=== PATIENT | female | born 1970 | race Caucasian/White ===

== ENCOUNTER → 2019-09-25 15:10 | Outpatient (BNVA) | payer OTHER, SELFPAY | PROVIDERS: Family Provider Family Medicine; PCP Family Medicine; Referring Provider Licensed Practical Nurse; Visit Provider Psychiatry & Neurology Neurology | DX: M51.16 Intervertebral disc disorders with radiculopathy, lumbar region (principal); M79.604 Pain in right leg; M79.605 Pain in left leg | CPT/HCPCS: 95886; 95909 ==

== ENCOUNTER → 2020-01-03 14:34 | Outpatient (BNVA) | payer OTHER, SELFPAY | PROVIDERS: Family Provider Family Medicine; PCP Family Medicine; Visit Provider Obstetrics & Gynecology | DX: Z12.39 Encounter for other screening for malignant neoplasm of breast (principal); Z87.42 Personal history of other diseases of the female genital tract | CPT/HCPCS: 88175 ==

== ENCOUNTER 2020-03-22 10:35 | Outpatient (CLI) | payer OTHER, SELFPAY ==
--- NOTE | 2020-03-22 11:00 | MM_ITS ---
WS: [id number] Bilateral screening digital mammogram, 03/22/2020 Clinical Data: screening mammogram Comparison: 08/06/2017, 08/03/2016, 07/22/2015, 12/13/2009, Findings: The breast parenchymal pattern shows fibroglandular tissue. No spiculated masses or clustered calcifi cations are seen. There are no secondary signs of carcinoma. MM/[place] [id number] Impression: 1. Negative bilateral mammogram unchanged. 2. Recommend annual screening mammograms. BIRADS: 1-Negative FOLLOW UP: 1 Year Follow-up The CAD relay checker was used.
== END 2020-03-22 10:36 | disposition home or self-care (01) ==
LOC: RADSHAW 10:41
PROVIDERS: PCP Family Medicine; Visit Provider Obstetrics & Gynecology
DX: Z12.31 Encounter for screening mammogram for malignant neoplasm of breast (principal)
CPT/HCPCS: 77067

== ENCOUNTER 2020-04-12 07:49 | Outpatient (RCR) | payer OTHER, SELFPAY | END 2020-05-06 23:59 | disposition home or self-care (01) | LOC: SPT 07:49 | PROVIDERS: PCP Family Medicine; Visit Provider Family Medicine | DX: M25.512 Pain in left shoulder (principal); M89.8X1 Other specified disorders of bone, shoulder | CPT/HCPCS: 97110; 97162 ==

== ENCOUNTER 2020-05-06 09:48 | Emergency (ER) | payer OTHER, SELFPAY ==
[2020-05-06 09:50] VITALS: BP 133/82; PULSE 66; RESP 20; TEMP 36.3; O2SAT 96; BMI 38.2
--- NOTE | 2020-05-06 10:01 | XRR_ITS ---
PROCEDURE INFORMATION: Exam: XR Lumbosacral Spine, 2 or 3 Views Exam date and time: 05/06/2020 10:29 AM Age: 49 years old Clinical indication: Injury or trauma; Fall; Initial encounter; Blunt trauma (contusions or hematomas); Injury date: 05/05/20; Prior surgery; Surgery type: Gb, hysto, c section TECHNIQUE: Imaging protocol: XR of the lumbosacral spine, 2 or 3 views. COMPARISON: CR Lumbar Spine 2-3 views* [id number] 07/03/2019 11:49 AM FINDINGS: Vertebrae: No acute bony injury or malalignment. Degenerative change. Soft tissues: Unremarkable as visualized. Intraperitoneal space: Status post cholecystectomy. XR/XR lumbar spine 2-3V* [id number] IMPRESSION: No acute bony injury or malalignment.
--- NOTE | 2020-05-06 10:02 | XRR_ITS ---
PROCEDURE INFORMATION: Exam: XR Thoracic Spine, 3 Views Exam date and time: 05/06/2020 10:29 AM Age: 49 years old Clinical indication: Injury or trauma; Fall; Initial encounter; Blunt trauma (contusions or hematomas); Injury date: 05/05/20; Prior surgery; Surgery type: Gb, hysto, c section TECHNIQUE: Imaging protocol: XR of the thoracic spine, 3 views. COMPARISON: CTA Thoracic Aorta [id number] 11/03/2018 8:22 AM FINDINGS: Vertebrae: No acute bony injury or malalignment in the visualized thoracic spine. Degenerative change. Soft tissues: Unremarkable as visualized. Intraperitoneal space: Status post cholecystectomy. XR/XR thoracic spine 3V* [id number] IMPRESSION: No acute bony injury or malalignment in the visualized thoracic spine.
--- NOTE | 2020-05-06 10:06 | W.ED.BACK ---
HPI - Back Pain/Injury General: Chief Complaint: Back Pain/Injury Stated Complaint: FALL/BACK PAIN Time Seen by Provider: 05/06/20 09:51 History of Present Illness: HPI Narrative: Patient arrives complain intermittent to lower back pain. Had fall yesterday and fall day before the one yesterday is going down steps on her wooden deck and she hit her mid back when she slipped carrying feed buckets. Patient has very forearm and does a lot of work said that she is fell last month 3 times going to physical therapy for her shoulder pain that she has in the left shoulder and for her chronic low back pain MD elicited complaint: fall Pertinent past history: prior back pain and recent trauma Onset (ago): day(s) Timing: constant Severity: moderate Similar Symptoms Previously: Yes Quality: aching Location: lumbar spine and thoracic spine Radiation: none Exacerbating factors: walking Relieving factors: immobilization Context: fall Associated symptoms: Reports other (Complains about left shoulder pain but she is able to use arm without difficulty); Deny abdominal pain, chills, fever(s), nausea or vomiting Work related injury: No Review of Systems Const: Denies: fever(s), chills or body aches Eyes: Denies: change in vision or blurry vision ENMT: Denies: throat pain or nasal congestion Card: Denies: chest pain or dyspnea on exertion Resp: Denies: dyspnea, productive cough or non-productive cough GI: Denies: abdominal pain, nausea or vomiting Musc: Reports: back pain (Yesterday when she landed on someone steps) and joint pain (Left shoulder); Denies: extremity pain Skin/Breast: Denies: rash Neuro: Denies: headache(s) Psych: Denies: anxiety or depression Aydin/Lymph: Denies: easy bruising PFS ED PFSH: Medical History (Updated 04/22/20 @ 17:47 by Alan Parra MD) Asthma Diagnosed in her 40s managed by as needed albuterol. She denies any intubations or hospitalizations Atypical chest pain Benign essential HTN Chronic liver failure History of fatty liver disease with fibrosis-elevated LFTs. She follows up with a manager social responsibility in [place]. Displacement of lumbar disc with radiculopathy History of endometrial cancer -Questionable history-unsure if it is cervical or endometrial cancer, or even if it was just dysplasia. No history of chemotherapy and radiation. She was told that surgery was sufficient. Records have been requested. Migraines Since her early 20s managed on medication. Mixed hyperlipidemia No pertinent past medical history Denies history of thyroid problems, heart disease, kidney disease. PCP: Dr. Jeter Stage 3 hepatic fibrosis Type 2 diabetes mellitus Diagnosed in her 40s and she states that her last hemoglobin A1c is 6.8 being managed by medication and diet. Surgical History History of cholecystectomy laparoscopic procedure done in her 40s S/P section x 2----> 1997 and 2000 S/P total hysterectomy and bilateral salpingo-oophorectomy (~2009) EYAD with BSO for ? Cervical/endometrial dysplasia/cancer; performed in [place] by a Dr. Honeycutt---> records have been requested Status post tubal ligation Tubal ligation performed at time of second in 2000. 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 Physical Exam Const: COMMON NORMALS: no acute distress, average body habitus and patient oriented x3 HENMT: COMMON NORMALS: normocephalic HEAD & SCALP: normal to inspection and normocephalic FACE & SINUS: normal facial exam Eye: COMMON NORMALS: conjunctivae normal GENERAL EYE: appearance normal, both eyes and all related structures CONJUNCTIVA: Yes conjunctivae normal Neck/C-Spine: COMMON NORMALS: no JVD Chest: COMMONS NORMALS: normal inspection of the chest Resp: COMMON NORMALS: normal respiratory effort and clear to auscultation bilaterally AUSCULTATION: clear to auscultation bilaterally Cardio: COMMON NORMALS: no JVD, regular rate and regular rhythm RATE: regular rate RHYTHM: regular rhythm GI: COMMON NORMALS: Normal to inspection, nondistended, normoactive bowel sounds present Back/Pelvis: THORACIC SPINE/UPPER BACK: Yes thoracic spinal tenderness (Abrasion to mid thoracic spine area no swelling no bruising noted) LUMBAR SPINE/LOWER BACK: Yes normal to inspection and Yes lumbar ROM normal Extremity: COMMON NORMALS: normal to inspection and full ROM LEFT UPPER EXTREMITY: Yes shoulder joint (Has full range of motion distal neurovascular is intact) Neuro: COMMON NORMALS: patient oriented x3 Course Vital Signs: Vital signs: Vital Signs Temperature 97.3 F L 05/06/20 09:50 Pulse Rate 66 05/06/20 09:50 Respiratory Rate 20 H 05/06/20 09:50 Blood Pressure 133/82 05/06/20 09:50 Pulse Oximetry 96 05/06/20 09:50 Discharge Plan Discharge Prescriptions: No Action polyethylene glycol 3350 [Miralax] 17 gram powder in packet 17 gm PO DAILY RF: 0 albuterol sulfate 90 mcg/actuation aerosol powdr breath activated 2 inh INHALATION Q6H PRNRF: 0 rosuvastatin 40 mg tablet 40 mg PO DAILY RF: 0 topiramate 25 mg tablet 75 mg PO DAILY RF: 0 omeprazole 40 mg capsule,delayed release(DR/EC) 40 mg PO BID RF: 0 zolmitriptan [Zomig] 5 mg tablet 5 mg PO Q2H PRNRF: 0 Adult Probiotic 3 billion cell capsule 3,000 mmu cells PO DAILY RF: 0 minocycline 100 mg capsule 100 mg PO BID PRNRF: 0 nitroglycerin [Nitrostat] 0.4 mg tablet, sublingual 0.4 mg SUBLINGUAL Q5M PRNRF: 0 cyclobenzaprine 10 mg tablet 10 mg PO TID PRNRF: 0 metformin 500 mg tablet 1,000 mg PO DAILY RF: 0 zonisamide [Zonegran] 100 mg capsule 300 mg PO DAILY RF: 0 cholecalciferol (vitamin D3) 100 mcg (4,000 unit) capsule 100 mcg PO DAILY RF: 0 vitamin E 200 unit capsule 200 unit PO DAILY RF: 0 losartan 25 mg tablet 25 mg PO DAILY RF: 0 Replens Gel VAGINAL PRNRF: 0 ondansetron HCl [Zofran] 4 mg tablet 4 mg PO Q6H PRNRF: 0 promethazine 25 mg tablet 25 mg PO Q6H PRNRF: 0 Zyrtec 10 mg tablet,disintegrating 10 mg PO DAILY RF: 0 valacyclovir [Valtrex] 500 mg tablet 500 mg PO TID PRNRF: 0 metoprolol succinate 25 mg tablet extended release 24 hr 25 mg PO DAILY Qty: 90 RF: 3 ranolazine 500 mg tablet extended release 12 hr 500 mg PO BID Qty: 180 RF: 3 Coding Level of Care Code ED Deputy Sheriff Lieutenant for Catalina Sorto
[2020-05-06] MEDS: ketorolac 60 mg/2 mL INJ IM (10:33)
[2020-05-06 10:40] VITALS: BP 158/91; PULSE 56; RESP 18; O2SAT 96
--- NOTE | 2020-05-06 12:32 | PC.NURSE ---
Read and agree with assessment.
== END 2020-05-06 10:40 | disposition home or self-care (01) ==
PROVIDERS: Emergency Provider Nurse Practitioner Family; PCP Family Medicine
DX: M54.9 Dorsalgia, unspecified (principal); I10 Essential (primary) hypertension; Z85.89 Personal history of malignant neoplasm of other organs and systems; E78.2 Mixed hyperlipidemia; E11.9 Type 2 diabetes mellitus without complications; Z87.891 Personal history of nicotine dependence
CPT/HCPCS: 12345; 72072; 72100; 96372; 99281; 99283; J1885

== ENCOUNTER 2020-05-07 06:00 | Outpatient (RCR) | payer OTHER, SELFPAY | END 2020-06-05 23:59 | disposition home or self-care (01) | LOC: SPT 06:00 | PROVIDERS: PCP Family Medicine; Visit Provider Family Medicine | DX: M25.512 Pain in left shoulder (principal); M89.8X1 Other specified disorders of bone, shoulder | CPT/HCPCS: 97110 ==

== ENCOUNTER 2020-06-06 06:00 | Outpatient (RCR) | payer OTHER, SELFPAY | END 2020-07-06 23:59 | disposition home or self-care (01) | LOC: SPT 06:00 | PROVIDERS: PCP Family Medicine; Visit Provider Family Medicine | DX: M25.512 Pain in left shoulder (principal) | CPT/HCPCS: 97110 ==

== ENCOUNTER → 2020-07-28 12:11 | Outpatient (BNVA) | payer OTHER, SELFPAY | PROVIDERS: PCP Family Medicine; Visit Provider Emergency Medicine | DX: Z20.828 Contact with and (suspected) exposure to other viral communicable diseases (principal) | CPT/HCPCS: 87635 ==

== ENCOUNTER 2020-08-05 10:45 | Emergency (ER) | payer OTHER, SELFPAY ==
[2020-08-05 11:21] VITALS: BP 139/86; PULSE 54; RESP 18; TEMP 36.5; O2SAT 100; BMI 36.4
--- NOTE | 2020-08-05 12:27 | CT_ITS ---
WS: [id number] CTA OF THE CHEST WITH PULMONARY EMBOLISM PROTOCOL TECHNIQUE: High-resolution contrast enhanced CTA of the chest with coronal and sagittal reformatted i mages with pulmonary embolism protocol. MIP images are also reviewed. CLINICAL INFORMATION: SOB COVID + COMPARISON: None. DLP: 553.[address] scans at [facility] use at least one of these dose optimization techniques: automat ed exposure control; mA and/or kV adjustment per patient size (includes targeted exams where dose is matched to clinical indication); or iterative reconstruction. FINDINGS: Proximal main pulmonary arteries are patent. Normal segmental and subsegmental pulmonary arteries. No evidence of pulmonary embolus. Normal caliber thoracic aorta. Slight atelectasis/groundglass infiltr ates in the lung bases. No mediastinal or hilar lymphadenopathy. No axillary lymphadenopathy. Cholecystotomy clips. CT/CT angio chest PE protcl [id number] IMPRESSION: 1. No evidence for pulmonary embolus. 2. Slight hazy atelectasis/groundglass infiltrates in the lung bases. 3. No focal pneumonia.
[2020-08-05] MEDS: iohexol 350 mg/mL 100 mL Btl IV (12:55)
[2020-08-05 12:58] LABS: Basophils % 0.4 %; Eosinophils # 0.2 10^3/uL (0.0-0.8); Hematocrit 43.5 % (37.0-47.0); Hemoglobin 13.9 g/dL (11.5-15.3); Lymphocytes # 2.1 10^3/uL (0.8-4.8); Lymphocytes % 30.3 %; Mean Corpuscular Hemoglobin 29.1 pg (28.0-34.0); Mean Corpuscular Volume 91.2 fL (81-99); Mean Platelet Volume 10.4 fL (7.4-10.4); Monocytes # 0.5 10^3/uL (0.2-0.9); Monocytes % 7.3 %; Neutrophils # 4.11 10^3/uL (1.8-7.7); Neutrophils % 58.4 %; Nucleated Red Blood Cells % 0 %; Platelet Count 203 10^3/cmm (130-400); Red Blood Count 4.77 10^6/uL (4.1-5.3); Red Cell Distribution Width 13.1 % (12.1-15.1)
--- NOTE | 2020-08-05 13:13 | ECG_ITS ---
[facility] Test Date: 2020-08-05 Pat Name: Jaiden Vu Department: Room: Gender: Female [employer]: : 1970 Requested By: Malena Youssef Order Number: [id number] Reading MD: KATIA LEE Measurements Intervals [place] Rate: 46 P: 33 DE: 179 QRS: 16 QRSD: 107 T: 23 QT: 464 QTc: 406 Interpretive Statements SINUS BRADYCARDIA Compared to ECG 11/03/2018 07:26:02 Sinus rhythm no longer present Incomplete right bundle-branch block no longer present Myocardial infarct finding no longer present Electronically Signed On 08-05-2020 17:24:04 [employer] DEVELOPER by KATIA LEE [id number]
--- NOTE | 2020-08-05 13:15 | W.ED.COVID ---
Documented by User: Malena Rolandjulieta 08/05/20 16:43 HPI - COVID General: Chief Complaint: COVID symptoms Stated Complaint: Sent from /pulmonary embolism/Sob/COVID + Time Seen by Provider: 08/05/20 11:24 Source: patient Mode of arrival: ambulatory Limitations: no limitations Triage information: Has fever, cough or shortness of breath. Exposure to COVID + person last 14 days History of Present Illness: HPI Narrative: 49-year-old female patient presents to the emergency department stating she is positive for Covid. Patient states she has been symptomatic for about a week and a half. Patient states she has shortness of breath that has worsened over the last 3 to 4 days. Patient states she has had chest pain that is also worsened over the last 3 to 4 days. Patient states she had angioplasty years ago and is on blood thinners because of this. Patient denies any fever. Patient denies any nausea vomiting diarrhea. Patient denies any abdominal pain or urinary symptoms. Patient states her shortness of breath is worse with exertion. MD complaint: known COVID positive Prior covid testing: yes, results known COVID 19 common symptoms: positive cough, non-productive cough, dyspnea and body aches; negative fever(s), chills, productive cough, headache(s), throat pain, nausea, vomiting or diarrhea COVID 19 other sytmptoms: positive chest pressure, chest pain and pleuritic pain; negative respiratory distress Onset (ago): day(s) (4) Severity: mild Pertinent comorbid conditions: diabetes, hypertension, heart disease and COPD/respiratory disease Treatment prior to arrival: none COVID Results: SARS-CoV-2 RNA (RT-PCR) Detected (NOT DETECTED) A 07/28/20 12:11 07/28/20 Review of Systems Const: Reports: body aches; Denies: fever(s) or chills Eyes: Denies: change in vision ENMT: Denies: throat pain, uvular edema, enlarged tonsils or odynophagia Card: Reports: chest pain Resp: Reports: dyspnea, non-productive cough, pain on inspiration and chest congestion; Denies: productive cough, wheezing or stridor GI: Denies: abdominal pain, nausea, vomiting, diarrhea or constipation : Denies: flank pain or difficulty voiding Musc: Denies: neck pain, back pain, extremity pain or extremity swelling Skin/Breast: Denies: rash, pruritus or erythema Neuro: Denies: headache(s), numbness in extremities, weakness in extremities, dizziness or vertigo Psych: Denies: suicidal ideation or homicidal ideation PFS ED PFSH: Medical History Asthma Diagnosed in her 40s managed by as needed albuterol. She denies any intubations or hospitalizations Atypical chest pain Benign essential HTN Chronic liver failure History of fatty liver disease with fibrosis-elevated LFTs. She follows up with a fire protection equipment technician in [place]. Displacement of lumbar disc with radiculopathy History of endometrial cancer -Questionable history-unsure if it is cervical or endometrial cancer, or even if it was just dysplasia. No history of chemotherapy and radiation. She was told that surgery was sufficient. Records have been requested. Migraines Since her early 20s managed on medication. Mixed hyperlipidemia No pertinent past medical history Denies history of thyroid problems, heart disease, kidney disease. PCP: Dr. Jeter Stage 3 hepatic fibrosis Type 2 diabetes mellitus Diagnosed in her 40s and she states that her last hemoglobin A1c is 6.8 being managed by medication and diet. Surgical History History of cholecystectomy laparoscopic procedure done in her 40s S/P section x 2----> 1997 and 2000 S/P total hysterectomy and bilateral salpingo-oophorectomy (~2009) EYAD with BSO for ? Cervical/endometrial dysplasia/cancer; performed in [place] by a Dr. Honeycutt---> records have been requested Status post tubal ligation Tubal ligation performed at time of second in 2000. 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-[employer] Physical Exam Const: COMMON NORMALS: no acute distress, average body habitus, patient oriented x3, no limitations, healthy appearing, alert and well nourished GENERAL APPEARANCE: cooperative, comfortable, well kempt and well developed; not ill appearing ORIENTATION/CONSCIOUSNESS: Yes awake, Yes oriented to person, Yes oriented to place and Yes oriented to time HENMT: COMMON NORMALS: normocephalic, atraumatic, external ears normal, EAC's normal, TM's normal bilaterally, Normal external nose present and Normal nasal mucous membranes and turbinates present HEAD & SCALP: normocephalic and atraumatic FACE & SINUS: normal facial exam, sinuses nontender and face symmetric NOSE: Normal external nose present, Normal nares present, Normal nasal mucous membranes and turbinates present, No nasal discharge present and Abnormal external nose present EXTERNAL EAR: Yes external ears normal and Yes mastoids normal EXTERNAL AUDITORY CANAL: EAC's normal TYMPANIC MEMBRANE: TM's normal bilaterally MOUTH: Normal oral and palatal mucosa present, lip normal, tongue normal and Normal salivary glands and ducts present THROAT: no uvular edema Eye: COMMON NORMALS: Equal, round and reactive pupils present, EOMs intact bilaterally, conjunctivae normal, no scleral icterus and no papilledema GENERAL EYE: appearance normal, both eyes and all related structures EYELID: eyelids normal CONJUNCTIVA: Yes conjunctivae normal SCLERA: sclerae normal CORNEA: Yes corneas normal PUPIL: Yes Equal, round and reactive pupils present DIRECT OPHTHALMOSCOPY: Yes no papilledema Neck/C-Spine: COMMON NORMALS: full ROM, no lymphadenopathy, supple, no meningeal signs, no JVD and Thyroid normal GENERAL: Yes normal visual inspection and Yes trachea midline THYROID: Thyroid normal CERVICAL SPINE: Yes cervical ROM normal Lymph: LYMPHATIC: no lymphadenopathy noted and no lymphedema noted Chest: COMMONS NORMALS: normal inspection of the chest and normal palpation of entire chest wall Resp: COMMON NORMALS: normal respiratory effort, No retractions, No use of accessory muscles and clear to auscultation bilaterally EFFORT & INSPECTION: Yes able to speak in complete sentences, Yes symmetric chest movement and No tachypneic AUSCULTATION: clear to auscultation bilaterally Cardio: COMMON NORMALS: no JVD, regular rate (lauren normal for patient) and regular rhythm RHYTHM: regular rhythm GI: COMMON NORMALS: Normal to inspection, nondistended, normoactive bowel sounds present, Soft to palpation, non-tender, No hepatosplenomegaly present, no masses and no bruits INSPECTION: Yes normal to inspection AUSCULTATION: Yes normoactive bowel sounds PALPATION: Yes Soft to palpation and Yes No hepatosplenomegaly present PERCUSSION: normal to percussion RECTAL EXAM: deferred : COMMON NORMALS: Yes no CVA tenderness, Yes normal external appearance, Yes normal appearance of the vagina, Yes normal appearance of the cervix, Yes normal bimanual exam, Yes No adnexal tenderness and Yes no masses BLADDER/KIDNEY EXAM: Yes no CVA tenderness BIMANUAL EXAM - VAGINA & UTERUS: Yes normal bimanual exam Back/Pelvis: COMMON NORMALS: no CVA tenderness, thoracic and lumbar spine normal to inspection, no thoracic nor lumbar tenderness and thoraco-lumbar ROM normal THORACIC SPINE/UPPER BACK: Yes normal to inspection LUMBAR SPINE/LOWER BACK: Yes normal to inspection Extremity: COMMON NORMALS: normal to inspection, full ROM and capillary refill normal GENERAL: Yes normal exam except as noted Neuro: COMMON NORMALS: patient oriented x3 SENSORIUM/ORIENTATION: Yes alert, Yes oriented to person, Yes oriented to place and Yes oriented to time MENINGEAL SIGNS: Yes no meningeal signs CRANIAL NERVES: Yes CN normal except as noted SPEECH: speech normal GAIT: Yes Normal gait present SENSORY EXAM: Yes extremities MOTOR EXAM: 5/5 motor strength present throughout Psych: COMMON NORMALS: mental status grossly normal, Normal thought process present, cooperative, normal affect, speech normal, activity/motor behavior normal, denies hallucinations, denies homicidal ideation and denies suicidal ideation APPEARANCE: Yes grossly normal and Yes well kempt ATTITUDE: Yes calm ACTIVITY/MOTOR BEHAVIOR: Yes appropriate eye contact SPEECH: Yes normal speech THOUGHT PROCESS: Normal thought process present THOUGHT CONTENT: Yes Normal thought content present ATTENTION/CONCENTRATION: Yes attention grossly intact MEMORY/COGNITION: Yes memory grossly intact INSIGHT: Good insight present (Psych) JUDGEMENT: Good judgement present (Psych) Skin: COMMON NORMALS: no rashes or lesions noted, no wounds, turgor normal, no jaundice, no petechiae and no mottling GENERAL SKIN EXAM: no rashes or lesions noted and turgor normal Course Vital Signs: Vital signs: Vital Signs Temperature 97.7 F 08/05/20 11:21 Pulse Rate 82 08/05/20 17:02 Respiratory Rate 20 H 08/05/20 17:02 Blood Pressure 141/92 08/05/20 14:07 Pulse Oximetry 99 08/05/20 17:02 MDM - COVID MDM Narrative: Medical decision making narrative: Patient is well-appearing nontoxic and in no acute distress. Patient presents with increased shortness of breath and was sent here from her primary care physician's office for evaluation of possible PE. Patient does have known Covid. Patient presents without any evidence of respiratory distress. Patient is not tachypneic patient's pulse ox is 98 to 100% on room air. I did go ahead and obtain a CT for PE protocol results are as follows Patient: Jaiden Vu #: [id number] : 1970Acct#:[id number] Age/Sex: 49 / FADM Date: 08/05/20 [facility] Attending Dr: Ordering Provider/Ordering MD: Malena Youssef NP Date of Service: 08/05/20 Procedure(s): CT angio chest PE protcl [id number] Accession Number(s): [id number] Report Number: [id number] WS: [id number] CTA OF THE CHEST WITH PULMONARY EMBOLISM PROTOCOL TECHNIQUE: High-resolution contrast enhanced CTA of the chest with coronal and sagittal reformatted images with pulmonary embolism protocol. MIP images are also reviewed. CLINICAL INFORMATION: SOB COVID + COMPARISON: None. DLP: 553.[address] scans at [facility] use at least one of these dose optimization techniques: automated exposure control; mA and/or kV adjustment per patient size (includes targeted exams where dose is matched to clinical indication); or iterative reconstruction. FINDINGS: Proximal main pulmonary arteries are patent. Normal segmental and subsegmental pulmonary arteries. No evidence of pulmonary embolus. Normal caliber thoracic aorta. Slight atelectasis/groundglass infiltrates in the lung bases. No mediastinal or hilar lymphadenopathy. No axillary lymphadenopathy. Cholecystotomy clips. CT/CT angio chest PE protcl [id number] IMPRESSION: 1. No evidence for pulmonary embolus. 2. Slight hazy atelectasis/groundglass infiltrates in the lung bases. 3. No focal pneumonia. Patient was given Decadron IV while here in the emergency department. Patient's labs do not reveal any concerning findings patient's ferritin level was a little elevated but I would suspect this with Covid. Given patient's physical exam findings patient is not hypoxic patient is not in any respiratory distress. Patient is maintained at 99 to 100% on room air. Patient was noted to be slightly bradycardia while resting in bed patient states this is normal for her. I did get a EKG which did not reveal any ST elevation or depression there was no concerning findings. Patient's troponin was negative this making cardiac ischemia unlikely I did only obtain 1 troponin as patient has had this pain for 4 days. I will plan on sending patient home with continuous pillowcase cutter follow-up as well as albuterol inhaler and Decadron for 7 days. I did discuss with patient to check her pulse ox at home I did send her home with a home pulse ox monitor discussed with patient return precautions as well as home care patient is medically cleared and appropriate for discharge Differential Diagnosis: Differential diagnosis: Likely COVID 19, influenza, other viral infection, bacterial infection, pneumonia, copd exacerbation and pulmonary embolism Lab Data: Labs: Lab Results 08/05/20 08/05/20 08/05/20 Range/Units 12:44 12:44 12:44 WBC 7.0 (4.0-10.0) 10^3/ uL RBC 4.77 (4.1-5.3) 10^6/u L Hgb 13.9 (11.5-15.3) g/dL Hct 43.5 (37.0-47.0) % MCV 91.2 (81-99) fL MCH 29.1 (28.0-34.0) pg MCHC 32.0 (30.0-36.0) g/dL RDW 13.1 (12.1-15.1) % Plt Count 203 (130-400) 10^3/c mm MPV 10.4 (7.4-10.4) fL Neut % (Auto) 58.4 % Lymph % (Auto) 30.3 % [place] % (Auto) 7.3 % Eos % (Auto) 3.0 % Baso % (Auto) 0.4 % Neut # (Auto) 4.11 (1.8-7.7) 10^3/u L Lymph # (Auto) 2.1 (0.8-4.8) 10^3/u L [place] # (Auto) 0.5 (0.2-0.9) 10^3/u L Eos # (Auto) 0.2 (0.0-0.8) 10^3/u L Baso # (Auto) 0.0 (0.0-0.1) 10^3/u L Nucleated RBC % (a uto) 0 % Nucleated RBCs # 0.0 /100WBC PT 13.40 (12.1-14.9) SECO NDS INR 0.99 (0.8-1.2) APTT 30.1 (23.9-36.7) SECO NDS Sodium 144 (136-145) mmol/L Potassium 3.6 (3.5-5.1) mmol/L Chloride 107 (98-107) mmol/L Carbon Dioxide 24 (22-29) mmol/L Anion Gap 16.6 (5-19) BUN 9 (6-20) mg/dL Creatinine 0.6 (0.5-0.9) mg/dL GFR Calculation 105.4 (90-130) mL/min Glucose 139 H (65-115) mg/dL Calculated Osmolal ity 299 H (285-295) mOsm/k g Calcium 9.3 (8.5-10.5) mg/dL Ferritin 237 H (15-150) ng/mL Total Bilirubin 0.4 (0.15-1.2) mg/dL AST 36 H (0-32) U/L ALT 55 H (0-33) U/L Alkaline Phosphata se 77 (35-105) IU/L Lactate Dehydrogen ase 205 (135-214) U/L Troponin T Gen 5 n g/L (0-10) ng/L Total Protein 6.9 (6.6-8.7) g/dL Albumin 4.2 (3.5-5.2) g/dL Globulin 2.7 (1.3-4.6) g/dL Urine Color (Yellow) Urine Appearance (CLEAR) Urine pH (5-7) Ur Specific Gravit y (1.005-1.030) Urine Protein (Negative) Urine Glucose (UA) (Normal) Urine Ketones (Negative) Urine Blood (Negative) Urine Nitrate (Negative) Urine Bilirubin (Negative) Urine Urobilinogen (Negative) mg/dL Ur Leukocyte ase (Negative) 08/05/20 08/05/20 Range/Units 12:44 15:20 WBC (4.0-10.0) 10^3/ uL RBC (4.1-5.3) 10^6/u L Hgb (11.5-15.3) g/dL Hct (37.0-47.0) % MCV (81-99) fL MCH (28.0-34.0) pg MCHC (30.0-36.0) g/dL RDW (12.1-15.1) % Plt Count (130-400) 10^3/c mm MPV (7.4-10.4) fL Neut % (Auto) % Lymph % (Auto) % [place] % (Auto) % Eos % (Auto) % Baso % (Auto) % Neut # (Auto) (1.8-7.7) 10^3/u L Lymph # (Auto) (0.8-4.8) 10^3/u L [place] # (Auto) (0.2-0.9) 10^3/u L Eos # (Auto) (0.0-0.8) 10^3/u L Baso # (Auto) (0.0-0.1) 10^3/u L Nucleated RBC % (a uto) % Nucleated RBCs # /100WBC PT (12.1-14.9) SECO NDS INR (0.8-1.2) APTT (23.9-36.7) SECO NDS Sodium (136-145) mmol/L Potassium (3.5-5.1) mmol/L Chloride (98-107) mmol/L Carbon Dioxide (22-29) mmol/L Anion Gap (5-19) BUN (6-20) mg/dL Creatinine (0.5-0.9) mg/dL GFR Calculation (90-130) mL/min Glucose (65-115) mg/dL Calculated Osmolal ity (285-295) mOsm/k g Calcium (8.5-10.5) mg/dL Ferritin (15-150) ng/mL Total Bilirubin (0.15-1.2) mg/dL AST (0-32) U/L ALT (0-33) U/L Alkaline Phosphata se (35-105) IU/L Lactate Dehydrogen ase (135-214) U/L Troponin T Gen 5 n g/L 6 (0-10) ng/L Total Protein (6.6-8.7) g/dL Albumin (3.5-5.2) g/dL Globulin (1.3-4.6) g/dL Urine Color Yellow (Yellow) Urine Appearance Clear (CLEAR) Urine pH 7 (5-7) Ur Specific Gravit y 1.005 (1.005-1.030) Urine Protein Neg (Negative) Urine Glucose (UA) Norm (Normal) Urine Ketones Negative (Negative) Urine Blood Neg (Negative) Urine Nitrate Negative (Negative) Urine Bilirubin Neg (Negative) Urine Urobilinogen Norm (Negative) mg/dL Ur Leukocyte ase Negative (Negative) COVID Results: SARS-CoV-2 RNA (RT-PCR) Detected (NOT DETECTED) A 07/28/20 12:11 07/28/20 Discharge Plan Discharge Patient Disposition: Home Clinical Impression: Pneumonia due to COVID-19 virus Prescriptions: New Decadron 6 mg tablet 6 mg PO DAILY 7 Days RF: 0 No Action polyethylene glycol 3350 [Miralax] 17 gram powder in packet 17 gm PO DAILY RF: 0 albuterol sulfate 90 mcg/actuation aerosol powdr breath activated 2 inh INHALATION Q6H PRN (Reason: Shortness Of Breath) RF: 0 topiramate 25 mg tablet 75 mg PO DAILY RF: 0 omeprazole 40 mg capsule,delayed release(DR/EC) 40 mg PO BID RF: 0 zolmitriptan [Zomig] 5 mg tablet 5 mg PO Q2H PRN (Reason: unknown) RF: 0 Adult Probiotic 3 billion cell capsule 3,000 mmu cells PO DAILY RF: 0 nitroglycerin [Nitrostat] 0.4 mg tablet, sublingual 0.4 mg SUBLINGUAL Q5M PRN (Reason: chest pains) RF: 0 metformin 500 mg tablet 1,000 mg PO DAILY RF: 0 cholecalciferol (vitamin D3) 100 mcg (4,000 unit) capsule 100 mcg PO DAILY RF: 0 vitamin E 200 unit capsule 200 unit PO DAILY RF: 0 losartan 25 mg tablet 25 mg PO DAILY RF: 0 Replens Gel See Rx Instructions .ROUTE .COMPLEX RF: 0 ondansetron HCl [Zofran] 4 mg tablet 4 mg PO Q6H PRN (Reason: n/v) RF: 0 promethazine 25 mg tablet 25 mg PO Q6H PRN (Reason: n/v) RF: 0 Zyrtec 10 mg tablet,disintegrating 10 mg PO DAILY RF: 0 valacyclovir [Valtrex] 500 mg tablet 500 mg PO TID PRN (Reason: unknown) RF: 0 metoprolol succinate 25 mg tablet extended release 24 hr 25 mg PO DAILY Qty: 90 RF: 3 ranolazine 500 mg tablet extended release 12 hr 500 mg PO BID Qty: 180 RF: 3 Discharge Orders: Discharge Order (Routine); Ordered 08/05/20 Ordered By: Malena Youssef Referrals: Angelito eJter MD [Primary Care Provider] - Discharge Diet: Advance as tolerated Discharge Activity: Increase activity as tolerated Activity Restrictions/Additional Instructions: Please take meds as prescribed Please check pulse ox if feeling short of breath Please return to ER if below 90% Someone will call you tomorrow to check up on you Return to ER with any worsening of symptoms You may not return to work until 08/09/2020 Stand Alone Forms: Work/School Release Coding Level of Care Code ED 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 She denies any intubations or hospitalizations Atypical chest pain Benign essential HTN Chronic liver failure History of fatty liver disease with fibrosis-elevated LFTs. She follows up with a fire protection equipment technician in [place]. Displacement of lumbar disc with radiculopathy History of endometrial cancer -Questionable history-unsure if it is cervical or endometrial cancer, or even if it was just dysplasia. No history of chemotherapy and radiation. She was told that surgery was sufficient. Records have been requested. Migraines Since her early 20s managed on medication. Mixed hyperlipidemia No pertinent past medical history Denies history of thyroid problems, heart disease, kidney disease. PCP: Dr. Jeter Stage 3 hepatic fibrosis Type 2 diabetes mellitus Diagnosed in her 40s and she states that her last hemoglobin A1c is 6.8 being managed by medication and diet. Surgical History History of cholecystectomy laparoscopic procedure done in her 40s S/P section x 2----> 1997 and 2000 S/P total hysterectomy and bilateral salpingo-oophorectomy (~2009) EYAD with BSO for ? Cervical/endometrial dysplasia/cancer; performed in [place] by a Dr. Honeycutt---> records have been requested Status post tubal ligation Tubal ligation performed at time of second in 2000. 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 Agree with assessment and plan. Lab Data: Labs: Lab Results 08/05/20 08/05/20 08/05/20 Range/Units 12:44 12:44 12:44 WBC 7.0 (4.0-10.0) 10^3/ uL RBC 4.77 (4.1-5.3) 10^6/u L Hgb 13.9 (11.5-15.3) g/dL Hct 43.5 (37.0-47.0) % MCV 91.2 (81-99) fL MCH 29.1 (28.0-34.0) pg MCHC 32.0 (30.0-36.0) g/dL RDW 13.1 (12.1-15.1) % Plt Count 203 (130-400) 10^3/c mm MPV 10.4 (7.4-10.4) fL Neut % (Auto) 58.4 % Lymph % (Auto) 30.3 % [place] % (Auto) 7.3 % Eos % (Auto) 3.0 % Baso % (Auto) 0.4 % Neut # (Auto) 4.11 (1.8-7.7) 10^3/u L Lymph # (Auto) 2.1 (0.8-4.8) 10^3/u L [place] # (Auto) 0.5 (0.2-0.9) 10^3/u L Eos # (Auto) 0.2 (0.0-0.8) 10^3/u L Baso # (Auto) 0.0 (0.0-0.1) 10^3/u L Nucleated RBC % (a uto) 0 % Nucleated RBCs # 0.0 /100WBC PT 13.40 (12.1-14.9) SECO NDS INR 0.99 (0.8-1.2) APTT 30.1 (23.9-36.7) SECO NDS Sodium 144 (136-145) mmol/L Potassium 3.6 (3.5-5.1) mmol/L Chloride 107 (98-107) mmol/L Carbon Dioxide 24 (22-29) mmol/L Anion Gap 16.6 (5-19) BUN 9 (6-20) mg/dL Creatinine 0.6 (0.5-0.9) mg/dL GFR Calculation 105.4 (90-130) mL/min Glucose 139 H (65-115) mg/dL Calculated Osmolal ity 299 H (285-295) mOsm/k g Calcium 9.3 (8.5-10.5) mg/dL Ferritin 237 H (15-150) ng/mL Total Bilirubin 0.4 (0.15-1.2) mg/dL AST 36 H (0-32) U/L ALT 55 H (0-33) U/L Alkaline Phosphata se 77 (35-105) IU/L Lactate Dehydrogen ase 205 (135-214) U/L Troponin T Gen 5 n g/L (0-10) ng/L Total Protein 6.9 (6.6-8.7) g/dL Albumin 4.2 (3.5-5.2) g/dL Globulin 2.7 (1.3-4.6) g/dL Urine Color (Yellow) Urine Appearance (CLEAR) Urine pH (5-7) Ur Specific Gravit y (1.005-1.030) Urine Protein (Negative) Urine Glucose (UA) (Normal) Urine Ketones (Negative) Urine Blood (Negative) Urine Nitrate (Negative) Urine Bilirubin (Negative) Urine Urobilinogen (Negative) mg/dL Ur Leukocyte ase (Negative) 08/05/20 08/05/20 Range/Units 12:44 15:20 WBC (4.0-10.0) 10^3/ uL RBC (4.1-5.3) 10^6/u L Hgb (11.5-15.3) g/dL Hct (37.0-47.0) % MCV (81-99) fL MCH (28.0-34.0) pg MCHC (30.0-36.0) g/dL RDW (12.1-15.1) % Plt Count (130-400) 10^3/c mm MPV (7.4-10.4) fL Neut % (Auto) % Lymph % (Auto) % [place] % (Auto) % Eos % (Auto) % Baso % (Auto) % Neut # (Auto) (1.8-7.7) 10^3/u L Lymph # (Auto) (0.8-4.8) 10^3/u L [place] # (Auto) (0.2-0.9) 10^3/u L Eos # (Auto) (0.0-0.8) 10^3/u L Baso # (Auto) (0.0-0.1) 10^3/u L Nucleated RBC % (a uto) % Nucleated RBCs # /100WBC PT (12.1-14.9) SECO NDS INR (0.8-1.2) APTT (23.9-36.7) SECO NDS Sodium (136-145) mmol/L Potassium (3.5-5.1) mmol/L Chloride (98-107) mmol/L Carbon Dioxide (22-29) mmol/L Anion Gap (5-19) BUN (6-20) mg/dL Creatinine (0.5-0.9) mg/dL GFR Calculation (90-130) mL/min Glucose (65-115) mg/dL Calculated Osmolal ity (285-295) mOsm/k g Calcium (8.5-10.5) mg/dL Ferritin (15-150) ng/mL Total Bilirubin (0.15-1.2) mg/dL AST (0-32) U/L ALT (0-33) U/L Alkaline Phosphata se (35-105) IU/L Lactate Dehydrogen ase (135-214) U/L Troponin T Gen 5 n g/L 6 (0-10) ng/L Total Protein (6.6-8.7) g/dL Albumin (3.5-5.2) g/dL Globulin (1.3-4.6) g/dL Urine Color Yellow (Yellow) Urine Appearance Clear (CLEAR) Urine pH 7 (5-7) Ur Specific Gravit y 1.005 (1.005-1.030) Urine Protein Neg (Negative) Urine Glucose (UA) Norm (Normal) Urine Ketones Negative (Negative) Urine Blood Neg (Negative) Urine Nitrate Negative (Negative) Urine Bilirubin Neg (Negative) Urine Urobilinogen Norm (Negative) mg/dL Ur Leukocyte ase Negative (Negative) COVID Results: SARS-CoV-2 RNA (RT-PCR) Detected (NOT DETECTED) A 07/28/20 12:11 07/28/20 Discharge Plan Discharge Patient Disposition: Home Clinical Impression: Pneumonia due to COVID-19 virus Prescriptions: New Decadron 6 mg tablet 6 mg PO DAILY 7 Days RF: 0 No Action polyethylene glycol 3350 [Miralax] 17 gram powder in packet 17 gm PO DAILY RF: 0 albuterol sulfate 90 mcg/actuation aerosol powdr breath activated 2 inh INHALATION Q6H PRN (Reason: Shortness Of Breath) RF: 0 topiramate 25 mg tablet 75 mg PO DAILY RF: 0 omeprazole 40 mg capsule,delayed release(DR/EC) 40 mg PO BID RF: 0 zolmitriptan [Zomig] 5 mg tablet 5 mg PO Q2H PRN (Reason: unknown) RF: 0 Adult Probiotic 3 billion cell capsule 3,000 mmu cells PO DAILY RF: 0 nitroglycerin [Nitrostat] 0.4 mg tablet, sublingual 0.4 mg SUBLINGUAL Q5M PRN (Reason: chest pains) RF: 0 metformin 500 mg tablet 1,000 mg PO DAILY RF: 0 cholecalciferol (vitamin D3) 100 mcg (4,000 unit) capsule 100 mcg PO DAILY RF: 0 vitamin E 200 unit capsule 200 unit PO DAILY RF: 0 losartan 25 mg tablet 25 mg PO DAILY RF: 0 Replens Gel See Rx Instructions .ROUTE .COMPLEX RF: 0 ondansetron HCl [Zofran] 4 mg tablet 4 mg PO Q6H PRN (Reason: n/v) RF: 0 promethazine 25 mg tablet 25 mg PO Q6H PRN (Reason: n/v) RF: 0 Zyrtec 10 mg tablet,disintegrating 10 mg PO DAILY RF: 0 valacyclovir [Valtrex] 500 mg tablet 500 mg PO TID PRN (Reason: unknown) RF: 0 metoprolol succinate 25 mg tablet extended release 24 hr 25 mg PO DAILY Qty: 90 RF: 3 ranolazine 500 mg tablet extended release 12 hr 500 mg PO BID Qty: 180 RF: 3 Discharge Orders: Discharge Order (Routine); Ordered 08/05/20 Ordered By: Malena Youssef Referrals: Angelito Jeter MD [Primary Care Provider] - Discharge Diet: Advance as tolerated Discharge Activity: Increase activity as tolerated Activity Restrictions/Additional Instructions: Please take meds as prescribed Please check pulse ox if feeling short of breath Please return to ER if below 90% Someone will call you tomorrow to check up on you Return to ER with any worsening of symptoms You may not return to work until 08/09/2020 Stand Alone Forms: Work/School Release Coding Level of Care Code 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
[2020-08-05 13:18] LABS: INR 0.99 (0.8-1.2)
[2020-08-05 13:21] LABS: Alanine Aminotransferase 55 U/L (0-33); Albumin Level 4.2 g/dL (3.5-5.2); Alkaline Phosphatase 77 IU/L (35-105); Anion Gap 16.6 (5-19); Aspartate Amino Transferase 36 U/L (0-32); Blood Urea Nitrogen 9 mg/dL (6-20); Calcium 9.3 mg/dL (8.5-10.5); Carbon Dioxide 24 mmol/L (22-29); Chloride 107 mmol/L (98-107); Ferritin 237 ng/mL (15-150); Globulin 2.7 g/dL (1.3-4.6); Glomerular Filtration Rate 105.4 mL/min (90-130); Glucose 139 mg/dL (65-115); Lactate Dehydrogenase 205 U/L (135-214); Osmolality Calculated 299 mOsm/kg (285-295); Potassium 3.6 mmol/L (3.5-5.1); Sodium 144 mmol/L (136-145); Total Bilirubin 0.4 mg/dL (0.15-1.2); Total Protein 6.9 g/dL (6.6-8.7)
[2020-08-05 13:27] LABS: Partial Thromboplastin Time 30.1 SECONDS (23.9-36.7)
[2020-08-05 14:05] VITALS: O2SAT 97
[2020-08-05 14:07] VITALS: BP 141/92; PULSE 53; RESP 20; O2SAT 100
[2020-08-05] MEDS: dexamethasone 4 mg/mL INJ 10 MG IVP (14:58)
[2020-08-05 15:29] LABS: Add Urine Microscopic? NO
[2020-08-05 15:31] LABS: Troponin T (5th) Once 6 ng/L (0-10)
[2020-08-05 15:45] LABS: Bilirubin Urine Neg (Negative); Blood Urine Neg (Negative); Glucose Urine UA Norm (Normal); Ketones Urine Negative (Negative); Leukocyte Esterase Urine Negative (Negative); Nitrate Urine Negative (Negative); Protein Urine Neg (Negative); Specific Gravity, Urine 1.005 (1.005-1.030); Urine Appearance Clear (CLEAR); Urine Color Yellow (Yellow); Urobilinogen Urine Norm (Negative); pH Urine 7 (5-7)
[2020-08-05] MEDS: albuterol 8 gm MDI 2 PUFF INHALATION (16:45)
[2020-08-05 17:02] VITALS: PULSE 82; RESP 20; O2SAT 99
--- NOTE | 2020-08-06 11:12 | DCPLANNER ---
natural resources manager was asked to do a follow up phone call with patient. natural resources manager spoke with patient, she stated that she did start her medication that was prescribed to her last night. Stated that her chest pain was a little less, still had some trouble breathing with exertion and that she has some coughing spells. natural resources manager offered to make a follow up appointment for patient for patient with her primary care physician, patient stated not at this time. Patient stated that if she needed a follow up with primary care, that she would make it. Patient did ask lead case manager if lead case manager could call [facility] and let Dr. Parra know that patient was seen in the ED. natural resources manager offered to make a follow up appointment with [facility], patient stated she did not want an appointment scheduled, but if lead case manager could call the clinic and let Dr. Parra know that she was seen in the ER and after looking at her records from the ER, if he thought that she needed to be seen that the clinic could call her and schedule a follow up. natural resources manager called [facility], spoke with Karen, and let her know that patient was seen in the ER and she would like Dr. Parra to be aware that she was seen in the ER and if patient needs to be seen then clinic could call patient.
== END 2020-08-05 17:03 | disposition home or self-care (01) ==
PROVIDERS: Emergency Provider Registered Nurse; PCP Family Medicine
DX: U07.1 COVID-19 (principal); J12.89 Other viral pneumonia; I10 Essential (primary) hypertension; Z85.42 Personal history of malignant neoplasm of other parts of uterus; E78.2 Mixed hyperlipidemia; E11.9 Type 2 diabetes mellitus without complications; Z87.891 Personal history of nicotine dependence
CPT/HCPCS: 12345; 71275; 80053; 81003; 82728; 83615; 84484; 85025; 85610; 85730; 93005; 94640; 96374; 96375; 99283; 99284; J1100; J3535; Q9967

== ENCOUNTER → 2020-09-13 10:04 | Outpatient (BNVA) | payer SELFPAY | PROVIDERS: PCP Family Medicine; Visit Provider Orthopaedic Surgery | DX: M48.062 Spinal stenosis, lumbar region with neurogenic claudication (principal); M47.896 Other spondylosis, lumbar region; M47.897 Other spondylosis, lumbosacral region | CPT/HCPCS: 72120 ==

== ENCOUNTER → 2020-10-25 09:36 | Outpatient (BNVA) | payer OTHER, SELFPAY | PROVIDERS: PCP Family Medicine; Visit Provider Anesthesiology Pain Medicine | DX: M79.18 Myalgia, other site (principal); M48.02 Spinal stenosis, cervical region; M50.20 Other cervical disc displacement, unspecified cervical region; M48.062 Spinal stenosis, lumbar region with neurogenic claudication; M51.16 Intervertebral disc disorders with radiculopathy, lumbar region; M43.16 Spondylolisthesis, lumbar region; M47.27 Other spondylosis with radiculopathy, lumbosacral region | CPT/HCPCS: 20553; 99205; J1030; J3490 ==

== ENCOUNTER → 2020-11-08 12:57 | Outpatient (BNVA) | payer OTHER, SELFPAY | PROVIDERS: PCP Family Medicine; Visit Provider Orthopaedic Surgery | DX: Z20.822 Contact with and (suspected) exposure to COVID-19 (principal) | CPT/HCPCS: 87635 ==

== ENCOUNTER 2020-11-13 09:56 | Inpatient (IN) | payer OTHER, SELFPAY ==
[2020-10-04 09:24] VITALS: BMI 36.2
--- NOTE | 2020-10-04 13:15 | P.ANESASSM_ITS ---
Pre-Anesthetic Assessment Pre-Anesthetic Assessment: Height/Weight: Height 1.65 m Weight 98.883 kg Preop Diagnosis: Spondylolisthesis L$/5 Proposed Procedure: Operation Date: 10/09/20 11:10 Proposed Procedures p Lumbar Fusion L4/5(Not Applicable) - Jorge Reed, DO Was Beta Trent taken within 24 hours: Yes Social: Social History: No alcohol and No tobacco Exam: Pre-Anes Outpt Exam: alert, oriented x 3, clear to auscultation bilaterally and regular rate & rhythm Airway: Submandibular: WNL Cervical ROM: WNL MP: 2 Dentition: Full Pulmonary: Pulmonary: Asthma CV/HEM: CV/HEM: HTN Hepatic: Comments: Liver fibrosis? GI: GI: GERD Metabolic: Metabolic: DM Musc/skel: Musc/skel: Lower Back Pain Neuropsych: Neuropsych: VERGARA Anesthetic Plan: ASA status: 3 Anesthesia: General Risk of > 500 ml blood loss (7ml/kg in children): No PFSH Anesthesia PFSH: Medical History Asthma Diagnosed in her 40s managed by as needed albuterol. She denies any intubations or hospitalizations Atypical chest pain Benign essential HTN Chronic liver failure History of fatty liver disease with fibrosis-elevated LFTs. She follows up with a financial compliance examiner in [place]. Displacement of lumbar disc with radiculopathy History of endometrial cancer -Questionable history-unsure if it is cervical or endometrial cancer, or even if it was just dysplasia. No history of chemotherapy and radiation. She was told that surgery was sufficient. Records have been requested. Migraines Since her early 20s managed on medication. Mixed hyperlipidemia No pertinent past medical history Denies history of thyroid problems, heart disease, kidney disease. PCP: Dr. Jeter Stage 3 hepatic fibrosis Type 2 diabetes mellitus Diagnosed in her 40s and she states that her last hemoglobin A1c is 6.8 being managed by medication and diet. Surgical History History of cholecystectomy laparoscopic procedure done in her 40s S/P section x 2----> 1997 and 2000 S/P total hysterectomy and bilateral salpingo-oophorectomy (~2009) EYAD with BSO for ? Cervical/endometrial dysplasia/cancer; performed in [place] by jay Honeycutt---> records have been requested Status post tubal ligation Tubal ligation performed at time of second in 2000. 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
[2020-11-13] VITALS (24 sets, daily range): BP systolic 90–139; BP diastolic 51–79; PULSE 58–72; RESP 12–22; TEMP 36.3–37.1; O2SAT 95–100
--- NOTE | 2020-11-13 | XR_ITS ---
WS: [id number] Lumbar spine, AP and lateral C-arm fluoroscopy, 11/13/2020 Clinical Data: lumbar fusion Comparison: Lumbar spine, 09/13/2020 Findings: The patient has had a posterior lumbar fusion with bilateral pedicle screws at L4-L5. There is a disc spacer at L4-L5. XR/XR lumbar spine 2-3V* [id number] Impression: Posterior lumbar fusion at L4-L5.
--- NOTE | 2020-11-13 | SCC_ITS ---
Procedure Done: 1. L4/5 Interbody fusion with posterolateral fusion 2. Instrumentation L4/5 3. Cage at L4/5 4. Laminectomy L4 5. use of autograft from same incision 6. allograft 7. Bone marrow aspirate from separate incision in fascia on right iliac wing 4 seconds of fluoroscopic guidance, for a cumulative dose of 79.3 mGy, was provided to Dr. Reed by the radiology department. C-arm images of the lumbar spine were saved for the patient's permanent record. TRAY
[2020-11-13 06:31] LABS: Glucose Point of Care 142 mg/dL (70-110)
[2020-11-13] MEDS: gabapentin 300 mg Capsule PO (06:36)
--- NOTE | 2020-11-13 06:51 | W.PM.OPSUD ---
Surgery/Procedure H&P Update DATE OF PROCEDURE: November 13, 2020 DATE H&P PERFORMED: 11/13/20 H&P UPDATE INFORMATION: I have reviewed H&P completed within last 30 days PREOP DIAGNOSIS: Spondylolisthesis L$/5 PLANNED PROCEDURE: Operation Date: 11/13/20 07:00 Proposed Procedures p Lumbar Fusion L4/5 [id number](Not Applicable) - Jorge Reed DO
--- NOTE | 2020-11-13 06:52 | P.HP_ITS ---
Providers/Chief Complaint Primary Care Provider: Angelito Jeter MD Chief Complaint: spinal stenosis with neurogenic claudication History of Present Illness Details: Established 50 year old female here for follow up after MRI lumbar and cervical spine. Complains of neck and back pain. She states her pain keeps her from sleeping and limits her range of motion. Onset: 4 years Duration: years Characteristics: Severity: 9 - neck 8 low back Location: low back and neck Radiating symptoms: numbness to front and side of thigh, frequent cramping sensation to calves. Left perez-which she states started in late August. Shoulder pain, headaches, weakness to bilateral upper extremities. Aggravating factors: lifting anything , sitting for long periods, standing Alleviating factors: none Neuro deficits: denies tingling, incontinence of bowel/bladder, saddle anesthesia. Prior tx: injections to lumbar with no relief, Physical therapy for back. currently in physical therapy for neck/shoulder pain. External stimulator with no relief. Chiropractor, acupuncture Review of Systems Eyes: Denies: photophobia ENMT: Denies: enlarged tonsils All/Imm: Denies: acute wheezing Medications/Allergies Home Medications Medication Instructions Recorded Confirmed Last Taken Type albuterol sulfate 90 mcg/actuation 2 inh INHALATION Q6H PRN 10/23/19 11/12/20 08/03/20 History breath activated powder inhaler lactobacillus combination no.8 3 3,000 mmu cells PO DAILY 10/23/19 11/12/20 08/04/20 History billion cell capsule omeprazole 40 mg capsule,delayed 40 mg PO BID 10/23/19 11/13/20 11/12/20 History release topiramate 25 mg tablet 75 mg PO DAILY tab 10/23/19 11/13/20 11/12/20 History metoprolol succinate 25 mg 25 mg PO DAILY #90 tab 12/06/19 11/13/20 11/12/20 22:00 Rx tablet,extended release 24 hr cholecalciferol (vitamin D3) 100 100 mcg PO DAILY 01/03/20 11/13/20 11/12/20 History mcg (4,000 unit) capsule glycerin-mineral oil-polycarbophil See Rx Instructions .ROUTE .COMPLEX 01/03/20 11/12/20 Unknown History vaginal gel losartan 25 mg tablet 25 mg PO DAILY 01/03/20 11/13/20 11/12/20 History nitroglycerin 0.4 mg sublingual 0.4 mg SUBLINGUAL Q5M PRN 01/03/20 11/12/20 Unknown History tablet vitamin E 200 unit capsule 200 unit PO DAILY 01/03/20 11/13/20 11/11/20 History ranolazine 500 mg tablet,extended 500 mg PO BID #180 tab 01/16/20 11/13/20 11/12/20 Rx release,12 hr metformin 500 mg tablet 1,000 mg PO DAILY tab 03/06/20 11/13/20 11/12/20 History ondansetron HCl 4 mg tablet 4 mg PO Q6H PRN 03/06/20 11/12/20 Unknown History promethazine 25 mg tablet 25 mg PO Q6H PRN 03/06/20 11/12/20 Unknown History valacyclovir 500 mg tablet 500 mg PO TID PRN tab 03/06/20 11/12/20 Unknown History rosuvastatin 20 mg tablet 20 mg PO DAILY 10/25/20 11/13/20 11/12/20 History Allergies Allergy/AdvReac Type Severity Reaction Status Date / Time morphine Allergy Intermediate Rash, hives Verified 10/29/20 08:32 hydrocodone Allergy ADR-Vomitin Verified 10/29/20 08:32 g oxycodone AdvReac Vomiting, Verified 10/29/20 08:32 diarrhea, anxiety, itching PFSH Acute PFSH: Medical History (Updated 11/13/20 @ 06:55 by Jorge Reed DO) Asthma Diagnosed in her 40s managed by as needed albuterol. She denies any intubations or hospitalizations Atypical chest pain The EKG done today, 10/29/2020 revealed sinus bradycardia with a sinus arrhythmia. No significant ST-T changes. Poor R wave progression. Benign essential HTN Chronic liver failure History of fatty liver disease with fibrosis-elevated LFTs. She follows up with a pals specialist in [place]. Displacement of lumbar disc with radiculopathy History of endometrial cancer -Questionable history-unsure if it is cervical or endometrial cancer, or even if it was just dysplasia. No history of chemotherapy and radiation. She was told that surgery was sufficient. Records have been requested. Migraines Since her early 20s managed on medication. Mixed hyperlipidemia No pertinent past medical history Denies history of thyroid problems, heart disease, kidney disease. PCP: Dr. Jeter Stage 3 hepatic fibrosis Type 2 diabetes mellitus Diagnosed in her 40s and she states that her last hemoglobin A1c is 6.8 being managed by medication and diet. Surgical History History of cholecystectomy laparoscopic procedure done in her 40s S/P section x 2----> 1997 and 2000 S/P total hysterectomy and bilateral salpingo-oophorectomy (~2009) EYAD with BSO for ? Cervical/endometrial dysplasia/cancer; performed in [place] by a Dr. Honeycutt---> records have been requested Status post tubal ligation Tubal ligation performed at time of second in 2000. 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 GENERAL: Patient in no acute distress. CARDIAC: Regular rate and rhythm. CHEST: Normal inspiratory effort, normal respiratory rate. ABDOMEN: Soft and nontender. SKIN: Clear, warm and intact. NEURO?PSYCH: The patient is alert and oriented to person, place and time. Sensorv /SILT Motor StrengthShoulder abduction C5 5/5Wrist extension C6 5/5Elbow extension C7 5/5Hand Food Service Worker C8 5/5Finger abduction T15/5 Radial/ Ulnar/ Median n intact LowerSensory (SILT)Motor StrengthHin flexion L2/3Ant/inner thigh 5/5Hip add uction L2/3 5/5Knee extension L4 Lat thigh, 5/5Toe dorsiflexion L5 5/5Ankle dorsiflexion L5/ [id number] flexion S1 5/5 DTRBleeps 2+Triceps 2+Brachioradialis 2+Patellar 2+Achilles 2+ MUSCULOSKELETAL: [] UPPEREXTREMITIES: The patient had full active ROM in fingers, wrist, elbow, and shoulder. The patient demonstrated ability to fully flex/extend/abduct/adduct fingers, make ok sign, cross 2nd/3rd digits, extend 1st digit fully.. Radial pulse 2+, CR<2 seconds. LOWER EXTREMITIES: Pt has full, active ROM of toes, ankle, knee, and hip. Dorsalis pedis/posterior tibialis pulses 2+, CR<2 seconds. SPINE: Skin warm, dry, intact. A&P Assessment and plan (1) Spondylolisthesis at L4-L5 level: L4/5 PLIF today failed conservative tx Status: Acute Attestations Medical Necessity Statement*: failed conservative tx Coding Level of Care Code Acute Lodging Facilities Attendant for [facility] Diagnoses Spondylolisthesis at L4-L5 level M43.16
--- NOTE | 2020-11-13 06:56 | P.ANESASSM_ITS ---
Pre-Anesthetic Assessment Pre-Anesthetic Assessment: Height/Weight: Height 1.65 m Weight 98.883 kg Temp Pulse Resp BP Pulse Ox 98 F 61 18 139/77 98 11/13/20 06:26 11/13/20 06:26 11/13/20 06:26 11/13/20 06:26 11/13/20 06:26 Preop Diagnosis: Spondylolisthesis L$/5 Proposed Procedure: Operation Date: 11/13/20 07:00 Proposed Procedures p Lumbar Fusion L4/5 48504 [id number](Not Applicable) - Jorge Reed DO Was Beta Trent taken within 24 hours: Yes Last intake: Intake Last Liquid Date 11/13/20 Last Liquid Time 22:00 Last Solid Date 11/12/20 Last Solid Time 19:30 Social: Social History: No alcohol and No tobacco Exam: Pre-Anes Outpt Exam: alert, oriented x 3, clear to auscultation bilaterally and regular rate & rhythm Airway: Submandibular: WNL Cervical ROM: WNL MP: 2 Dentition: Full Pulmonary: Pulmonary: Asthma Hepatic: Comments: Liver fibrosis? GI: GI: GERD Metabolic: Metabolic: DM and Morbid obesity Musc/skel: Musc/skel: Lower Back Pain Anesthetic Plan: ASA status: 3 Anesthesia: General Risk of > 500 ml blood loss (7ml/kg in children): No PFSH Anesthesia PFSH: Medical History (Updated 11/13/20 @ 06:55 by Jorge Reed DO) Asthma Diagnosed in her 40s managed by as needed albuterol. She denies any intubations or hospitalizations Atypical chest pain The EKG done today, 10/29/2020 revealed sinus bradycardia with a sinus arrhythmia. No significant ST-T changes. Poor R wave progression. Benign essential HTN Chronic liver failure History of fatty liver disease with fibrosis-elevated LFTs. She follows up with a inspector repairer [facility]stone in [place]. Displacement of lumbar disc with radiculopathy History of endometrial cancer -Questionable history-unsure if it is cervical or endometrial cancer, or even if it was just dysplasia. No history of chemotherapy and radiation. She was told that surgery was sufficient. Records have been requested. Migraines Since her early 20s managed on medication. Mixed hyperlipidemia No pertinent past medical history Denies history of thyroid problems, heart disease, kidney disease. PCP: Dr. Jeter Stage 3 hepatic fibrosis Type 2 diabetes mellitus Diagnosed in her 40s and she states that her last hemoglobin A1c is 6.8 being managed by medication and diet. Surgical History History of cholecystectomy laparoscopic procedure done in her 40s S/P section x 2----> 1997 and 2000 S/P total hysterectomy and bilateral salpingo-oophorectomy (~2009) EYAD with BSO for ? Cervical/endometrial dysplasia/cancer; performed in [place] by a Dr. Honeycutt---> records have been requested Status post tubal ligation Tubal ligation performed at time of second in 2000. 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
[2020-11-13] MEDS: sodium chloride 0.9% 1,000 ML 30 ML IV (07:00)
--- NOTE | 2020-11-13 08:34 | SUR.OPER ---
family updated of surgical status
[2020-11-13] MEDS: heparin, porcine 1,000 unit/mL INJ 10 mL 10000 UNIT XX (08:36)
--- NOTE | 2020-11-13 10:24 | P.OP_ITS ---
Operative Report Date of procedure: November 13, 2020 Pre-op Diagnosis: Spondylolisthesis L4/5 Post-op diagnosis: same Procedure Done: 1. L4/5 Interbody fusion with posterolateral fusion 2. Instrumentation L4/5 3. Cage at L4/5 4. Laminectomy L4 5. use of autograft from same incision 6. allograft 7. Bone marrow aspirate from separate incision in fascia on right iliac wing Surgeon: Jorge Reed Anesthesia: General Estimated blood loss (mL): 150 Condition: stable Disposition: PACU Procedure: Patient is brought to the operative suite. After undergoing anesthesia, the patient had neuro monitoring attached. Patient was then placed in the prone position on the Benjamin table. All areas of impingement were well- padded. Patient was then prepped and draped in the normal sterile fashion. Skin incision was then made over the L4/5 space. Subperiosteal dissection was m marlo out to the transverse processes of L4 and L5. Once the exposure was complete attention was then brought to placing the pedicle screws. Prior to placing the pedicle screws the [employer] bone marrow aspirate kit was used to aspirate bone marrow aspirate. This was done by using the sharp probe to open up the bone. Aspiration was performed and then the blunt probe was then used to dissect down to through the bone tunnel. An aspirating well drawn back a millimeter approximately 20 cc of bone marrow aspirate was used. Admixed with the allograft and autograft bone that will be used. The technique for placing the pedicle screws was to use a drill followed by the gearshift probe. Followed by the ball probe to feel the superior inferior medial lateral herr of the pedicles. Then placement of the screws. Was done at each pedicle. Screws were placed at L4 bilaterally and L5. Next attention was brought to performing the laminectomy ofL4. This was done using the high-speed bur Kerrisons and curettes. Once the lamina was removed and then attention was brought to performing a partial facetectomy on the contralateral side. This was done again using the high-speed bur curettes and Kerrisons. The ligamentum flavum was taken down bilaterally from L4 to L5. Attention was then brought to the facet on the ipsilateral side. The facet was taken down. The L5 nerve was decompressed as it passed around the L5 pedicle. The laminectomy was done for purposes of decompressing the nerve as well as placement of the cage. The L4 nerve was identified as it traversed through the L4/5 foramen. The thecal sac was identified and retracted. The L4/5 disc base was identified. Using a knife the disc base was opened. And then sequential eve were placed. The first shaver was a 6 and the last shaver was a 11. Using a pituitary and down going curette the endplates were scraped and disc material was removed from the space. Once adequate decompression of the disc base was felt to be had. Osteoamp sponge was packed into the anterior aspect of the disc base. Then a size 11 cage from [employer] was placed after packing osteoamp into the cage. While placing the cage the thecal sac and L5 nerve was protected. C arm was used to ensure that the cages placed in the appropriate position. Attention was then brought to attaching the rods to the screws placed in the L4- 5 bilaterally. Caps were torqued into position. Locking the construct in place. Wound was copiously irrigated and then attention was brought to decorticating the facets and transverse processes laterally. Bone that was taken down from the lamina was used along with osteoamp fibers and sponges were packed into the lateral gutters along the facet joints. This was done bilaterally. Wound was then closed in a layered fashion starting with the thoracolumbar fascia. 0-stratafix was used the sub cutaneous tissue was closed with 2-0 vicryl and skin with 30 nylonl. Glue was then used to seal the skin and a pily ril dressing was applied. Patient was then placed in the supine position. The endotracheal tube was removed and patient was transferred to the PACU in stable condition.
[2020-11-13] MEDS: fentaNYL 50 mcg/mL INJ 2mL IVP ×2 (10:32→10:37)
[2020-11-13] MEDS: ondansetron 2 mg/ML SDV 2 mL 4 MG IVP (10:49)
--- NOTE | 2020-11-13 11:23 | P.CONIM_ITS ---
Providers/Reason For Consult Consulting Physican/Specialty*: Tomasz Hendrickson MD, hospitalist Reason for Consult*: Medical management Attending Physician: Jorge Reed DO Primary Care Provider: Angelito Jeter MD History of Present Illness History of Present Illness Jaiden Vu is a 50 year old female that presented as an elective surgery for back pain and disc disorder. She underwent L4-5 fusion with instrumentation and laminectomy today by Dr. Reed. No complications were noted with surgery. I have been asked to see her in consultation for medical management. Patient is somewhat sleepy on my arrival. She is still recovering from anesthesia. She denies any specific complaints other than some nausea currently. Her pain is currently under control. No recent exposure to Covid. No vaccine for Covid. Did personally have Covid around July. Review of Systems General: Reports: 10 or more systems reviewed and unremarkable except in HPI and below Const: Denies: fever(s) or chills Eyes: Denies: change in vision ENMT: Denies: throat pain Card: Denies: chest pain Resp: Denies: dyspnea GI: Denies: abdominal pain : Denies: flank pain Musc: Reports: back pain; Denies: neck pain Skin/Breast: Denies: rash Neuro: Denies: headache(s) Psych: Denies: anxiety Endo: Denies: polyuria [place]/Lymph: Denies: easy bruising All/Imm: Denies: urticaria Meds/Allergies Home Medications and Allergies Home Medications Medication Instructions Recorded Confirmed Last Taken Type albuterol sulfate 90 mcg/actuation 2 inh INHALATION Q6H PRN 10/23/19 11/12/20 08/03/20 History breath activated powder inhaler lactobacillus combination no.8 3 3,000 mmu cells PO DAILY 10/23/19 11/12/20 08/04/20 History billion cell capsule omeprazole 40 mg capsule,delayed 40 mg PO BID 10/23/19 11/13/20 11/12/20 History release topiramate 25 mg tablet 75 mg PO DAILY tab 10/23/19 11/13/20 11/12/20 History metoprolol succinate 25 mg 25 mg PO DAILY #90 tab 12/06/19 11/13/20 11/12/20 22:00 Rx tablet,extended release 24 hr cholecalciferol (vitamin D3) 100 100 mcg PO DAILY 01/03/20 11/13/20 11/12/20 History mcg (4,000 unit) capsule glycerin-mineral oil-polycarbophil See Rx Instructions .ROUTE .COMPLEX 01/03/20 11/12/20 Unknown History vaginal gel losartan 25 mg tablet 25 mg PO DAILY 01/03/20 11/13/20 11/12/20 History nitroglycerin 0.4 mg sublingual 0.4 mg SUBLINGUAL Q5M PRN 01/03/20 11/12/20 Unknown History tablet vitamin E 200 unit capsule 200 unit PO DAILY 01/03/20 11/13/20 11/11/20 History ranolazine 500 mg tablet,extended 500 mg PO BID #180 tab 01/16/20 11/13/20 11/12/20 Rx release,12 hr metformin 500 mg tablet 1,000 mg PO DAILY tab 03/06/20 11/13/20 11/12/20 History ondansetron HCl 4 mg tablet 4 mg PO Q6H PRN 03/06/20 11/12/20 Unknown History promethazine 25 mg tablet 25 mg PO Q6H PRN 03/06/20 11/12/20 Unknown History valacyclovir 500 mg tablet 500 mg PO TID PRN tab 03/06/20 11/12/20 Unknown History rosuvastatin 20 mg tablet 20 mg PO DAILY 10/25/20 11/13/20 11/12/20 History Allergies Allergy/AdvReac Type Severity Reaction Status Date / Time morphine Allergy Intermediate Rash, hives Verified 10/29/20 08:32 hydrocodone Allergy ADR-Vomitin Verified 10/29/20 08:32 g oxycodone AdvReac Vomiting, Verified 10/29/20 08:32 diarrhea, anxiety, itching PFSH Acute PFSH: Medical History Asthma Diagnosed in her 40s managed by as needed albuterol. She denies any intubations or hospitalizations Atypical chest pain The EKG done today, 10/29/2020 revealed sinus bradycardia with a sinus arrhythmia. No significant ST-T changes. Poor R wave progression. Benign essential HTN Chronic liver failure History of fatty liver disease with fibrosis-elevated LFTs. She follows up with a manager security in [place]. Displacement of lumbar disc with radiculopathy History of endometrial cancer -Questionable history-unsure if it is cervical or endometrial cancer, or even if it was just dysplasia. No history of chemotherapy and radiation. She was told that surgery was sufficient. Records have been requested. Migraines Since her early 20s managed on medication. Mixed hyperlipidemia No pertinent past medical history Denies history of thyroid problems, heart disease, kidney disease. PCP: Dr. Jeter Stage 3 hepatic fibrosis Type 2 diabetes mellitus Diagnosed in her 40s and she states that her last hemoglobin A1c is 6.8 being managed by medication and diet. Surgical History History of cholecystectomy laparoscopic procedure done in her 40s S/P section x 2----> 1997 and 2000 S/P total hysterectomy and bilateral salpingo-oophorectomy (~2009) EYAD with BSO for ? Cervical/endometrial dysplasia/cancer; performed in [place] by a Dr. Honeycutt---> records have been requested Status post tubal ligation Tubal ligation performed at time of second in 2000. 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 Oropharynx clear. Neck is supple no lymphadenopathy or thyromegaly Cardiovascular regular rate and rhythm without murmur, no S3 or S4 Lungs clear no wheezing or crackles Abdomen is soft with positive bowel sounds. No obvious organomegaly. Binder in place. was deferred Extremities no cyanosis clubbing or edema, cap refill brisk Skin no rash Neuro no focal deficits. A&P Assessment and plan (1) Spondylolisthesis at L4-L5 level: Status post fusion and laminectomy with instrumentation today. Doing well. Status: Acute (2) Type 2 diabetes mellitus: Change to consistent carb diet Add mild sliding scale insulin Can continue Glucophage currently Status: Acute Qualifiers: Diabetes mellitus custodial insulin use: without custodial use Diabetes mellitus complication status: with hyperglycemia Qualified Code(s): E11.65 - Type 2 diabetes mellitus with hyperglycemia (3) Asthma: Albuterol as needed Status: Acute (4) Benign essential HTN: Continue home medicines. Continue to monitor Status: Acute (5) Mixed hyperlipidemia: Continue statin Status: Acute (6) Migraines: Continue Topamax Status: Acute (7) Stage 3 hepatic fibrosis: Status: Acute (8) Atypical chest pain: Continue ranolazine. Note that she had a negative angiogram 2018 Status: Acute Additional A&P Information Full code Lovenox will suffice for DVT prophylaxis Thank you for this consultation. Consult Attestations Medical Necessity Statement: As per primary Time Spent in Patient Care: Greater than 35 minutes Coding Level of Care Code Acute Publishing Systems Analyst for [facility] Diagnoses Spondylolisthesis at L4-L5 level M43.16 Type 2 diabetes mellitus E11.65 Diabetes mellitus terminal operator insulin use: without custodial use Diabetes mellitus complication status: with hyperglycemia Asthma J45.909 Benign essential HTN I10 Mixed hyperlipidemia E78.2 Migraines G43.909 Stage 3 hepatic fibrosis K74.0 Atypical chest pain R07.89
[2020-11-13] MEDS: lactated ringers 1,000 ML 90 ML IV ×2 (11:51→22:57)
[2020-11-13] MEDS: acetaminophen 325 mg Tablet 650 MG PO (12:29)
[2020-11-13] MEDS: ketorolac 30 mg/mL INJ IVP (12:30)
[2020-11-13] MEDS: ondansetron 4 MG Tablet PO ×2 (12:30→19:37)
--- NOTE | 2020-11-13 14:53 | ANE.PACU2 ---
Inpatient post-anesthesia follow up: Airway intact: Yes Vital signs: Temperature 97.5 F Pulse Rate 62 Respiratory Rate 17 Blood Pressure 100/65 Pulse Oximetry 97 Oxygen Delivery Me thod Room Air Oxygen Flow Rate 8 Fraction of Inspir ed Oxygen Hydration adequate: Yes Nausea and vomiting: No Pain level: 3 Mental status: Baseline
[2020-11-13] MEDS: HYDROmorphone 1 mg/mL INJ 1 mL IVP ×2 (15:08→19:37)
[2020-11-13] MEDS: docusate sodium 100 mg Capsule PO (17:46)
[2020-11-13] MEDS: pantoprazole DR 40 mg Tablet PO (17:47)
[2020-11-13] MEDS: ranolazine (12HR) 500 mg Tablet PO (17:47)
[2020-11-13 20:54] LABS: Glucose Point of Care 194 mg/dL (70-110)
[2020-11-13] MEDS: topiramate 25 mg Tablet 75 MG PO (21:34)
[2020-11-14] VITALS (7 sets, daily range): BP systolic 99–118; BP diastolic 64–73; PULSE 79–82; RESP 17–18; TEMP 36.8–37.5; O2SAT 91–100
[2020-11-14 02:39] LABS: Basophils % 0.2 %; Hematocrit 39.4 % (37.0-47.0); Hemoglobin 12.3 g/dL (11.5-15.3); Lymphocytes # 1.4 10^3/uL (0.8-4.8); Lymphocytes % 7.9 %; Mean Corpuscular HGB Conc 31.2 g/dL (30.0-36.0); Mean Corpuscular Hemoglobin 29.6 pg (28.0-34.0); Mean Corpuscular Volume 94.9 fL (81-99); Monocytes # 1.6 10^3/uL (0.2-0.9); Monocytes % 9.1 %; Neutrophils # 14.35 10^3/uL (1.8-7.7); Neutrophils % 82.4 %; Nucleated Red Blood Cells % 0 %; Platelet Count 197 10^3/cmm (130-400); Red Blood Count 4.15 10^6/uL (4.1-5.3); Red Cell Distribution Width 12.8 % (12.1-15.1); White Blood Count 17.4 10^3/uL (4.0-10.0)
[2020-11-14 03:06] LABS: Anion Gap 14.6 (5-19); Blood Urea Nitrogen 11 mg/dL (6-20); Calcium 8.1 mg/dL (8.5-10.5); Carbon Dioxide 22 mmol/L (22-29); Chloride 105 mmol/L (98-107); Glomerular Filtration Rate 87.9 mL/min (90-130); Glucose 163 mg/dL (65-115); Osmolality Calculated 289 mOsm/kg (285-295); Potassium 3.6 mmol/L (3.5-5.1); Sodium 138 mmol/L (136-145)
[2020-11-14] MEDS: enoxaparin 40 mg/0.4 mL Syringe SUBCUT (06:02)
[2020-11-14] MEDS: HYDROmorphone 1 mg/mL INJ 1 mL IVP (06:09)
[2020-11-14 06:40] LABS: Glucose Point of Care 188 mg/dL (70-110)
--- NOTE | 2020-11-14 07:39 | P.PN_ITS ---
Subjective Subjective: Interval history: Jaiden reports she is doing okay. She has had some mild nausea. She believes that is due to her sugar being a little high. She reports some discomfort that is helped by IV pain medicine but she would really like to try p.o. Denies any dysuria Medications: Reviewed: Yes Vitals/I&O/Wt Last Vital Signs Temp 98.6 F 11/14/20 07:17 Pulse 80 11/14/20 07:17 Resp 18 11/14/20 07:17 BP 100/64 11/14/20 07:17 Pulse Ox 91 11/14/20 07:17 11/13/20 11/14/20 11/14/20 22:59 06:59 14:59 Intake Total 1289 / 2579 50 / 2629 Output Total 1050 / 1200 650 / 1850 Balance 239 / 1379 -600 / 779 Physical Exam Narrative: EXAM NARRATIVE: General exam is no apparent distress Neck is supple no lymphadenopathy or thyromegaly Cardiovascular regular rate and rhythm without murmur, no S3 or S4 Lungs clear no wheezing or crackles Abdomen is soft with positive bowel sounds. No obvious organomegaly. Binder in place. Extremities no cyanosis clubbing or edema, cap refill brisk. Neurologic: No foot drop Data : 11/14/20 02:26 11/14/20 02:26 A&P Assessment and plan (1) Spondylolisthesis at L4-L5 level: Postoperative day #1 status post fusion and laminectomy with instrumentation. Doing well add Dilaudid p.o. secondary to allergies. Try to use less IV. Add Ultram as needed. Discussed risk of allergy with both medications as she is allergic to morphine hydrocodone and oxycodone. Reduce fluids Status: Acute (2) Type 2 diabetes mellitus: Consistent carb diet continue sliding scale insulin continue Glucophage Status: Acute Qualifiers: Diabetes mellitus technician terminal and repeater insulin use: without alf use Diabetes mellitus complication status: with hyperglycemia Qualified Code(s): E11.65 - Type 2 diabetes mellitus with hyperglycemia (3) Asthma: Albuterol as needed Status: Acute (4) Benign essential HTN: Continue home medicines. Continue to monitor Status: Acute (5) Mixed hyperlipidemia: Continue statin Status: Acute (6) Migraines: Continue Topamax Status: Acute (7) Stage 3 hepatic fibrosis: Status: Acute (8) Atypical chest pain: Continue ranolazine. Note that she had a negative angiogram 2018 Status: Acute Additional A&P Information Elevated white blood cell count. Likely secondary to stress of surgery. No symptoms to suggest infection. Full code Lovenox will suffice for DVT prophylaxis Thank you for this consultation. Attestations Medical Necessity Statement*: As per primary Coding Level of Care Code Acute Shactor for [facility] Fwd Diagnoses Spondylolisthesis at L4-L5 level M43.16 Type 2 diabetes mellitus E11.65 Diabetes mellitus technician terminal and repeater insulin use: without technician terminal and repeater use Diabetes mellitus complication status: with hyperglycemia Asthma J45.909 Benign essential HTN I10 Mixed hyperlipidemia E78.2 Migraines G43.909 Stage 3 hepatic fibrosis K74.0 Atypical chest pain R07.89
--- NOTE | 2020-11-14 08:07 | P.DS_ITS ---
Discharge Providers Date of Admission: 11/13/20 09:56 Date of Discharge: November 14, 2020 Attending Provider at Admission: Jorge Reed DO Attending Provider at Discharge: Jorge Reed DO Primary Care Provider: Angelito Jeter MD Diagnoses at Discharge Discharge Diagnosis (1) Spondylolisthesis at L4-L5 level: Status: Acute (2) Type 2 diabetes mellitus: Status: Acute Permanent problem details: Diagnosed in her 40s and she states that her last hemoglobin A1c is 6.8 being managed by medication and diet. 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 She denies any intubations or hospitalizations (4) Benign essential HTN: Status: Acute (5) Mixed hyperlipidemia: Status: Acute (6) Migraines: Status: Acute Permanent problem details: Since her early 20s managed on medication. (7) Stage 3 hepatic fibrosis: Status: Acute (8) Atypical chest pain: Status: Acute Permanent problem details: The EKG done today, 10/29/2020 revealed sinus bradycardia with a sinus arrhythmia. No significant ST-T changes. Poor R wave progression. Reason for Visit Reason for Visit: spinal stenosis with neurogenic claudication Physical Exam Narrative: EXAM NARRATIVE: dressing dry moving toes sensation intact pain controlled Discharge Data Data Completed and Pending: Completed Studies During Hospitalization Category Date Time Status XR lumbar spine 2 -3V* [id number] Routine Exams 11/13/20 Completed Pending at discharge Category Date Time Status C-arm Fluoroscopy [id number] Routine Exams 11/13/20 05:56 Taken Labs from last 24 hours 11/14/20 11/14/20 11/14/20 06:16 02:26 02:26 WBC 17.4 H RBC 4.15 Hgb 12.3 Hct 39.4 MCV 94.9 MCH 29.6 MCHC 31.2 RDW 12.8 Plt Count 197 MPV 10.0 Neut % (Auto) 82.4 Lymph % (Auto) 7.9 [place] % (Auto) 9.1 Eos % (Auto) 0.0 Baso % (Auto) 0.2 Neut # (Auto) 14.35 H Lymph # (Auto) 1.4 [place] # (Auto) 1.6 H Eos # (Auto) 0.0 Baso # (Auto) 0.0 Nucleated RBC % (a uto) 0 Nucleated RBCs # 0.0 Sodium 138 Potassium 3.6 Chloride 105 Carbon Dioxide 22 Anion Gap 14.6 BUN 11 Creatinine 0.7 GFR Calculation 87.9 L Glucose 163 H POC Glucose 188 H Calculated Osmolal ity 289 Calcium 8.1 L 11/13/20 20:49 WBC RBC Hgb Hct MCV MCH MCHC RDW Plt Count MPV Neut % (Auto) Lymph % (Auto) [place] % (Auto) Eos % (Auto) Baso % (Auto) Neut # (Auto) Lymph # (Auto) [place] # (Auto) Eos # (Auto) Baso # (Auto) Nucleated RBC % (a uto) Nucleated RBCs # Sodium Potassium Chloride Carbon Dioxide Anion Gap BUN Creatinine GFR Calculation Glucose POC Glucose 194 H Calculated Osmolal ity Calcium Vitals: Last Vital Signs Temp 98.6 F 11/14/20 07:17 Pulse 80 11/14/20 07:17 Resp 18 11/14/20 07:17 BP 100/64 11/14/20 07:17 Pulse Ox 91 11/14/20 07:17 Discharge Plan Discharge Patient Disposition: Home Condition: Stable Prescriptions: New Ultram 50 mg tablet 50 mg PO Q6H PRN (Reason: pain) 7 Days Qty: 28 RF: 0 Continued albuterol sulfate 90 mcg/actuation aerosol powdr breath activated 2 inh INHALATION Q6H PRN (Reason: Shortness Of Breath) RF: 0 topiramate 25 mg tablet 75 mg PO DAILY RF: 0 omeprazole 40 mg capsule,delayed release(DR/EC) 40 mg PO BID RF: 0 Adult Probiotic 3 billion cell capsule 3,000 mmu cells PO DAILY RF: 0 nitroglycerin [Nitrostat] 0.4 mg tablet, sublingual 0.4 mg SUBLINGUAL Q5M PRN (Reason: chest pains) RF: 0 metformin 500 mg tablet 1,000 mg PO DAILY RF: 0 cholecalciferol (vitamin D3) 100 mcg (4,000 unit) capsule 100 mcg PO DAILY RF: 0 vitamin E 200 unit capsule 200 unit PO DAILY RF: 0 losartan 25 mg tablet 25 mg PO DAILY RF: 0 Replens Gel See Rx Instructions .ROUTE .COMPLEX RF: 0 ondansetron HCl [Zofran] 4 mg tablet 4 mg PO Q6H PRN (Reason: n/v) RF: 0 promethazine 25 mg tablet 25 mg PO Q6H PRN (Reason: n/v) RF: 0 valacyclovir [Valtrex] 500 mg tablet 500 mg PO TID PRN (Reason: unknown) RF: 0 rosuvastatin 20 mg tablet 20 mg PO DAILY RF: 0 metoprolol succinate 25 mg tablet extended release 24 hr 25 mg PO DAILY Qty: 90 RF: 3 ranolazine 500 mg tablet extended release 12 hr 500 mg PO BID Qty: 180 RF: 3 Discharge Orders: Discharge Order (Routine); Ordered 11/14/20 Ordered By: Jorge Reed Other Ambulatory Orders: DME: Walker (Order) Location: None Selected Ordered By: Jorge Reed DME: Walker (Order) Location: None Selected Ordered By: Jorge Reed Discharge Diet: Advance as tolerated Discharge Activity: Limit activity as instructed Activity Restrictions/Additional Instructions: Thank you for [facility] for your care! The following is a list of instructions, from your provider, to follow upon your discharge to ensure you have the optimal recovery from your recent injury orsurgery. Follow-up care is a ruiz part of your treatment and safety. Be sure to make and go to all appointments, and call your doctor if you are having problems. If you do not already have a follow-up appointment made, call Dr. Reed office in the next 1-3 days to make follow up appointment for 2 weeks at [phone]. It is also a good idea to know your test results and keep a list of the medicines you take. Medications will be prescribed for you at your provider's discretion. These medications are to be used as instructed; if they are taken more often that prescribed they will not be refilled early and in most cases will not be refilled at all. > When a refill is needed,you should contact inocencio santoyo 2-3 business days before your prescription runs out. Medications will NOT be refilled by oncology physician providers after hours! > Many pain medications contain Tylenol (Acetaminophen). Do not consume more than 4,000 mg of Tylenol per day in total with any combination ofmedications. > Pain medications can cause constipation. Please use an over the counter stool softener as directed, while taking pain medications. Consulty our local pharmacist with questions or recommendations on stool softeners. If constipation persists, contact our office or your primary care provider. > While under our care,you are not to receive pain medications or other controlled substances from any other provider unless our office is notified and approves. Any attempts to do so will result in refusal to prescribe any further pain medications and possible dismissal from our practice. ? Your wound and/or dressing should remain clean and dry for 2 days after surgery. On postoperative day 2 (48 hours after your surgery) the dressing (if present) should be removed and it is okay to shower and get the incision wet. Pad dry afterwards. No further dressing should be required from that point on. Do not put any creams or ointments on theincision > It is normal for there to be a small amount of discharge (bloody or blood tinged) present from a surgical wound for the first 1-3days. > The wound should be examined twice a day for signs of infection. Mild redness or bruising is to be expected but indications that an infection maybe starting would include; An increase in redness, swelling, or discharge, a foul odor present around the incision, and/or a fever greater than 101 ?F ? Showering is permitted, however we ask that you do not take a bath, sit in a whirlpool / Jacuzzi, or go swimming for 1 month. For only the first 2 days after surgery, lt wilt be necessary for you to cover your wound/dressing with plastic and tape to keep it dry. ? Walking is essential for the healing process after surgery. We would like you to slowly advance your walking. This should be done on relatively flat clear ground (inside or out) or can be done on a treadmill. Yajaira mber this goal does not have to happen all at once, slowly increase your distance and duration. This can be broken into more more than one walk per day as tolerated. Patients who walk as directed after surgery rarely require Physical Therapy. In the unlikely event this issue arises your provider will direct hospital staff to make the appropriate arrangements. ? No lifting over 5 pounds {a gallon of milk) or bending/twisting until further notice. Each of these activities places an unnecessary amount of stress onto the body and can impede the delicate healing process. > Instead of bending at the waist, keep your back straight and bend at the knees. > Instead of twisting your torso, keep your back straight and turn your entire body with your feet. ? You may sleep in any position which makes you comfortable. Many patients find comfort sleeping in a reclining chair. It is not abnormal to have difficulty sleeping for the first several weeks following your surgery. We recommend trying Benadry! or Tylenol PM as directed to help with your sleeping difficulties. Both medications are over the counter and available withoutprescription. ? NO SMOKING!!! Smoking dramatically increases the probability of developing postoperative wound infections. ? Common complaints after lumbar and/or thoracic spine surgery include, but are not limited to: numbness and/or tingling in the legs, pain around the incision and surrounding tissues, muscle spasms, or stiffness of the middle to low back. Contact our office if these symptoms persist or if an acute change occurs. ? No driving for the first 3-5days, and not while taking narcotics until seen at your follow-up appointment and cleared. There are no restrictions for riding on short trips, however if you take a longer trip, arrangements should be made to make regular stops to get out of the vehicle and stretch . ? Swelling is an unfortunate event that will take place with any surgery and is the primary source of your postoperative discomfort. While walking and regular approved activities helps control inflammation, there are additional steps you can take to minimizeswelling. > Place ice over the surgical site and surrounding tissue for twenty minutes, followed by applying a low/medium heat (heating pad) for an additional twenty minutes every 1-2 hours as needed for painrelief. > You may use of over the counter anti-inflammatory medications (Ibuprofen, Motrin, Aleve, Advil, etc) as directed on the package label. These types of medicines wm significantly reduce the amount of discomfort you experience after surgery from swelling. It should be noted that if you have and allergy to any of these medications, or a history of ulcers or kidney disease you should consult you primary care provider prior to starting these medications. Discharge Attestations Time Spent in Discharge Care*: less than 30 min Quality Metrics Clinical Quality Measures During this hospital stay, did patient experience: None Coding Level of Care Code Acute Pharmacy Service Associate for [facility] Fwd Diagnoses Spondylolisthesis at L4-L5 level M43.16 Type 2 diabetes mellitus E11.65 Diabetes mellitus care home insulin use: without intermodal owner operator truck driver use Diabetes mellitus complication status: with hyperglycemia Asthma J45.909 Benign essential HTN I10 Mixed hyperlipidemia E78.2 Migraines G43.909 Stage 3 hepatic fibrosis K74.0 Atypical chest pain R07.89
[2020-11-14] MEDS: pantoprazole DR 40 mg Tablet PO (08:27)
[2020-11-14] MEDS: atorvastatin 40 mg Tablet 80 MG PO (08:27)
[2020-11-14] MEDS: metformin 500 mg Tablet 1000 MG PO (08:27)
[2020-11-14] MEDS: ranolazine (12HR) 500 mg Tablet PO (08:27)
[2020-11-14] MEDS: docusate sodium 100 mg Capsule PO (08:28)
[2020-11-14] MEDS: losartan 50 mg Tablet 25 MG PO (08:28)
[2020-11-14 10:45] LABS: Glucose Point of Care 144 mg/dL (70-110)
--- NOTE | 2020-11-14 10:58 | PC.CHAP ---
Pastoral Care Encounter/Spiritual Assessment Type of Contact [] Declined car record clerk visit [] Patient/Family/Request visit [] Outpatient visit [] Follow-up visit [] Physician referral [] Code/Alert [x] Routine visit [] Staff referral [] Actively dying [] Patient sleeping [] Family support [] [] Out of room [] Palliative care [] [x] Receiving care in room [] Pre-surgical visit [] Trauma [] Long length of stay [] ICU visit [] Other: Relational/Emotional Strength [x] Patient feels connected with others/family/visitors/staff [] Distress [] Loneliness/isolation [] Abandonment Spirituality of Patient [] Person of Ly [] Attends Mu-Ism of their Ly [] Believes in Prayer [] Reads Bible or Yazidi materials [] There are Spiritual issues to be addressed Learning Support Resource Room Teacher Interventions [] Prayer [] Active listening [] Non-anxious presence [] Spiritual/emotional support [] Crisis/trauma care [] Spiritual counseling [] Bereavement support [] Provided bereavement packet [] Provided Bible/devotional materials [] Provided toy/stuffed animal, coloring book to patient or family member [] Provided Communion [] Anointing/[place] [] Salvation [] Completed spiritual assessment [] Other: Impact on Illness or Injury [] Angry [x] Fearful [] Anxious [] Often cries [] Exhaustion [] Unable to work [] Unable to attend rastafarian [] Unable to walk/stand [] Unable to read [] Unable to drive [] Unable to eat/drink [] Unable to sleep [] Unable to be with family [] Patient intubated [] Other: Summary in a great deal of pain, has had surgery will need some rehab time has a good attitude Time spent with patient 10 mins
[2020-11-14] MEDS: TRAMadol 50 mg Tablet PO (11:17)
--- NOTE | 2020-11-14 13:32 | PC.NURSE ---
Educated patient on discharge medications and restrictions. Patient and family member verbalized understanding. IV discontinued from right wrist. Tip of catheter intact. Patient to supervisor opening and picking discharge medications from [facility]. Discharged via wheelchair with belongings and walker to private vehicle
== END 2020-11-14 11:45 | disposition home or self-care (01) | DRG 455 ==
LOC: MEDSURG 11-14 07:32
PROVIDERS: Internal Medicine; Admitting Provider Orthopaedic Surgery; PCP Family Medicine; Visit Provider Orthopaedic Surgery
PROC: 0SG00AJ Fusion of Lumbar Vertebral Joint with Interbody Fusion Device, Posterior Approach, Anterior Column, Open Approach (ICD-10-PCS; principal; 2020-11-13 07:00)
DX: M43.16 Spondylolisthesis, lumbar region (principal); J45.909 Unspecified asthma, uncomplicated; I10 Essential (primary) hypertension; K72.90 Hepatic failure, unspecified without coma; E78.2 Mixed hyperlipidemia; E11.65 Type 2 diabetes mellitus with hyperglycemia; Z85.42 Personal history of malignant neoplasm of other parts of uterus; Z87.891 Personal history of nicotine dependence; Z86.16 Personal history of COVID-19; G43.709 Chronic migraine without aura, not intractable, without status migrainosus; K74.00 Hepatic fibrosis, unspecified; R07.89 Other chest pain
CPT/HCPCS: 36415; 36416; 72100; 76000; 80048; 82962; 85025; 96372; 97161; 97530; C1713; G0378; J0690; J1100; J1170; J1644; J1650; J1815; J1885; J2370; J2405; J2704; J3010; J3490; J7030; Q0162

== ENCOUNTER → 2020-12-26 09:38 | Outpatient (BNVA) | payer OTHER, SELFPAY | PROVIDERS: PCP Family Medicine; Visit Provider Orthopaedic Surgery | DX: Z48.89 Encounter for other specified surgical aftercare (principal); M48.062 Spinal stenosis, lumbar region with neurogenic claudication | CPT/HCPCS: 72100 ==

== ENCOUNTER → 2021-01-16 11:24 | Outpatient (BNVA) | payer OTHER, SELFPAY | PROVIDERS: PCP Family Medicine; Visit Provider Orthopaedic Surgery | DX: Z48.89 Encounter for other specified surgical aftercare (principal); Z98.1 Arthrodesis status | CPT/HCPCS: 72100 ==

== ENCOUNTER → 2021-03-18 12:58 | Outpatient (BNVA) | payer OTHER, SELFPAY | PROVIDERS: PCP Family Medicine; Visit Provider Orthopaedic Surgery | DX: Z48.89 Encounter for other specified surgical aftercare (principal); M48.062 Spinal stenosis, lumbar region with neurogenic claudication; Z98.1 Arthrodesis status | CPT/HCPCS: 72100 ==

== ENCOUNTER → 2021-03-21 08:53 | Outpatient (BNVA) | payer OTHER, SELFPAY | PROVIDERS: PCP Family Medicine; Visit Provider Anesthesiology Pain Medicine | DX: G89.29 Other chronic pain (principal); M79.18 Myalgia, other site; M48.02 Spinal stenosis, cervical region; M50.20 Other cervical disc displacement, unspecified cervical region; M48.062 Spinal stenosis, lumbar region with neurogenic claudication; M51.16 Intervertebral disc disorders with radiculopathy, lumbar region; M43.16 Spondylolisthesis, lumbar region; M47.27 Other spondylosis with radiculopathy, lumbosacral region; Z79.891 Long term (current) use of opiate analgesic; Z87.891 Personal history of nicotine dependence | CPT/HCPCS: 20553; 99214; J1030; J3490 ==

== ENCOUNTER 2021-03-28 08:33 | Outpatient (CLI) | payer OTHER, SELFPAY ==
--- NOTE | 2021-03-28 09:00 | MM_ITS ---
WS: [id number] Bilateral screening digital mammogram, 03/28/2021 Clinical Data: Z12.39 - Encounter for other screening for malignant neop... Comparison: 03/22/2020, 08/06/2017, 08/03/2016, 07/22/2015, 12/13/2009. Findings: The breast parenchymal pattern shows fibroglandular tissue No spiculated masses or clustered calcific ations are seen. There are no secondary signs of carcinoma. MM/[place] [id number] Impression: 1. Negative bilateral mammogram unchanged. 2. Recommend annual screening mammograms. BIRADS: 1-Negative FOLLOW UP: 1 Year Follow-up The CAD billet checker was used.
== END 2021-03-28 08:34 | disposition home or self-care (01) ==
LOC: RADSHAW 08:36
PROVIDERS: PCP Family Medicine; Visit Provider Obstetrics & Gynecology
DX: Z12.31 Encounter for screening mammogram for malignant neoplasm of breast (principal)
CPT/HCPCS: 77067

== ENCOUNTER → 2021-04-18 08:52 | Outpatient (BNVA) | payer OTHER, SELFPAY | PROVIDERS: PCP Family Medicine; Visit Provider Internal Medicine | DX: G89.29 Other chronic pain (principal); M48.02 Spinal stenosis, cervical region; M50.20 Other cervical disc displacement, unspecified cervical region; M48.062 Spinal stenosis, lumbar region with neurogenic claudication; M51.16 Intervertebral disc disorders with radiculopathy, lumbar region; M43.16 Spondylolisthesis, lumbar region; M47.27 Other spondylosis with radiculopathy, lumbosacral region | CPT/HCPCS: 99204; 99213 ==

== ENCOUNTER 2021-04-24 12:13 | Outpatient (CLI) | payer OTHER, SELFPAY ==
[2021-04-24 12:20] VITALS: BP 151/80; PULSE 60; RESP 16; TEMP 36.7; O2SAT 97; BMI 35.7
[2021-04-24 13:33] VITALS: BP 170/81; PULSE 57; RESP 18; O2SAT 97
[2021-04-24 14:32] VITALS: BP 167/81; PULSE 71; RESP 16; TEMP 36.8
== END 2021-04-24 14:43 | disposition home or self-care (01) ==
PROVIDERS: PCP Family Medicine; Visit Provider Family Medicine
DX: U07.1 COVID-19 (principal)
CPT/HCPCS: 96365

== ENCOUNTER 2021-05-08 09:30 | Outpatient (CLI) | payer OTHER, SELFPAY ==
[2021-05-08 10:30] LABS: Alanine Aminotransferase 46 U/L (0-33); Alkaline Phosphatase 95 IU/L (35-105); Aspartate Amino Transferase 36 U/L (0-32); Blood Urea Nitrogen 11 mg/dL (6-20); Calcium 8.7 mg/dL (8.5-10.5); Carbon Dioxide 25 mmol/L (22-29); Chloride 105 mmol/L (98-107); Globulin 2.7 g/dL (1.3-4.6); Glomerular Filtration Rate 129.6 mL/min (90-130); Glucose 141 mg/dL (65-115); Osmolality Calculated 290 mOsm/kg (285-295); Sodium 139 mmol/L (136-145); Total Bilirubin 0.5 mg/dL (0.15-1.2); Total Protein 6.7 g/dL (6.6-8.7)
[2021-05-08 10:39] LABS: Estmated Average Glucose 131; Hemoglobin A1C 6.2 % (4.0-6.0)
[2021-05-08 10:47] LABS: Vitamin B12 279 pg/mL (232-1245)
== END 2021-05-08 09:31 | disposition home or self-care (01) ==
LOC: LAB 09:37
PROVIDERS: PCP Family Medicine; Visit Provider Internal Medicine
DX: E11.40 Type 2 diabetes mellitus with diabetic neuropathy, unspecified (principal)
CPT/HCPCS: 36415; 80053; 82607; 83036

== ENCOUNTER 2021-05-09 07:30 | Outpatient (CLI) | payer OTHER, SELFPAY ==
[2021-05-09 10:14] LABS: Microalbumin 24 Hour Result < 8 mg/24HR (0-30); Microalbumin Result < 1.2 mg/dL; Microalbumin Total Volume 700 mL
== END 2021-05-09 07:31 | disposition home or self-care (01) ==
PROVIDERS: PCP Family Medicine; Visit Provider Internal Medicine
DX: E11.40 Type 2 diabetes mellitus with diabetic neuropathy, unspecified (principal)
CPT/HCPCS: 82043

== ENCOUNTER 2021-05-13 09:05 | Outpatient (CLI) | payer OTHER, SELFPAY ==
--- NOTE | 2021-05-13 | XR_ITS ---
WS: [id number] CHEST 2 VIEWS HISTORY: COVID 19 COMPARISON: 11/03/2018 Lungs: Clear with no abnormality. No pleural effusion or pneumothorax. Cardiac size: Normal. Mediastinum/Aorta: Normal mediastinum. Bones: Normal. XR/XR chest 2V* [id number] IMPRESSION: Normal chest.
== END 2021-05-13 09:06 | disposition home or self-care (01) ==
LOC: RADOUTREAD 05-14 09:18
PROVIDERS: PCP Family Medicine; Visit Provider Family Medicine
DX: U07.1 COVID-19 (principal)

== ENCOUNTER 2021-05-15 08:05 | Outpatient (CLI) | payer OTHER, SELFPAY ==
--- NOTE | 2021-05-15 08:30 | CT_ITS ---
WS: [id number] CT CHEST ANGIOGRAPHY WITH REFORMATS HISTORY: ELEVATED D-DIMER, COVID19, DYSPNEA TECHNIQUE: Contiguous axial images are obtained through the chest during arterial injection of intrav enous contrast. Images are reconstructed to evaluate the pulmonary arteries. MIP imaging also reviewe d. All CT scans at [facility] use at least one of these dose optimization techniques: automat ed exposure control; mA and/or kV adjustment per patient size (includes targeted exams where dose is matched to clinical indication); or iterative reconstruction. CONTRAST: Omnipaque 350; 95 mL IV. DLP: 723.49 mGycm COMPARISON: 08/05/2020 Good opacification of the pulmonary artery. No filling defects or pulmonary embolism. Normal size pul monary artery and normal thoracic aorta. Cardiac chambers are very slightly enlarged. No pericardial or pleural effusions. Lungs are clear. No pneumonia or pneumonitis. No mediastinal or hilar adenopath y. Small hiatal hernia. Mild diffuse hepatic steatosis. No adrenal mass. Prior cholecystectomy. No osteoblastic or osteolytic bone disease. CT/CT angio chest PE protcl [id number] IMPRESSION: 1. No pulmonary embolism. 2. No pneumonia or pneumonitis. 3. No adenopathy. 4. Prior cholecystectomy.
[2021-05-15] MEDS: iohexol 350 mg/mL 100 mL Btl IV (08:46)
[2021-05-15 10:32] LABS: Homocysteine 7.89
[2021-05-19 01:58] LABS: Methylmalonic Acid 121 nmol/L (87-318)
== END 2021-05-15 08:06 | disposition home or self-care (01) ==
PROVIDERS: PCP Family Medicine; Referring Provider Internal Medicine; Visit Provider Family Medicine
DX: U07.1 COVID-19 (principal); R06.00 Dyspnea, unspecified; R79.89 Other specified abnormal findings of blood chemistry; Z90.49 Acquired absence of other specified parts of digestive tract
CPT/HCPCS: 36415; 71275; 83090; 83921; Q9967

== ENCOUNTER → 2021-05-27 16:57 | Outpatient (BNVA) | payer OTHER, SELFPAY | PROVIDERS: PCP Family Medicine; Visit Provider Orthopaedic Surgery | DX: Z47.89 Encounter for other orthopedic aftercare (principal); Z98.1 Arthrodesis status | CPT/HCPCS: 72100 ==

== ENCOUNTER → 2021-06-02 16:34 | Outpatient (BNVA) | payer OTHER, SELFPAY | PROVIDERS: PCP Family Medicine; Visit Provider Internal Medicine Cardiovascular Disease | DX: R07.89 Other chest pain (principal); I50.33 Acute on chronic diastolic (congestive) heart failure; R06.02 Shortness of breath | CPT/HCPCS: 80048; 83880 ==

== ENCOUNTER 2021-06-27 10:28 | Outpatient (CLI) | payer OTHER, SELFPAY ==
[2021-06-27 11:16] LABS: Basophils # 0.1 10^3/uL (0.0-0.1); Eosinophils # 0.2 10^3/uL (0.0-0.8); Eosinophils % 3.1 %; Hemoglobin 14.1 g/dL (11.5-15.3); Lymphocytes # 1.8 10^3/uL (0.8-4.8); Lymphocytes % 24.7 %; Mean Corpuscular HGB Conc 32.8 g/dL (30.0-36.0); Mean Corpuscular Hemoglobin 29.3 pg (28.0-34.0); Mean Corpuscular Volume 89.2 fl (81-99); Mean Platelet Volume 9.5 fL (7.4-10.4); Monocytes # 0.5 10^3/uL (0.2-0.9); Neutrophils # 4.56 10^3/uL (1.8-7.7); Neutrophils % 63.6 %; Nucleated Red Blood Cells % 0 %; Platelet Count 187 10^3/cmm (130-400); Red Blood Count 4.82 10^6/uL (4.1-5.3); Red Cell Distribution Width 12.8 % (12.1-15.1); White Blood Count 7.2 10^3/uL (4.0-10.0)
[2021-06-27 11:33] LABS: D Dimer 0.48 ug/mIFEU (0-0.59)
[2021-06-27 11:52] LABS: Alanine Aminotransferase 56 U/L (0-33); Albumin Level 4.2 g/dL (3.5-5.2); Alkaline Phosphatase 93 IU/L (35-105); Anion Gap 13.5 (5-19); Aspartate Amino Transferase 48 U/L (0-32); Blood Urea Nitrogen 7 mg/dL (6-20); C Reactive Protein 2.2 mg/L (0.0-4.9); Calcium 9.1 mg/dL (8.5-10.5); Carbon Dioxide 25 mmol/L (22-29); Chloride 104 mmol/L (98-107); Glucose 129 mg/dL (65-115); NT Pro B Type Natriuretic Pept 200 pg/mL (0-125); Osmolality Calculated 288 mOsm/kg (285-295); Potassium 3.5 mmol/L (3.5-5.1); Sodium 139 mmol/L (136-145); Total Bilirubin 0.8 mg/dL (0.15-1.2); Total Protein 7.2 g/dL (6.6-8.7)
[2021-06-30 10:22] LABS: Erythrocyte Sedimentation Rate 6 mm/hr (0-15)
[2021-06-30 16:18] LABS: Anti-Nuclear Antibody Screen NEGATIVE (NEGATIVE)
[2021-06-30 18:03] LABS: Cyclic Citrullinated Peptide <16 UNITS
[2021-06-30 18:06] LABS: Alternaria Alternata (M6) Ige <0.10 kU/L; Alternaria Class 0; Bermuda Class 0; Bermuda Grass (G2) Ige <0.10 kU/L; Cat Dander (E1) Ige <0.10 kU/L; Cat Dander Class 0; Common Ragweed (Short) (W1) Ig <0.10 kU/L; D. Farinae Class 0; Dermatophagoides Class 0; Dermatophagoides Farinae (D2) <0.10 kU/L; Dermatophagoides Pteronyssinus <0.10 kU/L; Dog Dander (E5) Ige <0.10 kU/L; Dog Dander Class 0; Elm (T8) Ige <0.10 kU/L; Elm Class 0; English Plantain (W9) Ige <0.10 kU/L; English Plantain Class 0; House Dust (Greer) (H1) Ige <0.10 kU/L; House Dust (Hollister- Stier) <0.10 kU/L; House Dust Class 0; Johnson Grass (G10) Ige <0.10 kU/L; Johnson Grass Cl 0; June Grass Class 0; June Grass(Kentucky Blue) (G8) <0.10 kU/L; Lamb'S Quarters (Goose Foot) <0.10 kU/L; Lamb'S Quarters Class 0; Maple (Box Elder) (T1) Ige <0.10 kU/L; Maple Class 0; Meadow Fescue (G4) Ige <0.10 kU/L; Meadow Fescue Class 0; Mucor Racemosus Class 0; Oak (T7) Ige <0.10 kU/L; Oak Class 0; Orchard Grass (Cocksfoot) (G3) <0.10 kU/L; Penicillium Class 0; Penicillium Notatum (M1) Ige <0.10 kU/L; Perennial Rye Grass (G5) Ige <0.10 kU/L; Perennial Rye Grass Class 0; Ragweeed Class 0; Rough Marsh Elder (W16) Ige <0.10 kU/L; Rough Marsh Elder Class 0; Sweet Vernal Class 0; Sweet Vernal Grass (G1) Ige <0.10 kU/L; Timothy Grass (G6) Ige <0.10 kU/L; Timothy Grass Class 0
[2021-06-30 18:21] LABS: Immunoglobulin E 29 kU/L (<OR=114); Immunoglobulin E 31 kU/L (<OR=114)
[2021-07-02 21:23] LABS: SCL 70 <1.0 NEG AI (<1.0 NEG)
[2021-07-02 23:28] LABS: Anti-Double Strand DNA AB 1 IU/mL; Centromere B Antibody <1.0 NEG AI (<1.0 NEG); SS A Ro Sjogrens Antibody <1.0 NEG AI (<1.0 NEG); SS-B/LA IGG <1.0 NEG AI (<1.0 NEG)
== END 2021-06-27 10:29 | disposition home or self-care (01) ==
LOC: LAB 10:52
PROVIDERS: PCP Family Medicine; Visit Provider Internal Medicine Pulmonary Disease
DX: J45.909 Unspecified asthma, uncomplicated (principal); M25.641 Stiffness of right hand, not elsewhere classified; M25.642 Stiffness of left hand, not elsewhere classified; R21 Rash and other nonspecific skin eruption; R06.02 Shortness of breath
CPT/HCPCS: 36415; 80053; 82103; 82785; 83880; 85025; 85378; 85651; 86003; 86038; 86140; 86200; 86225; 86235; 86431

== ENCOUNTER 2021-07-11 07:01 | Outpatient (CLI) | payer OTHER, SELFPAY ==
--- NOTE | 2021-07-11 | USCV_ITS ---
Jaiden Vu Age: 50 Gender: F : 1970 Exam Date: 07/11/2021 07:30 Ordering Phys: Alan Parra MD ([email or web address]) Technologist: Jacky Jeffrey [place] [facility] [place]: BP: 120 / 70 HR: 60 Rhythm: Sinus Technical Quality: Adequate MEASUREMENTS (Male / Female) Normal Values 2D ECHO LV Diastolic Diameter PLAX 4.6 cm 4.2 - 5.9 / 3.9 - 5.3 cm LV Systolic Diameter PLAX 2.7 cm IVS Diastolic Thickness 1.1 cm 0.6 - 1.0 / 0.6 - 0.9 cm IVS Systolic Thickness 1.3 cm LVPW Diastolic Thickness 0.9 cm 0.6 - 1.0 / 0.6 - 0.9 cm LVPW Systolic Thickness 1.3 cm LVOT Diameter 2.0 cm LV Ejection Fraction 2D Teich 72.4 % LV Ejection Fraction MOD 2C 47.9 % LV Ejection Fraction 2C AL 46.2 % LA Diameter 3.6 cm LA Width 3.9 cm LA Height 5.0 cm RA Width 4.2 cm RA Height 4.8 cm M-MODE MV E Point Septal Separation 0.9 cm DOPPLER AV Peak Velocity 137.0 cm/s LVOT Peak Velocity 98.0 cm/s AV Area Cont Eq vti 2.0 cm squared AV Area Cont Eq pk 2.4 cm squared MV Area PHT 5.0 cm squared Mitral E to A Ratio 1.7 MV E' Velocity 50.0 cm/s Mitral E to MV E' Ratio 8.4 Mitral E to LV E' Lateral Ratio 7.4 Mitral E to LV E' Septal Ratio 9.7 TR Peak Velocity 166.0 cm/s TR Peak Gradient 11.0 mmHg TV Peak E Velocity 78.0 cm/s Right Atrial Pressure 3.0 mmHg Pulmonary Artery Systolic Pressu 14.0 mmHg FINDINGS Left Ventricle Normal left ventricular size, systolic function and wall thickness, with no regional wall motion abnormalities. Normal left ventricular wall thickness. Normal diastolic filling pattern. Right Ventricle The right ventricle is normal in size and function. Right Atrium The right atrium is normal in size. Left Atrium The left atrium is normal in size. Mitral Valve No gross abnormalities noted Aortic Valve Thickened aortic valve. Tricuspid Valve No gross abnormalities noted.trace of tricuspid valve regurgitation. Estimated PA pressure 40 mmHg Pulmonic Valve No gross abnormalities noted. Pericardium Normal pericardium without effusion. Aorta Normal ascending aorta dimension. CONCLUSIONS Normal left ventricular size, systolic function and wall thickness, with no regional wall motion abnormalities. LV ejection fraction was estimated to be around 60%(visual). Normal left ventricular wall thickness. Normal diastolic filling pattern. Minimally thickened aortic valve No significant valvular abnormalities. Normal cardiac chamber sizes. Estimated pulmonary artery peak systolic pressure of 14 mmHg There is no pericardial effusion. There are no intracardiac masses. Compared to the study from 12/28/2017, there may not be a significant change. Dr Alan Parra MD [facility] (Electronically Signed) Final Date: 14 July 2021 08:50 S
[2021-07-11 07:05] VITALS: BMI 36.4
--- NOTE | 2021-07-11 07:20 | ECG_ITS ---
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 Interpretive Statements NAME OF STUDY: EXERCISE SESTAMIBI STRESS TEST INDICATION: Chest Pain sob, PROCEDURE: The baseline electrocardiogram showed normal sinus rhythm with normal ST-Ts poor R wave progression. At the baseline, the patient's blood pressure was 145/90 mm Hg with a heart rate of 61. The patient exercised for 7 minutes and 12 seconds on a Sourav protocol. Patient attained a maximum heart rate of 151 beats per minute(89% of the maximum predicted heart rate) with a blood pressure at the peak exercise of 198/63mm Hg. The EKG at the peak exercise revealed no significant changes. Patient was complaining of chest pain with exercise. Sestamibi was injected 1 minute prior to the peak exercise During the recovery phase, there were no new changes. Blood pressure at the end of the recovery phase was 156/76 mm Hg with a heart rate of 78 per minute. CONCLUSION: 1. No significant EKG changes with the [treadmill exercise 2. Exercise-induced chest pain 3. Fair exercise tolerance, attained a maximum of 10 point METs 4. Sestamibi/Sestamibi perfusion results pending; see separate report. Electronically Signed On 07-17-2021 23:23:05 LABOR DELIVERY SPECIALIST by Alan Parra M.D. [id number]
--- NOTE | 2021-07-11 07:21 | NMCV_ITS ---
NM booker perf SPECT r/s* [id number] Jaiden Vu Age: 50 Gender: F : 1970 Exam Date: 07/11/2021 08:07 Ordering Phys: Alan Parra MD ([email or web address]) Technologist: FRANCES Mallory Exam Location: [facility] Indications: SHORTNESS OF BREATH STRESS TEST Please see separate stress test report in [facility] for full findings IMAGE PROTOCOL Rest/Stress 1 Exercise Day Radiopharmaceutical Dose (mCi) Administration Site Administered by Rest: Tc-99m 10.7 IV FRANCES Nguyen Sestamibi Stress:Tc-99m 32.8 IV FRANCES Mallory Sestamichiquita Rest: 11-Jul-2021 60 Discovery 630 Stress: 11-Jul-2021 15 Discovery 630 Radiopharmaceutical was injected at 85 % maximum heart rate. Images obtained in supine and prone position. SPECT RESULTS Technical Quality: Good Raw Data Analysis: Breast attenuation Image Corrections: No attenuation or motion correction applied Summed Stress Score: 2 Summed Rest Score: 4 Summed Difference Score: 0 PERFUSION FINDINGS A small area of decreased tracer uptake was noted in the mid inferolateral and apical region. No significant reversibility was noted in this area. FUNCTIONAL RESULTS (calculated via Gated SPECT) Stress Image LV EF (%): 76 Stress EDV (mL):82 TID: 0.8 Stress ESV (mL):20 FUNCTIONAL FINDINGS: Segmental wall motion analysis revealing no gross wall motion abnormalities IMPRESSIONS 1. Myocardial perfusion imaging revealing a small area of persistent decreased tracer uptake in the inferolateral and apical regions, suggestive of myocardial scarring versus attenuation artifact. 2. Normal LV ejection fraction of 76%. 3. LV wall motion analysis revealing no gross wall motion normalities. 4. Normal LV volume. No significant coronary ischemia, based on the above findings. Compared to the study from 12/15/2017, no ischemia was noted with the current study. Dr Alan Parra MD [facility] (Electronically Signed) Final Date: 14 July 2021 08:11 S
[2021-07-11 09:23] VITALS: BP 156/76; PULSE 79
== END 2021-07-11 07:02 | disposition home or self-care (01) ==
LOC: CDL 07:02
PROVIDERS: PCP Family Medicine; Visit Provider Internal Medicine Cardiovascular Disease
DX: I50.9 Heart failure, unspecified (principal); R06.02 Shortness of breath; I35.8 Other nonrheumatic aortic valve disorders
CPT/HCPCS: 78452; 93017; 93306; A9500

== ENCOUNTER → 2021-07-21 08:26 | Outpatient (BNVA) | payer OTHER, SELFPAY | PROVIDERS: PCP Family Medicine; Visit Provider Internal Medicine | DX: E11.65 Type 2 diabetes mellitus with hyperglycemia (principal); E11.40 Type 2 diabetes mellitus with diabetic neuropathy, unspecified; E78.2 Mixed hyperlipidemia; K76.0 Fatty (change of) liver, not elsewhere classified; Z79.84 Long term (current) use of oral hypoglycemic drugs | CPT/HCPCS: 99214 ==

== ENCOUNTER → 2021-07-24 10:25 | Outpatient (BNVA) | payer OTHER, SELFPAY | PROVIDERS: PCP Family Medicine; Visit Provider Anesthesiology Pain Medicine | DX: M79.18 Myalgia, other site (principal); M48.02 Spinal stenosis, cervical region; M50.20 Other cervical disc displacement, unspecified cervical region; M48.062 Spinal stenosis, lumbar region with neurogenic claudication; M51.16 Intervertebral disc disorders with radiculopathy, lumbar region; M43.16 Spondylolisthesis, lumbar region; M47.27 Other spondylosis with radiculopathy, lumbosacral region; M25.512 Pain in left shoulder; M25.511 Pain in right shoulder; Z87.891 Personal history of nicotine dependence | CPT/HCPCS: 20553; 99214; J1030; J3490 ==

== ENCOUNTER → 2021-08-15 14:01 | Outpatient (BNVA) | payer OTHER, SELFPAY | PROVIDERS: PCP Family Medicine; Visit Provider Internal Medicine Pulmonary Disease | DX: Z20.822 Contact with and (suspected) exposure to COVID-19 (principal); Z01.812 Encounter for preprocedural laboratory examination | CPT/HCPCS: 87635 ==

== ENCOUNTER 2021-08-21 07:37 | Outpatient (CLI) | payer OTHER, SELFPAY ==
--- NOTE | 2021-08-21 13:02 | PFTS_ITS ---
Date of Study:08/21/21 Date of Dictation: 08/22/21 MECHANICS: Pre-bronchodilator forced vital capacity (FVC) is normal. Pre-bronchodilator forced expiratory volume in one second (FEV1) is normal. FEV1/FVC is normal. There is no postbronchodilator study. FLOW VOLUME LOOP: Normal LUNG VOLUMES: Not measured DIFFUSING CAPACITY FOR CARBON MONOXIDE: Normal . INTERPRETATION: The prebronchodilator spirometry is normal. Gas transfer is normal. Lung volumes not measured. Correlate clinically. MTDD
== END 2021-08-21 07:38 | disposition home or self-care (01) ==
LOC: RT 07:38
PROVIDERS: PCP Family Medicine; Visit Provider Internal Medicine Pulmonary Disease
DX: R06.02 Shortness of breath (principal)
CPT/HCPCS: 94010; 94618; 94726; 94729

== ENCOUNTER → 2021-08-26 08:45 | Outpatient (BNVA) | payer OTHER, SELFPAY | PROVIDERS: PCP Family Medicine; Visit Provider Orthopaedic Surgery | DX: Z47.89 Encounter for other orthopedic aftercare (principal); Z98.890 Other specified postprocedural states | CPT/HCPCS: 72100 ==

== ENCOUNTER 2021-09-18 09:34 | Outpatient (RCR) | payer OTHER, SELFPAY | END 2021-10-06 23:59 | disposition home or self-care (01) | LOC: SPT 09:34 | PROVIDERS: PCP Family Medicine; Referring Provider Orthopaedic Surgery; Visit Provider Orthopaedic Surgery | DX: M54.50 Low back pain, unspecified (principal); M54.2 Cervicalgia | CPT/HCPCS: 97110; 97162 ==

== ENCOUNTER 2021-10-07 06:00 | Outpatient (RCR) | payer OTHER, SELFPAY | END 2021-11-03 23:59 | disposition home or self-care (01) | LOC: SPT 06:00 | PROVIDERS: PCP Family Medicine; Referring Provider Orthopaedic Surgery; Visit Provider Orthopaedic Surgery | DX: M54.50 Low back pain, unspecified (principal); M54.2 Cervicalgia | CPT/HCPCS: 97110 ==

== ENCOUNTER → 2021-10-28 09:25 | Outpatient (BNVA) | payer OTHER, SELFPAY | PROVIDERS: PCP Family Medicine; Visit Provider Orthopaedic Surgery | DX: M48.02 Spinal stenosis, cervical region (principal) | CPT/HCPCS: 72050 ==

== ENCOUNTER → 2021-10-29 08:48 | Outpatient (BNVA) | payer OTHER, SELFPAY | PROVIDERS: PCP Family Medicine; Referring Provider Orthopaedic Surgery; Visit Provider Orthopaedic Surgery | DX: M25.561 Pain in right knee (principal); M25.562 Pain in left knee | CPT/HCPCS: 73560; 73565 ==

== ENCOUNTER 2021-11-04 06:00 | Outpatient (RCR) | payer OTHER, SELFPAY | END 2021-12-04 23:59 | disposition home or self-care (01) | LOC: SPT 06:00 | PROVIDERS: PCP Family Medicine; Referring Provider Orthopaedic Surgery; Visit Provider Orthopaedic Surgery | DX: M54.50 Low back pain, unspecified (principal); M54.2 Cervicalgia | CPT/HCPCS: 97110 ==

== ENCOUNTER 2021-11-27 06:00 | Outpatient (RCR) | payer OTHER, SELFPAY | END 2021-12-04 23:59 | disposition home or self-care (01) | LOC: SPT 06:00 | PROVIDERS: PCP Family Medicine; Referring Provider Nurse Practitioner Family; Visit Provider Nurse Practitioner Family | DX: M25.511 Pain in right shoulder (principal) | CPT/HCPCS: 97110; 97162 ==

== ENCOUNTER 2021-12-05 06:00 | Outpatient (RCR) | payer OTHER, SELFPAY | END 2021-12-11 23:59 | disposition home or self-care (01) | LOC: SPT 06:00 | PROVIDERS: PCP Family Medicine; Referring Provider Nurse Practitioner Family; Visit Provider Nurse Practitioner Family | DX: M25.511 Pain in right shoulder (principal) | CPT/HCPCS: 97110 ==

== ENCOUNTER 2022-03-30 08:52 | Outpatient (CLI) | payer OTHER, SELFPAY ==
[2022-03-30 09:51] LABS: Chol HDL Ratio 3.06 mg/dL (0.0-4.40); Cholesterol 147 mg/dL (0-200); HDL Cholesterol 48 mg/dL (60-100); LDL Cholesterol Calculated 81 mg/dL (50-129); LDL HDL Ratio 1.69 RATIO (0.00-3.22); Triglycerides 89 mg/dL (0-150)
[2022-03-30 15:23] LABS: Estmated Average Glucose 114; Hemoglobin A1C 5.6 % (4.0-6.0)
== END 2022-03-30 08:53 | disposition home or self-care (01) ==
LOC: LAB 08:55
PROVIDERS: PCP Family Medicine; Visit Provider Internal Medicine
DX: E11.40 Type 2 diabetes mellitus with diabetic neuropathy, unspecified (principal); E78.2 Mixed hyperlipidemia
CPT/HCPCS: 36415; 80061; 83036

== ENCOUNTER 2022-04-08 10:00 | Outpatient (CLI) | payer OTHER, SELFPAY ==
--- NOTE | 2022-04-08 10:12 | MM_ITS ---
WS: [id number] Bilateral screening 3D tomosynthesis digital mammogram, 04/08/2022 Clinical Data: SCREENING Comparison: 03/28/2021, 03/22/2020, 08/06/2017, 08/03/2016, 07/22/2015, 12/13/2009. Findings: The breast parenchymal pattern shows fibroglandular tissue. No spiculated masses or clustered calcifi cations are seen. There are no secondary signs of carcinoma. There are benign calcifications in both breasts. MM/[place] [id number] Impression: 1. Negative bilateral mammogram unchanged. 2. Recommend annual screening mammograms. BIRADS: 1-Negative FOLLOW UP: 1 Year Follow-up The CAD security checker was used.
== END 2022-04-08 10:01 | disposition home or self-care (01) ==
LOC: RAD 10:01
PROVIDERS: PCP Family Medicine; Visit Provider Obstetrics & Gynecology
DX: Z12.31 Encounter for screening mammogram for malignant neoplasm of breast (principal)
CPT/HCPCS: 77063; 77067

== ENCOUNTER → 2022-05-12 14:51 | Outpatient (BNVA) | payer OTHER, SELFPAY | PROVIDERS: PCP Family Medicine; Visit Provider Orthopaedic Surgery | DX: M48.062 Spinal stenosis, lumbar region with neurogenic claudication (principal); Z98.1 Arthrodesis status | CPT/HCPCS: 72100 ==

== ENCOUNTER → 2022-05-18 09:54 | Outpatient (BNVA) | payer OTHER, SELFPAY | PROVIDERS: PCP Family Medicine; Referring Provider Family Medicine; Visit Provider Podiatrist Foot & Ankle Surgery | DX: M72.2 Plantar fascial fibromatosis (principal); M24.572 Contracture, left ankle; M24.571 Contracture, right ankle; M76.62 Achilles tendinitis, left leg; E11.40 Type 2 diabetes mellitus with diabetic neuropathy, unspecified; G62.9 Polyneuropathy, unspecified | CPT/HCPCS: 73630 ==

== ENCOUNTER 2022-07-09 10:43 | Outpatient (CLI) | payer OTHER, SELFPAY ==
--- NOTE | 2022-07-09 10:30 | IR_ITS ---
WS: [id number] LUMBAR MYELOGRAM HISTORY: Chronic low back pain. COMPARISON: No similar studies. FLUOROSCOPY TIME: 1min 11.527234icm # of spot films: 5 Procedure, risks and complications were explained to the patient. Risks including bleeding, infection , headaches, allergic reaction and seizures. Consent has been obtained. With the patient in prone position the skin over the lumbar region is cleansed with ChloraPrep and an esthetized with lidocaine. 22-gauge spinal needle is inserted into the thecal sac at the appropriate level determined by fluoroscopy. Omnipaque 240; 12 ml is injected slowly under fluoroscopy with no co mplications. Needle bevel is perpendicular to the longitudinal fibers of the dura. Stylet is reinsert ed prior to removal of the needle. Patient tolerated the procedure well. Patient will proceed to CT f or further evaluation. Prior L4-5 posterior lumbar fusion with interbody spacer. Bone graft fusion is also noted at L4-5. No high-grade central stenosis. Mild anterior wedging and concavity superior endplate of T12 and L2. IR/IR myelogram sp lumbar [id number] IMPRESSION: 1. Uncomplicated lumbar myelogram. 2. Prior posterior lumbar fusion with interbody spacer at L4-5.
[2022-07-09] MEDS: iohexol 240 mg/mL 50 mL Btl INTRATHECA (11:51)
== END 2022-07-09 10:44 | disposition home or self-care (01) ==
PROVIDERS: PCP Family Medicine; Visit Provider Orthopaedic Surgery
DX: M48.062 Spinal stenosis, lumbar region with neurogenic claudication (principal); G89.29 Other chronic pain; Z98.1 Arthrodesis status
CPT/HCPCS: 62304; 72120; Q9966

== ENCOUNTER 2022-07-09 10:44 | Outpatient (CLI) | payer OTHER, SELFPAY ==
--- NOTE | 2022-07-09 10:30 | CT_ITS ---
WS: [id number] CT MYELOGRAM LUMBAR SPINE HISTORY: pain TECHNIQUE: Contiguous 2.5 mm axial imaging performed from T12 through the mid sacral level. Bone and soft tissue windows reviewed. Sagittal and coronal reformats are submitted and reviewed. DLP: 1484.[address] scans at [facility] use at least one of these dose optimization techniques: automated e xposure control; mA and/or kV adjustment per patient size (includes targeted exams where dose is matc hed to clinical indication); or iterative reconstruction. COMPARISON: Prior CT 08/09/2017 Adequate injection into the thecal sac. L4 anterolisthesis by 4 mm. Posterior lumbar fusion at L4-5 w ith fusion screws and interbody spacer is stable. No lucency surrounding the screws. Small concave de fect. Schmorl's nodes along the superior endplates of T12 and L3. No retropulsion. L1-L2: Normal. L2-L3: Very minimal disc bulging. No stenosis. L3-L4: Mild osteophytic ridging and annular disc bulging with mild ligamentum flavum hypertrophy. No stenosis. L4-L5: Mild disc bulging. No central canal stenosis. Patulous thecal sac due to a large LEFT hemilami nectomy defect. Facet joint arthritis. L5-S1: Mild disc bulging. Mild facet arthritis. There is very mild bilateral foraminal stenosis. No f ocal disc protrusions. CT/CT lumbar spine w con [id number] IMPRESSION: 1. No high-grade central or foraminal stenosis. 2. Posterior lumbar fusion with interbody spacer at L4-5 is intact. There is a large LEFT hemilaminectomy defect. No stenosis. 3. Mild bilateral foraminal stenosis at L5-S1.
== END 2022-07-09 10:45 | disposition home or self-care (01) ==
PROVIDERS: PCP Family Medicine; Visit Provider Orthopaedic Surgery
DX: M48.062 Spinal stenosis, lumbar region with neurogenic claudication (principal); M48.07 Spinal stenosis, lumbosacral region; Z98.1 Arthrodesis status
CPT/HCPCS: 72132

== ENCOUNTER → 2022-09-10 10:36 | Outpatient (BNVA) | payer OTHER, SELFPAY | PROVIDERS: PCP Family Medicine; Visit Provider Internal Medicine | DX: M25.50 Pain in unspecified joint (principal); M45.0 Ankylosing spondylitis of multiple sites in spine; K72.10 Chronic hepatic failure without coma | CPT/HCPCS: 36415; 72202; 73120; 80053; 82550; 82607; 82784; 83516; 85025; 85651; 86140; 86160; 86162; 86235; 86255; 86376; 86704; 86803; 86812; 87340 ==

== ENCOUNTER 2022-10-12 09:30 | Outpatient (CLI) | payer OTHER, SELFPAY ==
--- NOTE | 2022-10-12 | XR_ITS ---
WS: [id number] XR chest 2V* [id number] REASON FOR EXAM: PRE SURGERY FINDINGS: Chest is unchanged compared to 05/13/2021. The heart and mediastinum are within normal limits. Calcified granulomatous disease in both hemithoraces. No acute/subacute pulmonary parenchymal or pleural abnormality. Minimal change of degenerative spondylosis in the mid and lower thoracic spine. XR/XR chest 2V* [id number] IMPRESSION: No significant cardiopulmonary abnormality.
[2022-10-12 10:57] LABS: Erythrocyte Sedimentation Rate 6 mm/hr (0-15)
== END 2022-10-12 09:31 | disposition home or self-care (01) ==
LOC: LAB 09:36
PROVIDERS: Internal Medicine; PCP Family Medicine; Visit Provider Orthopaedic Surgery
DX: M25.50 Pain in unspecified joint (principal)
CPT/HCPCS: 85651

== ENCOUNTER → 2022-10-26 16:26 | Outpatient (BNVA) | payer OTHER, SELFPAY | PROVIDERS: PCP Family Medicine; Visit Provider Internal Medicine | DX: E11.40 Type 2 diabetes mellitus with diabetic neuropathy, unspecified (principal); E78.2 Mixed hyperlipidemia | CPT/HCPCS: 36415; 80076; 82105; 82652; 83036 ==

== ENCOUNTER → 2022-12-09 08:22 | Outpatient (BNVA) | payer OTHER, SELFPAY | PROVIDERS: PCP Family Medicine; Visit Provider Internal Medicine | DX: M25.50 Pain in unspecified joint (principal) | CPT/HCPCS: 80053; 84443; 85025; 85651; 86140; 86812 ==

== ENCOUNTER → 2022-12-09 08:25 | Outpatient (BNVA) | payer OTHER, SELFPAY | PROVIDERS: PCP Family Medicine; Visit Provider Podiatrist Foot & Ankle Surgery | DX: M25.571 Pain in right ankle and joints of right foot (principal); M25.371 Other instability, right ankle | CPT/HCPCS: 73610 ==

== ENCOUNTER 2023-01-08 07:45 | Outpatient (CLI) | payer OTHER, SELFPAY ==
--- NOTE | 2023-01-08 08:45 | MR_ITS ---
WS: [id number] MRI RIGHT ankle without CONTRAST. COMPARISON: Radiograph 12/09/2022 Multiplanar, multisequence imaging is performed without contrast. Marker is placed over the lateral aspect of the foot at the level of the anterior calcaneus. There is very mild thinning and adjacent increased T2 signal surrounding the peroneus brevis tendon a t the level of the anterior calcaneal process extending towards the fifth metatarsal head. The tendon is thin but remains predominantly intact. The peroneus longus tendon is normal. Suspect partial and probable chronic tear as there is not a lot of increased fluid or edema within the tendon sheath. There is also very small osteochondral defect involving the anterior most lateral calcaneal process. This is also at the site of the marker indicating pain. No fractures or marrow edema. No osteochondral lesions along the talar dome. Tibiotalar joint space i s normal. The remaining ligaments and tendons around the ankle appear appropriate. Anterior talofibul ar ligament is normal. The Achilles tendon is normal. No significant joint effusion. MR/MR ankle RT wo con* [id number] IMPRESSION: 1. Mild thinning of the distal peroneus brevis tendon but no full-thickness te ar. There is only a small amount of increased fluid in the adjacent tendon schmitz th. Consider chronic partial tear. The peroneus longus tendon appears normal. 2. Very tiny osteochondral lesion involving the anterior calcaneal process. Th is is adjacent to the marker placed in the area of pain and also the peroneal b aye thinning.
== END 2023-01-08 07:46 | disposition home or self-care (01) ==
LOC: RAD 07:47
PROVIDERS: PCP Family Medicine; Visit Provider Podiatrist Foot & Ankle Surgery
DX: M25.371 Other instability, right ankle (principal); M25.571 Pain in right ankle and joints of right foot
CPT/HCPCS: 73721; 80053; 84443; 85025; 85651; 86140; 86812

== ENCOUNTER → 2023-01-14 16:10 | Outpatient (BNVA) | payer OTHER, SELFPAY | PROVIDERS: PCP Family Medicine; Visit Provider Nurse Practitioner Family | DX: R07.9 Chest pain, unspecified (principal); R06.02 Shortness of breath; R07.89 Other chest pain; M25.371 Other instability, right ankle; K72.10 Chronic hepatic failure without coma; I10 Essential (primary) hypertension | CPT/HCPCS: 80048; 83880 ==

== ENCOUNTER 2023-01-25 16:18 | Outpatient (CLI) | payer OTHER, SELFPAY ==
--- NOTE | 2023-01-25 16:31 | CT_ITS ---
WS: [id number] CT NECK TECHNIQUE: Contrast-enhanced CT of the neck with coronal and sagittal reformatted images. CLINICAL INFORMATION: OTALGIA,LEFT EAR, PAIN IN THROAT, DYSPHAGIA, OROPHARYNGEAL P COMPARISON: None. DLP: 334.[address] scans at [facility] use at least one of these dose optimization techniques: automated e xposure control; mA and/or kV adjustment per patient size (includes targeted exams where dose is matc hed to clinical indication); or iterative reconstruction. FINDINGS: Paranasal sinuses and mastoid air cells well aerated. Normal posterior nasopharynx. Parotid glands ar e normal. Normal submandibular glands. Normal palatine seen tonsils. No evidence of supraglottic or g lottic mass. Normal posterior nasopharynx. Tongue base appears normal. Normal thyroid gland. Lung apices are well aerated. No cervical lymphadenopathy. Mild LEFT carotid bulb calcification. Mild spondylitic changes cervical spine.Incidental venous angioma partially visualized in the cerebellum CT/CT neck w con* [id number] IMPRESSION: 1. No acute neck findings 2. No cervical lymphadenopathy. 3. Normal salivary glands. 4. No evidence of supraglottic or glottic mass
[2023-01-25] MEDS: iohexol 350 mg/mL 500 mL Btl (per mL) IV (16:49)
== END 2023-01-25 16:19 | disposition home or self-care (01) ==
PROVIDERS: PCP Family Medicine; Visit Provider Otolaryngology
DX: H92.02 Otalgia, left ear (principal); R07.0 Pain in throat; R13.12 Dysphagia, oropharyngeal phase
CPT/HCPCS: 70491; Q9967

== ENCOUNTER 2023-01-28 12:48 | Outpatient (CLI) | payer OTHER, SELFPAY ==
--- NOTE | 2023-01-28 13:45 | USCV_ITS ---
Jaiden Vu Age: 52 Gender: F : 1970 Exam Date: 01/28/2023 13:41 Ordering Phys: Sonya Conde Technologist: Edson Gottlieb Exam Location[place] [facility] [place] Indication: sob BP: 146 / 92 HR: 62 Rhythm: Sinus Technical Quality: Adequate MEASUREMENTS (Male / Female) Normal Values 2D ECHO LVOT Diameter 2.0 cm LV Ejection Fraction MOD 2C 60.2 % LV Ejection Fraction 2C AL 58.8 % LA Diameter 3.1 cm LA Width 3.0 cm LA Height 4.8 cm RA Width 3.8 cm RA Height 4.5 cm Aorta at Sinotubular Diameter 2.9 cm IVC Diameter 1.7 cm M-MODE Aortic Annulus Diameter 2.6 cm LA Ao Ratio MM 1.2 MV E Point Septal Separation 0.8 cm DOPPLER AV Peak Velocity 112.7 cm/s LVOT Peak Velocity 76.0 cm/s AV Area Cont Eq vti 2.1 cm squared AV Area Cont Eq pk 2.2 cm squared MV Peak Velocity 91.0 cm/s MV Area PHT 5.6 cm squared Mitral E to A Ratio 0.8 MV E' Velocity 33.0 cm/s Mitral E to MV E' Ratio 6.2 Mitral E to LV E' Lateral Ratio 6.9 Mitral E to LV E' Septal Ratio 5.7 TR Peak Velocity 111.4 cm/s TR Peak Gradient 5.0 mmHg TR Mean Velocity 89.0 cm/s TR Mean Gradient 3.2 mmHg TR Velocity Time Integral 25.2 cm Right Atrial Pressure 3.0 mmHg Pulmonary Artery Systolic Pressu 8.0 mmHg PV Peak Velocity 68.0 cm/s RV Acceleration Time 0.1 s RV Ejection Time 0.4 s RV AcT/ET 0.4 FINDINGS Left Ventricle Normal left ventricular size, systolic function and wall thickness, with no regional wall motion abnormalities. Left ventricular ejection fraction is estimated at 70 %. Normal diastolic function. Right Ventricle Normal right ventricular size and systolic function. RVSP could not be calculated due to incomplete tricuspid regurgitation velocity profile. Right Atrium Normal right atrial size. Left Atrium Normal left atrial size. Mitral Valve Structurally normal mitral valve. No mitral valve stenosis. Trace mitral valve regurgitation. Aortic Valve Structurally normal trileaflet aortic valve. No aortic valve stenosis. No aortic valve regurgitation. Tricuspid Valve Structurally normal tricuspid valve. No tricuspid valve stenosis. Trace tricuspid valve regurgitation. Pulmonic Valve Pulmonic valve not well visualized. No pulmonary valve stenosis. Pericardium No pericardial effusion. Aorta Normal size aortic root and proximal ascending aorta. IVC Normal IVC dimension with >50% respiratory change of the inferior vena cava. CONCLUSIONS 1. Normal left ventricular size, systolic function and wall thickness, with no regional wall motion abnormalities. Left ventricular ejection fraction is estimated at 70 %. Normal diastolic function. 2. No significant change when compared to study dated 07/11/2021. Jaimee Lu MD (Electronically Signed) Final Date: 02 Feb 2023 21:30 S
== END 2023-01-28 12:49 | disposition home or self-care (01) ==
LOC: RAD 12:51
PROVIDERS: PCP Family Medicine; Referring Provider Internal Medicine Cardiovascular Disease; Visit Provider Nurse Practitioner Family
DX: R06.02 Shortness of breath (principal); R07.89 Other chest pain; K72.10 Chronic hepatic failure without coma
CPT/HCPCS: 93306

== ENCOUNTER 2023-02-02 08:02 | Outpatient (CLI) | payer OTHER, SELFPAY ==
--- NOTE | 2023-02-02 08:23 | FL_ITS ---
WS: [id number] Comparison 11/10/2018. . Exam: FL barium swallow [id number] Date/Time of Exam: 02/02/2023 8:29 AM Reason For Exam: OTALGIA,LEFT EAR/PAIN IN THROAT/DYSPHAGIA,OROPHARYNGEAL PHAS Fluoroscopy time: 1min 43.701172tjf minutes # of spot films: Swallowing function at the level of oropharynx was normal. No sign of aspiration. No sign of esophage al stricture or mass. Esophageal motility appears normal. No hiatal hernia or gastroesophageal reflux noted. FL/FL barium swallow [id number] IMPRESSION: 1. Unremarkable esophagram.
== END 2023-02-02 08:03 | disposition home or self-care (01) ==
PROVIDERS: PCP Family Medicine; Visit Provider Otolaryngology
DX: H92.02 Otalgia, left ear (principal); R13.12 Dysphagia, oropharyngeal phase; R07.0 Pain in throat
CPT/HCPCS: 74220

== ENCOUNTER 2023-02-19 06:36 | Outpatient (CLI) | payer OTHER, SELFPAY ==
--- NOTE | 2023-02-19 | ECG_ITS ---
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 Interpretive Statements NAME OF STUDY: LEXISCAN SESTAMIBI STRESS TEST INDICATION: [Angina, ; worsening Shortness of Breath, ] Procedure: At the baseline, the blood pressure was 149/88 mmHg with a heart rate of 59 bpm. The electrocardiogram showed sinus bradycardia with no significant ST-T wave changes. The Lexiscan was infused over a period of 20 seconds. A total of 0.4 mg of Lexiscan was infused. The stress phase was continued for a total of 5 minutes. Heart rate was at the end of stress phase was 80 bpm and a blood pressure of 146/81 mmHg. The EKG at the peak infusion revealed normal sinus rhythm with no significant ST-T wave changes. Sestamibi was injected 20 seconds after the Lexiscan infusion. Blood pressure at the end of recovery phase was 133/79 mmHg with a heart rate of 70 bpm. Conclusion: 1. Normal EKG response to Lexiscan infusion 2. No Lexiscan induced chest pain or cardiac arrhythmia. 3. Normal blood pressure and heart rate response. 4. Sestamibi/sestamibi perfusion scan pending; see separate report. Electronically Signed On 02-26-2023 14:33:39 CDT by Alonso Saldivar M.D. [id number]
[2023-02-19 07:05] VITALS: BMI 35.6
--- NOTE | 2023-02-19 07:09 | NMCV_ITS ---
NM booker perf SPECT r/s* [id number] Jaiden Vu Age: 52 Gender: F : 1970 Exam Date: 02/19/2023 07:09 Ordering Phys: Sonya Conde Technologist: FRANCES Mallory Exam Location: [facility] Indications: SHORTNESS OF BREATH, CHEST PAIN STRESS TEST Please [facility] for [facility] IMAGE PROTOCOL Rest/Stress 1 Lexiscan Day Radiopharmaceutical Dose (mCi) Administration Site Administered by Rest: Tc-99m 11.0 IV David Hamlin, INSULATION PROFESSIONAL Sestamibi Stress:Tc-99m 33.0 IV David Hamlin, INSULATION PROFESSIONAL Sestamibi Rest: 19-Feb-2023 60 Discovery 630 Stress: 19-Feb-2023 30 Discovery 630 0.4mg Lexiscan. Images obtained in supine and prone position. SPECT RESULTS Technical Quality: Excellent Raw Data Analysis: Normal Image Corrections: No attenuation or motion correction applied Summed Stress Score: 1 Summed Rest Score: 3 Summed Difference Score: 1 PERFUSION FINDINGS There is a very small in size, partially reversible perfusion defect noted in inferior wall. This is consistent with small sized area of prior infarct with minimal yaritza-infarct ischemia in RCA territory. FUNCTIONAL RESULTS (calculated via Gated SPECT) Stress Image LV EF (%): 76 Stress EDV (mL):100 TID: 1.08 Stress ESV (mL):24 FUNCTIONAL FINDINGS: There is normal left ventricular systolic function. IMPRESSIONS 1. Small sized area of prior infarct with minimal yaritza-infarct ischemia in RCA territory. 2. LV systolic function is normal. Alonso Saldivar MD (Electronically Signed) Final Date: 19 February 2023 13:30 S
[2023-02-19] MEDS: regadenoson 0.4 Mg/5 ml Syringe IVP (09:12)
[2023-02-19 09:39] VITALS: BP 133/79; PULSE 69
== END 2023-02-19 06:37 | disposition home or self-care (01) ==
LOC: CDL 06:37
PROVIDERS: PCP Family Medicine; Visit Provider Nurse Practitioner Family
DX: I20.9 Angina pectoris, unspecified (principal); R06.09 Other forms of dyspnea; I25.2 Old myocardial infarction
CPT/HCPCS: 36415; 78452; 93017; 96374; A9500; J2785

== ENCOUNTER → 2023-03-02 09:45 | Outpatient (BNVA) | payer OTHER, SELFPAY | PROVIDERS: PCP Family Medicine; Visit Provider Obstetrics & Gynecology | DX: Z01.419 Encounter for gynecological examination (general) (routine) without abnormal findings (principal); Z78.0 Asymptomatic menopausal state | CPT/HCPCS: 87624 ==

== ENCOUNTER 2023-03-20 22:29 | Observation (INO) | payer OTHER, SELFPAY ==
--- NOTE | 2023-03-20 22:40 | XRR_ITS ---
PROCEDURE INFORMATION: Exam: XR Chest Exam date and time: 03/20/2023 11:12 PM Age: 52 years old Clinical indication: Pain; Chest pressure; Additional info: Chest pain TECHNIQUE: Imaging protocol: Radiologic exam of the chest. Views: 1 view. COMPARISON: CR XR chest 2V* [id number] 10/12/2022 11:31 AM FINDINGS: Lungs: Lungs are clear bilaterally. Pleural spaces: No pleural effusion. No pneumothorax. Heart/Mediastinum: Stable mild enlargement of the cardiac silhouette. Mediastinal contours are unremarkable. Bones/joints: Unremarkable for age. XR/XR chest 1V portable [id number] IMPRESSION: 1. No acute cardiopulmonary process. 2. Incidental/nonacute findings are listed in the report.
--- NOTE | 2023-03-20 22:44 | ECG_ITS ---
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 Measurements Intervals [place] Rate: 61 P: 32 [place]: 177 QRS: 2 QRSD: 94 T: 17 QT: 428 QTc: 434 Interpretive Statements SINUS RHYTHM LOW QRS VOLTAGE IN PRECORDIAL LEADS [QRS DEFLECTION < 1.0 mV IN CHEST LEADS] POSSIBLE ANTERIOR MYOCARDIAL INFARCTION , PROBABLY OLD [30 ms Q WAVE IN V3/V4, OR R < 0.2 mV IN V4] Compared to ECG 01/14/2023 14:56:05 Myocardial infarct finding now present Electronically Signed On 03-21-2023 21:00:30 CDT by Alan Parra M.D. [id number]
[2023-03-20 22:46] VITALS: BP 145/82; PULSE 63; RESP 22; TEMP 36.5; O2SAT 97; BMI 35.7
[2023-03-20 23:23] LABS: Basophils # 0.1 10^3/uL (0.0-0.1); Basophils % 0.6 %; Eosinophils # 0.3 10^3/uL (0.0-0.8); Eosinophils % 4.1 %; Hematocrit 41.4 % (37.0-47.0); Hemoglobin 13.5 g/dL (11.5-15.3); Lymphocytes # 2.6 10^3/uL (0.8-4.8); Lymphocytes % 32.7 %; Mean Corpuscular HGB Conc 32.6 g/dL (30.0-36.0); Mean Corpuscular Hemoglobin 29.2 pg (28.0-34.0); Mean Corpuscular Volume 89.4 fl (81-99); Monocytes # 0.6 10^3/uL (0.2-0.9); Monocytes % 7.2 %; Neutrophils # 4.42 10^3/uL (1.8-7.7); Neutrophils % 55.2 %; Nucleated Red Blood Cells % 0 %; Platelet Count 203 10^3/cmm (130-400); Red Blood Count 4.63 10^6/uL (4.1-5.3); Red Cell Distribution Width 13.1 % (12.1-15.1)
[2023-03-20 23:43] LABS: Troponin(5th) Baseline 6 ng/L (0-10)
[2023-03-20 23:50] LABS: Alanine Aminotransferase 21 U/L (0-33); Albumin Level 3.9 g/dL (3.5-5.2); Alkaline Phosphatase 84 U/L (35-105); Anion Gap 14.1 (5-19); Aspartate Amino Transferase 18 U/L (0-32); Blood Urea Nitrogen 10 mg/dL (6-20); Calcium 8.7 mg/dL (8.5-10.5); Carbon Dioxide 23 mmol/L (22-29); Chloride 108 mmol/L (98-107); Globulin 2.5 g/dL (1.3-4.6); Glomerular Filtration Rate 74.7 mL/min (90-130); Glucose 101 mg/dL (65-115); NT Pro B Type Natriuretic Pept 36 pg/mL (0-125); Osmolality Calculated 291 mOsm/kg (285-295); Potassium 4.1 mmol/L (3.5-5.1); Sodium 141 mmol/L (136-145); Total Bilirubin 0.4 mg/dL (0.15-1.2); Total Protein 6.4 g/dL (6.6-8.7)
[2023-03-21] VITALS (12 sets, daily range): BP systolic 113–162; BP diastolic 71–96; PULSE 59–67; RESP 12–28; TEMP 36.6–36.8; O2SAT 93–97
--- NOTE | 2023-03-21 00:14 | ECG_ITS ---
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 Measurements Intervals [place] Rate: 65 P: 8 [place]: 176 QRS: 4 QRSD: 100 T: 20 QT: 416 QTc: 435 Interpretive Statements SINUS RHYTHM LOW QRS VOLTAGE IN PRECORDIAL LEADS [QRS DEFLECTION < 1.0 mV IN CHEST LEADS] POSSIBLE ANTERIOR MYOCARDIAL INFARCTION , OF INDETERMINATE AGE [30 ms Q WAVE IN V3/V4, OR R < 0.2 mV IN V4] Compared to ECG 03/20/2023 22:44:11 No significant changes Electronically Signed On 03-21-2023 21:11:26 CDT by Alan Parra M.D. [id number]
--- NOTE | 2023-03-21 00:33 | W.ED.CHESTPA ---
HPI - Chest Pain General: Chief Complaint: Chest Pain Stated Complaint: Chest Pains Time Seen by Provider: 03/20/23 23:36 Source: patient and family History of Present Illness: 52-year-old female with no definite prior history of coronary disease, although she had a recent stress test. She presents with chest pain starting around 9 PM this evening with radiation into her left arm. She was sitting when it happened. It seems to get worse with exertion. She did not take nitroglycerin at home, she has side effects from sublingual nitroglycerin. She did take her nightly isosorbide without any improvement. She seemed to be nauseated, and be short of breath with this pain. MD complaint: chest pain Pertinent past history: other Onset (ago): hour(s) Timing of current episode: constant Prior episodes: Yes Onset: during rest Pain location: substernal Pain radiation: left arm Severity: moderate Quality: tightness and aching Relieving factors: nothing Exacerbating factors: inspiration Associated symptoms: Reports dyspnea and nausea; Deny abdominal pain, diaphoresis, fever(s), leg edema, palpitations or vomiting Treatment prior to arrival: none Review of Systems Const: Denies: fever(s) or diaphoresis ENMT: Denies: throat pain Card: Reports: chest pain; Denies: palpitations Resp: Reports: dyspnea and non-productive cough; Denies: productive cough GI: Reports: nausea; Denies: abdominal pain or vomiting Musc: Denies: back pain Skin/Breast: Denies: rash Neuro: Reports: headache(s) [facility] ED PFSH: Medical History Asthma /COPD---> asthma was diagnosed in her 40s managed by as needed albuterol. She denies any intubations or hospitalizations ----> states she was diagnosed with possible COPD in 2020 and is currently on Advair managed by pulmonology-Dr. Haddad Benign essential HTN Diagnosed in 2019 and was taking medication. After her back surgery in November 2020 she has been taken off medication. Cervical stenosis of spinal canal Chronic back pain and is with the pain management clinic-Dr. Tran/[facility] where she had steroid injections in her back Chronic liver failure History of fatty liver disease with fibrosis-elevated LFTs. She follows up with a student services dean in [place] Dr. Rodney Tong from [facility]. Displacement of lumbar disc with radiculopathy History of endometrial cancer Endometrial cancer noted at time of biopsy and patient underwent surgery in 2005 with EYAD, BSO, omentectomy and staging laparotomy and per discharge summary no residual cancer noted. She never needed chemotherapy or radiation. Migraines Since her early 20s managed on medication by her PMD-does not have a neurologist Mixed hyperlipidemia Diagnosed in the and is on medication managed by PMD. No pertinent past medical history Denies history of thyroid problems, heart disease, kidney disease. PCP: Dr. Jeter SS-B antibody positive Type 2 diabetes mellitus Diagnosed in her 40s and is on medication managed by her PMD. Does not have an product safety consultant. Surgical History H/O foot surgery Reports having foot surgery at the age of 8 for removal of embedded plantar warts. History of back surgery November 13, 2020--had back surgery for stenosis and chronic back pain History of cholecystectomy laparoscopic procedure done in her 40s S/P section x 2----> 1997 and 2000 S/P total hysterectomy and bilateral salpingo-oophorectomy 08/23/2006---total abdominal hysterectomy with bilateral salpingo-oophorectomy, omentectomy, staging laparotomy and cosmetic panniculectomy done by Dr. Gonzalez in [place] for well-differentiated endometrial adenocarcinoma. -----> operative reports obtained reviewed and scanned into chart Status post tubal ligation Tubal ligation performed at time of second in 2000. Family History Mother Diabetes CAD (coronary artery disease) Hyperlipidemia Hypertension Grandmother Diabetes maternal Family/Other Breast cancer Maternal aunt; diagnosed at age 64 History of kidney cancer maternal aunt Denies family history of Colon cancer Ovarian cancer Uterine cancer Thyroid condition Stroke Social History Smoking and tobacco status: never smoked Substance/Drug Use: unknown Physical Exam Const: COMMON NORMALS: no acute distress GENERAL APPEARANCE: cooperative; not ill appearing and not frail appearing HENMT: COMMON NORMALS: normocephalic, atraumatic and Normal external nose present HEAD & SCALP: normocephalic and atraumatic FACE & SINUS: normal facial exam and face symmetric NOSE: Normal external nose present Eye: COMMON NORMALS: Equal, round and reactive pupils present and EOMs intact bilaterally PUPIL: Yes Equal, round and reactive pupils present Neck/C-Spine: GENERAL: Yes trachea midline Chest: CHEST: Yes Symmetrical chest wall rise Resp: COMMON NORMALS: normal respiratory effort, No retractions, No use of accessory muscles and clear to auscultation bilaterally AUSCULTATION: clear to auscultation bilaterally Cardio: COMMON NORMALS: regular rate and regular rhythm RATE: regular rate RHYTHM: regular rhythm GI: COMMON NORMALS: Normal to inspection, nondistended, normoactive bowel sounds present Extremity: COMMON NORMALS: no pedal edema Neuro: AIDAN COMA SCALE: document GCS findings Aidan coma scale eye opening: Spontaneous [place] coma scale verbal response: Orientated [place] coma scale motor response: Obey commands Aidan coma scale total score: 15 SENSORY EXAM: Yes extremities (intact) Psych: COMMON NORMALS: speech normal SPEECH: Yes normal speech Skin: COMMON NORMALS: no rashes or lesions noted GENERAL SKIN EXAM: no rashes or lesions noted Course Vital Signs: Vital signs: Vital Signs Temperature 97.7 F 03/20/23 22:46 Pulse Rate 67 03/21/23 00:29 Respiratory Rate 20 H 03/21/23 00:29 Blood Pressure 143/77 03/21/23 00:34 Pulse Oximetry 96 03/21/23 00:29 Oxygen Delivery Me thod Room Air 03/21/23 00:29 MDM - Chest Pain Medical Decision Making Mildly hypertensive. Current blood pressure 154/88. Heart rate is 70. Saturations 95% on room air. She is afebrile. Chest x-ray is nonacute. EKG shows sinus rhythm with normal axis, normal intervals, rate of [address] wave changes. First troponin is 6. Other laboratory negative. Patient with a history of abnormal stress test with ongoing chest discomfort despite treatment in the ER. She will be observed for cardiology consultation. Lab Data 03/20/23 23:19 03/20/23 23:19 Radiology Impressions Chest X-Ray 03/20/23 22:40 IMPRESSION: 1. No acute cardiopulmonary process. 2. Incidental/nonacute findings are listed in the report. Laboratory Results WBC 8.0 10^3/uL (4.0-10.0) 03/20/23 23:19 RBC 4.63 10^6/uL (4.1-5.3) 03/20/23 23:19 Hgb 13.5 g/dL (11.5-15.3) 03/20/23 23:19 Hct 41.4 % (37.0-47.0) 03/20/23 23:19 MCV 89.4 fl (81-99) 03/20/23 23: MCH 29.2 pg (28.0-34.0) 03/20/23 23: MCHC 32.6 g/dL (30.0-36.0) 03/20/23 23: RDW 13.1 % (12.1-15.1) 03/20/23 23: Plt Count 203 10^3/cmm (130-400) 03/20/23 23:19 MPV 9.0 fL (7.4-10.4) 03/20/23 23:19 Neut % (Auto) 55.2 % 03/20/23 23:19 Lymph % (Auto) 32.7 % 03/20/23 23:19 Jenkins % (Auto) 7.2 % 03/20/23 23:19 Eos % (Auto) 4.1 % 03/20/23 23:19 Baso % (Auto) 0.6 % 03/20/23 23:19 Neut # (Auto) 4.42 10^3/uL (1.8-7.7) 03/20/23 23:19 Lymph # (Auto) 2.6 10^3/uL (0.8-4.8) 03/20/23 23:19 Jenkins # (Auto) 0.6 10^3/uL (0.2-0.9) 03/20/23 23:19 Eos # (Auto) 0.3 10^3/uL (0.0-0.8) 03/20/23 23:19 Baso # (Auto) 0.1 10^3/uL (0.0-0.1) 03/20/23 23:19 Nucleated RBC % (auto) 0 % 03/20/23 23:19 Nucleated RBCs # 0.0 /100WBC 03/20/23 23: Sodium 141 mmol/L (136-145) 03/20/23 23:19 Potassium 4.1 mmol/L (3.5-5.1) 03/20/23 23:19 Chloride 108 mmol/L (98-107) H 03/20/23 23:19 Carbon Dioxide 23 mmol/L (22-29) 03/20/23 23:19 Anion Gap 14.1 (5-19) 03/20/23 23:19 BUN 10 mg/dL (6-20) 03/20/23 23:19 Creatinine 0.8 mg/dL (0.5-0.9) 03/20/23 23:19 GFR Calculation 74.7 mL/min (90-130) L 03/20/23 23:19 Glucose 101 mg/dL (65-115) 03/20/23 23:19 Calculated Osmolality 291 mOsm/kg (285-295) 03/20/23 23:19 Calcium 8.7 mg/dL (8.5-10.5) 03/20/23 23:19 Total Bilirubin 0.4 mg/dL (0.15-1.2) 03/20/23 23:19 AST 18 U/L (0-32) 03/20/23 23:19 ALT 21 U/L (0-33) 03/20/23 23:19 Alkaline Phosphatase 84 U/L (35-105) 03/20/23 23:19 Troponin T Baseline 6 ng/L (0-10) 03/20/23 23:19 Troponin T 120 Minute Cancelled 03/21/23 01:43 Delta Troponin T Cancelled 03/21/23 01:43 NT-Pro-B Natriuret Pep 36 pg/mL (0-125) 03/20/23 23:19 Total Protein 6.4 g/dL (6.6-8.7) L 03/20/23 23:19 Albumin 3.9 g/dL (3.5-5.2) 03/20/23 23:19 Globulin 2.5 g/dL (1.3-4.6) 03/20/23 23:19 Discharge Plan Discharge Patient Disposition: Placed in Observation Clinical Impression: Chest pain Condition: Stable Prescriptions: No Action methylprednisolone acetate [Depo-Medrol] 80 mg/mL suspension 80 mg intra-articular ONCE Qty: 1 0RF methylprednisolone acetate [Depo-Medrol] 40 mg/mL suspension 40 mg intra-articular ONCE Qty: 1 0RF bupivacaine (PF) 0.25 % (2.5 mg/mL) solution 1 ml intra-articular ONCE Qty: 1 0RF methylprednisolone acetate [Depo-Medrol] 40 mg/mL suspension 40 mg Infiltration ONCE Qty: 1 0RF bupivacaine (PF) 0.25 % (2.5 mg/mL) solution 10 ml Infiltration ONCE Qty: 1 0RF albuterol sulfate 90 mcg/actuation aerosol powdr breath activated 2 inh INHALATION Q6H PRN (Reason: Shortness Of Breath) Rx Instructions: pt used it on the , but she is out now. topiramate 25 mg tablet 75 mg PO DAILY omeprazole 40 mg capsule,delayed release(DR/EC) 80 mg PO .qhs cholecalciferol (vitamin D3) 100 mcg (4,000 unit) capsule 100 mcg PO DAILY rosuvastatin 20 mg tablet 40 mg PO DAILY promethazine 25 mg tablet 25 mg PO Q6H PRN zolmitriptan 5 mg tablet 10 mg PO .prn fluticasone propionate [Flonase Allergy Relief] 50 mcg/actuation spray,suspension 1 spray intranasal BID Qty: 50 3RF Rx Instructions: administer into each nostril (DME) blood-glucose meter Misc See Rx Instructions .Route Qty: 1 0RF Rx Instructions: Check BS 4 times a day. artificial tears(hypromellose) 0.5 % drops 1 drp ophthalmic (eye) BID PRN (Reason: dry eyes) Qty: 15 3RF isosorbide mononitrate 30 mg tablet extended release 24 hr 30 mg PO DAILY Qty: 90 3RF ivermectin [Soolantra] 1 % cream 1 applic topical DAILY Qty: 45 3RF Rx Instructions: Soolantra Apply to face daily. methylprednisolone acetate [Depo-Medrol] 40 mg/mL suspension 40 mg Infiltration ONCE Qty: 1 0RF valacyclovir 500 mg tablet 500 mg PO BID PRN (Reason: breakout) (DME) Diabetic Shoes See Rx Instructions .Route .MEDSUPPLY Qty: 1 0RF Rx Instructions: As directed Adult 50 Plus Probiotic 4 billion cell capsule 4,000 mmu cells PO DAILY Rx Instructions: administer with a meal bupivacaine (PF) 0.25 % (2.5 mg/mL) solution 2 ml Infiltration ONCE Qty: 1 0RF celecoxib [Celebrex] 100 mg capsule 100 mg PO .daily prn Qty: 30 2RF multivitamin Tablet 1 tab PO DAILY diclofenac sodium [Voltaren Arthritis Pain] 1 % gel 2 g topical QID Rx Instructions: apply to single elbow, wrist or hand; for hand includes palm/fingers/back of hand Systane Balance 0.6 % drops 1 drp ophthalmic (eye) DAILY PRN nitroglycerin [Nitrostat] 0.4 mg tablet, sublingual 0.4 mg SUBLINGUAL Q5M PRN (Reason: chest pains) Qty: 30 5RF ranolazine 500 mg tablet extended release 12 hr 500 mg PO BID Qty: 180 3RF fluoxetine [Prozac] 20 mg capsule 20 mg PO DAILY Qty: 90 3RF potassium chloride 8 mEq tablet extended release 8 meq PO DAILY Qty: 90 2RF montelukast [Singulair] 10 mg tablet 10 mg PO DAILY Qty: 30 3RF Ozempic 0.25 mg or 0.5 mg (2 mg/3 mL) pen injector 0.5 mg SUBCUT Q7D 60 Days Qty: 7.2 0RF (DME) OneTouch Ultra Test Strip See Rx Instructions .ROUTE .COMPLEX Qty: 400 0RF Dose Instruction: USE ONE STRIP TO TEST FOUR TIMES DAILY Rx Instructions: USE ONE STRIP TO TEST FOUR TIMES DAILY isosorbide mononitrate 30 mg tablet extended release 24 hr 30 mg PO DAILY Qty: 30 3RF fluticasone propion-salmeterol [Advair Diskus] 500-50 mcg/dose blister with device 1 inh inhalation BID Qty: 60 4RF hydroxychloroquine 200 mg tablet 200 mg PO BID Qty: 60 3RF Referrals: Angelito Jeter MD [Primary Care Provider] - Coding Level of Care Code ED Windows Architect for Catalina Sorto
[2023-03-21] MEDS: ondansetron 2 mg/ML SDV 2 mL 4 MG IVP (00:45)
[2023-03-21] MEDS: fentaNYL 50 mcg/mL INJ 2mL IVP (00:45)
[2023-03-21] MEDS: aluminum-mag hydrox-simethicon 30 ML, sucralfate oral liq 1 GM PO (00:45)
[2023-03-21] MEDS: fentaNYL 50 mcg/mL INJ 2mL 75 MCG IVP (04:24)
[2023-03-21] MEDS: nitroglycerin 1 gm/inch oint Pkt 0.5 INCH TOPICAL (04:27)
[2023-03-21] MEDS: aspirin 325 mg Tablet PO ×2 (04:29→21:12)
--- NOTE | 2023-03-21 04:40 | ECG_ITS ---
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 Measurements Intervals [place] Rate: 63 P: -6 [place]: 187 QRS: -21 QRSD: 106 T: -6 QT: 429 QTc: 440 Interpretive Statements SINUS RHYTHM LOW QRS VOLTAGE IN PRECORDIAL LEADS [QRS DEFLECTION < 1.0 mV IN CHEST LEADS] INCOMPLETE RIGHT BUNDLE BRANCH BLOCK [90+ ms QRS DURATION, TERMINAL R IN V1/V2, 40+ ms S IN I/aVL/V4/V5/V6] POSSIBLE ANTERIOR MYOCARDIAL INFARCTION , OF INDETERMINATE AGE [30 ms Q WAVE IN V3/V4, OR R < 0.2 mV IN V4] Compared to ECG 03/21/2023 00:14:48 Incomplete right bundle-branch block now present Myocardial infarct finding still present Electronically Signed On 03-21-2023 21:12:13 CDT by Alan Parra M.D. [id number]
[2023-03-21 05:07] LABS: Troponin 5 2HR Delta 0 ABS# (0-10)
--- NOTE | 2023-03-21 06:54 | P.HP_ITS ---
Providers/Chief Complaint Admitting Physician: Odalys Tucker MD Primary Care Provider: Angelito Jeter MD Chief Complaint: Chest Pains History of Present Illness Jaiden Vu is a 52 year old female who is currently followed outpatient by cardiology for atypical chest pain. She has history of hypertension, DM, family history of premature coronary artery disease, possible Sjogren's syndrome who presents to the emergency room with chief complaints of chest pain. Current episode started at around 9 PM this evening at rest, radiating into her left arm. She feels that this is getting worse with exertion. Also reported associated symptoms of nausea and dyspnea. Objectively she is saturating 96% on room air. Patient was recently evaluated by cardiology as an outpatient, had a stress test in February 2023 which had shown a small sized area of prior infarct with minimal yaritza-infarct ischemia in the RCA territory. Echocardiogram from January 2023 had shown normal left ventricular size systolic function with an EF of 70%. On her follow-up with cardiology [facility] on February 22, 2023, she was being assessed for an angiogram. EKG today shows sinus rhythm without any acute ST-T wave changes. Baseline troponin is at 6, 2-hour troponin also at 6 without any significant delta. Review of Systems General: Reports: 10 or more systems reviewed and unremarkable except in HPI and below Const: Denies: fever(s), chills or body aches Eyes: Denies: change in vision, blurry vision or photophobia ENMT: Reports: hoarseness; Denies: throat pain, enlarged tonsils, odynophagia or nasal congestion Card: Denies: chest pain, palpitations, irregular heart rhythm, edema, swelling of feet/ankles, lightheadedness, pre-syncope, dyspnea on exertion or orthopnea Resp: Denies: dyspnea, productive cough, non-productive cough, wheezing, stridor, pain on inspiration, change in phlegm color, hemoptysis or chest congestion GI: Denies: abdominal pain, nausea, vomiting, hematemesis, coffee ground emesis, dysphagia, heartburn, diarrhea, constipation, GI cramping, change in stool character, hematochezia or melena : Denies: flank pain, difficulty voiding, dysuria, urinary frequency, urinary urgency, urinary hesitancy or hematuria Musc: Denies: neck pain, back pain, extremity pain, joint swelling, joint warmth or deformity Neuro: Denies: headache(s), numbness in extremities, weakness in extremities, sensory changes, difficulty walking, frequent falls, dizziness, vertigo, behavioral changes, Slurred speech present or seizure-like activity Psych: Denies: anxiety, depression, suicidal ideation or homicidal ideation Endo: Denies: polyuria, polydipsia, tired all the time, cold intolerance or hot flashes Aydin/Lymph: Denies: easy bruising or easy bleeding Medications/Allergies Home Medications Medication Instructions Recorded Confirmed Last Taken Type albuterol sulfate 90 mcg/actuation 2 inh inhalation Q6H PRN Shortness 10/23/19 03/21/23 08/03/20 History breath activated powder inhaler Of Breath topiramate 25 mg tablet 75 mg PO BEDTIME 10/23/19 03/21/23 11/12/20 History rosuvastatin 20 mg tablet 40 mg PO BEDTIME 06/02/21 03/21/23 Unknown History fluticasone propionate 50 1 spray intranasal BID #50 mL 06/27/21 03/21/23 Unknown Rx mcg/actuation nasal spray,suspension (Flonase Allergy Relief) promethazine 25 mg tablet 25 mg PO Q6H PRN migraine 09/29/21 03/21/23 Unknown History blood-glucose meter #1 ea 12/24/21 03/21/23 Unknown Rx ranolazine 500 mg tablet,extended 500 mg PO BID #180 tabs 01/26/22 03/21/23 Unknown Rx release,12 hr fluoxetine 20 mg capsule (Prozac) 20 mg PO DAILY #90 caps 01/27/22 03/21/23 Unknown Rx potassium chloride 8 mEq 8 meq PO DAILY #90 tabs 02/26/22 03/21/23 Unknown Rx tablet,extended release ivermectin 1 % topical cream 1 applic topical DAILY #45 grams 04/09/22 03/21/23 Unknown Rx (Soolantra) omeprazole 40 mg capsule,delayed 40 mg PO BID 06/12/22 03/21/23 Unknown History release valacyclovir 500 mg tablet 500 mg PO BID PRN breakout 06/12/22 03/21/23 Unknown History Diabetic Shoes #1 ea 06/29/22 03/21/23 Unknown Rx montelukast 10 mg tablet 10 mg PO DAILY #30 tabs 08/21/22 03/21/23 Unknown Rx (Singulair) zolmitriptan 5 mg tablet 10 mg PO .prn 10/08/22 03/21/23 Unknown History diclofenac sodium 1 % topical gel 1 ea topical DAILY 01/14/23 03/21/23 Unknown History (Voltaren Arthritis Pain) multivitamin 1 tab PO DAILY 01/14/23 03/21/23 Unknown History nitroglycerin 0.4 mg sublingual 0.4 mg sublingual Q5M PRN chest 01/14/23 03/21/23 Unknown Rx tablet (Nitrostat) pains #30 tabs semaglutide 0.25 mg or 0.5 mg (2 0.5 mg (0.8 mL) SUBCUT Q7D 60 days 01/15/23 03/21/23 Unknown Rx mg/3 mL) subcutaneous pen injector #7.2 mL (Ozempic) blood sugar diagnostic (OneTouch #400 strips 02/22/23 03/21/23 Unknown Rx Ultra Test strips) fluticasone 500 mcg-salmeterol 50 1 inh inhalation BID #60 ea 02/24/23 03/21/23 Unknown Rx mcg/dose blistr powdr for inhalation (Advair Diskus) hydroxychloroquine 200 mg tablet 200 mg PO BID #60 tabs 03/03/23 03/21/23 Unknown Rx antiseptic solution 1 pad topical BEDTIME 03/21/23 03/21/23 Unknown History azelastine 137 mcg (0.1 %) nasal 2 spray intranasal BID 03/21/23 03/21/23 Unknown History spray aerosol celecoxib 100 mg capsule (Celebrex) 100 mg PO DAILY 03/21/23 03/21/23 Unknown History cetirizine 10 mg tablet 10 mg PO BEDTIME 03/21/23 03/21/23 Unknown History isosorbide mononitrate 30 mg 15 mg PO BEDTIME 03/21/23 03/21/23 Unknown History tablet,extended release 24 hr peg 400-propylene glycol (PF) 0.4 1 drp ophthalmic (eye) Q4H 03/21/23 03/21/23 Unknown History %-0.3 % eye drops in a dropperette (Systane (PF)) sucralfate 100 mg/mL oral 100 mg PO Q6H PRN Heartburn 03/21/23 03/21/23 Unknown History suspension urea 40 % lotion 1 applic topical DAILY 03/21/23 03/21/23 Unknown History Allergies Allergy/AdvReac Type Severity Reaction Status Date / Time morphine Allergy Intermediate Rash, hives Verified 03/20/23 22:50 Penicillins Allergy Intermediate ALGY-Rash Verified 03/20/23 22:50 hydrocodone Allergy ADR-Vomitin Verified 03/20/23 22:50 g oxycodone AdvReac Vomiting, Verified 03/20/23 22:50 diarrhea, anxiety, itching cladospori Allergy Intermediate ALGY-Rash Uncoded 03/20/23 22:50 oxycodone Allergy Intermediate ALGY-Rash Uncoded 03/20/23 22:50 tusarium Allergy Intermediate ALGY-Rash Uncoded 03/20/23 22:50 PFSH Acute PFSH: Medical History Asthma /COPD---> asthma was diagnosed in her 40s managed by as needed albuterol. She denies any intubations or hospitalizations ----> states she was diagnosed with possible COPD in 2020 and is currently on Advair managed by pulmonology-Dr. Haddad Benign essential HTN Diagnosed in 2018 and was taking medication. After her back surgery in November 2020 she has been taken off medication. Cervical stenosis of spinal canal Chronic back pain and is with the pain management clinic-Dr. Tran/[facility] where she had steroid injections in her back Chronic liver failure History of fatty liver disease with fibrosis-elevated LFTs. She follows up w ith a wind tunnel engineer in [place] Dr. Rodney Tong from [facility]. Displacement of lumbar disc with radiculopathy History of endometrial cancer Endometrial cancer noted at time of biopsy and patient underwent surgery in 2005 with EYAD, BSO, omentectomy and staging laparotomy and per discharge [facility] no residual cancer noted. She never needed chemotherapy or radiation. Migraines Since her early 20s managed on medication by her PMD-does not have a neurologist Mixed hyperlipidemia Diagnosed in the and is on medication managed by PMD. No pertinent past medical history Denies history of thyroid problems, heart disease, kidney disease. PCP: Dr. Jeter SS-B antibody positive Type 2 diabetes mellitus Diagnosed in her 40s and is on medication managed by her PMD. Does not have an assessor. Surgical History H/O foot surgery Reports having foot surgery at the age of 8 for removal of embedded plantar warts. History of back surgery November 13, 2020--had back surgery for stenosis and chronic back pain History of cholecystectomy laparoscopic procedure done in her 40s S/P section x 2----> 1997 and 2000 S/P total hysterectomy and bilateral salpingo-oophorectomy 08/23/2006---total abdominal hysterectomy with bilateral salpingo- oophorectomy, omentectomy, staging laparotomy and cosmetic panniculectomy done by Dr. Gonzalez in [place] for well-differentiated endometrial adenoc arcinoma. -----> operative reports obtained reviewed and scanned into chart Status post tubal ligation Tubal ligation performed at time of second in 2000. Family History Mother Diabetes CAD (coronary artery disease) Hyperlipidemia Hypertension Grandmother Diabetes maternal Family/Other Breast cancer Maternal aunt; diagnosed at age 64 History of kidney cancer maternal aunt Denies family history of Colon cancer Ovarian cancer Uterine cancer Thyroid condition Stroke Social History Smoking and tobacco status: never smoked Substance/Drug Use: unknown Vitals/I&O/Wt Last Vital Signs Temp 97.9 F 03/21/23 04:16 Pulse 60 03/21/23 06:00 Resp 18 03/21/23 04:24 BP 136/75 03/21/23 04:27 Pulse Ox 96 03/21/23 04:16 O2 Del Method Room Air 03/21/23 04:16 03/20/23 03/20/23 03/21/23 14:59 22:59 06:59 Intake Total 480 / 480 Balance 480 / 480 Weight last 48 hrs Weight 97.522 kg Physical Exam Narrative: General: No acute distress, AO x3 HEENT: PERRLA, pupils bilaterally equal and reactive, pallors not present Chest: Normal vesicular breath sounds, no added sounds, equal good air entry bilaterally CVS: S1-S2 regular, no murmurs, no tachycardia, no gallops, no rubs Abdomen: Soft, nontender, no organomegaly, bowel sounds present Neuro: No focal deficits, no facial deformity, AO x3, power 5/5 in all limbs Data 03/20/23 23:19 03/20/23 23:19 Other data: 01/28/23 Procedure(s): CV. echo complete* [id number] ?CONCLUSIONS ?1. Normal left ventricular size, systolic function and wall ?thickness, with no regional wall motion abnormalities. Left ?ventricular ejection fraction is estimated at 70 %. Normal ?diastolic function. ?2. No significant change when compared to study dated ?07/11/20[place] [address] Nuclear Medicine Report Signed Patient: Jaiden Vu Unit #: [id number] : 1970 Age/Sex: 52 / F ADM Date: 02/19/23 Loc: [facility] Room/Bed: Attending Dr: Sonya VASQUEZ Ordering Provider/Ordering MD: Sonya Conde Date of Service: 02/19/23 Procedure(s): NM booker perf SPECT r/s* 95992 Accession Number(s): [id number] Report Number: [id number] ?NM booker perf SPECT r/s* [id number] ?Jaiden Vu ?Age:? ? 52 ? ? Gender: ? ? F ?:? ? 1970 ?Exam Date: ? ? 02/19/2023 07:09 ?Ordering Phys: ? ? Sonya Conde? CHRISTINA ?Technologist:? ? ? Filomena Nguyễn, ? TRACER LATHE SET UP OPERATOR ?Exam Location:? ? ? [facility] ?MRN:? ? [id number] ?Account Number: ? ? ? [id number] ?Indications:? ? ? SHORTNESS OF BREATH, CHEST PAIN ?STRESS TEST ?Please see separate stress test report in [facility] for full findings ?IMAGE PROTOCOL? ? ? Rest/Stress 1? Lexiscan ? Day ? Radiopharmaceutical ? Dose (mCi) ? Administration Site ? ? ? Administered by ?Rest:? Tc-99m? 11.0 ? IV? David Hamlin, TRACER LATHE SET UP OPERATOR ? Sestamibi ?Stress:Tc-99m? 33.0 ? IV? Davidazalea Hamlin, TRACER LATHE SET UP OPERATOR ? Sestamibi ?Rest:? ? 19-Feb-2023 ? 60 ? Discovery 630 ?Stress: ? ? 19-Feb-2023? 30 ? Discovery 630 ?0.4mg Lexiscan. Images obtained in supine and prone position. ?SPECT RESULTS ?Technical Quality: ? ? ? Excellent ?Raw Data Analysis:? ? ? Normal ?Image Corrections:? ? ? No attenuation or motion correction applied ?Summed Stress Score:? 1 ?Summed Rest Score: ? ? ? 3 ?Summed Difference Score: ? 1 ?PERFUSION FINDINGS ?There is a very small in size, partially reversible perfusion defect noted in ?inferior wall.? This is consistent with small sized area of prior infarct with ?minimal yaritza-infarct ischemia in RCA territory. ?FUNCTIONAL RESULTS ? ? (calculated via Gated SPECT) ? Stress Image LV EF (%):? ? 76 ? Stress EDV (mL):100? TID:? 1.08 ? Stress ESV (mL):24 ?FUNCTIONAL FINDINGS: ?There is normal left ventricular systolic function. ?IMPRESSIONS ?1.? Small sized area of prior infarct with minimal yaritza-infarct ischemia in RCA ?territory. ?2.? LV systolic function is normal. A&P Assessment and plan (1) Chest pain: Patient with multiple risk factors for coronary artery disease including hypertension, diabetes mellitus, history of premature coronary artery disease and family, ongoing chest pain with recently abnormal stress test as outlined above. Presenting today with chest pain radiating into her left arm. EKG without any acute ST-T wave changes Baseline troponin at 6, at 2 hours also with 6 without significant delta. It appears she was being planned for an outpatient angiogram. Given that patient has multiple underlying cardiac risk factors with persistent chest pain in the setting of an abnormal recent stress test, consult cardiology to assess for angiogram. Attestations Medical Necessity Statement*: Anticipate less than 2 midnight stay for evaluation of chest pain and cardiology assessment. Coding Level of Care Code Acute Code for [facility] Diagnoses Chest pain R07.9
[2023-03-21 08:21] LABS: Chol HDL Ratio 3.12 mg/dL (0.0-4.40); Cholesterol 181 mg/dL (0-200); HDL Cholesterol 58 mg/dL (60-100); LDL Cholesterol Calculated 111 mg/dL (50-129); LDL HDL Ratio 1.91 RATIO (0.00-3.22); Triglycerides 61 mg/dL (0-150)
[2023-03-21 09:01] LABS: D Dimer 0.36 ug/mIFEU (0-0.59)
[2023-03-21] MEDS: fluoxetine 20 mg Capsule PO (09:02)
[2023-03-21] MEDS: ranolazine (12HR) 500 mg Tablet PO ×2 (09:02→18:34)
[2023-03-21] MEDS: hydroxychloroquine 200 mg Tablet PO ×2 (09:02→18:34)
[2023-03-21] MEDS: pantoprazole DR 40 mg Tablet PO (09:03)
[2023-03-21] MEDS: diclofenac 1% Topical Gel 100 gm 1 APPLIC TOPICAL (09:03)
--- NOTE | 2023-03-21 09:10 | PM.CONSULT ---
Providers/Reason For Consult Consulting Physician/Specialty*: DEANN Parra MD/cardiology Reason for Consult*: Patient with chest pain and abnormal Myocardial perfusion imaging Requesting Physician: Dr. Fairbanks/Dr. Chaves Attending Physician: Wayne Chaves MD Primary Care Provider: Angelito Jeter MD History of Present Illness History of Present Illness Jaiden Vu is a 52 year old female with a history of hypertension, type 2 diabetes, dyslipidemia, has been having chest pain intermittently for the last many years. For the last a few months, she been having more or less constant pain with intermittent waxing and waning. Since yesterday evening, the pain got more severe. On a scale of 1-10, the intensity of the pain was 7-8/10. The pain also was radiated to the left in the inner aspect. She has no associated shortness of breath and palpitation. No nausea, vomiting, sweating, dizziness or syncopal episodes. No other associated symptoms or radiation of pain. According the patient, even though she had chest pains in the past, she never had pain rating to the left. In view of the worsening symptoms and also radiation of pain to the left arm, she was brought to the emergency room. She had a Myocardial perfusion imaging in February of this year and was found to have an area of fixed defect with a very small area of reversible defect, suggesting myocardial scarring with possible small area yaritza-infarction ischemia in the distribution of the right coronary artery. She had echocardiogram in January of this year which revealed normal LV size and ejection fraction with no significant wall motion abnormalities. She is diagnosed with the Sjogren's syndrome and is being followed up with the rheumatology clinic. She had a cardiac catheterization in 2018 was found to have no significant obstructive coronary artery disease. She had an elevated LVEDP of 24 mmHg. Considering the possibility of small vessel disease, she was placed on Ranexa. She felt better for a while. Recently she was placed on isosorbide mononitrate. She has been taking isosorbide mononitrate 30 mg half tablet p.o. daily. Because of her severe headache, the dose had to be cut back. Denies any fever or chills. No cough. No headache or blurring of vision. No jaw pain or dysuria. No other specific complaints. Review of Systems Narrative: CONSTITUTIONAL: No fever or chills. EYES: No blurring of vision or other visual disturbances lately. ENT: No hoarseness of voice, auditory disturbances or sore throat. CARDIOVASCULAR: As mentioned above. RESPIRATORY: Has some shortness of breath with activities GASTROINTESTINAL: No hematemesis or melena. GENITOURINARY: No dysuria or hematuria. INTEGUMENTARY: No skin rashes or history of skin cancer. NEURO: No transient ischemic attacks or amaurosis. PSYCHIATRIC: No history of psychosis or major depression. HEMATOLOGIC: No bleeding disorders or significant anemia. ENDOCRINE: Type 2 diabetes MUSCULOSKELETAL: Inflammatory arthritis ALLERGY/IMMUNOLOGY: As mentioned above. Medications/Allergies Home Medications Medication Instructions Recorded Confirmed Last Taken Type albuterol sulfate 90 mcg/actuation 2 inh inhalation Q6H PRN Shortness 10/23/19 03/21/23 08/03/20 History breath activated powder inhaler Of Breath topiramate 25 mg tablet 75 mg PO BEDTIME 10/23/19 03/21/23 11/12/20 History rosuvastatin 20 mg tablet 40 mg PO BEDTIME 06/02/21 03/21/23 Unknown History fluticasone propionate 50 1 spray intranasal BID #50 mL 06/27/21 03/21/23 Unknown Rx mcg/actuation nasal spray,suspension (Flonase Allergy Relief) promethazine 25 mg tablet 25 mg PO Q6H PRN migraine 09/29/21 03/21/23 Unknown History blood-glucose meter #1 ea 12/24/21 03/21/23 Unknown Rx ranolazine 500 mg tablet,extended 500 mg PO BID #180 tabs 01/26/22 03/21/23 Unknown Rx release,12 hr fluoxetine 20 mg capsule (Prozac) 20 mg PO DAILY #90 caps 01/27/22 03/21/23 Unknown Rx potassium chloride 8 mEq 8 meq PO DAILY #90 tabs 02/26/22 03/21/23 Unknown Rx tablet,extended release ivermectin 1 % topical cream 1 applic topical DAILY #45 grams 04/09/22 03/21/23 Unknown Rx (Soolantra) omeprazole 40 mg capsule,delayed 40 mg PO BID 06/12/22 03/21/23 Unknown History release valacyclovir 500 mg tablet 500 mg PO BID PRN breakout 06/12/22 03/21/23 Unknown History Diabetic Shoes #1 ea 06/29/22 03/21/23 Unknown Rx montelukast 10 mg tablet 10 mg PO DAILY #30 tabs 08/21/22 03/21/23 Unknown Rx (Singulair) zolmitriptan 5 mg tablet 10 mg PO .prn 10/08/22 03/21/23 Unknown History diclofenac sodium 1 % topical gel 1 ea topical DAILY 01/14/23 03/21/23 Unknown History (Voltaren Arthritis Pain) multivitamin 1 tab PO DAILY 01/14/23 03/21/23 Unknown History nitroglycerin 0.4 mg sublingual 0.4 mg sublingual Q5M PRN chest 01/14/23 03/21/23 Unknown Rx tablet (Nitrostat) pains #30 tabs semaglutide 0.25 mg or 0.5 mg (2 0.5 mg (0.8 mL) SUBCUT Q7D 60 days 01/15/23 03/21/23 Unknown Rx mg/3 mL) subcutaneous pen injector #7.2 mL (Ozempic) blood sugar diagnostic (OneTouch #400 strips 02/22/23 03/21/23 Unknown Rx Ultra Test strips) fluticasone 500 mcg-salmeterol 50 1 inh inhalation BID #60 ea 02/24/23 03/21/23 Unknown Rx mcg/dose blistr powdr for inhalation (Advair Diskus) hydroxychloroquine 200 mg tablet 200 mg PO BID #60 tabs 03/03/23 03/21/23 Unknown Rx antiseptic solution 1 pad topical BEDTIME 03/21/23 03/21/23 Unknown History azelastine 137 mcg (0.1 %) nasal 2 spray intranasal BID 03/21/23 03/21/23 Unknown History spray aerosol celecoxib 100 mg capsule (Celebrex) 100 mg PO DAILY 03/21/23 03/21/23 Unknown History cetirizine 10 mg tablet 10 mg PO BEDTIME 03/21/23 03/21/23 Unknown History isosorbide mononitrate 30 mg 15 mg PO BEDTIME 03/21/23 03/21/23 Unknown History tablet,extended release 24 hr peg 400-propylene glycol (PF) 0.4 1 drp ophthalmic (eye) Q4H 03/21/23 03/21/23 Unknown History %-0.3 % eye drops in a dropperette (Systane (PF)) sucralfate 100 mg/mL oral 100 mg PO Q6H PRN Heartburn 03/21/23 03/21/23 Unknown History suspension urea 40 % lotion 1 applic topical DAILY 03/21/23 03/21/23 Unknown History Allergies Allergy/AdvReac Type Severity Reaction Status Date / Time morphine Allergy Intermediate Rash, hives Verified 03/20/23 22:50 Penicillins Allergy Intermediate ALGY-Rash Verified 03/20/23 22:50 hydrocodone Allergy ADR-Vomitin Verified 03/20/23 22:50 g oxycodone AdvReac Vomiting, Verified 03/20/23 22:50 diarrhea, anxiety, itching cladospori Allergy Intermediate ALGY-Rash Uncoded 03/20/23 22:50 oxycodone Allergy Intermediate ALGY-Rash Uncoded 03/20/23 22:50 tusarium Allergy Intermediate ALGY-Rash Uncoded 03/20/23 22:50 Current Medications Generic Name Dose Route Start Last Admin Trade Name Abisaiq PRN Reason Stop Dose Admin Diclofenac Sodium 1 applic 03/21/23 09:00 03/21/23 09:03 Diclofenac 1% Topical Gel 100 Gm TOPICAL 1 applic DAILY SAYRA Administration Fluoxetine HCl 20 mg 03/21/23 09:00 03/21/23 09:02 Fluoxetine 20 Mg Capsule PO 20 mg DAILY SAYRA Administration Hydroxychloroquine Sulfate 200 mg 03/21/23 09:00 03/21/23 09:02 Hydroxychloroquine 200 Mg Tablet PO 200 mg BID SAYRA Administration Insulin Human Lispro 0 unit 03/21/23 08:00 03/21/23 08:52 Insulin Lispro 100 Unit/1 Ml SUBCUT Not Given WM&BEDTIME SAYRA Protocol Pantoprazole Sodium 40 mg 03/21/23 09:00 03/21/23 09:[address] 40 Mg Tablet PO 40 mg DAILY SAYRA Administration Ranolazine 500 mg 03/21/23 09:00 03/21/23 09:02 Ranolazine (12hr) 500 Mg Tablet PO 500 mg BID SAYRA Administration PFSH Acute PFSH: Medical History Asthma /COPD---> asthma was diagnosed in her 40s managed by as needed albuterol. She denies any intubations or hospitalizations ----> states she was diagnosed with possible COPD in 2020 and is currently on Advair managed by pulmonology-Dr. Haddad Benign essential HTN Diagnosed in 2019 and was taking medication. After her back surgery in November 2020 she has been taken off medication. Cervical stenosis of spinal canal Chronic back pain and is with the pain management clinic-Dr. Tran[place] [place] where she had steroid injections in her back Chronic liver failure History of fatty liver disease with fibrosis-elevated LFTs. 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 Rodney Tong from [facility]. Displacement of lumbar disc with radiculopathy History of endometrial cancer Endometrial cancer noted at time of biopsy and patient underwent surgery in 2005 with EYAD, BSO, omentectomy and staging laparotomy and per discharge summary no residual cancer noted. She never needed chemotherapy or radiation. Migraines Since her early 20s managed on medication by her PMD-does not have a neurologist Mixed hyperlipidemia Diagnosed in the and is on medication managed by PMD. No pertinent past medical history Denies history of thyroid problems, heart disease, kidney disease. PCP: Dr. Jeter SS-B antibody positive Type 2 diabetes mellitus Diagnosed in her 40s and is on medication managed by her PMD. 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 Surgical History H/O foot surgery Reports having foot surgery at the age of 8 for removal of embedded plantar warts. History of back surgery November 13, 2020--had back surgery for stenosis and chronic back pain History of cholecystectomy laparoscopic procedure done in her 40s S/P section x 2----> 1997 and 2000 S/P total hysterectomy and bilateral salpingo-oophorectomy 08/23/2006---total abdominal hysterectomy with bilateral salpingo-oophorectomy, omentectomy, staging laparotomy and cosmetic panniculectomy done by Dr. Gonzalez in [place] for well-differentiated endometrial adenocarcinoma. -----> operative reports obtained reviewed and scanned into chart Status post tubal ligation Tubal ligation performed at time of second in 2000. Family History Mother Diabetes CAD (coronary artery disease) Hyperlipidemia Hypertension Grandmother Diabetes maternal Family/Other Breast cancer Maternal aunt; diagnosed at age 64 History of kidney cancer maternal aunt Denies family history of Colon cancer Ovarian cancer Uterine cancer Thyroid condition Stroke Social History Smoking and tobacco status: never smoked Substance/Drug Use: unknown Vitals/I&O/Wt Last Vital Signs Temp 97.8 F 03/21/23 07:26 Pulse 61 03/21/23 07:26 Resp 16 03/21/23 07:26 BP 113/72 03/21/23 07:26 Pulse Ox 95 03/21/23 07:26 O2 Del Method Room Air 03/21/23 04:16 03/20/23 03/21/23 03/21/23 22:59 06:59 14:59 Intake Total 480 / 480 Balance 480 / 480 Weight last 48 hrs Weight 215 lb Physical Exam Narrative: GENERAL: The patient is alert and oriented times three. Not in any acute distress. HEENT: No significant pallor, icterus or lymphadenopathy.Oral cavity: There are no mucous membrane lesions. NECK: Trachea appears to be central. No masses noted. No JVD or thyromegaly appreciated. RESPIRATORY: Chest is symmetrical. No intercostals muscle retraction or any accessory muscle activation. There is no chest wall tenderness. Breath sounds are heard bilaterally. No rales or rhonchi heard. No evidence of any consolidation. BREASTS: Deferred. HEART: The heart sounds are normal. No S3 or S4. No significant murmurs. No pericardial rub ABDOMEN: No vessel pulsations or distention. No tenderness. No organomegaly appreciated. Bowel sounds are normally heard. : Deferred. RECTAL: Deferred. LYMPHATIC: No lymphadenopathy noted in the neck. EXTREMITIES: No edema or cyanosis. No clubbing. MUSCULOSKELETAL: No acute joint deformities or swelling SKIN: There are no significant rashes or ecchymosis NEUROPSYCHIATRIC: The patient is alert and oriented x3. Appears to be in a good mood. No tremors or rigidity noted. Data 03/20/23 23:19 03/20/23 23:19 Other Labs: Laboratory Last Values WBC 8.0 10^3/uL (4.0-10.0) 03/20/23 23:19 RBC 4.63 10^6/uL (4.1-5.3) 03/20/23 23:19 Hgb 13.5 g/dL (11.5-15.3) 03/20/23 23: Hct 41.4 % (37.0-47.0) 03/20/23 23: MCV 89.4 fl (81-99) 03/20/23 23: MCH 29.2 pg (28.0-34.0) 03/20/23 23: MCHC 32.6 g/dL (30.0-36.0) 03/20/23: RDW 13.1 % (12.1-15.1) 03/20/23 23: Plt Count 203 10^3/cmm (130-400) 03/20/23 23: MPV 9.0 fL (7.4-10.4) 03/20/23 23: Neut % (Auto) 55.2 % 03/20/23 23: Lymph % (Auto) 32.7 % 03/20/23 23: [place] % (Auto) 7.2 % 03/20/23 23: Eos % (Auto) 4.1 % 03/20/23 23: Baso % (Auto) 0.6 % 03/20/23 23: Neut # (Auto) 4.42 10^3/uL (1.8-7.7) 03/20/23 23: Lymph # (Auto) 2.6 10^3/uL (0.8-4.8) 03/20/23 23: [place] # (Auto) 0.6 10^3/uL (0.2-0.9) 03/20/23: Eos # (Auto) 0.3 10^3/uL (0.0-0.8) 03/20/23 23: Baso # (Auto) 0.1 10^3/uL (0.0-0.1) 03/20/23: Nucleated RBC % (auto) 0 % 03/20/23: Nucleated RBCs # 0.0 /100WBC 03/20/23 23: D-Dimer 0.36 ug/mIFEU (0-0.59) 03/21/23 07:49 Sodium 141 mmol/L (136-145) 03/20/23 23: Potassium 4.1 mmol/L (3.5-5.1) 03/20/23 23:19 Chloride 108 mmol/L (98-107) H 03/20/23 23:19 Carbon Dioxide 23 mmol/L (22-29) 03/20/23 23:19 Anion Gap 14.1 (5-19) 03/20/23 23:19 BUN 10 mg/dL (6-20) 03/20/23 23:19 Creatinine 0.8 mg/dL (0.5-0.9) 03/20/23 23:19 GFR Calculation 74.7 mL/min (90-130) L 03/20/23 23:19 Glucose 101 mg/dL (65-115) 03/20/23 23:19 POC Glucose 151 mg/dL (70-110) H 03/21/23 11:04 Calculated Osmolality 291 mOsm/kg (285-295) 03/20/23 23:19 Calcium 8.7 mg/dL (8.5-10.5) 03/20/23 23:19 Total Bilirubin 0.4 mg/dL (0.15-1.2) 03/20/23 23:19 AST 18 U/L (0-32) 03/20/23 23:19 ALT 21 U/L (0-33) 03/20/23 23:19 Alkaline Phosphatase 84 U/L (35-105) 03/20/23 23:19 Troponin T Baseline 6 ng/L (0-10) 03/20/23 23:19 Troponin T 120 Minute 6.00 ng/L (0-10) 03/21/23 01:43 Troponin T 120 Minute Cancelled 03/21/23 01:43 Delta Troponin T 0 ABS# (0-10) 03/21/23 01:43 Delta Troponin T Cancelled 03/21/23 01:43 NT-Pro-B Natriuret Pep 36 pg/mL (0-125) 03/20/23 23:19 Total Protein 6.4 g/dL (6.6-8.7) L 03/20/23 23:19 Albumin 3.9 g/dL (3.5-5.2) 03/20/23 23:19 Globulin 2.5 g/dL (1.3-4.6) 03/20/23 23:19 Triglycerides 61 mg/dL (0-150) 03/21/23 07:49 Cholesterol 181 mg/dL (0-200) 03/21/23 07:49 LDL Cholesterol, Calc 111 mg/dL (50-129) 03/21/23 07:49 HDL Cholesterol 58 mg/dL (60-100) L 03/21/23 07:49 LDL/HDL Ratio 1.91 RATIO (0.00-3.22) 03/21/23 07:49 Cholesterol/HDL Ratio 3.12 mg/dL (0.0-4.40) 03/21/23 07:49 EKG 1: My Interpretation: Sinus rhythm with a heart rate of 63 bpm. Poor R wave progression. Diffuse nonspecific T wave changes in the precordial leads. Low voltage precordial complexes. Minimal left axis deviation. Incomplete right bundle branch block. Other data: Echocardiogram from 01/28/2023 1. Normal left ventricular size, systolic function and wall ?thickness, with no regional wall motion abnormalities. Left ?ventricular ejection fraction is estimated at 70 %. Normal ?diastolic function. ?2. No significant change when compared to study dated ?07/11/2021. Myocardial perfusion imaging on a 02/19/2023 There is a very small in size, partially reversible perfusion defect noted in ?inferior wall.? This is consistent with small sized area of prior infarct with ?minimal yaritza-infarct ischemia in RCA territory. Cardiac catheterization in 2018 #1. No significant obstructive epicardial coronary artery disease. ?#2. Left dominant coronary circulation. ?#3. Elevated LVEDP of 24 mmHg. ?#4. Normal LV ejection fraction of 65%. ? A&P Assessment and plan (1) Chest pain: In view of the patient's worsening chest pain, multiple risk factors for coronary artery disease and slightly abnormal stress test, in order to further evaluate the coronary status, a cardiac catheterization would be appropriate. The risk and benefits of the procedure were discussed with the patient. The risk of bleeding, hematoma, vascular injury, myocardial infarction, myocardial perforation, malignant cardiac arrhythmias ,CVA, renal failure and other concomitant complications were explained in detail. Patient understood this well and consented to proceed. We will go ahead and made arrangements to have it done as severely as possible. Based on the results, further recommendations will be made. (2) Hyperlipemia, mixed: May continue the current medications. (3) SOB (shortness of breath): This could be multifactorial. Reactive airway disease could be a major contributing factor. LV dysfunction, congestive heart failure, etc. also are considerations. Since her BNP is within normal limit, chances of having congestive heart failure causing the heart failure is very low. (4) Benign essential HTN: May continue on the current medications. I may start the patient on a small dose of beta-mari namely Lopressor 12.5 mg p.o. twice daily. Her vital signs will be closely monitored. (5) Type 2 diabetes mellitus: Importance of appropriate blood sugar control, cardiovascular complications of uncontrolled diabetes and the need for dietary compliance were discussed. Patient seems to understand these well. Advised to have close follow-up with the primary care provider Qualifiers: Diabetes mellitus complication status: with hyperglycemia Diabetes mellitus group home insulin use: without group home use Qualified Code(s): E11.65 - Type 2 diabetes mellitus with hyperglycemia (6) Reactive airway disease: Management as mentioned above Plan Based on the results of the above tests and the patient's clinical progress, further recommendations will be made. Thank you for the opportunity to evaluate this patient and make these recommendations Consult Attestations Medical Necessity Statement: Thank you for the opportunity to evaluate this patient and make these recommendations Coding Level of Care Code 88092 Diagnoses Chest pain R07.9 Hyperlipemia, mixed E78.2 SOB (shortness of breath) R06.02 Benign essential HTN I10 Type 2 diabetes mellitus E11.65 Diabetes mellitus complication status: with hyperglycemia Diabetes mellitus director long term care insulin use: without director long term care use Reactive airway disease J45.909
[2023-03-21 11:10] LABS: Glucose Point of Care 151 mg/dL (70-110)
[2023-03-21] MEDS: insulin lispro 100 unit/1 mL SUBCUT (12:42)
[2023-03-21] MEDS: acetaminophen 325 mg Tablet 650 MG PO (15:47)
--- NOTE | 2023-03-21 16:34 | PC.NURSE ---
Patient has two orders for Protonix 40mg. One is for once a day and the other is for twice a day. Dr. Chaves has okayed the once daily order. Protonix 40mg BID is stopped.
[2023-03-21 17:06] LABS: Glucose Point of Care 80 mg/dL (70-110)
--- NOTE | 2023-03-21 18:09 | PM.PN ---
Subjective Subjective: - Patient was seen this morning -Does report a dull ache, -Reports a family history of premature CAD -Spoke to cardiology, plan on cardiac angiogram tomorrow Vitals/I&O/Wt Last Vital Signs Temp 97.8 F 03/21/23 15:37 Pulse 67 03/21/23 15:37 Resp 18 03/21/23 15:37 BP 119/71 03/21/23 15:37 Pulse Ox 96 03/21/23 15:37 O2 Del Method Room Air 03/21/23 15:37 03/21/23 03/21/23 03/21/23 06:59 14:59 22:59 Intake Total 480 / 480 240 / 240 Balance 480 / 480 240 / 240 Weight last 48 hrs Weight 97.522 kg Physical Exam Const: COMMON NORMALS: no acute distress and patient oriented x3 Resp: COMMON NORMALS: normal respiratory effort, No retractions, No use of accessory muscles and clear to auscultation bilaterally AUSCULTATION: clear to auscultation bilaterally Cardio: COMMON NORMALS: regular rate, regular rhythm, S1 normal heart sound present and S2 normal heart sound present RATE: regular rate RHYTHM: regular rhythm HEART SOUNDS: S1 normal heart sound present and S2 normal heart sound present GI: COMMON NORMALS: Normal to inspection, nondistended, normoactive bowel sounds present and non-tender Extremity: COMMON NORMALS: no pedal edema Neuro: COMMON NORMALS: patient oriented x3 Psych: COMMON NORMALS: mental status grossly normal Data 03/20/23 23:19 03/20/23 23:19 A&P Assessment and plan (1) Chest pain: - Monitor for chest pain -Continue telemetry monitoring -N.p.o. midnight for coronary angiogram tomorrow morning -Aspirin, statin, Imdur -On Imdur, Ranexa (2) Hyperlipemia, mixed: - Continue statin (3) SOB (shortness of breath): (4) Benign essential HTN: (5) Type 2 diabetes mellitus: - Qualifiers: Diabetes mellitus intermediate insulin use: without intermediate use Diabetes mellitus complication status: with hyperglycemia Qualified Code(s): E11.65 - Type 2 diabetes mellitus with hyperglycemia (6) Reactive airway disease: Management as mentioned above Plan N.p.o. midnight, for coronary angiography tomorrow morning, spoke to cardiology, spoke to patient, monitor for chest pain Attestations Medical Necessity Statement*: Patient requires hospitalization for chest pain undergoing coronary angiography Diagnoses Chest pain R07.9 Hyperlipemia, mixed E78.2 SOB (shortness of breath) R06.02 Benign essential HTN I10 Type 2 diabetes mellitus E11.65 Diabetes mellitus intermediate insulin use: without intermediate use Diabetes mellitus complication status: with hyperglycemia Reactive airway disease J45.909
[2023-03-21 20:37] LABS: Glucose Point of Care 109 mg/dL (70-110)
[2023-03-21] MEDS: isosorbide mononitrate ER 30 mg Tablet 15 MG PO (21:12)
[2023-03-21] MEDS: atorvastatin 40 mg Tablet 80 MG PO (21:13)
[2023-03-21] MEDS: topiramate 25 mg Tablet 75 MG PO (21:13)
--- NOTE | 2023-03-21 21:14 | USCV_ITS ---
Jaiden Vu Age: 52 Gender: F : 1970 Exam Date: 03/21/2023 22:04 Ordering Phys: Alna Parra MD ([email or web address]) Technologist: ERIC Exam Location: [facility] Indication: tampanod BP: / HR: Rhythm: Sinus Technical Quality: Adequate MEASUREMENTS (Male / Female) Normal Values FINDINGS Left Ventricle Normal left ventricular size and systolic function, EF 55% Right Ventricle Normal right ventricular size and systolic function. Right Atrium The right atrium is normal in size. Left Atrium The left atrium is normal in size. Mitral Valve Structurally normal mitral valve without significant stenosis or prolapse. Aortic Valve Structurally normal aortic valve without significant sclerosis or stenosis. Tricuspid Valve Structurally normal tricuspid valve . Pulmonic Valve Structurally normal pulmonic valve . Pericardium Normal pericardium without effusion. Aorta Normal ascending aorta dimension. IVC Inferior vena cava not visualized. CONCLUSIONS Normal left ventricular size and systolic function, EF 55%. No gross wall motion normalities. No significant morphology abnormalities in the valves. No intracardiac masses. No pericardial effusion. Dr Alan Parra MD FACC (Electronically Signed) Final Date: 22 March 2023 00:15 S
[2023-03-22] VITALS (17 sets, daily range): BP systolic 109–151; BP diastolic 59–84; PULSE 58–73; RESP 12–19; TEMP 36.4–36.9; O2SAT 94–98
[2023-03-22] MEDS: ondansetron 2 mg/ML SDV 2 mL 4 MG IVP ×2 (02:57→10:09)
[2023-03-22] MEDS: diphenhydrAMINE 50 mg Capsule PO (05:47)
[2023-03-22] MEDS: sodium chloride 0.9% 1,000 ML 50 ML IV (05:48)
--- NOTE | 2023-03-22 06:21 | XACV_ITS ---
Exam Room: [facility] Ht: 165 cm Wt: 98 kg BSA: 2.16 m2 Gender: Female : 1970 Any Known Allergies: Other Exam Priority: Routine Procedure(s): Procedure Description: Diagnostic procedure Procedure Description: Left Heart Catheterization Procedure Description: Left ventriculography Procedure Description: Coronary Angiography Fidel NEGRETE; Diagnostic Cath Status: Urgent Diagnostic Findings * Left main is a medium caliber vessel with no significant stenotic lesion. * The left hand descending artery is a medium caliber vessel which appears to wrap around the LV apex. The artery was found to be tortuous in its mid segment. No significant stenotic lesions were noted.. * The left circumflex artery is a large-caliber dominant vessel with no significant stenotic lesions. * Intermedius artery appears to be high diagonal branch which bifurcates proximally. No significant stenotic lesions were noted. * The right coronary artery is a small caliber nondominant vessel which has a high and posterior takeoff. No significant stenotic lesions were noted. Conclusions 1. 52-year-old white female with multiple medical problems and multiple risk factors for coronary artery disease, presenting with increasing episodes of chest pain. She had a Myocardial perfusion imaging, which revealed small area of decreased tracer uptake in the inferior wall with a very small area of reversible defect suggesting myocardial scarring with possible yaritza-infarction ischemia. In view of the patient's ongoing and worsening symptoms, in order to further evaluate her coronary status, a cardiac catheterization was recommended. 2. Patient underwent left heart catheterization with a left and right coronary angiogram and LV angiogram today. The findings are as follows. 3. Normal left main, left anterior descending artery, intermedius artery, left circumflex and right coronary artery. Left circumflex artery was found to be dominant with a small nondominant right coronary artery which has a high and posterior takeoff. Normal LV ejection fraction with an LVEDP of 24 mmHg, went up to 30 mmHg after the LV angiogram. The LV ejection fraction estimated to be 70%. LV EDP: 24 mmHg Ventriculography Ejection Fraction: 70.0 % Left Ventriculography Findings: * The LV gram was performed in the LING projection. The LV cavity was found to be of normal size. The LV ejection fraction was around 70%. No significant wall motion normalities were noted. No filling defects are noted. No severe mitral valve prolapse or mitral regurgitation. The LVEDP was 24 mmHg prior to the angiogram which went up to 30 following the LV angiogram.. Pressures Phase:Rest AO : 115 / 74 ( 92 ) @ 8:19:00 AM 122 / 70 ( 89 ) @ 8:34:00 AM 124 / 74 ( 98 ) @ 8:37:00 AM 125 / 71 ( 93 ) @ 8:37:00 AM LV : 131 / 1 / 24 @ 8:36:00 AM 143 / 4 / 31 @ 8:36:00 AM 141 / 4 / 30 @ 8:37:00 AM Valves Phase:DefaultPhase AV : 18.0 @ 7:43:14 AM 18.0 @ 7:43:14 AM AV Mean Gradient: 15.0 @ 7:43:14 AM 15.0 @ 7:43:14 AM Clinical Evaluation Specimen Collected: Yes EBL: 5mL-10mL Procedural Details Procedure Consent Obtained. Admit Source: In Patient. Pre-Procedure Time Out. Identified patient by full name and date of as verbalized by the patient/guarantor. Does the consent match the physician's order: Yes. Accurate & Complete Informed Consent: Yes. Inpatient/Outpatient History & Physical on Chart: Yes. If H&P is completed, is and addenduem needed: No; If yes, is the addendum complete: N/A. Visualize and Verify Site with Patient/Guarantor: N/A. Relevant Radiology Images available: Yes. The risks, benefits, and alternatives of sedation and/or procedure were discussed by physician. The patient agrees to continue. Procedure started. [facility] Clinical Fraility Score: 3: Managing Well. Nurses Assistant Indications: Worsening Angina. Chest Pain Symptom Assessment: Atypical Angina Symptoms. Correct patient, site and procedure confirmed by cath team. Current diagnosis: Chest Pain, Abnormal stress test. PERRLA. Strong, equal hand marketing rep bilaterally. Lungs clear x 5 lobes. IV Site on Arrival: 20 gauge in the left wrist. IV Fluids: 0.9% NaCl at 75ml/hr. 100 mL infused prior to collaborative physician. Oxygen started at 2liters/min via nasal canula. right groin was prepped with chloroprep then draped in the usual sterile fashion. right radial was prepped with chloroprep then draped in the usual sterile fashion. Baseline sample Acquired. HR: 64 BPM. Physician notified. Pre Procedural Pulses: bilateral dorsalis pedis was 3+. Pre Procedural Pulses: bilateral posterior tibial was Doppled. Pre Procedural Pulses: bilateral radial was 3+. Physician arrived. Physician scrubbed in. Immediate Pre-Procedure Time Out. Correct Patient: Yes; Correct Procedure: Yes; Correct Site: Yes; Correct Patient Position: Yes; Correct Supplies: Yes; Dried Flammable Prep: Yes; Blood Products Available: No;. Lidocaine 1% infiltrated to the right radial. Arterial access obtained. A 5 romanian Dioni catheter in over wire. Multiple views taken of left coronary artery. Catheter redirected to the RCA. Catheter removed over the exchange wire. A 5 romanian JR4 catheter in over wire. Multiple views taken of right coronary artery. Catheter removed over the exchange wire. A 5 romanian Angled Pig catheter in over wire. EDP Sample taken: LV 131/1,24; HR: 76 BPM; SpO2: 97%. LV gram performed in MAORI @ 10 mL/second for a total of 30 mL. EDP Sample taken: LV 143/4,31; HR: 80 BPM; SpO2: 97%. Pullback taken: LV 141/4,30; AO 124/74(98); Mean: 15mmHg, Peak to Peak: 18mmHg, SEP: 26sec/min; HR: 91 BPM; SpO2: 96%. Catheter removed over the exchange wire. Physician scrubbed out. Physician review of cine films. A TR Band was successful obtaining hemostatsis at the Right Radial artery insertion site. Post Procedure: Pulses reassessed and unchanged. PERRLA. Strong, equal hand marketing rep bilaterally. No VTE prophylaxis required. Medication's Wasted: Lidocaine 1% = 2 mL. Medication's Wasted: Nitro = 49.8 mg. Medication's Wasted: Heparin = 1000 units. Medication's Wasted: Other = Fentanyl 25 mcg. Total IV fluids: 280 mL. Post-op diagnosis: Non-obstructive CAD. Complications: None. Estimated blood loss: 5mL-10mL. Responsiveness - Normal response to verbal stimuli; alert and oriented, PERRLA. Airway - Unaffected, no intervention required; spontaneous ventilation. Circulation: W/N/L, pulses unchanged. Nausea/Vomiting: N/A. Procedure completed. Patient transferred by wheelchair to CPRU. Vital chart was stopped. Access Site Site: Right Radial artery Sheath Size: 6 Fr Hemostasis Method: TR Band Hemostasis Success: Successful Procedure Medications Start: 7:07 AM Stop: 7:07 AM Medication: Versed Amount: 1 mg Route: I.V. Start: 7:07 AM Stop: 7:07 AM Medication: Fentanyl Amount: 50 mcg Route: I.V. Start: 7:15 AM Stop: 7:15 AM Medication: 0.9% Saline Amount: 250 ml Route: I.V. bolus Start: 7:16 AM Stop: 7:16 AM Medication: Verapamil Amount: 5 mg Route: I.A. Start: 7:17 AM Stop: 7:17 AM Medication: Nitrogylcerin Amount: 200 mcg Route: I.A. Start: 7:19 AM Stop: 7:19 AM Medication: Heparin Amount: 5000 units Route: I.V. Start: 7:21 AM Stop: 7:21 AM Medication: Versed Amount: 1 mg Route: I.V. Start: 7:21 AM Stop: 7: AM Medication: Fentanyl Amount: 25 mcg Route: I.V. I, the attending physician, have reviewed and verified all procedure medications. Yes, all medications given per verbal order History/Risk Factors Hypertension: Yes Dyslipidemia: Yes Peripheral Arterial Disease (PAD): No Myocardial Infarction ([place]): No Obesity: No Renal Disease: No Tobacco Use: Never Prior Interventions PCI: No CABG: No Valve Surgery: No Report Signatures Finalized by Dr Alan Parra MD [facility] on 03/22/2023 09:28 AM
--- NOTE | 2023-03-22 07:06 | W.PM.OPSUD ---
Surgery/Procedure H&P Update DATE OF PROCEDURE: March 22, 2023 DATE H&P PERFORMED: 03/21/22 H&P UPDATE INFORMATION: I have reviewed H&P completed within last 30 days, I have examined patient prior to procedure and No changes to prior documentation PREOP DIAGNOSIS: possible ASHD PRIMARY INDICATION FOR PROCEDURE: chest pain, abnormal stress test/ multiple risk factors for CAD PLANNED PROCEDURE: Operation Date: 03/22/23 07:00 Proposed Procedures p [facility] with coronary angiogram and poss PCI(Not Applicable) - Alan Parra MD PATIENT REASSESSED PRIOR TO SEDATION, WITH NO CHANGE NOTED: Yes PHYSICAL EXAM: alert, oriented x 3, clear to auscultation bilaterally and regular rate & rhythm AIRWAY EVAL/ANESTHESIA PLAN: normal airway, see other exam findings, ASA III, Monitored Anesthesia, Local Anesthesia, Risks, benefits & alternatives of sedation and/or procedure discussed and Patient agrees to continue as planned
--- NOTE | 2023-03-22 07:25 | PC.NURSE ---
Nurses from civil laboratory technician came to get her at 0700 for procedure.
--- NOTE | 2023-03-22 07:45 | SUR.EXTENDED ---
Received the patient back from the bed laborer s/p diagnostic [facility] via wheelchair. Patient ambulated to the bed without difficultly. A & O x 3. TR band intact to the right radial. Palpable radial pulse. No bleeding or hematoma noted. monitoring tech placed and vital signs obtained. Post radial activity instructions given to the patient with her verbalization voiced. Family at bedside. Will transfer to [facility] after recovery period.
[2023-03-22 09:45] LABS: Troponin 5 6HR Delta 0 ng/L (0-12)
[2023-03-22] MEDS: pantoprazole DR 40 mg Tablet PO (10:41)
[2023-03-22] MEDS: hydroxychloroquine 200 mg Tablet PO (10:41)
[2023-03-22] MEDS: ranolazine (12HR) 500 mg Tablet PO (10:41)
[2023-03-22] MEDS: fluoxetine 20 mg Capsule PO (10:41)
[2023-03-22] MEDS: aspirin 81 mg EC Tablet PO (10:42)
[2023-03-22 11:15] LABS: Glucose Point of Care 103 mg/dL (70-110)
--- NOTE | 2023-03-22 13:55 | P.DS_ITS ---
Discharge Providers Date of Admission: 03/21/23 03:52 Date of Discharge: March 22, 2023 Attending Provider at Admission: Odalys Tucker MD Attending Provider at Discharge: Wayne Chaves MD Primary Care Provider: Angelito Jeter MD Diagnoses at Discharge Discharge Diagnosis (1) Chest pain: Status: Acute (2) Hyperlipemia, mixed: Status: Acute (3) SOB (shortness of breath): Status: Acute (4) Benign essential HTN: Status: Acute Permanent problem details: Diagnosed in 2018 and was taking medication. After her back surgery in November 2020 she has been taken off medication. (5) Type 2 diabetes mellitus: Status: Acute Qualifiers: Diabetes mellitus senior living insulin use: without rodent exterminator use Diabetes mellitus complication status: with hyperglycemia Qualified Code(s): E11.65 - Type 2 diabetes mellitus with hyperglycemia Permanent problem details: Diagnosed in her 40s and is on medication managed by her PMD. Does not have an embedded nurse. (6) Reactive airway disease: Status: Acute Reason for Visit Reason for Visit: Chest Pains Hospital Course Hospital Course Jaiden Vu is a 52 year old female who is currently followed outpatient by cardiology for atypical chest pain.? She has history of hypertension, DM, family history of premature coronary artery disease, possible Sjogren's syndrome who presents to the emergency room with chief complaints of chest pain.? Current episode started at around 9 PM this evening at rest, radiating into her left arm.? She feels that this is getting worse with exertion.? Also reported associated symptoms of nausea and dyspnea.? Objectively she is saturating 96% on room air. Patient was recently evaluated by cardiology as an outpatient, had a stress test in February 2023 which had shown a small sized area of prior infarct with minimal yaritza-infarct ischemia in the RCA territory.? Echocardiogram from January 2023 had shown normal left ventricular size systolic function with an EF of 70%.? On her follow-up with cardiology ASSISTANT COUNSEL on February 22, 2023, she was being assessed for an angiogram. EKG today shows sinus rhythm without any acute ST-T wave changes.? Baseline troponin is at 6, 2-hour troponin also at 6 without any significant delta. Patient was admitted to [facility] for chest pain, underwent coronary angiography, no significant obstructive CAD, medically managed, discharged home with prednisone 40 mg for the next 5 days for possible musculoskeletal cause of her chest discomfort and chest wall pain. If she were to have any recurrent chest pain to go to emergency room, follow-up with cardiology, follow-up with rheumatology Physical Exam Const: COMMON NORMALS: no acute distress and patient oriented x3 Resp: COMMON NORMALS: normal respiratory effort, No retractions, No use of accessory muscles and clear to auscultation bilaterally AUSCULTATION: clear to auscultation bilaterally Cardio: COMMON NORMALS: regular rate, regular rhythm, S1 normal heart sound present and S2 normal heart sound present RATE: regular rate RHYTHM: regular rhythm HEART SOUNDS: S1 normal heart sound present and S2 normal heart sound present GI: COMMON NORMALS: Normal to inspection, nondistended, normoactive bowel sounds present and non-tender Extremity: COMMON NORMALS: no pedal edema Neuro: COMMON NORMALS: patient oriented x3 Psych: COMMON NORMALS: mental status grossly normal Discharge Data Studies Completed and Pending Completed Studies During Hospitalization Category Date Time Status RETAIL ROUTE SUPERVISOR request for service Routine Exams 03/22/23 06:21 Completed XR chest 1V portable [id number] Stat Exams 03/20/23 22:40 Completed CV. echo limited [id number] Routine Ultrasound 03/21/23 21:14 Completed Radiology Impressions Chest X-Ray 03/20/23 22:40 IMPRESSION: 1. No acute cardiopulmonary process. 2. Incidental/nonacute findings are listed in the report. Laboratory Results WBC 8.0 10^3/uL (4.0-10.0) 03/20/23 23:19 RBC 4.63 10^6/uL (4.1-5.3) 03/20/23 23:19 Hgb 13.5 g/dL (11.5-15.3) 03/20/23 23:19 Hct 41.4 % (37.0-47.0) 03/20/23 23:19 MCV 89.4 fl (81-99) 03/20/23 23:19 MCH 29.2 pg (28.0-34.0) 03/20/23 23:19 MCHC 32.6 g/dL (30.0-36.0) 03/20/23 23:19 RDW 13.1 % (12.1-15.1) 03/20/23 23:19 Plt Count 203 10^3/cmm (130-400) 03/20/23 23:19 MPV 9.0 fL (7.4-10.4) 03/20/23 23:19 Neut % (Auto) 55.2 % 03/20/23 23:19 Lymph % (Auto) 32.7 % 03/20/23 23:19 Hidalgo % (Auto) 7.2 % 03/20/23 23:19 Eos % (Auto) 4.1 % 03/20/23 23:19 Baso % (Auto) 0.6 % 03/20/23 23:19 Neut # (Auto) 4.42 10^3/uL (1.8-7.7) 03/20/23 23:19 Lymph # (Auto) 2.6 10^3/uL (0.8-4.8) 03/20/23 23:19 Hidalgo # (Auto) 0.6 10^3/uL (0.2-0.9) 03/20/23 23:19 Eos # (Auto) 0.3 10^3/uL (0.0-0.8) 03/20/23 23:19 Baso # (Auto) 0.1 10^3/uL (0.0-0.1) 03/20/23 23:19 Nucleated RBC % (auto) 0 % 03/20/23 23:19 Nucleated RBCs # 0.0 /100WBC 03/20/23 23:19 D-Dimer 0.36 ug/mIFEU (0-0.59) 03/21/23 07:49 Sodium 141 mmol/L (136-145) 03/20/23 23:19 Potassium 4.1 mmol/L (3.5-5.1) 03/20/23 23:19 Chloride 108 mmol/L (98-107) H 03/20/23 23:19 Carbon Dioxide 23 mmol/L (22-29) 03/20/23 23:19 Anion Gap 14.1 (5-19) 03/20/23 23:19 BUN 10 mg/dL (6-20) 03/20/23 23:19 Creatinine 0.8 mg/dL (0.5-0.9) 03/20/23 23:19 GFR Calculation 74.7 mL/min (90-130) L 03/20/23 23:19 Glucose 101 mg/dL (65-115) 03/20/23 23:19 POC Glucose 103 mg/dL (70-110) 03/22/23 11:04 Calculated Osmolality 291 mOsm/kg (285-295) 03/20/23 23:19 Calcium 8.7 mg/dL (8.5-10.5) 03/20/23 23:19 Total Bilirubin 0.4 mg/dL (0.15-1.2) 03/20/23 23:19 AST 18 U/L (0-32) 03/20/23 23:19 ALT 21 U/L (0-33) 03/20/23 23:19 Alkaline Phosphatase 84 U/L (35-105) 03/20/23 23:19 Troponin T Baseline 6 ng/L (0-10) 03/20/23 23:19 Troponin T 120 Minute 6.00 ng/L (0-10) 03/21/23 01:43 Troponin T 120 Minute Cancelled 03/21/23 01:43 Delta Troponin T 0 ABS# (0-10) 03/21/23 01:43 Delta Troponin T Cancelled 03/21/23 01:43 Troponin T Hi Sens 6Hr 6.00 ng/L (0-10) 03/21/23 07:49 Troponin T Hi Sens 6Hr Delta 0 ng/L (0-12) 03/21/23 07:49 NT-Pro-B Natriuret Pep 36 pg/mL (0-125) 03/20/23 23:19 Total Protein 6.4 g/dL (6.6-8.7) L 03/20/23 23:19 Albumin 3.9 g/dL (3.5-5.2) 03/20/23 23:19 Globulin 2.5 g/dL (1.3-4.6) 03/20/23 23:19 Triglycerides 61 mg/dL (0-150) 03/21/23 07:49 Cholesterol 181 mg/dL (0-200) 03/21/23 07:49 LDL Cholesterol, Calc 111 mg/dL (50-129) 03/21/23 07:49 HDL Cholesterol 58 mg/dL (60-100) L 03/21/23 07:49 LDL/HDL Ratio 1.91 RATIO (0.00-3.22) 03/21/23 07:49 Cholesterol/HDL Ratio 3.12 mg/dL (0.0-4.40) 03/21/23 07:49 Vitals Last Vital Signs Temp 98.0 F 03/22/23 09:27 Pulse 66 03/22/23 11:49 Resp 16 03/22/23 11:49 BP 111/70 03/22/23 11:49 Pulse Ox 95 03/22/23 11:49 O2 Del Method Room Air 03/22/23 11:49 Discharge Plan Discharge Patient Disposition: Home Condition: Stable Prescriptions: Continued albuterol sulfate 90 mcg/actuation aerosol powdr breath activated 2 inh INHALATION Q6H PRN (Reason: Shortness Of Breath) Rx Instructions: pt used it on the , but she is out now. topiramate 25 mg tablet 75 mg PO BEDTIME omeprazole 40 mg capsule,delayed release(DR/EC) 40 mg PO BID rosuvastatin 20 mg tablet 40 mg PO BEDTIME promethazine 25 mg tablet 25 mg PO Q6H PRN (Reason: migraine) zolmitriptan 5 mg tablet 10 mg PO .prn fluticasone propionate [Flonase Allergy Relief] 50 mcg/actuation spray,suspension 1 spray intranasal BID Qty: 50 3RF Rx Instructions: administer into each nostril (DME) blood-glucose meter Misc See Rx Instructions .Route Qty: 1 0RF Rx Instructions: Check BS 4 times a day. ivermectin [Soolantra] 1 % cream 1 applic topical DAILY Qty: 45 3RF Rx Instructions: Soolantra Apply to face daily. valacyclovir 500 mg tablet 500 mg PO BID PRN (Reason: breakout) (DME) Diabetic Shoes See Rx Instructions .Route .MEDSUPPLY Qty: 1 0RF Rx Instructions: As directed multivitamin Tablet 1 tab PO DAILY diclofenac sodium [Voltaren Arthritis Pain] 1 % gel 1 ea topical DAILY Rx Instructions: apply to single elbow, wrist or hand; for hand includes palm/fingers/back of hand nitroglycerin [Nitrostat] 0.4 mg tablet, sublingual 0.4 mg SUBLINGUAL Q5M PRN (Reason: chest pains) Qty: 30 5RF ranolazine 500 mg tablet extended release 12 hr 500 mg PO BID Qty: 180 3RF fluoxetine [Prozac] 20 mg capsule 20 mg PO DAILY Qty: 90 3RF potassium chloride 8 mEq tablet extended release 8 meq PO DAILY Qty: 90 2RF montelukast [Singulair] 10 mg tablet 10 mg PO DAILY Qty: 30 3RF Ozempic 0.25 mg or 0.5 mg (2 mg/3 mL) pen injector 0.5 mg SUBCUT Q7D 60 Days Qty: 7.2 0RF (DME) OneTouch Ultra Test Strip See Rx Instructions .ROUTE .COMPLEX Qty: 400 0RF Dose Instruction: USE ONE STRIP TO TEST FOUR TIMES DAILY Rx Instructions: USE ONE STRIP TO TEST FOUR TIMES DAILY fluticasone propion-salmeterol [Advair Diskus] 500-50 mcg/dose blister with device 1 inh inhalation BID Qty: 60 4RF hydroxychloroquine 200 mg tablet 200 mg PO BID Qty: 60 3RF cetirizine 10 mg Tablet 10 mg PO BEDTIME sucralfate 100 mg/mL suspension 100 mg PO Q6H PRN (Reason: Heartburn) azelastine 137 mcg (0.1 %) aerosol,spray 2 spray INTRANASAL BID Urea 40 40 % Lotion 1 applic TOPICAL DAILY Ocusoft Pads, Medicated 1 pad TOPICAL BEDTIME Systane (PF) 0.4-0.3 % Dropperette 1 drp OPHTHALMIC (EYE) Q4H isosorbide mononitrate 30 mg tablet extended release 24 hr 15 mg PO BEDTIME Celebrex 100 mg capsule 100 mg PO DAILY Discharge Orders: Discharge Order (Routine); Ordered 03/22/23 Ordered By: Wayne Chaves Referrals: Sonya Conde FNP [Nurse Practitioner] - 03/31/23 1:45 pm () Angelito Jeter MD [Primary Care Provider] - 03/26/23 8:40 am Discharge Diet: Cardiac Discharge Activity: Resume usual activity Patient Instructions: Dyspnea (DC), Hypertension (DC), Type 2 Diabetes M anagement for Adults (DC), Left Heart Catheterization (DC), Chest Pain Stoplight, Opioid Safety, Post Angiogram Home Care Instructions Discharge Attestations Time Spent in Discharge Care*: greater than 30 min Quality Metrics Clinical Quality Measures [ No reported AMI, CVA or VTE this stay] Coding Level of Care Code 57410 Total time (in minutes) for Discharge: 45 Diagnoses Chest pain R07.9 Hyperlipemia, mixed E78.2 SOB (shortness of breath) R06.02 Benign essential HTN I10 Type 2 diabetes mellitus E11.65 Diabetes mellitus senior living insulin use: without rodent exterminator use Diabetes mellitus complication status: with hyperglycemia Reactive airway disease J45.908
--- NOTE | 2023-03-22 15:52 | PC.NURSE ---
Patient returned from open hearth furnace laborer with a right TR-Band. 2ml's of air is removed at 1015. 2ml's of air is removed at 1145. 2mls of air is removed at 1220. 2mls of air is removed at 1230. 2ml's of air is removed at 1258. 2ml's of air is removed at 1330. 2ml's of air is removed at 1355. TR-band is removed at 1415 and 2x2 and tegaderm is applied. Vitals were stable. No hematoma noted.
== END 2023-03-22 15:51 | disposition home or self-care (01) ==
LOC: ER 03-21 03:57 → CSU 03-21 04:00
PROVIDERS: Internal Medicine Cardiovascular Disease; Admitting Provider Student in an Organized Health Care Education/Training Program; Emergency Provider Emergency Medicine; PCP Family Medicine; Visit Provider Family Medicine
DX: R07.89 Other chest pain (principal); I10 Essential (primary) hypertension; E11.9 Type 2 diabetes mellitus without complications; Z79.85 Long-term (current) use of injectable non-insulin antidiabetic drugs; E78.2 Mixed hyperlipidemia; J45.909 Unspecified asthma, uncomplicated; I45.10 Unspecified right bundle-branch block; R06.02 Shortness of breath
CPT/HCPCS: 36415; 36416; 71045; 80053; 80061; 82962; 83880; 84484; 85025; 85378; 93005; 93308; 93458; 96361; 96367; 96372; 96374; 96375; 96376; 99152; 99153; 99285; C1769; C1887; C1894; G0378; J1644; J1815; J2250; J2405; J3010; J3490; J7030; Q0163; Q9967

== ENCOUNTER → 2023-03-31 14:39 | Outpatient (BNVA) | payer OTHER, SELFPAY | PROVIDERS: PCP Family Medicine; Visit Provider Nurse Practitioner Family | DX: I10 Essential (primary) hypertension (principal); R07.89 Other chest pain; Z09 Encounter for follow-up examination after completed treatment for conditions other than malignant neoplasm | CPT/HCPCS: 36415; 80048 ==

== ENCOUNTER 2023-04-12 12:54 | Outpatient (CLI) | payer OTHER, SELFPAY ==
[2023-04-12 13:50] LABS: Estmated Average Glucose 105; Hemoglobin A1C 5.3 % (4.0-6.0)
== END 2023-04-12 12:55 | disposition home or self-care (01) ==
PROVIDERS: PCP Family Medicine; Visit Provider Internal Medicine
DX: E11.40 Type 2 diabetes mellitus with diabetic neuropathy, unspecified (principal)
CPT/HCPCS: 83036

== ENCOUNTER → 2023-04-19 11:30 | Outpatient (BNVA) | payer OTHER, SELFPAY | PROVIDERS: PCP Family Medicine; Visit Provider Obstetrics & Gynecology | DX: Z12.4 Encounter for screening for malignant neoplasm of cervix (principal) | CPT/HCPCS: 87624 ==

== ENCOUNTER 2023-04-28 08:46 | Outpatient (CLI) | payer OTHER, SELFPAY | END 2023-04-28 08:47 | disposition home or self-care (01) | PROVIDERS: PCP Family Medicine; Visit Provider Internal Medicine Pulmonary Disease | DX: R06.02 Shortness of breath (principal) | CPT/HCPCS: 94010; 94729 ==

== ENCOUNTER 2023-05-03 08:57 | Outpatient (CLI) | payer OTHER, SELFPAY ==
--- NOTE | 2023-05-03 09:03 | MM_ITS ---
WS: [id number] BILATERAL SCREENING DIGITAL TOMOSYNTHESIS MAMMOGRAM WITH CAD HISTORY: SCREENING COMPARISON: 04/08/2022, 03/28/2021 and 03/22/2020 Bilateral CC and MLO views with tomosynthesis and synthetic mammography submitted. Computer aided det ection analyzed. Breast composition: There are scattered areas of fibroglandular density. No suspicious masses, microc alcifications or architectural distortion. Benign stable masses in the upper outer quadrant of the RI GHT breast. One of the masses is partially calcified. Long-term stability dating back to 08/03/2016. IMPRESSION: MM/[place] [id number] BI-RADS: 2-Benign FOLLOW UP: 1 Year Follow-up
== END 2023-05-03 08:58 | disposition home or self-care (01) ==
LOC: RAD 09:01 → MOBLMAM 09:02
PROVIDERS: PCP Family Medicine; Visit Provider Family Medicine
DX: Z12.31 Encounter for screening mammogram for malignant neoplasm of breast (principal)
CPT/HCPCS: 77063; 77067

== ENCOUNTER → 2023-05-11 09:53 | Outpatient (BNVA) | payer OTHER, SELFPAY | PROVIDERS: PCP Family Medicine; Visit Provider Orthopaedic Surgery | DX: M47.22 Other spondylosis with radiculopathy, cervical region; M48.062 Spinal stenosis, lumbar region with neurogenic claudication | CPT/HCPCS: 36415; 72040; 82607 ==

== ENCOUNTER 2023-05-19 11:00 | Outpatient (CLI) | payer OTHER, SELFPAY | END 2023-05-19 11:01 | disposition home or self-care (01) | LOC: SLEEP 05-20 12:08 | PROVIDERS: PCP Family Medicine; Visit Provider Internal Medicine Pulmonary Disease | DX: G47.33 Obstructive sleep apnea (adult) (pediatric) (principal) | CPT/HCPCS: G0399 ==

== ENCOUNTER 2023-08-16 08:19 | Outpatient (CLI) | payer OTHER, SELFPAY ==
--- NOTE | 2023-08-16 08:25 | XR_ITS ---
WS: [id number] Exam: XR cervical spine 3V* [id number] Date/Time of Exam: 08/16/2023 8:27 AM Reason For Exam: M54.2 - Cervicalgia No acute fracture or dislocation. Anterior bridging osteophytes at C4-5. Facet DJD at all levels. Nor mal paraspinal soft tissue structures. The odontoid is intact. IMPRESSION: 1. Degenerative changes. No fracture or malalignment.
== END 2023-08-16 08:20 | disposition home or self-care (01) ==
LOC: RAD 08:20
PROVIDERS: PCP Family Medicine; Visit Provider Anesthesiology Pain Medicine
DX: M47.892 Other spondylosis, cervical region (principal); M54.2 Cervicalgia; G89.29 Other chronic pain
CPT/HCPCS: 72040

== ENCOUNTER 2023-08-24 11:18 | Outpatient (CLI) | payer OTHER, SELFPAY ==
[2023-08-24 12:11] LABS: Basophils # 0.1 10^3/uL (0.0-0.1); Basophils % 0.4 %; Eosinophils # 0.1 10^3/uL (0.0-0.8); Eosinophils % 0.6 %; Hematocrit 43.5 % (36-47); Lymphocytes # 1.8 10^3/uL (0.8-4.8); Mean Corpuscular HGB Conc 33.3 g/dL (30-55); Mean Corpuscular Hemoglobin 29.5 pg (27-33); Mean Corpuscular Volume 88.4 fl (85-98); Mean Platelet Volume 9.4 fL (7.4-10.4); Monocytes # 0.9 10^3/uL (0.2-0.9); Monocytes % 7.2 %; Neutrophils # 10.07 10^3/uL (1.8-7.7); Neutrophils % 77.2 %; Nucleated Red Blood Cells % 0 %; Platelet Count 220 10^3/cmm (157-399); Red Blood Count 4.92 10^6/uL (3.85-5.65); Red Cell Distribution Width 12.4 % (12.1-15.1); White Blood Count 13.05 10^3/uL (3.29-11.43)
[2023-08-24 12:35] LABS: Alanine Aminotransferase 24 U/L (0-33); Albumin Level 4.2 g/dL (3.5-5.2); Alkaline Phosphatase 103 U/L (35-105); Anion Gap 15.8 (5-19); Aspartate Amino Transferase 20 U/L (0-32); Blood Urea Nitrogen 7 mg/dL (6-20); Calcium 9.3 mg/dL (8.5-10.5); Carbon Dioxide 25 mmol/L (22-29); Chloride 103 mmol/L (98-107); Globulin 2.6 g/dL (1.3-4.6); Glomerular Filtration Rate 128.6 mL/min (90-130); Glucose 158 mg/dL (65-115); Osmolality Calculated 291 mOsm/kg (285-295); Potassium 3.8 mmol/L (3.5-5.1); Sodium 140 mmol/L (136-145); Total Bilirubin 0.5 mg/dL (0.15-1.2); Total Protein 6.8 g/dL (6.6-8.7)
[2023-08-24 12:45] LABS: Erythrocyte Sedimentation Rate 12 mm/hr (0-15)
== END 2023-08-24 11:19 | disposition home or self-care (01) ==
LOC: LAB 11:20
PROVIDERS: PCP Family Medicine; Visit Provider Internal Medicine
DX: M35.00 Sjogren syndrome, unspecified (principal); Z79.899 Other long term (current) drug therapy
CPT/HCPCS: 36415; 80053; 85025; 85651; 86140

== ENCOUNTER 2023-10-22 10:52 | Outpatient (CLI) | payer OTHER, SELFPAY ==
[2023-10-22 11:50] LABS: Alanine Aminotransferase 28 U/L (0-33); Albumin Level 3.7 g/dL (3.5-5.2); Alkaline Phosphatase 107 U/L (35-105); Anion Gap 12.7 (5-19); Aspartate Amino Transferase 29 U/L (0-32); Blood Urea Nitrogen 7 mg/dL (6-20); Calcium 8.3 mg/dL (8.5-10.5); Carbon Dioxide 25 mmol/L (22-29); Chloride 103 mmol/L (98-107); Chol HDL Ratio 2.56 mg/dL (0.0-4.40); Cholesterol 128 mg/dL (0-200); Estmated Average Glucose 114; Globulin 2.6 g/dL (1.3-4.6); Glomerular Filtration Rate 128.1 mL/min (90-130); Glucose 148 mg/dL (65-115); HDL Cholesterol 50 mg/dL (60-100); Hemoglobin A1C 5.6 % (4.0-6.0); LDL Cholesterol Calculated 62 mg/dL (50-129); LDL HDL Ratio 1.24 RATIO (0.00-3.22); Osmolality Calculated 285 mOsm/kg (285-295); Potassium 3.7 mmol/L (3.5-5.1); Sodium 137 mmol/L (136-145); Total Bilirubin 0.6 mg/dL (0.15-1.2); Total Protein 6.3 g/dL (6.6-8.7); Triglycerides 80 mg/dL (0-150)
[2023-10-22 11:55] LABS: Creatinine Urine, Random 191 mg/dL (28-217); Microalbum Creatinine Ratio Ur 5 mg/dL (0-20); Microalbumin Random Urine 1 ug/dL (0-20)
== END 2023-10-22 10:53 | disposition home or self-care (01) ==
LOC: LAB 10:56
PROVIDERS: PCP Family Medicine; Visit Provider Internal Medicine
DX: E78.2 Mixed hyperlipidemia (principal); E11.40 Type 2 diabetes mellitus with diabetic neuropathy, unspecified
CPT/HCPCS: 36415; 80053; 80061; 82044; 83036

== ENCOUNTER 2023-12-09 08:12 | Day surgery (SDC) | payer OTHER, SELFPAY ==
[2023-12-09] VITALS (7 sets, daily range): BP systolic 117–157; BP diastolic 69–90; PULSE 72–83; RESP 16–18; TEMP 36.1–36.4; O2SAT 97–100
[2023-12-09] MEDS: acetaminophen 1,000 MG/100 ML PIGGYBACK 400 MG IV (08:32)
[2023-12-09] MEDS: scopolamine 1.5 Patch 1 PATCH TRANSDERMA (08:33)
[2023-12-09] MEDS: ketorolac 30 mg/mL INJ IVP (08:33)
[2023-12-09 09:03] LABS: Glucose Point of Care 130 mg/dL (70-110)
--- NOTE | 2023-12-09 09:51 | ANES.PREANE2 ---
Pre-Anesthetic Assessment Height/Weight: Height 1.63 m Operation Date: 12/09/23 10:05 Proposed Procedures p Cubital Tunnel Release/ with possible ulnar nerve transposition(Left) - Daron Euceda DO Familial anesthetic complications: None Was Beta Trent taken within 24 hours: N/A Was Clonidine taken within 24 hours: N/A Social No alcohol and No tobacco Exam alert, oriented x 3, clear to auscultation bilaterally and regular rate & rhythm Airway Mallampati: Class III Dentition: chipped Pulmonary Asthma and Sleep Apnea CV/HEM Stable Angina (atypical - clear cardiac cath) and Hypertension Hepatic fatty liver w/ chronic liver failure GI Gastroesophageal Reflux Disease and Hiatal Hernia Metabolic Diabetes Mellitus, Hyperlipidemia and Morbid Obesity Anesthetic Plan ASA status: 4 Anesthesia: General Risk of > 500 ml blood loss (7ml/kg in children): No Medications/Allergies Home Medications Medication Instructions Recorded Confirmed Last Taken Type rosuvastatin 20 mg tablet 40 mg PO BEDTIME 06/02/21 12/08/23 12/08/23 History fluticasone propionate 50 1 spray intranasal BID #50 mL 06/27/21 12/09/23 12/08/23 Rx mcg/actuation nasal spray,suspension (Flonase Allergy Relief) promethazine 25 mg tablet 25 mg PO Q6H PRN migraine 09/29/21 12/09/23 12/08/23 History blood-glucose meter #1 ea 12/24/21 12/06/23 Unknown Rx ranolazine 500 mg tablet,extended 500 mg PO BID #180 tabs 01/26/22 12/08/23 12/08/23 Rx release,12 hr fluoxetine 20 mg capsule (Prozac) 20 mg PO DAILY #90 caps 01/27/22 12/08/23 12/08/23 Rx potassium chloride 8 mEq 8 meq PO DAILY #90 tabs 02/26/22 12/08/23 12/08/23 Rx tablet,extended release ivermectin 1 % topical cream 1 applic topical DAILY #45 grams 04/09/22 12/08/23 12/08/23 Rx (Soolantra) omeprazole 40 mg capsule,delayed 40 mg PO BID 06/12/22 12/08/23 12/08/23 History release valacyclovir 500 mg tablet 500 mg PO BID PRN breakout 06/12/22 12/09/23 12/08/23 History Diabetic Shoes #1 ea 06/29/22 12/06/23 Unknown Rx zolmitriptan 5 mg tablet 10 mg PO .prn 10/08/22 12/09/23 12/08/23 History diclofenac sodium 1 % topical gel 1 ea topical DAILY 01/14/23 12/08/23 12/08/23 History (Voltaren Arthritis Pain) nitroglycerin 0.4 mg sublingual 0.4 mg sublingual Q5M PRN chest 01/14/23 12/09/23 Unknown Rx tablet (Nitrostat) pains #30 tabs blood sugar diagnostic (OneTouch #400 strips 02/22/23 12/06/23 Unknown Rx Ultra Test strips) fluticasone 500 mcg-salmeterol 50 1 inh inhalation BID #60 ea 02/24/23 12/09/23 12/08/23 Rx mcg/dose blistr powdr for inhalation (Advair Diskus) azelastine 137 mcg (0.1 %) nasal 2 spray intranasal BID 03/21/23 12/09/23 12/08/23 History spray aerosol peg 400-propylene glycol (PF) 0.4 1 drp ophthalmic (eye) Q4H 03/21/23 12/09/23 12/08/23 History %-0.3 % eye drops in a dropperette (Systane (PF)) sucralfate 100 mg/mL oral 100 mg PO Q6H PRN Heartburn 03/21/23 12/09/23 Unknown History suspension urea 40 % lotion 1 applic topical DAILY 03/21/23 12/09/23 12/08/23 History cetirizine 10 mg tablet 10 mg PO BID 04/08/23 12/08/23 12/08/23 History cyanocobalamin (vitamin B-12) 1,000 mcg IM Q30D 6 months #6 mL 05/13/23 12/09/23 Unknown Rx 1,000 mcg/mL injection solution montelukast 10 mg tablet 10 mg PO DAILY #30 tabs 07/16/23 12/08/23 12/08/23 Rx (Singulair) celecoxib 100 mg capsule (Celebrex) 100 mg PO DAILY #30 caps 07/23/23 12/08/23 12/04/23 Rx hydroxychloroquine 200 mg tablet 200 mg PO BID #180 tabs 09/14/23 12/08/23 12/08/23 Rx tiotropium bromide 1.25 2 puff inhalation DAILY #4 grams 09/30/23 12/09/23 12/08/23 Rx mcg/actuation mist for inhalation (Spiriva Respimat) albuterol sulfate 90 mcg/actuation 2 puff inhalation Q6H PRN 10/11/23 12/09/23 12/08/23 History aerosol inhaler Shortness Of Breath baclofen 10 mg tablet 10 mg PO BID PRN spasm #60 tabs 11/02/23 12/09/23 12/08/23 Rx semaglutide 0.25 mg or 0.5 mg (2 0.5 mg (0.736 mL) SUBCUT Q7D 1 11/02/23 12/08/23 11/26/23 Rx mg/3 mL) subcutaneous pen injector month #3 mL (Ozempic) semaglutide 1 mg/dose (4 mg/3 mL) 1 mg (0.75 mL) SUBCUT Q7D 1 month 11/02/23 12/08/23 11/26/23 Rx subcutaneous pen injector (Ozempic) #3.75 mL semaglutide 2 mg/dose (8 mg/3 mL) 2 mg (0.75 mL) SUBCUT Q7D #3 mL 11/02/23 12/08/23 11/26/23 Rx subcutaneous pen injector (Ozempic) galcanezumab-gnlm 120 mg/mL 120 mg SUBCUT ONCE #1 mL 11/12/23 12/09/23 12/08/23 Rx subcutaneous syringe (Emgality) galcanezumab-gnlm 120 mg/mL 240 mg (2 mL) SUBCUT ONCE #2 mL 11/12/23 12/09/23 12/08/23 Rx subcutaneous syringe (Emgality) Allergies Allergy/AdvReac Type Severity Reaction Status Date / Time morphine Allergy Intermediate Rash, hives Verified 12/08/23 11:51 Penicillins Allergy Intermediate ALGY-Rash Verified 12/08/23 11:51 hydrocodone Allergy ADR-Vomitin Verified 12/08/23 11:51 g milk Allergy Unknown Verified 12/08/23 12:06 oxycodone AdvReac Vomiting, Verified 12/08/23 11:51 diarrhea, anxiety, itching cladospori Allergy Intermediate ALGY-Rash Uncoded 12/08/23 11:51 oxycodone Allergy Intermediate ALGY-Rash Uncoded 12/08/23 11:51 tusarium Allergy Intermediate ALGY-Rash Uncoded 12/08/23 11:51 egg whites Allergy unknown Uncoded 12/08/23 11:51 [facility] Anesthesia Medical History SS-B antibody positive Cervical stenosis of spinal canal Chronic back pain and is with the pain management clinic-Dr. Tran/[facility] [place] where she had steroid injections in her back Displacement of lumbar disc with radiculopathy History of endometrial cancer Endometrial cancer noted at time of biopsy and patient underwent surgery in 2005 with EYAD, BSO, omentectomy and staging laparotomy and per discharge summary no residual cancer noted. She never needed chemotherapy or radiation. Migraines Since her early 20s managed on medication by her PMD-does not have a neurologist Chronic liver failure History of fatty liver disease with fibrosis-elevated LFTs. 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 Rodney Tong from [facility]. Asthma /COPD---> asthma was diagnosed in her 40s managed by as needed albuterol. She denies any intubations or hospitalizations ----> states she was diagnosed with possible COPD in 2020 and is currently on Advair managed by pulmonology-Dr. Haddad No pertinent past medical history Denies history of thyroid problems, heart disease, kidney disease. PCP: Dr. Jeter Type 2 diabetes mellitus Diagnosed in her 40s and is on medication managed by her PMD. Does not have an day care supervisor. Mixed hyperlipidemia Diagnosed in the and is on medication managed by PMD. Benign essential HTN Diagnosed in 2018 and was taking medication. After her back surgery in November 2020 she has been taken off medication. Surgical History H/O foot surgery Reports having foot surgery at the age of 8 for removal of embedded plantar warts. History of back surgery November 13, 2020--had back surgery for stenosis and chronic back pain Status post tubal ligation Tubal ligation performed at time of second in 2000. S/P section x 2----> 1997 and 2000 S/P total hysterectomy and bilateral salpingo-oophorectomy 08/23/2006---total abdominal hysterectomy with bilateral salpingo-oophorectomy, omentectomy, staging laparotomy and cosmetic panniculectomy done by Dr. Gonzalez in [place] for well-differentiated endometrial adenocarcinoma. -----> operative reports obtained reviewed and scanned into chart History of cholecystectomy laparoscopic procedure done in her 40s Family History Mother Diabetes CAD (coronary artery disease) Hyperlipidemia Hypertension Grandmother Diabetes maternal Family/Other Breast cancer Maternal aunt; diagnosed at age 64 History of kidney cancer maternal aunt Denies family history of Colon cancer Ovarian cancer Uterine cancer Thyroid disease Stroke Social History Smoking and tobacco/nicotine status: never used tobacco/nicotine Substance/Drug Use: unknown Data Anesthesia Cardiac Studies: Echocardiogram 01/28/23 Echocardiogram Limited Views 03/21/23 Sestamibi Stress Test (Cardiology) 02/19/23
--- NOTE | 2023-12-09 10:31 | W.PM.OPSFHP ---
Same Day Surgery H&P Indication for Procedure/HPI DATE OF PROCEDURE: December 09, 2023 CHIEF COMPLAINT/INDICATIONFOR SURGICAL PROCEDURE: Left cubital tunnel syndrome PREOP DIAGNOSIS: Left cubital tunnel syndrome PLANNED PROCEDURE: Operation Date: 12/09/23 10:05 Proposed Procedures p Cubital Tunnel Release/ with possible ulnar nerve transposition(Left) - Daron Euceda DO Medications/Allergies* Home Medications Medication Instructions Recorded Confirmed Type rosuvastatin 20 mg tablet 40 mg PO BEDTIME 06/02/21 12/08/23 History promethazine 25 mg tablet 25 mg PO Q6H PRN migraine 09/29/21 12/09/23 History omeprazole 40 mg capsule,delayed 40 mg PO BID 06/12/22 12/08/23 History release valacyclovir 500 mg tablet 500 mg PO BID PRN breakout 06/12/22 12/09/23 History zolmitriptan 5 mg tablet 10 mg PO .prn 10/08/22 12/09/23 History diclofenac sodium 1 % topical gel 1 ea topical DAILY 01/14/23 12/08/23 History (Voltaren Arthritis Pain) azelastine 137 mcg (0.1 %) nasal 2 spray intranasal BID 03/21/23 12/09/23 History spray aerosol peg 400-propylene glycol (PF) 0.4 1 drp ophthalmic (eye) Q4H 03/21/23 12/09/23 History %-0.3 % eye drops in a dropperette (Systane (PF)) sucralfate 100 mg/mL oral 100 mg PO Q6H PRN Heartburn 03/21/23 12/09/23 History suspension urea 40 % lotion 1 applic topical DAILY 03/21/23 12/09/23 History cetirizine 10 mg tablet 10 mg PO BID 04/08/23 12/08/23 History albuterol sulfate 90 mcg/actuation 2 puff inhalation Q6H PRN 10/11/23 12/09/23 History aerosol inhaler Shortness Of Breath Allergies/Adverse Reactions Allergy/AdvReac Type Severity Reaction Status Date / Time morphine Allergy Intermediate Rash, hives Verified 12/08/23 11:51 Penicillins Allergy Intermediate ALGY-Rash Verified 12/08/23 11:51 hydrocodone Allergy ADR-Vomitin Verified 12/08/23 11:51 g milk Allergy Unknown Verified 12/08/23 12:06 oxycodone AdvReac Vomiting, Verified 12/08/23 11:51 diarrhea, anxiety, itching cladospori Allergy Intermediate ALGY-Rash Uncoded 12/08/23 11:51 oxycodone Allergy Intermediate ALGY-Rash Uncoded 12/08/23 11:51 tusarium Allergy Intermediate ALGY-Rash Uncoded 12/08/23 11:51 egg whites Allergy unknown Uncoded 12/08/23 11:51 Pertinent History/Comorbid Conditions* Medical History (Updated 11/01/23 @ 22:05 by Daron Euceda DO) SS-B antibody positive Cervical stenosis of spinal canal Chronic back pain and is with the pain management clinic-Dr. Tran/[facility] where she had steroid injections in her back Displacement of lumbar disc with radiculopathy History of endometrial cancer Endometrial cancer noted at time of biopsy and patient underwent surgery in 2005 with EYAD, BSO, omentectomy and staging laparotomy and per discharge summary no residual cancer noted. She never needed chemotherapy or radiation. Migraines Since her early 20s managed on medication by her PMD-does not have a neurologist Chronic liver failure History of fatty liver disease with fibrosis-elevated LFTs. 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 Rodney Tong from [facility]. Asthma /COPD---> asthma was diagnosed in her 40s managed by as needed albuterol. She denies any intubations or hospitalizations ----> states she was diagnosed with possible COPD in 2020 and is currently on Advair managed by pulmonology-Dr. Haddad No pertinent past medical history Denies history of thyroid problems, heart disease, kidney disease. PCP: Dr. Jeter Type 2 diabetes mellitus Diagnosed in her 40s and is on medication managed by her PMD. 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 Mixed hyperlipidemia Diagnosed in the 1990s and is on medication managed by PMD. Benign essential HTN Diagnosed in 2018 and was taking medication. After her back surgery in November 2020 she has been taken off medication. Surgical History (Updated 01/14/22 @ 05:55 by Kinjal Hummel MD) H/O foot surgery Reports having foot surgery at the age of 8 for removal of embedded plantar warts. History of back surgery November 13, 2020--had back surgery for stenosis and chronic back pain Status post tubal ligation Tubal ligation performed at time of second in 2000. S/P section x 2----> 1997 and 2000 S/P total hysterectomy and bilateral salpingo-oophorectomy 08/23/2006---total abdominal hysterectomy with bilateral salpingo-oophorectomy, omentectomy, staging laparotomy and cosmetic panniculectomy done by Dr. Gonzalez in [place] for well-differentiated endometrial adenocarcinoma. -----> operative reports obtained reviewed and scanned into chart History of cholecystectomy laparoscopic procedure done in her 40s Family History (Updated 01/12/22 @ 14:17 by Angélica Damico, ADEEL) Diabetes Mother Grandmother maternal CAD (coronary artery disease) Mother Hyperlipidemia Mother History of kidney cancer Family/Other maternal aunt Breast cancer Family/Other Maternal aunt; diagnosed at age 64 Hypertension Mother Denies family history of Colon cancer Ovarian cancer Uterine cancer Thyroid disease Stroke Social History Smoking and tobacco/nicotine status: never used tobacco/nicotine Substance/Drug Use: unknown Pertinent Exam Findings alert, oriented x 3, operative site marked and procedure specific exam findings Please refer to office note on 10/28/2023 for full orthopedic examination. She does have positive Tinel's over the left cubital tunnel. Examination from office visit listed below: Examination: Examination left upper extremity: Negative Spurling's C-spine range of motion with no pain or radiculopathy symptoms Patient has negative Tinel's at the left shoulder, positive Tinel's at the left elbow with positive elbow flexion test consistent with cubital tunnel syndrome, negative median nerve compression test negative Tinel's negative Phalen's at the left wrist. Patient does have intrinsic weakness appreciated. No significant intrinsic atrophy appreciated no thenar weakness noted. Recommendations Surgery/Procedure today Other Plans: Plan to proceed to the OR today for left cubital tunnel release with possible ulnar nerve transposition. Patient understands the ins and outs of the procedure the risk benefits complications alternatives of surgery and through shared decision make elects proceed with surgical intervention. All questions answered at this time. Coding Level of Care Code Acute Code for Catalina Fwchuck
[2023-12-09] MEDS: ceFAZolin 2,000 MG in sodium chloride 0.9% (plus) 50 ML 100 MG IV (10:56)
[2023-12-09] MEDS: ROPivacaine 0.5% SDV 30 mL 150 MG INJECTION (11:35)
[2023-12-09] MEDS: lidocaine-epi 1% 20 mL INJ INJECTION (11:35)
--- NOTE | 2023-12-09 11:46 | P.BOP_ITS ---
Date of Procedure:12/09/2023 Surgeon: Daron Euceda DO Data Analytics Specialist(s): FERNANDO Chung Procedure(s) performed: Left cubital tunnel release (ulnar nerve decompression at the elbow) Findings of the procedure(s): Patient found to have left cubital tunnel syndrome underwent left cubital tunnel release without issues or complications there is no subluxating ulnar nerve and the nerve was released in situ with no transposition. Taken to PACU stable condition Estimated blood loss: 5 mL Specimen(s) removed: None Post-operative diagnosis: Left cubital tunnel syndrome
--- NOTE | 2023-12-09 11:47 | P.OP_ITS ---
Operative Report Date of procedure: December 09, 2023 Surgeon: Daron Euceda DO Procedure: Preoperative diagnosis: Left cubital tunnel syndrome post-op diagnosis:? Left?cubital?tunnel syndrome Post-op findings: See operative note Procedure done: Left?cubital?tunnel release(ulnar nerve decompression) Surgeon: Daron Euceda DO Estimated blood loss: 5 cc Tourniquet Time: 10 minutes IV fluids: See anesthesia record Complications: None Findings: See operative report narrative Condition: stable Disposition: same day Brief History: Patient is a pleasant 53-year-old female was seen evaluated in the outpatient setting for Left ulnar nerve neuropathy at the elbow.? Patient had EMG findings consistent with this.? ?On my examination in the office patient findings are consistent with this preoperative diagnosis. We had detailed discussion in office about continued nonoperative intervention versus operative intervention.? Patient understands the risk benefits complications alternatives to surgical and nonsurgical treatment options.? Patient understands the risks include but not limited to make it better, make it worse, infection, permanent injury to nerve, decreased function and sensation to the hand with persistent weakness.? Given these risks patient understands and agrees to proceed with current plan.? Patient elects to proceed with a Left?cubital?tunnel release and possible ulnar nerve transposition. all questions answered. Procedure: Patient was seen and evaluated in the preoperative holding area.? The consent that was filled out in office was reviewed with patient and confirmed to be appropriate for Left ulnar nerve?cubital?tunnel release and possible ulnar nerve transposition.? Correct extremity was then marked.? Patient was seen evaluated by the preoperative team as well as anesthesia department.? Once cleared for surgery patient was then taken to the operative suite and transported onto the operative table all bony prominences were well-padded and patient was secured to the table.? Left upper extremity was placed on an armboard.? Patient then underwent anesthesia per the anesthesia department. The Left upper extremity tourniquet was applied. Patient's Left upper extremity was then prepped and draped in standard orthopedic fashion.? This point a final timeout was performed. Patient received appropriate preop antibiotics. Esmarch tourniquet was used to exsanguinate the operative extremity and was insufflated to 250 mmHg.? Standard curvilinear incision was made centering over the ulnar nerve between the medial epicondyle and olecranon process.? Sharp sca lpel excision through skin and subcutaneous tissue was performed.? Once I encountered subcutaneous tissue I then utilized dissection scissors to spread in the path of the [facility] and care was made to protect any nerve branches throughout this case.? I then utilized a scalpel to complete my dissection directly on over to the flexor pronator mass and elevated this fat tissue directly off of the fascia.? I started my dissection of the ulnar nerve the nerve proximally.? Once identified I then utilized Littler dissection scissors and decompress the nerve completely and proximally and utilized blunt dissection to make sure there was no entrapment proximally..? Once decompressed proximally I then traced the nerve distal through Miller's ligament and as it entered the FCU fascia aponeurosis and completed by decompression and ulnar nerve neurolysis distally.? The nerve was completely released in situ no areas of entrapment I was able to place my finger distally and proximally with no areas entrapment along the nerve.? At this point in time by in situ release was completed I then subsequently took the elbow through range of motion and no subluxation of the ulnar nerve was noted. Tourniquet was subsequently deflated hemostasis satisfactory bipolar electrocautery. Thoroughly irrigated the wound bed. The skin was reapproximated with interrupted Vicryl subcutaneous suture 3-0.? I next utilized a running horizontal mattress stitch with 3-0 nylon.? Extremity was then cleaned and the incision was then covered with Xeroform 4 x 4's ABD Curlex and soft roll and a bulky soft dressing with Nima wrap applied. patient was then awakened from anesthesia and taken to PACU in stable condition. Disposition: Patient taken to PACU in stable condition.? Patient given appropriate discharge instructions as well as pain medication.? Patient will see me in office in 2 weeks.? pt understands? if they has any questions they can contact the office.
[2023-12-09] MEDS: ondansetron 2 mg/ML SDV 2 mL 4 MG IVP ×4 (12:05→13:20)
--- NOTE | 2023-12-09 13:55 | ANE.PACU2 ---
Inpatient post-anesthesia follow up: Airway intact: Yes Vital signs: Temperature 97.5 F Pulse Rate 74 Respiratory Rate 18 Blood Pressure 157/90 Pulse Oximetry 100 Oxygen Delivery Me thod Room Air Oxygen Flow Rate 6 Fraction of Inspir ed Oxygen Hydration adequate: Yes Nausea and vomiting: No Pain level: 1 Mental status: Baseline
== END 2023-12-09 13:55 | disposition home or self-care (01) ==
PROVIDERS: PCP Family Medicine; Visit Provider Student in an Organized Health Care Education/Training Program
PROC: (CPT 64718; principal; 2023-12-09 09:55)
DX: G56.22 Lesion of ulnar nerve, left upper limb (principal); J45.909 Unspecified asthma, uncomplicated; G47.30 Sleep apnea, unspecified; I10 Essential (primary) hypertension; K21.9 Gastro-esophageal reflux disease without esophagitis; E11.9 Type 2 diabetes mellitus without complications; E78.5 Hyperlipidemia, unspecified; E66.01 Morbid (severe) obesity due to excess calories; Z85.89 Personal history of malignant neoplasm of other organs and systems; E78.2 Mixed hyperlipidemia
CPT/HCPCS: 64718; 36416; 82962; J0131; J0690; J1100; J1885; J2405; J2704; J2795; J3010

== ENCOUNTER 2024-01-03 20:00 | Outpatient (CLI) | payer OTHER, SELFPAY | END 2024-01-03 20:01 | disposition home or self-care (01) | LOC: SLEEP 01-04 05:43 | PROVIDERS: PCP Family Medicine; Visit Provider Internal Medicine Pulmonary Disease | DX: G47.33 Obstructive sleep apnea (adult) (pediatric) (principal) | CPT/HCPCS: 95810 ==

== ENCOUNTER 2024-01-13 05:41 | Day surgery (SDC) | payer OTHER, SELFPAY ==
[2024-01-13] VITALS (10 sets, daily range): BP systolic 135–168; BP diastolic 73–95; PULSE 67–84; RESP 10–24; TEMP 36.1–36.8; O2SAT 95–100; BMI 37.8
[2024-01-13] MEDS: ketorolac 30 mg/mL INJ IVP (06:29)
[2024-01-13 06:30] LABS: Glucose Point of Care 144 mg/dL (70-110)
[2024-01-13] MEDS: scopolamine 1.5 Patch 1 PATCH TRANSDERMA ×2 (06:30→06:44)
--- NOTE | 2024-01-13 06:38 | P.ANESASSM_ITS ---
Pre-Anesthetic Assessment Height/Weight: Height 1.63 m Weight 99.79 kg Temp Pulse Resp BP Pulse Ox O2 Del Method 97.0 F L 78 18 161/92 97 Room Air 01/13/24 06:15 01/13/24 06:15 01/13/24 06:15 01/13/24 06:15 01/13/24 06:15 01/13/24 06:15 Operation Date: 01/13/24 07:00 Proposed Procedures p Cubital Tunnel Release(Right) - Daron Maceatt, DO s Ulnar Nerve Transposition possible(Right) - Daron Ok, DO Familial anesthetic complications: None Was Beta Trent taken within 24 hours: N/A Was Clonidine taken within 24 hours: N/A Last intake: > 8 hrs Social No alcohol and No tobacco Exam alert, oriented x 3, clear to auscultation bilaterally and regular rate & rhythm Airway Mallampati: Class II Dentition: full Pulmonary Sleep Apnea CV/HEM Stable Angina (negative cath) Hepatic fatty liver disease with fibrosis (stage 3 liver failure per patient, chronic since with no change in function) GI Hiatal Hernia Metabolic Diabetes Mellitus, Hyperlipidemia and Morbid Obesity Anesthetic Plan ASA status: 3 Anesthesia: General Risk of > 500 ml blood loss (7ml/kg in children): No Medications/Allergies Home Medications Medication Instructions Recorded Confirmed Last Taken Type rosuvastatin 20 mg tablet 40 mg PO BEDTIME 06/02/21 01/12/24 01/12/24 History fluticasone propionate 50 1 spray intranasal BID #50 mL 06/27/21 01/12/24 01/12/24 Rx mcg/actuation nasal spray,suspension (Flonase Allergy Relief) promethazine 25 mg tablet 25 mg PO Q6H PRN migraine 09/29/21 01/12/24 01/12/24 History blood-glucose meter #1 ea 12/24/21 12/22/23 Unknown Rx ranolazine 500 mg tablet,extended 500 mg PO BID #180 tabs 01/26/22 01/12/24 12/08/23 Rx release,12 hr fluoxetine 20 mg capsule (Prozac) 20 mg PO DAILY #90 caps 01/27/22 01/12/24 01/12/24 Rx potassium chloride 8 mEq 8 meq PO DAILY #90 tabs 02/26/22 01/12/24 01/12/24 Rx tablet,extended release ivermectin 1 % topical cream 1 applic topical DAILY #45 grams 04/09/22 01/12/24 12/08/23 Rx (Soolantra) omeprazole 40 mg capsule,delayed 40 mg PO BID 06/12/22 01/12/24 01/12/24 History release valacyclovir 500 mg tablet 500 mg PO BID PRN breakout 06/12/22 01/12/24 12/08/23 History Diabetic Shoes #1 ea 06/29/22 12/22/23 Unknown Rx diclofenac sodium 1 % topical gel 1 ea topical DAILY 01/14/23 01/12/24 01/12/24 History (Voltaren Arthritis Pain) nitroglycerin 0.4 mg sublingual 0.4 mg sublingual Q5M PRN chest 01/14/23 01/12/24 Unknown Rx tablet (Nitrostat) pains #30 tabs blood sugar diagnostic (OneTouch #400 strips 02/22/23 12/22/23 Unknown Rx Ultra Test strips) fluticasone 500 mcg-salmeterol 50 1 inh inhalation BID #60 ea 02/24/23 01/12/24 01/12/24 Rx mcg/dose blistr powdr for inhalation (Advair Diskus) azelastine 137 mcg (0.1 %) nasal 2 spray intranasal BID 03/21/23 01/13/24 01/13/24 History spray aerosol peg 400-propylene glycol (PF) 0.4 1 drp ophthalmic (eye) Q4H 03/21/23 01/12/24 01/12/24 History %-0.3 % eye drops in a dropperette (Systane (PF)) cetirizine 10 mg tablet 10 mg PO BID 04/08/23 01/12/24 01/12/24 History montelukast 10 mg tablet 10 mg PO DAILY #30 tabs 07/16/23 01/12/24 01/12/24 Rx (Singulair) celecoxib 100 mg capsule (Celebrex) 100 mg PO DAILY #30 caps 07/23/23 01/12/24 01/05/24 Rx hydroxychloroquine 200 mg tablet 200 mg PO BID #180 tabs 09/14/23 01/12/24 01/12/24 Rx tiotropium bromide 1.25 2 puff inhalation DAILY #4 grams 09/30/23 01/13/24 01/13/24 Rx mcg/actuation mist for inhalation (Spiriva Respimat) albuterol sulfate 90 mcg/actuation 2 puff inhalation Q6H PRN 10/11/23 01/12/24 01/12/24 History aerosol inhaler Shortness Of Breath baclofen 10 mg tablet 10 mg PO BID PRN spasm #60 tabs 11/02/23 01/12/24 01/12/24 Rx semaglutide 2 mg/dose (8 mg/3 mL) 2 mg (0.75 mL) SUBCUT Q7D #3 mL 11/02/23 01/12/24 12/31/23 Rx subcutaneous pen injector (Ozempic) galcanezumab-gnlm 120 mg/mL 120 mg SUBCUT ONCE #1 mL 11/12/23 12/22/23 01/05/24 Rx subcutaneous syringe (Emgality) cyanocobalamin (vitamin B-12) 1,000 mcg IM Q30D 6 months #6 mL 12/31/23 01/12/24 01/05/24 Rx 1,000 mcg/mL injection solution Allergies Allergy/AdvReac Type Severity Reaction Status Date / Time morphine Allergy Intermediate Rash, hives Verified 12/21/23 07:14 Penicillins Allergy Intermediate ALGY-Rash Verified 12/21/23 07:14 hydrocodone Allergy ADR-Vomitin Verified 12/21/23 07:14 g milk Allergy Unknown Verified 12/21/23 07:14 oxycodone AdvReac Vomiting, Verified 12/21/23 07:14 diarrhea, anxiety, itching cladospori Allergy Intermediate ALGY-Rash Uncoded 12/21/23 07:14 tusarium Allergy Intermediate ALGY-Rash Uncoded 12/21/23 07:14 egg whites Allergy unknown Uncoded 12/21/23 07:14 [facility] Anesthesia Medical History SS-B antibody positive Cervical stenosis of spinal canal Chronic back pain and is with the pain management clinic[place]Dr. [place] [place] had steroid injections in her back Displacement of lumbar disc with radiculopathy History of endometrial cancer Endometrial cancer noted at time of biopsy and patient underwent surgery in 2005 with EYAD, BSO, omentectomy and staging laparotomy and per discharge summary no residual cancer noted. She never needed chemotherapy or radiation. Migraines Since her early 20s managed on medication by her PMD-does not have a neurologist Chronic liver failure History of fatty liver disease with fibrosis-elevated LFTs. She follows up with a java groovy developer in [place] Dr. Rodney Tong from [facility]. Asthma /COPD---> asthma was diagnosed in her 40s managed by as needed albuterol. She denies any intubations or hospitalizations ----> states she was diagnosed with possible COPD in 2020 and is currently on Advair managed by pulmonology-Dr. Haddad No pertinent past medical history Denies history of thyroid problems, heart disease, kidney disease. PCP: Dr. Jeter Type 2 diabetes mellitus Diagnosed in her 40s and is on medication managed by her PMD. Does not have an bakery team leader. Mixed hyperlipidemia Diagnosed in the and is on medication managed by PMD. Benign essential HTN Diagnosed in 2018 and was taking medication. After her back surgery in November 2020 she has been taken off medication. Surgical History H/O foot surgery Reports having foot surgery at the age of 8 for removal of embedded plantar warts. History of back surgery November 13, 2020--had back surgery for stenosis and chronic back pain Status post tubal ligation Tubal ligation performed at time of second in 2000. S/P section x 2----> 1997 and 2000 S/P total hysterectomy and bilateral salpingo-oophorectomy 08/23/2006---total abdominal hysterectomy with bilateral salpingo- oophorectomy, omentectomy, staging laparotomy and cosmetic panniculectomy done by Dr. Gonzalez in [place] for well-differentiated endometrial adenocarcinoma. -----> operative reports obtained reviewed and scanned into chart History of cholecystectomy laparoscopic procedure done in her 40s Family History Mother Diabetes CAD (coronary artery disease) Hyperlipidemia Hypertension Grandmother Diabetes maternal Family/Other Breast cancer Maternal aunt; diagnosed at age 64 History of kidney cancer maternal aunt Denies family history of Colon cancer Ovarian cancer Uterine cancer Thyroid disease Stroke Social History Smoking and tobacco/nicotine status: never used tobacco/nicotine Substance/Drug Use: unknown Data Anesthesia Cardiac Studies: Echocardiogram 01/28/23 Echocardiogram Limited Views 03/21/23 Sestamibi Stress Test (Cardiology) 02/19
[2024-01-13] MEDS: sodium chloride 0.9% 1,000 ML 30 ML IV (06:39)
--- NOTE | 2024-01-13 06:57 | W.PM.OPSUD ---
Surgery/Procedure H&P Update DATE OF PROCEDURE: January 13, 2024 DATE H&P PERFORMED: 12/21/23 H&P UPDATE INFORMATION: I have reviewed H&P completed within last 30 days, I have examined patient prior to procedure and No changes to prior documentation PREOP DIAGNOSIS: Right cubital tunnel syndrome PRIMARY INDICATION FOR PROCEDURE: Right cubital tunnel syndrome PLANNED PROCEDURE: Operation Date: 01/13/24 07:00 Proposed Procedures p Cubital Tunnel Release(Right) - DO richard Pearson Ulnar Nerve Transposition possible(Right) - Daron Euceda DO
[2024-01-13] MEDS: ceFAZolin 2,000 MG in sodium chloride 0.9% (plus) 50 ML 100 MG IV (07:05)
[2024-01-13] MEDS: lidocaine-epi 1% 20 mL INJ 5 ML INJECTION (07:33)
[2024-01-13] MEDS: ROPivacaine 0.5% SDV 30 mL 25 MG INJECTION (07:33)
--- NOTE | 2024-01-13 07:48 | W.PM.BPON ---
Date of Procedure: [01/13/2024] Surgeon: Daron Euceda DO Steward/Stewardess Chief Cargo Vessel(s): FERNANDO Chung Procedure(s) performed: Right cubital tunnel release (ulnar nerve decompression at the elbow) Findings of the procedure(s): Patient found to have right cubital tunnel syndrome underwent procedure as planned without issues or complications Estimated blood loss: 5 mL Specimen(s) removed: None Post-operative diagnosis: Right cubital tunnel syndrome
--- NOTE | 2024-01-13 07:49 | P.OP_ITS ---
Operative Report Date of procedure: January 13, 2024 Surgeon: Daron Euceda DO Welding Rod Coater: Sj Chung-AMRIK Gustafson-AMRIK necessary for assistance in this case with hand positioning to execute the procedure, retraction and protection of neurovascular structures as well as to assist with wound closure and dressing application. Procedure: Preoperative diagnosis: Right cubital tunnel syndrome Postoperative diagnosis same Post-op findings: See operative note Procedure done: Right?cubital?tunnel release(ulnar nerve decompression) Surgeon: Daron Euceda DO Estimated blood loss: 5 cc Tourniquet Time: 11 minutes IV fluids: See anesthesia record Complications: None Findings: See operative report narrative Condition: stable Disposition: same day Brief History: Patient is a pleasant 53-year-old female was seen evaluated in the outpatient setting for right ulnar nerve neuropathy at the elbow.? Patient's had?left cubital tunnel release surgery and has done well responsive to surgical treatment with this and wishes to proceed with having the right side done as her symptoms are exactly the same. On my examination in the office patient findings are consistent with this preoperative diagnosis. We had detailed discussion in office about continued nonoperative intervention versus operative intervention.? Patient understands the risk benefits complications alternatives to surgical and nonsurgical treatment options.? Patient understands the risks include but not limited to make it better, make it worse, infection, permanent injury to nerve, decreased function and sensation to the hand with persistent weakness.? Given these risks patient understands and agrees to proceed with current plan.? Patient elects to proceed with a right?cubital?tunnel release and possible ulnar nerve transposition. all questions answered. Procedure: Patient was seen and evaluated in the preoperative holding area.? The consent that was filled out in office was reviewed with patient and confirmed to be appropriate for right ulnar nerve?cubital?tunnel release and possible ulnar nerve transposition.? Correct extremity was then marked.? Patient was seen evaluated by the preoperative team as well as anesthesia department.? Once cleared for surgery patient was then taken to the operative suite and transported onto the operative table all bony prominences were well-padded and patient was secured to the table.? Right upper extremity was placed on an armboard.? Patient then underwent anesthesia per the anesthesia department. Patient's right upper extremity was then prepped and draped in standard orthopedic fashion.? This point a final timeout was performed. Patient received appropriate preop antibiotics. Sterile tourniquet applied. Esmarch tourniquet was used to exsanguinate the operative extremity and was insufflated to 250 mmHg.? Standard curvilinear incision was made centering over the ulnar nerve between the medial epicondyle and olecranon process.? Sharp scalpel excision through skin and subcutaneous tissue was performed.? Once I encountered subcutaneous tissue I then utilized dissection scissors to spread in the path of the [facility] and care was made to protect any nerve branches throughout this case.? I then utilized a scalpel to complete my dissection directly on over to the flexor pronator mass and elevated this fat tissue directly off of the fascia.? I started my dissection of the ulnar nerve the nerve proximally.? Once identified I then utilized Littler dissection scissors and decompress the nerve completely and proximally and utilized blunt dissection to make sure there was no entrapment proximally..? Once decompressed proximally I then traced the nerve distal through Miller's ligament, of note patient did have a anconeus epitrochlaris and as it entered the FCU fascia aponeurosis and completed by decompression and ulnar nerve neurolysis distally.? The nerve was completely released in situ no areas of entrapment I was able to place my finger distally and proximally with no areas entrapment along the nerve.? At this point in time by in situ release was completed I then subsequently took the elbow through range of motion and no subluxation was noted over the medial epicondyle and as result this completed the surgery with an in situ release. Wound bed was then thoroughly irrigated.? Tourniquet was deflated.? Maintained exact hemostasis with bipolar electrocautery.? As result the skin was reapproximated with interrupted Vicryl subcutaneous suture 3-0.? I next utilized a running horizontal mattress stitch with 3-0 nylon.? Extremity was then cleaned and the incision was then covered with Xeroform 4 x 4's ABD Curlex and soft roll and a posterior long-arm splint was then applied with an Nima wrap.? Patient was then awakened from anesthesia and taken to PACU in stable condition. Disposition: Patient taken to PACU in stable condition.? Patient given appropriate discharge instructions as well as pain medication.?. Patient will see me in office in 2 weeks.? pt understands? if they has any questions they can contact the office.
[2024-01-13] MEDS: TRAMadol 50 mg Tablet PO (08:55)
[2024-01-13] MEDS: ondansetron 2 mg/ML SDV 2 mL 4 MG IVP (08:56)
--- NOTE | 2024-01-13 09:30 | ANE.PACU2 ---
Inpatient post-anesthesia follow up: Airway intact: Yes Vital signs: Temperature 98.2 F Pulse Rate 73 Respiratory Rate 17 Blood Pressure 149/88 Pulse Oximetry 97 Oxygen Delivery Me thod Room Air Oxygen Flow Rate 8 Fraction of Inspir ed Oxygen Hydration adequate: Yes Nausea and vomiting: No Pain level: 1 Mental status: Baseline
== END 2024-01-13 09:30 | disposition home or self-care (01) ==
PROVIDERS: PCP Family Medicine; Visit Provider Student in an Organized Health Care Education/Training Program
PROC: (CPT 64718; principal; 2024-01-13 07:00)
DX: G56.21 Lesion of ulnar nerve, right upper limb (principal)
CPT/HCPCS: 64718; 36416; 82962; J0690; J1100; J1885; J2405; J2704; J2765; J2795; J3010; J3490; J7030

== ENCOUNTER 2024-01-27 09:46 | Outpatient (CLI) | payer OTHER, SELFPAY ==
[2024-01-27 10:37] LABS: Alanine Aminotransferase 29 U/L (0-33); Albumin Level 3.9 g/dL (3.5-5.2); Alkaline Phosphatase 89 U/L (35-105); Anion Gap 13.2 (5-19); Aspartate Amino Transferase 28 U/L (0-32); Blood Urea Nitrogen 7 mg/dL (6-20); Calcium 8.9 mg/dL (8.5-10.5); Carbon Dioxide 28 mmol/L (22-29); Chloride 104 mmol/L (98-107); Chol HDL Ratio 2.14 mg/dL (0.0-4.40); Cholesterol 120 mg/dL (0-200); Globulin 3.2 g/dL (1.3-4.6); Glomerular Filtration Rate 128.1 mL/min (90-130); Glucose 121 mg/dL (65-115); HDL Cholesterol 56 mg/dL (60-100); LDL Cholesterol Calculated 49 mg/dL (50-129); LDL HDL Ratio 0.88 RATIO (0.00-3.22); Osmolality Calculated 291 mOsm/kg (285-295); Potassium 4.2 mmol/L (3.5-5.1); Sodium 141 mmol/L (136-145); Total Bilirubin 0.6 mg/dL (0.15-1.2); Total Protein 7.1 g/dL (6.6-8.7); Triglycerides 77 mg/dL (0-150)
[2024-01-27 10:38] LABS: Creatinine Urine, Random 175 mg/dL (28-217); Microalbum Creatinine Ratio Ur 6 mg/dL (0-20); Microalbumin Random Urine 1 ug/dL (0-20)
[2024-01-27 10:47] LABS: Estmated Average Glucose 131; Hemoglobin A1C 6.2 % (4.0-6.0)
== END 2024-01-27 09:47 | disposition home or self-care (01) ==
LOC: SLEEP 09:47
PROVIDERS: Internal Medicine; PCP Family Medicine; Visit Provider Internal Medicine Pulmonary Disease
DX: E11.40 Type 2 diabetes mellitus with diabetic neuropathy, unspecified (principal); E78.2 Mixed hyperlipidemia
CPT/HCPCS: 36415; 80053; 80061; 82044; 83036

== ENCOUNTER → 2024-03-07 13:56 | Outpatient (BNVA) | payer OTHER, SELFPAY | PROVIDERS: PCP Family Medicine; Visit Provider Student in an Organized Health Care Education/Training Program | DX: M25.561 Pain in right knee; M25.562 Pain in left knee; M22.41 Chondromalacia patellae, right knee; M22.42 Chondromalacia patellae, left knee | CPT/HCPCS: 73560; 73565 ==

== ENCOUNTER → 2024-03-16 14:03 | Outpatient (BNVA) | payer OTHER, SELFPAY | PROVIDERS: PCP Family Medicine; Visit Provider Obstetrics & Gynecology | DX: Z12.9 Encounter for screening for malignant neoplasm, site unspecified (principal) | CPT/HCPCS: 87624 ==

== ENCOUNTER 2024-03-28 20:00 | Outpatient (CLI) | payer OTHER, SELFPAY | END 2024-03-28 20:01 | disposition home or self-care (01) | LOC: SLEEP 03-29 08:18 | PROVIDERS: PCP Family Medicine; Visit Provider Internal Medicine Pulmonary Disease | DX: G47.33 Obstructive sleep apnea (adult) (pediatric) (principal) | CPT/HCPCS: 95811 ==

== ENCOUNTER 2024-04-12 11:20 | Outpatient (CLI) | payer OTHER, SELFPAY | END 2024-04-12 11:21 | disposition home or self-care (01) | LOC: RAD 11:21 | PROVIDERS: PCP Family Medicine; Visit Provider Internal Medicine Cardiovascular Disease | DX: R06.09 Other forms of dyspnea (principal) | CPT/HCPCS: 93306 ==

== ENCOUNTER 2024-07-18 08:48 | Outpatient (CLI) | payer OTHER, SELFPAY ==
--- NOTE | 2024-07-18 09:30 | MR_ITS ---
WS: [id number] MRI RIGHT KNEE NONCONTRAST TECHNIQUE: Axial PD, coronal PD fat sat, coronal PD, sagittal PD, and sagittal PD fat-sat images obta ined. CLINICAL INFORMATION: right knee meniscal injury/cartialge defect COMPARISON: None. FINDINGS: Distal quadriceps and patella tendons are intact. Mild to moderate tricompartment arthritis. ACL and PCL appear intact. Chronic thinning of the medial and lateral meniscus appear intact. Blunting of the anterior horn medial meniscus with chronic appearing tear at the meniscal root. Grade IV chondromala rosibel medial joint compartment. 2 small areas of bony edema with sclerosis with full-thickness cartilag e defects. No visualized loose fragments. Grade II chondromalacia patella. Normal popliteal fossa. Medial and lateral collateral ligaments appe ar intact. Normal popliteus. Normal bone marrow signal in the tibial plateau. MR/MR knee RT wo con* [id number] IMPRESSION: 1. 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 2. Chronic appearing tear of the medial meniscus anterior horn of the meniscal root with blunting. Chronic thinning lateral meniscus 3. ACL and PCL appear intact. 4. Grade II chondromalacia patella. Outbridge grading: grade IV: full-thickness cartilage loss with underlying bone reactive changes
== END 2024-07-18 08:49 | disposition home or self-care (01) ==
LOC: RAD 08:49
PROVIDERS: PCP Family Medicine; Visit Provider Student in an Organized Health Care Education/Training Program
DX: M23.211 Derangement of anterior horn of medial meniscus due to old tear or injury, right knee (principal); M94.261 Chondromalacia, right knee; M17.11 Unilateral primary osteoarthritis, right knee; S89.91XA Unspecified injury of right lower leg, initial encounter; X58.XXXA Exposure to other specified factors, initial encounter
CPT/HCPCS: 73721

== ENCOUNTER 2024-07-20 08:49 | Outpatient (CLI) | payer OTHER, SELFPAY ==
--- NOTE | 2024-07-20 08:56 | MM_ITS ---
WS: [id number] BILATERAL SCREENING DIGITAL TOMOSYNTHESIS MAMMOGRAM WITH CAD HISTORY: SCREENING COMPARISON: 05/03/2023, 04/08/2022 and 03/28/2021 Bilateral CC and MLO views with tomosynthesis and synthetic mammography submitted. Computer aided det ection analyzed. Breast composition: There are scattered areas of fibroglandular density. No suspicious masses, microc alcifications or architectural distortion. Bilateral scattered masses and calcifications are similar to the prior studies. No new mass or distortion. MM/MM scr BI tomosynthesis [id number] IMPRESSION: BI-RADS: 2 - Benign. FOLLOW UP: 1 Year Follow-up
== END 2024-07-20 08:50 | disposition home or self-care (01) ==
LOC: RAD 08:51
PROVIDERS: PCP Family Medicine; Visit Provider Family Medicine
DX: Z12.31 Encounter for screening mammogram for malignant neoplasm of breast (principal); R92.323 Mammographic fibroglandular density, bilateral breasts; R92.1 Mammographic calcification found on diagnostic imaging of breast
CPT/HCPCS: 77063; 77067

== ENCOUNTER 2024-07-27 13:29 | Outpatient (CLI) | payer OTHER, SELFPAY ==
[2024-07-27 14:30] LABS: Estmated Average Glucose 108; Hemoglobin A1C 5.4 % (4.0-6.0)
[2024-07-27 14:38] LABS: Creatinine Urine, Random 194 mg/dL (28-217); Microalbum Creatinine Ratio Ur 10 mg/dL (0-20); Microalbumin Random Urine 2 ug/dL (0-20)
== END 2024-07-27 13:30 | disposition home or self-care (01) ==
PROVIDERS: PCP Family Medicine; Visit Provider Internal Medicine
DX: E11.40 Type 2 diabetes mellitus with diabetic neuropathy, unspecified (principal); E78.2 Mixed hyperlipidemia
CPT/HCPCS: 82044; 83036

== ENCOUNTER 2024-12-28 10:36 | Outpatient (CLI) | payer OTHER, SELFPAY ==
--- NOTE | 2024-12-28 10:49 | XR_ITS ---
WS: [id number] Exam: XR thoracic spine 3V* [id number] Date/Time of Exam: 12/28/2024 10:49 AM Reason For Exam: M54.6 - Pain in thoracic spine Comparison 05/06/2020. No fracture or malalignment. There is spondylosis. Normal paraspinal soft tissues. No scoliosis. XR/XR thoracic spine 3V* [id number] IMPRESSION: 1. Mild degenerative changes. No fracture or malalignment.
--- NOTE | 2024-12-28 10:49 | XR_ITS ---
WS: [id number] Exam: XR lumbar spine min 4V [id number] Date/Time of Exam: 12/28/2024 10:49 AM Reason For Exam: M54.50 - Low back pain, unspecified Comparison 07/09/2022. Posterior fusion of the spine at L4-5 with pedicle screws and posterior rods. Intervening disc spacer. The fusion is in satisfactory alignment without change. No hardware complication. Slight levoscoliosis. Mild to moderate disc space narrowing at L1-2 and L2-3. Facet DJD at all levels. XR/XR lumbar spine min 4V [id number] IMPRESSION: 1. Stable appearing fusion at L4-5 without change or complication. 2. Degenerative changes as detailed above.
== END 2024-12-28 10:37 | disposition home or self-care (01) ==
LOC: RAD 10:38
PROVIDERS: Visit Provider Anesthesiology Pain Medicine
DX: M47.894 Other spondylosis, thoracic region (principal); Z98.1 Arthrodesis status; M51.369 Other intervertebral disc degeneration, lumbar region without mention of lumbar back pain or lower extremity pain; M47.896 Other spondylosis, lumbar region
CPT/HCPCS: 72072; 72110

== ENCOUNTER → 2025-01-08 09:01 | Outpatient (BNVA) | payer OTHER, SELFPAY | PROVIDERS: PCP Nurse Practitioner; Visit Provider Anesthesiology Pain Medicine | DX: M48.062 Spinal stenosis, lumbar region with neurogenic claudication (principal); M54.2 Cervicalgia; M47.816 Spondylosis without myelopathy or radiculopathy, lumbar region | CPT/HCPCS: 99214 ==

== ENCOUNTER → 2025-01-17 14:46 | Outpatient (BNVA) | payer OTHER, SELFPAY | PROVIDERS: PCP Nurse Practitioner; Visit Provider Student in an Organized Health Care Education/Training Program | DX: M25.561 Pain in right knee (principal); M17.11 Unilateral primary osteoarthritis, right knee | CPT/HCPCS: 73560; 73565; 99214 ==

== ENCOUNTER → 2025-01-24 09:05 | Outpatient (BNVA) | payer OTHER, SELFPAY | PROVIDERS: PCP Nurse Practitioner; Visit Provider Anesthesiology Pain Medicine | DX: M47.816 Spondylosis without myelopathy or radiculopathy, lumbar region (principal); M54.9 Dorsalgia, unspecified; Z01.818 Encounter for other preprocedural examination; M48.062 Spinal stenosis, lumbar region with neurogenic claudication; E11.9 Type 2 diabetes mellitus without complications | CPT/HCPCS: 36416; 64493; 64494; 82962; J1010; J9999 ==

== ENCOUNTER → 2025-01-30 11:26 | Outpatient (BNVA) | payer OTHER, SELFPAY | PROVIDERS: PCP Nurse Practitioner; Visit Provider Internal Medicine | DX: E11.40 Type 2 diabetes mellitus with diabetic neuropathy, unspecified (principal); E78.2 Mixed hyperlipidemia | CPT/HCPCS: 36415; 80053; 80061; 82044; 83036 ==

== ENCOUNTER → 2025-02-05 13:07 | Outpatient (BNVA) | payer OTHER, SELFPAY | PROVIDERS: PCP Nurse Practitioner; Visit Provider Anesthesiology Pain Medicine | DX: M48.062 Spinal stenosis, lumbar region with neurogenic claudication (principal); M54.2 Cervicalgia; M47.816 Spondylosis without myelopathy or radiculopathy, lumbar region | CPT/HCPCS: 99214 ==

== ENCOUNTER → 2025-02-14 14:17 | Outpatient (BNVA) | payer OTHER, SELFPAY | PROVIDERS: PCP Nurse Practitioner; Visit Provider Anesthesiology Pain Medicine | DX: M79.18 Myalgia, other site (principal); M54.2 Cervicalgia; M48.062 Spinal stenosis, lumbar region with neurogenic claudication; M47.816 Spondylosis without myelopathy or radiculopathy, lumbar region | CPT/HCPCS: 20553; 99213; J1010; J3490 ==

== ENCOUNTER → 2025-02-21 13:18 | Outpatient (BNVA) | payer OTHER, SELFPAY | PROVIDERS: PCP Nurse Practitioner; Visit Provider Physician Assistant | DX: M17.11 Unilateral primary osteoarthritis, right knee (principal); M25.569 Pain in unspecified knee; Z01.818 Encounter for other preprocedural examination | CPT/HCPCS: 80053; 81001; 85025; 99213 ==

== ENCOUNTER → 2025-02-22 10:52 | Outpatient (BNVA) | payer OTHER, SELFPAY | PROVIDERS: PCP Family Medicine; Visit Provider Specialist | DX: G43.711 Chronic migraine without aura, intractable, with status migrainosus (principal); E53.8 Deficiency of other specified B group vitamins; M46.92 Unspecified inflammatory spondylopathy, cervical region; G60.3 Idiopathic progressive neuropathy; G31.84 Mild cognitive impairment of uncertain or unknown etiology | CPT/HCPCS: 36415; 82607; 99214 ==

== ENCOUNTER 2025-02-26 06:42 | Outpatient (CLI) | payer OTHER, SELFPAY ==
--- NOTE | 2025-02-26 07:15 | CT_ITS ---
WS: [id number] CT RIGHT knee, noncontrast HISTORY: M17.11 - Unilateral primary osteoarthritis, right knee TECHNIQUE: Protocol for [facility] total knee replacement has been obtained. This includes axial imaging through the RIGHT hip, RIGHT knee and RIGHT ankle. DLP: 936.75 mGy.cm COMPARISON: Radiograph 01/17/2025 Hips: Mild bilateral SI joint degenerative air. Hip joints are slightly narrowed. Bone island LEFT femoral head. No destructive bone lesions. RIGHT knee: Slight lateral subluxation of the patella. No fracture. Mild narrowing of the joint spaces. No significant osteophytosis. No suprapatellar joint effusion. RIGHT ankle: Negative. CT/CT knee RT [facility] [id number] IMPRESSION: CT imaging provided for [facility] robotic total knee replacement.
== END 2025-02-26 06:43 | disposition home or self-care (01) ==
PROVIDERS: PCP Family Medicine; Visit Provider Student in an Organized Health Care Education/Training Program
DX: Z01.818 Encounter for other preprocedural examination (principal); M17.11 Unilateral primary osteoarthritis, right knee; M46.1 Sacroiliitis, not elsewhere classified; R93.7 Abnormal findings on diagnostic imaging of other parts of musculoskeletal system; R93.1 Abnormal findings on diagnostic imaging of heart and coronary circulation; I21.9 Acute myocardial infarction, unspecified
CPT/HCPCS: 73700; 81003; 87086; 93005

== ENCOUNTER 2025-03-12 17:45 | Observation (INO) | payer OTHER, SELFPAY ==
--- OUTSIDE RECORDS SUMMARY | 2024-11-01 04:38 | XMS_ITS ---
Author Name [facility] [facility] [place] Address [address], [place] [address] Care Team Providers Care Line Therapist Name Role Phone MONTOYAMANUELE Primary Care Provider Unavail able Insurance Providers: All historical and current Section Date Range: From patient's date of to the date document was created. This section includes the names of all active insurance providers for the patient. Insurance Provider Type of Coverage Plan Name Start of Policy Coverage End of Policy Coverage Group Number Member ID Insurance Provider's Telephone Number Policy Calero's Name Patient's Relationship to Policy Calero Selected Encounter This section includes the information on record at [place] for the Encounter. Date/Time Encounter Type Encounter Description Reason Pro vider Source Nov 01, 2024 09:38 AM Outpatient Encounter ADMIN PAT ACTIVTIES (MASNONCT) IHE Encounter Template Text not used by [place] Plan of Treatment: Future Appointments (+ 6 months) and Future Tests (+/- 45 days) The Plan of Treatment section includes future care activities for the patient from all [facility] treatment[facility]. This section includes future appointments and future orders which are active, pending or scheduled. Future Appointments This section includes appointments that were scheduled to occur 6 months from the date of the Encounter, up to a maximum of 20 appointments. The data comes from all [facility]. Appointment Date/Time Appointment Type Appointme nt Facility Name Nov 27, 2024 10:00 AM AMBULATORY - MEDICINE [facility] Dec 14, 2024 02:07 PM AMBULATORY - MEDICINE [facility] Dec 20, 2024 02:00 PM [place] [facility] Dec 21, 2024 01:00 PM [place] [place] [facility] Dec 30, 2024 09:00 AM [place] [facility] January 08, 2025 10:20 AM [facility] [place] [facility] January 17, 2025 03:15 PM [place] [facility] January 30, 2025 09:45 AM [facility] [place] [facility] Feb 22, 2025 11:00 AM [facility] [place] [facility] Mar 02, 2025 09:00 AM [facility] [place] [facility] Apr 02, 2025 09:15 AM [facility] - [place]IC[place] [facility] Apr 20, 2025 09:30 AM [facility] - [place] [facility] Active, Pending, and Scheduled Orders This section includes a listing of several types of active, pending, and scheduled orders, including clinic medications orders, diagnostic test orders, procedure orders and consult orders; where the start date of the order is 45 days before the date of the Encounter or 45 days after the date of theEncounter. The data comes from all [facility]. Test Date/Time Test Type Test Details Facility Name Dec 12, 2024 04:26 PM Consult Order COMMUNITY CARE-RHEUMATOLOGY 657A4 Cons Matrix Bath Operator's Choice [facility] Dec 12, 2024 04:26 PM Consult Order COMMUNITY CARE-DERMATOLOGY [id number] Cons [employer] Bath Operator's Choice [facility] Dec 14, 2024 03:24 PM Consult Order COMMUNITY [id number] Cons Matrix Bath Operator's [facility] Lab Results: +/- 30 days of the encounter This section includes the Chemistry and Hematology Lab Results on record with [place] for the patient. Radiology Reports and Pathology Reports are provided separately, in subsequent sections. Lab Results This section contains the Chemistry/Hematology Results that were resulted 30 days before or 30 daysafter the date of the Encounter. Date/Time Source Result Type Result - Unit Interpretation Reference Range Specimen Type Comment Nov 27, 2024 10:26 AM [facility] TSH (MA-PB) SERUM Specimen Type: SERUM No comment entered. Ordering Provider: AVANI MONTOYA Report Released Date/Time: Nov 24, 2024 01:58 PM Reporting Lab: [place] [facility] [address] [place] [address] Performing Lab: [place] [facility] [address] [place] [address] TSH 1.172 u[IU]/mL 0.47-5 Nov 27, 2024 10:26 AM [facility] HGA1C BLOOD Specimen Type: BLOOD No comment entered. Ordering Provider: AVANI MONTOYA Report Released Date/Time: Nov 24, 2024 01:58 PM Reporting Lab: [place] [facility] [address] [place] [address] Performing Lab: [place] [facility] [address] [place] [address] HGA1C 5.9 4.0-6.0 Nov 27, 2024 10:26 AM [facility] VITAMIN D, 25-HYDROXY SERUM Specimen Type: SE RUM No comment entered. Ordering Provider: AVANI MONTOYA Report Released Date/Time: Nov 24, 2024 01:58 PM Reporting Lab: [place] [facility] [address] [place] [address] Performing Lab: [place] [facility] [address] [place] [address] VITAMIN D, 25-HYDROXY 34.1 ng/mL 30-96 Nov 27, 2024 10:26 AM [facility] URINALYSIS (STL-PB) URINE Specimen Type: URIN E No comment entered. Ordering Provider: AVANI MONTOYA Report Released Date/Time: Nov 24, 2024 01:58 PM Reporting Lab: [place] [facility] [address] [place] [address] Performing Lab: [place] [facility] [address] [place] [address] URINE COLOR Yellow Yellow U.BILIRUBIN NEGATIVE mg/dL Negative U.PH 7.0 5.0-8.0 URINE WBC/HPF 7 /[HPF] H 0-5 URINE RBC/HPF 2 /[HPF] 0-5 APPEARANCE TURBID H Clear U.NITRITE NEGATIVE mg/dL Negative SQUAMOUS EPITH. 13 /[HPF] H 0-5 MUCUS RARE /[LPF] Negative-Rare URN.GLUCOSE NORMAL mg/dL Negative URN.PROTEIN NEGATIVE mg/dL URN.UROBILINOGEN 6.0 mg/dL H Normal URN.BLOOD NEGATIVE mg/dL Negative-Trace URN.KETONES NEGATIVE mg/dL Negative-Trac e URN.LEUK.EST. 75 H Negative-Trace URN.SPECIFIC GRAVITY 1.019 1.005-1.029 Nov 27, 2024 10:26 AM [facility] COMPREHENSIVE METABOLIC PANEL PLASMA Specimen Type: PLASMA No comment entered. Ordering Provider: AVANI MONTOYA Report Released Date/Time: Nov 24, 2024 01:58 PM Reporting Lab: ANTONIOAR KARL [facility] [address] [facility] [address] Performing Lab: TOMEKA BARAJAS [facility] [address] [facility] [place] [phone] CREATININE 0.56 mg/dL L 0.6-1.1 UREA NITROGEN 5 mg/dL L 9-25 GLUCOSE 150 mg/dL H 72-99 SODIUM 139 meq/L 136-145 POTASSIUM 3.8 meq/L 3.5-5 CHLORIDE 103 meq/L 98-107 CARBON DIOXIDE 29 meq/L 22-31 CALCIUM 8.7 mg/dL 8.4-10.4 PROTEIN 6.6 g/dL 6-8.6 ALBUMIN 4.0 g/dL 3.4-5 TOTAL BILIRUBIN 1.0 mg/dL 0.2-1.2 ALKALINE PHOSPHATASE 106 U/L 40-150 AST/SGOT 71 U/L H 5-34 ALT/SGPT 77 U/L H 8-40 EGFR (CKD-EPI 2020) 107 Nov 27, 2024 10:26 AM [facility] CBC BLOOD Specimen Type: BLOOD No comment entered. Ordering Provider: AVANI MONTOYA Report Released Date/Time: Nov 24, 2024 01:58 PM Reporting Lab: [place] [facility] [address] [place] [address] Performing Lab: [place] [facility] [address] [place] [facility] WBC 7.8 10*3/uL 3.6-11.2 RBC 4.51 10*6/uL 3.60-5.00 HGB 13.3 g/dL 11.0-14.9 HCT 40.0 32.6-43.4 MCV 88.7 fL 80.0-100.0 MCH 29.5 pg 27.0-34.0 MCHC 33.3 g/dL 33.0-36.0 PLT 208 10*3/uL 150-400 MPV 9.8 fL 7.5-11.2 RDW 13.4 11.8-15.1 LYMPHOCYTES, AUTO % 24.5 MONOCYTES, AUTO % 8.3 NEUTROPHILS, AUTO % 62.2 EOSINOPHILS, AUTO % 4.1 BASOPHILS, AUTO % 0.6 LYMPHOCYTES, ABSOLUTE 1.91 10*3/uL 0.77- 4.50 MONOCYTES, ABSOLUTE 0.65 10*3/uL 0.19-0. 8 NEUTROPHILS, ABSOLUTE 4.85 10*3/uL 2.10- 8.00 EOSINOPHILS, ABSOLUTE 0.32 10*3/uL 0.00- 0.60 BASOPHILS, ABSOLUTE 0.05 10*3/uL 0.00-0. 20 IMMATURE GRANS, AUTO % 0.3 IMMATURE GRANS, AUTO ABS 0.02 10*3/uL 0. 00-0.05 Nov 27, 2024 10:26 AM [facility] CHOLESTEROL PANEL (PB) PLASMA Specimen Type: P SIMA No comment entered. Ordering Provider: AVANI MONTOYA Report Released Date/Time: Nov 24, 2024 01:58 PM Reporting Lab: [place] [facility] [address] [place] [address] Performing Lab: [place] [facility] [address] [place] [facility] CHOLESTEROL 101 mg/dL 0-200 TRIGLYCERIDE 44 mg/dL 0-150 CALCULATED LDL 41.2 mg/dL HDL(New) 51.0 mg/dL H >40 HDL % OF TOTAL CHOLESTEROL (PB) 50.5 >25 Nov 27, 2024 10:26 AM [facility] URINE ALBUMIN PROFILE-ih (PB) URINE Specimen Type: URINE No comment entered. Ordering Provider: AVANI MONTOYA Report Released Date/Time: Nov 27, 2024 10:16 AM Reporting Lab: TOMEKA BARAJAS [facility] [address] [place] [address] Performing Lab: TOMEKA BARAJAS [facility] [address] [place] [address] URINE ALBUMIN (PB-STL) 15.06 mg/L 0-30 uACR (PB-MA) 9.89 ug/mg CREATININE URINE/OTHERS 152.33 mg/dL Advance Directives: All historical and current Section Date Range: From patient's date of to the date document was created. This section includes ALL of a patient's completed or amended [place] Advance and Rescinded Directives. The entries below indicate that a directive exists for the patient, but an actual copy is not included with this document. The data comes from all [place] facilities. Date Advance Directives Provider Source January 10, 2024 ADVANCE DIRECTIVE JOB BAINU [facility] Dec 22, 2013 ADVANCE DIRECTIVE DISCUSSION ZHANE KENNEDY [place] [facility] Encounter Notes: All associated encounter notes This section contains the clinical notes associated to the Encounter. Date/Time Encounter Note(s) Provider Source Nov 01, 2024 09:38 AM ADMINISTRATIVE NOT E: LOCAL TITLE: ADMINISTRATIVE NOTE PB STANDARD TITLE: ADMINISTRATIVE NOTE DATE OF NOTE: NOV 01, 2024@09:38 ENTRY DATE: NOV 01, 2024@09:39:09 AUTHOR: CARLOTA LOPEZ EXP COSIGNER: URGENCY: STATUS: COMPLETED [facility] reach out stating this vet had a scheduled appoiintment but was showing they are not eligible for care. Upon ooking into VES the enrollment was decline. [facility] alert was submitted to re-open the enrolloment [id number]. HBA requesteed the [facility] to rechedule the appointment to a later date until we get a response from [facility]. /lisa/ CARLOTA LOPEZ HEALTH CLAIMS SERVICE ADJUSTOR HBA Signed: 11/01/2024 09:40 Receipt Acknowledged By: 11/07/2024 12:50 /lisa/ JAMES BARNETT M[facility] [place] [facility]
--- OUTSIDE RECORDS SUMMARY | 2024-11-07 06:53 | XMS_ITS | Encounter Summary ---
Author Name [facility] [place] [facility] [place] [facility] [place] Address [address] [place] [address] Care Team Providers Care Application Packaging Specialist Name Role Phone LINDSAYMANUELE Primary Care Provider Unavail able Insurance Providers: All historical and current Section Date Range: From patient's date of to the date document was created. This section includes the names of all active insurance providers for the patient. Insurance Provider Type of Coverage Plan Name Start of Policy Coverage End of Policy Coverage Group Number Member ID Insurance Provider's Telephone Number Policy Calreo's Name Patient's Relationship to Policy Calero Selected Encounter This section includes the information on record at [place] for the Encounter. Date/Time Encounter Type Encounter Description Reason Pro vider Source Nov 07, 2024 11:53 AM Outpatient Encounter ADMIN PAT ACTIVTIES (MASNONCT) IHE Encounter Template Text not used by VA Plan of Treatment: Future Appointments (+ 6 [...] 20 appointments. The data comes from all [facility]. Appointment Date/Time Appointment Type Appointme nt Facility Name Nov 27, 2024 10:00 AM AMBULATORY - MEDICINE [facility] Dec 14, 2024 02:07 PM AMBULATORY - MEDICINE [facility] Dec 20, 2024 02:00 PM AM[place]UL[place] [facility] Dec 21, 2024 01:00 PM AMBULATORY - [place]IC[place] [facility] Dec 30, 2024 09:00 AM AMBULATORY - MEDIC[place] [facility] January 08, 2025 10:20 AM [place]ORY [place]IC[place] [facility] January 17, 2025 03:15 PM AMBULATORY - MEDICINE [place] [facility] January 30, 2025 09:45 AM AMBULATORY - MEDICINE [place] [facility] Feb 22, 2025 11:00 AM AMBULATORY - MEDICINE [place] [facility] Mar 02, 2025 09:00 AM AMBULATORY - MEDICINE [place] [facility] Apr 02, 2025 09:15 AM AMBULATORY - MEDICINE [place] [facility] Apr 20, 2025 09:30 AM AMBULATORY - MEDICINE [place] [facility] Active, Pending, and Scheduled Orders This section includes a listing of several types of active, pending, and scheduled orders, including clinic medications orders, diagnostic test orders, procedure orders and consult orders; where the start date of the order is 45 days before the date of the Encounter or 45 days after the date of theEncounter. The data comes from all [facility]. Test Date/Time Test Type Test Details Facility Name Dec 12, 2024 04:26 PM Consult Order COMMUNITY CARE-RHEUMATOLOGY [id number] Cons Laundry Folder[facility] Dec 12, 2024 04:26 PM Consult Order COMMUNITY CARE-DERMATOLOGY [id number] Cons Laundry Folder[facility] Dec 14, 2024 03:24 PM Consult Order COMMUNITY [id number] Cons Laundry Folder's Choice [facility] Lab Results: +/- 30 days of the encounter This section includes the Chemistry and Hematology Lab Results on record with [place] for the patient. Radiology Reports and Pathology Reports are provided separately, in subsequent sections. Lab Results This section contains the Chemistry/Hematology Results that were resulted 30 days before or 30 daysafter the date of the Encounter. Date/Time Source Result Type Result - Unit Interpretation Reference Range Specimen Type Comment Nov 27, 2024 10:26 AM [facility] TSH (MA-PB) SERUM Specimen Type: SERUM No comment entered. Ordering Provider: AVANI MONTOYA Report Released Date/Time: Nov 24, 2024 01:58 PM Reporting Lab: [place] [facility] [address] [place] [address] Performing Lab: [place] [facility] [address] [place] [address] TSH 1.172 u[IU]/mL 0.47-5 Nov 27, 2024 10:26 AM [facility] HGA1C BLOOD Specimen Type: BLOOD No comment entered. Ordering Provider: AVANI MONTYOA Report Released Date/Time: Nov 24, 2024 01:58 PM Reporting Lab: [place] [facility] [address] [place] [address] Performing Lab: [place] [facility] [address] [place] [address] HGA1C 5.9 4.0-6.0 Nov 27, 2024 10:26 AM [facility] VITAMIN D, 25-HYDROXY SERUM Specimen Type: SE RUM No comment entered. Ordering Provider: AVANI MONTOYA Report Released Date/Time: Nov 24, 2024 01:58 PM Reporting Lab: [place] [facility] [address] [place] [address] Performing Lab: [place] [facility] [address] [place] [address] VITAMIN D, 25-HYDROXY 34.1 ng/mL 30-96 Nov 27, 2024 10:26 AM [facility] URINALYSIS (STL-PB) URINE Specimen Type: URIN E No comment entered. Ordering Provider: AVANI MONTOYA Report Released Date/Time: Nov 24, 2024 01:58 PM Reporting Lab: [place] [facility] [address] [place] [address] Performing Lab: [place] [facility] [address] [place] [address] URINE COLOR Yellow Yellow U.BILIRUBIN NEGATIVE mg/dL [...] 1.019 1.005-1.029 Nov 27, 2024 10:26 AM [facility] CBC BLOOD Specimen Type: BLOOD No comment entered. Ordering Provider: AVANI MONTOYA Report Released Date/Time: Nov 24, 2024 01:58 PM Reporting [facility]: [facility] [address] [place] [phone] Performing Lab: [facility] [address] [place] [phone] WBC 7.8 10*3/uL 3.6-11.2 RBC 4.51 10*6/uL [...] 0. 00-0.05 Nov 27, 2024 10:26 AM [facility] COMPREHENSIVE METABOLIC PANEL PLASMA Specimen Type: PLASMA No comment entered. Ordering Provider: AVANI MONTOYA Report Released Date/Time: Nov 24, 2024 01:58 PM Reporting Lab: [place] [facility] [address] [place] [address] Performing Lab: [place] [facility] [address] [place] [address] CREATININE 0.56 mg/dL L 0.6-1.1 UREA NITROGEN [...] 2020) 107 Nov 27, 2024 10:26 AM [facility] CHOLESTEROL PANEL (PB) PLASMA Specimen Type: P LASWILLARD No comment entered. Ordering Provider: VAANI MONTOYA Report Released Date/Time: Nov 24, 2024 01:58 PM Reporting Lab: [place] [facility] [address] [place] [address] Performing Lab: [place] [facility] [address] [place] [address] CHOLESTEROL 101 mg/dL 0-200 TRIGLYCERIDE 44 mg/dL 0-150 CALCULATED LDL 41.2 mg/dL HDL(New) 51.0 mg/dL H >40 HDL % OF TOTAL CHOLESTEROL (PB) 50.5 >25 Nov 27, 2024 10:26 AM [facility] URINE ALBUMIN PROFILE-ih (PB) URINE Specimen Type: URINE No comment entered. Ordering Provider: AVANI MONTOYA Report Released Date/Time: Nov 27, 2024 10:16 AM Reporting Lab: [place] [facility] [address] [place] [address] Performing Lab: [place] [facility] [address] [place] [address] URINE ALBUMIN (PB-STL) 15.06 mg/L 0-30 uACR (PB-MA) 9.89 ug/mg CREATININE URINE/OTHERS 152.33 mg/dL Social History: Smoking Status (Most current) and Tobacco Use (All prior to encounter date) This section includes the most current, and the historical, smoking and tobacco- related health factors from the [place] facility where the Encounter took place. Current Smoking Status This section includes the most current smoking, or tobacco-related health factor, from the [place] facility where the Encounter took place. Date/Time Current Smoking Status Comment Facil ity Nov 01, 2023 01:31 PM [place]-TOBACCO QUIT < 1 YEAR [facility] Tobacco Use History This section includes a history of the smoking, or tobacco-related health factors, that were collected on or before the date of the Encounter. The data comes from the [place] facility where the Encounter took place. Date/Time Smoking Status/Tobacco Use Comment F acility Nov 01, 2023 01:31 PM [place]-TOBACCO QUIT < 1 YEAR [facility] Nov 03, 2013 10:07 AM LIFETIME NON-USER OF TOBACCO [facility] Advance Directives: All historical and current Section Date Range: From patient's date of to the date document was created. This section includes ALL of a patient's completed or amended [place] Advance and Rescinded Directives. The entries below indicate that a directive exists for the patient, but an actual copy is not included with this document. The data comes from all [place] facilities. Date Advance Directives Provider Source January 10, 2024 ADVANCE DIRECTIVE JOB BAINU [facility] Dec 22, 2013 ADVANCE DIRECTIVE DISCUSSION ZHANE KENNEDY [place] [facility] Encounter Notes: All associated encounter notes This section contains the clinical notes associated to the Encounter. Date/Time Encounter Note(s) Provider Source Nov 07, 2024 11:53 AM GENERAL MEDICINE N OTE: LOCAL TITLE: General Note PB STANDARD TITLE: GENERAL MEDICINE NOTE DATE OF NOTE: NOV 07, 2024@11:53 ENTRY DATE: NOV 07, 2024@11:53:07 AUTHOR: JAGDEEP WYNN EXP COSIGNER: URGENCY: STATUS: COMPLETED Eye Care At-Risk Screen - L,N,PH,U: Patient identified to be at risk for the following eye condition(s): DIABETIC RETINOPATHY: Diabetes Diagnosis Information: Encounter Diagnosis: 11/01/2023@14:54 E11.9 (ICD-10-CM) Type 2 Diabetes Mellitus without Complications rank: SECONDARY Prov. Narr. - Type 2 Diabetes Mellitus without Complications Action: No Referral Ordered: Eye exam completed elsewhere by an Polymer Scientist or Structured Cabling Technician Diabetic retinal exam result: Negative for Retinopathy Date: December, ? Exact date is unknown Location: [facility] Eye Comment: Per [place] exam was normal /es/ JAGDEEP WYNN Telehealth Clinical First Coat Operator Signed: 11/07/2024 11:54 JAGDEEP WYNN [facility]
--- OUTSIDE RECORDS SUMMARY | 2024-11-07 08:25 | XMS_ITS ---
Author Name [facility] [place] [facility] [place] [facility] [place] Address [address] [facility], [place] [address] Care Team Providers Care [employer] Bot[employer] Instructor Name Role Phone LINDSAYMANUELE Primary Care Provider [...] section includes the information on record at [place] for the Encounter. Date/Time Encounter Type Encounter Description Reason Pro vider Source Nov 07, 2024 01:25 PM Outpatient Encounter ADMIN PAT ACTIVTIES (MASNONCT) IHE Encounter Template Text not used by [place] Plan of Treatment: Future Appointments (+ 6 [...] 20 appointments. The data comes from all [facility]. Appointment Date/Time Appointment Type Appointme nt Facility Name Nov 27, 2024 10:00 AM AMBULATORY - MEDICINE [facility] Dec 14, 2024 02:07 PM AMBULATORY - MEDICINE [facility] Dec 20, 2024 02:00 PM [place] [facility] Dec 21, 2024 01:00 PM [facility]BULATORY [place]IC[place] [facility] Dec 30, 2024 09:00 AM [place] [place] [facility] January 08, 2025 10:20 AM [facility] [place] [facility] January 17, 2025 03:15 PM AMBULATORY - [place]IC[place] [facility] January 30, 2025 09:45 AM AM[place]ULATORY - [place]IC[place] [facility] Feb 22, 2025 11:00 AM AMBULATORY - [place]IC[place] [facility] Mar 02, 2025 09:00 AM AMBULATORY - [place]IC[place] [facility] Apr 02, 2025 09:15 AM AMBULATORY - [place]ICINE [place] [facility] Apr 20, 2025 09:30 AM AMBULATORY - MEDICINE [place] [facility] Active, Pending, and Scheduled Orders This section includes a listing of several types of active, pending, and scheduled orders, including clinic medications orders, diagnostic test orders, procedure orders and consult orders; where the start date of the order is 45 days before the date of the Encounter or 45 days after the date of theEncounter. The data comes from all [facility]. Test Date/Time Test Type Test Details Facility Name Dec 12, 2024 04:26 PM Consult Order COMMUNITY CARE-RHEUMATOLOGY 657A4 Cons Guide [facility] Dec 12, 2024 04:26 PM Consult Order COMMUNITY CARE-DERMATOLOGY 657A4 Cons Guide [facility] Dec 14, 2024 03:24 PM Consult Order COMMUNITY [id number] Cons Guide [facility] Lab Results: +/- 30 days of the encounter This section includes the Chemistry and Hematology Lab Results on record with [place] for the patient. Radiology Reports and Pathology Reports are provided separately, in subsequent sections. Lab Results This section contains the Chemistry/Hematology Results that were resulted 30 days before or 30 daysafter the date of the Encounter. Date/Time Source Result Type Result - Unit Interpretation Reference Range Specimen Type Comment Nov 27, 2024 10:26 AM [facility] TSH (MA-PB) SERUM Specimen Type: SERUM No comment entered. Ordering Provider: AVANI MONTOYA Report Released Date/Time: Nov 24, 2024 01:58 PM Reporting Lab: [place] [facility] [address] [place] [address] Performing Lab: [place] [facility] [address] [place] [address] TSH 1.172 u[IU]/mL 0.47-5 Nov 27, 2024 10:26 AM [facility] HGA1C BLOOD Specimen Type: BLOOD No comment entered. Ordering Provider: VAANI MONTOYA Report Released Date/Time: Nov 24, 2024 01:58 PM Reporting Lab: [place] [facility] [address] [place] [address] Performing Lab: [place] [facility] [address] [place] [address] HGA1C 5.9 4.0-6.0 Nov 27, 2024 10:26 AM [facility] VITAMIN D, 25-HYDROXY SERUM Specimen Type: SE RUM No comment entered. Ordering Provider: AVANI MONTOYA Report Released Date/Time: Nov 24, 2024 01:58 PM Reporting Lab: [place] [facility] [address] [place] [address] Performing Lab: [place] [facility] [address] [place] [address] VITAMIN D, 25-HYDROXY 34.1 ng/mL 30-96 Nov 27, 2024 10:26 AM [facility] URINALYSIS (STL-PB) URINE Specimen Type: URIN E No comment entered. Ordering Provider: AVANI MONTOYA Report Released Date/Time: Nov 24, 2024 01:58 PM Reporting Lab: [place] [facility] [address] [place] [address] Performing Lab: [place] [facility] [address] [place] [address] URINE COLOR Yellow Yellow U.BILIRUBIN NEGATIVE mg/dL [...] 1.019 1.005-1.029 Nov 27, 2024 10:26 AM [facility] COMPREHENSIVE METABOLIC PANEL PLASMA Specimen Type: PLASMA No comment entered. Ordering Provider: AVANI MONTOYA Report Released Date/Time: Nov 24, 2024 01:58 PM Reporting Lab: [place] [facility] [address] [facility] [place] [id number] Performing Lab: [place] [facility] [address] [facility] [place] [phone] CREATININE 0.56 mg/dL L 0.6-1.1 UREA NITROGEN [...] 2020) 107 Nov 27, 2024 10:26 AM [facility] CHOLESTEROL PANEL (PB) PLASMA Specimen Type: P LASMA No comment entered. Ordering Provider: AVANI MONTOYA Report Released Date/Time: Nov 24, 2024 01:58 PM Reporting Lab: [place] [facility] [address] [place] [address] Performing Lab: [place] [facility] [address] [place] [address] CHOLESTEROL 101 mg/dL 0-200 TRIGLYCERIDE 44 mg/dL 0-150 CALCULATED LDL 41.2 mg/dL HDL(New) 51.0 mg/dL H >40 HDL % OF TOTAL CHOLESTEROL (PB) 50.5 >25 Nov 27, 2024 10:26 AM [facility] CBC BLOOD Specimen Type: BLOOD No comment entered. Ordering Provider: AVANI MONTOYA Report Released Date/Time: Nov 24, 2024 01:58 PM Reporting Lab: [place] [facility] [address] [place] [address] Performing Lab: [place] [facility] [address] [place] [address] WBC 7.8 10*3/uL 3.6-11.2 RBC 4.51 10*6/uL [...] 0. 00-0.05 Nov 27, 2024 10:26 AM [facility] URINE ALBUMIN PROFILE-ih (PB) URINE Specimen Type: URINE No comment entered. Ordering Provider: AVANI MONTOYA Report Released Date/Time: Nov 27, 2024 10:16 AM Reporting Lab: [place] [facility] [address] [place] [address] Performing Lab: [place] [facility] [address] [place] [address] URINE ALBUMIN (PB-STL) 15.06 mg/L 0-30 uACR (PB-MA) 9.89 ug/mg CREATININE URINE/OTHERS 152.33 mg/dL Advance Directives: All historical and current Section Date Range: From patient's date of to the date document was created. This section includes ALL of a patient's completed or amended [place] Advance and Rescinded Directives. The entries below indicate that a directive exists for the patient, but an actual copy is not included with this document. The data comes from all [place] facilities. Date Advance Directives Provider Source January 10, 2024 ADVANCE DIRECTIVE JOB BAINU [facility] Dec 22, 2013 ADVANCE DIRECTIVE DISCUSSION ZHANE KENNEDY [facility] Encounter Notes: All associated encounter notes This section contains the clinical notes associated to the Encounter. Date/Time Encounter Note(s) Provider Source Nov 08, 2024 03:11 PM ADDENDUM: LOCAL TITLE: Addendum STANDARD TITLE: ADDENDUM DATE OF NOTE: NOV 08, 2024@15:11:52 ENTRY DATE: NOV 08, 2024@15:11:53 AUTHOR: JAMES BARNETT EXP COSIGNER: URGENCY: STATUS: COMPLETED I rescheduled the patient with her PCP Sj Montoya on 11/27/24 in the hopes that this issue will be resolved by then. Patient was agreeable. /lisa/ JAMES BARNETT [facility] Signed: 11/08/2024 15:15 Receipt Acknowledged By: 11/09/2024 10:37 /es/ CARLOTA LOPEZ [facility] S[facility] OUT CLERK [facility] 11/09/2024 09:07 /es/ JANET SELF HAS IP LITIGATION PAR[place]GAL --- Original Document --- 11/07/24 ADMINISTRATIVE NOTE PB: Sumbitted a 2nd DUANE alert to open enrolment so vet can receive [facility]. Vet is 100% SC and shuld be PG 1. [facility] Alert number [id number] /lisa/ CARLOTA LOPEZ HEALTH SIGN OUT CLERK [facility] Signed: 11/07/2024 13:27 Receipt Acknowledged By: 11/08/2024 15:09 /lisa/ JAMES BARNETT [facility] 11/09/2024 09:07 /lisa/ JANET SELF HAS IP LITIGATION PARALEGAL JAMES BARNETT [facility] Nov 07, 2024 01:25 PM ADMINISTRATIVE NOT E: LOCAL TITLE: ADMINISTRATIVE NOTE PB STANDARD TITLE: ADMINISTRATIVE NOTE DATE OF NOTE: NOV 07, 2024@13:25 ENTRY DATE: NOV 07, 2024@13:26 AUTHOR: CARLOTA LOPEZ EXP COSIGNER: URGENCY: STATUS: COMPLETED ADMINISTRATIVE NOTE PB Has ADDENDA Sumbitted a 2nd DUANE alert to open enrolment so vet can receive [facility] Service. Vet is 100% SC and shuld be PG 1. [facility] Alert number [id number] /lisa/ CARLOTA LOPEZ HE[facility] SIGN OUT CLERK [facility] Signed: 11/07/2024 13:27 Receipt Acknowledged By: 11/08/2024 15:09 /lisa/ JAMES BARNETT [facility] 11/09/2024 09:07 /lisa/ JANET SELF HAS IP LITIGATION PAR[place]GAL 11/08/2024 ADDENDUM STATUS: COMPLETED I rescheduled the patient with her PCP Sj Montoya on 11/27/24 in the hopes that this issue will be resolved by then. Patient was agreeable. /lisa/ JAMES BARNETT [facility] Signed: 11/08/2024 15:15 Receipt Acknowledged By: * AWAITING SIGNATURE * CARLOTA LOPEZ 11/09/2024 09:07 /lisa/ JANET D SELF HAS IP LITIGATION PARALEGAL CARLOTA LOPEZ [facility]
--- OUTSIDE RECORDS SUMMARY | 2024-11-27 05:00 | XMS_ITS | Encounter Summary ---
Author Name [facility] Address [address] [place] [address] Care Team Providers Care Certified Residential Medication Aide Name Role Phone AVANI MONTOYA Primary Care Provider Unavail able Insurance Providers: [...] section includes the information on record at [place] for the Encounter. Date/Time Encounter Type Encounter Description Reason Provider Source Nov 27, 2024 10:00 AM Outpatient Encounter PRIMARY CARE/MEDICINE ICD-10-CM Z00.00 Encntr for general adult medical exam w/o abnormal findings SHONDA MONTOYA IHNorma Encounter Template Text not used by [facility] Assessments - Encounter Diagnoses This section includes the primary and secondary diagnoses documented for the Encounter. Date/Time Primary/Secondary Diagnosis Diagnosis Name Provider Source Nov 27, 2024 11:46 AM PRIMARY Encntr for general adult medical exam w/o abnormal findings SHONDA MONTOYA [place] [facility] Nov 27, 2024 11:46 AM SECONDARY Allergic rhinitis, unspecified SHONDA MONTOYAS [place] [facility] Nov 27, 2024 11:46 AM SECONDARY Chronic obstructive pulmonary disease, unspecified SHONDA MONTOYA [place] [facility] Nov 27, 2024 11:46 AM SECONDARY Discoid lupus erythematosus SHONDA MONTOYAS [place] [facility] Nov 27, 2024 11:46 AM SECONDARY Essential (primary) hypertension SHONDA MONTOYAS [facility] Nov 27, 2024 11:46 AM SECONDARY Gastro-esophageal reflux disease without esophagitis SHONDA MONTOYAS [facility] Nov 27, 2024 11:46 AM SECONDARY Hyperlipidemia, unspecified SHONDA MONTOYA [facility] Nov 27, 2024 11:46 AM SECONDARY Migraine, unsp, not intractable, without status migrainosus SHONDA MONTOYAS [facility] Nov 27, 2024 11:46 AM SECONDARY Type 2 diabetes mellitus without complications SHONDA MONTOYA [facility] Plan of Treatment: Future Appointments (+ 6 months) and Future Tests (+/- 45 days) The Plan of Treatment section includes future care activities for the patient from all [facility]. This section includes future appointments and future orders which are active, pending or scheduled. Future Appointments This section includes appointments that were scheduled to occur 6 months from the date of the Encounter, up to a maximum of 20 appointments. The data comes from all [facility] facilities. Appointment Date/Time Appointment Type Appointme nt Facility Name Dec 14, 2024 02:07 PM AMBULATORY - MEDICINE [facility] Dec 20, 2024 02:00 PM AMB[place]ATORY - [place]IC[place] [facility] Dec 21, 2024 01:00 PM AMBULATORY - MEDICINE [place] [facility] Dec 30, 2024 09:00 AM AMBULATORY - MEDICINE [place] [facility] January 08, 2025 10:20 AM AMBULATORY - MEDICINE [place] [facility] January 17, 2025 03:15 PM AMBULATORY - MEDICINE [place] [facility] January 30, 2025 09:45 AM AMBULATORY - MEDICINE [place] [facility] Feb 22, 2025 11:00 AM AMBULATORY - MEDICINE [place] [facility] Mar 02, 2025 09:00 AM AMBULATORY - MEDICINE [place] [facility] Apr 02, 2025 09:15 AM AMBULATORY - MEDICINE [place] [facility] Apr 20, 2025 09:30 AM AMBULATORY - MEDICINE [place] [facility] Active, Pending, and Scheduled Orders This section includes a listing of several types of active, pending, and scheduled orders, including clinic medications orders, diagnostic test orders, procedure orders and consult orders; where the start date of the order is 45 days before the date of the Encounter or 45 days after the date of theEncounter. The data comes from all [place] treatment facilities. Test Date/Time Test Type Test Details Facility Name Dec 12, 2024 04:26 PM Consult Order [facility]RHEUMATOLOGY [id number] [facility] Financial Representative[facility] Dec 12, 2024 04:26 PM Consult Order [facility] [id number] [facility] Financial Representatives [facility] Dec 14, 2024 03:24 PM Consult Order COMMUNITY [id number] [facility] Financial Representative's [facility] Lab Results: +/- 30 days of the encounter This section includes the Chemistry and Hematology Lab Results on record with [place] for the patient. Radiology Reports and Pathology Reports are provided separately, in subsequent sections. Lab Results This section contains the Chemistry/Hematology Results that were resulted 30 days before or 30 daysafter the date of the Encounter. Date/Time Source Result Type Result - Unit Interpretation Reference Range Specimen Type Comment Nov 27, 2024 10:26 AM [facility] TSH (MA-PB) SERUM Specimen Type: SERUM No comment entered. Ordering Provider: AVANI MONTOYA Report Released Date/Time: Nov 24, 2024 01:58 PM Reporting Lab: [place] [facility] [address] [place] [address] Performing Lab: [place] [facility] [address] [place] [address] TSH 1.172 u[IU]/mL 0.47-5 Nov 27, 2024 10:26 AM [facility] HGA1C BLOOD Specimen Type: BLOOD No comment entered. Ordering Provider: AVANI MONTOYA Report Released Date/Time: Nov 24, 2024 01:58 PM Reporting Lab: [place] [facility] [address] [place] [address] Performing Lab: [place] [facility] [address] [place] [address] HGA1C 5.9 4.0-6.0 Nov 27, 2024 10:26 AM [facility] VITAMIN D, 25-HYDROXY SERUM Specimen Type: SE RUM No comment entered. Ordering Provider: AVANI MONTOYA Report Released Date/Time: Nov 24, 2024 01:58 PM Reporting Lab: [place] [facility] [address] [place] [address] Performing Lab: [place] [facility] [address] [place] [address] VITAMIN D, 25-HYDROXY 34.1 ng/mL 30-96 Nov 27, 2024 10:26 AM [facility] URINALYSIS (STL-PB) URINE Specimen Type: URIN E No comment entered. Ordering Provider: AVANI MONTOYA Report Released Date/Time: Nov 24, 2024 01:58 PM Reporting Lab: [place] [facility] [address] [place] [address] Performing Lab: [place] [facility] [address] [place] [address] URINE COLOR Yellow Yellow U.BILIRUBIN NEGATIVE mg/dL [...] 1.019 1.005-1.029 Nov 27, 2024 10:26 AM [facility] CBC BLOOD Specimen Type: BLOOD No comment entered. Ordering Provider: AVANI MONTOYA Report Released Date/Time: Nov 24, 2024 01:58 PM Reporting Lab: [place] [facility] [address] [place] [address] Performing Lab: [place] [facility] [address] [place] [facility] WBC 7.8 10*3/uL 3.6-11.2 RBC 4.51 10*6/uL [...] 0. 00-0.05 Nov 27, 2024 10:26 AM [facility] COMPREHENSIVE METABOLIC PANEL PLASMA Specimen Type: PLASMA No comment entered. Ordering Provider: AVANI MONTOYA Report Released Date/Time: Nov 24, 2024 01:58 PM Reporting Lab: [place] [facility] [address] [place] [address] Performing Lab: [place] [facility] [address] [place] [facility] CREATININE 0.56 mg/dL L 0.6-1.1 UREA NITROGEN [...] 2020) 107 Nov 27, 2024 10:26 AM [facility] CHOLESTEROL PANEL (PB) PLASMA Specimen Type: P LASMA No comment entered. Ordering Provider: AVANI MONTOYA Report Released Date/Time: Nov 24, 2024 01:58 PM Reporting Lab: [place] [facility] [address] [facility] [facility] [address] Performing Lab: [place] [facility] [address] [facility] [address] CHOLESTEROL 101 mg/dL 0-200 TRIGLYCERIDE 44 mg/dL 0-150 CALCULATED LDL 41.2 mg/dL HDL(New) 51.0 mg/dL H >40 HDL % OF TOTAL CHOLESTEROL (PB) 50.5 >25 Nov 27, 2024 10:26 AM [facility] URINE ALBUMIN PROFILE-ih (PB) URINE Specimen Type: URINE No comment entered. Ordering Provider: AVANI MONTOYA Report Released Date/Time: Nov 27, 2024 10:16 AM Reporting Lab: [place] [facility] [address] [place] [address] Performing Lab: [place] [facility] [address] [place] [address] URINE ALBUMIN (PB-STL) 15.06 mg/L 0-30 uACR (PB-MA) 9.89 ug/mg CREATININE URINE/OTHERS 152.33 mg/dL Vital Signs: All taken on the encounter date This section contains inpatient and outpatient Vital Signs collected on the date of the Encounter. Date/Time Temperature Pulse Blood Pressure Respiratory Rate SP02 Pain Height Weight Body Mass Index Source Nov 27, 2024 10:03 AM 98 61 126/77 18 99 229 38 [facility] Social History: Smoking Status (Most current) and Tobacco Use (All prior to encounter date) This section includes the most current, and the historical, smoking and tobacco- related health factors from the [place] facility where the Encounter took place. Current Smoking Status This section includes the most current smoking, or tobacco-related health factor, from the [place] facility where the Encounter took place. Date/Time Current Smoking Status Comment Facil ity Nov 27, 2024 10:00 AM VA-TOBACCO NEVER USED CIGARETTES [facility] Tobacco Use History This section includes a history of the smoking, or tobacco-related health factors, that were collected on or before the date of the Encounter. The data comes from the [place] facility where the Encounter took place. Date/Time Smoking Status/Tobacco Use Comment F acility Nov 27, 2024 10:00 AM VA-TOBACCO NEVER USED OTHER TYPE [facility] Nov 01, 2023 01:31 PM VA-TOBACCO FORMER USER [facility] Nov 01, 2023 01:31 PM VA-TOBACCO QUIT < 1 YEAR [facility] Nov 03, 2013 10:07 AM LIFETIME NON-USER OF TOBACCO [facility] Advance Directives: All historical and current Section Date Range: From patient's date of to the date document was created. This section includes ALL of a patient's completed or amended [place] Advance and Rescinded Directives. The entries below indicate that a directive exists for the patient, but an actual copy is not included with this document. The data comes from all [facility]. Date Advance Directives Provider Source January 10, 2024 ADVANCE DIRECTIVE JOB BAIN [facility] Dec 22, 2013 ADVANCE DIRECTIVE DISCUSSION ZHANE KENNEDY [facility] Radiology Reports: +/- 30 days of the encounter Radiology Reports For cases when an order for radiology services may have been completed prior to the date of the Encounter, the report list includes the Radiology Reports that were completed up to 30 days before dateof the Encounter. For cases when an order for radiology services may have been completed after the date of the Encounter, the report list also includes the Radiology Reports that were completed up to30 days after date of the Encounter. The data comes from all [place] treatment facilities. Date/Time Radiology Report Provider Source Dec 14, 2024 03:11 PM ANKLE,RIGHT, 3 VIE WS: MAEGAN GRIGGS [id number] -[id number] F Exm Date: DEC 14, 2024@15:11 Req Phys: AVANI MONTOYA R Pat Loc: PB-ALEJANDRA CARTY RADIOGRAPHER WH (Req Img Loc: PB-XRAY MULINO Service: [place] [address] (Case [id number] COMPLETE) ANKLE,RIGHT, 3 VIEWS (RAD Detailed) CPT:58852 Proc Modifiers : RIGHT Reason for Study: right ankle pain Clinical History: Report Status: Verified Date Reported: DEC 14, 2024 Date Verified: DEC 14, 2024 Business Intelligence Reporting Analyst E-Sig: Report: 3 views of the right ankle reveal no acute osseous or adjacent soft tissue abnormality. Impression: No acute process Primary Interpreting Staff: LEVY HOLLINS RADIOLOGIST (Business Intelligence Reporting Analyst, no e-sig) /LEVY Hutchison [facility] Dec 14, 2024 03:11 PM SPINE LUMBOSACRAL 2 OR 3 VIEWS: MAEGAN GRIGGS [id number] -1970 F Exm Date: DEC 14, 2024@15:11 Req Phys: AVANI MONTOYA R Pat Loc: -ALEJANDRA CARTY RADIOGRAPHER WH (Req Img Loc: PB-XRAY [facility] Service: [place] [address] (Case [id number] COMPLETE) SPINE LUMBOSACRAL 2 OR 3 VIEWS (RAD Detailed) CPT:19570 Reason for Study: low back pain Clinical History: post surgery fell refer back to Dr. Reed Report Status: Verified Date Reported: DEC 14, 2024 Date Verified: DEC 14, 2024 Business Intelligence Reporting Analyst E-Sig: Report: AP and lateral views of the lumbar spine reveal a laminar cleft defect at S1. These generally are no clinical significance. There is mild degenerative skeletal change with mild disc space narrowing at L1-L2, L2-L3 and L5-S1. There is Interbody/posterior fusion at L4-L5. There is no spondylolysis or spondylolisthesis. There is no acute osseous abnormality. Impression: Postsurgical and degenerative skeletal changes with no appreciable acute osseous abnormality Primary Interpreting Staff: LEVY HOLLINS RADIOLOGIST (Business Intelligence Reporting Analyst, no e-sig) /LEVY Hutchison [facility] Pathology Reports: +/- 30 days of the encounter Pathology Reports For cases when an order for pathology services may have been completed prior to the date of the Encounter, the report list includes the Pathology Reports that were completed up to 30 days before dateof the Encounter. For cases when an order for pathology services may have been completed after the date of the Encounter, the report list also includes the Pathology Reports that were completed up to30 days after date of the Encounter. The data comes from all [place] treatment facilities. Date/Time Pathology Report Provider Source Dec 26, 2024 11:18 AM LR CYTOPATHOLOGY R EPORT: LOCAL TITLE: LR CYTOPATHOLOGY REPORT STANDARD TITLE: PATHOLOGY PROCEDURE NOTE DATE OF NOTE: DEC 26, 2024@11:18:57 ENTRY DATE: DEC 26, 2024@11:18:57 AUTHOR: TERI BREWER COSIGNER: URGENCY: STATUS: COMPLETED $APHDR - - - - - - - - - - - - - - - - - - - - - - - - - - - - - - - - - - - - - - - - MEDICAL RECORD CYTOPATHOLOGY - - - - - - - - - - - - - - - - - - - - - - - - - - - - - - - - - - - - - - - - PATHOLOGY REPORT Accession No. CY [id number] - - - - - - - - - - - - - - - - - - - - - - - - - - - - - - - - - - - - - - - - $TEXT Submitted by: Date obtained: Dec 14, 2024 - - - - - - - - - - - - - - - - - - - - - - - - - - - - - - - - - - - - - - - - Specimen (Received Dec 18, 2024 09:12): VAGINAL PAP WITH HPV CO-TEST - - - - - - - - - - - - - - - - - - - - - - - - - - - - - - - - - - - - - - - - BRIEF CLINICAL HISTORY: 54 Y/O P:3 LMP: 2009 (HYSTERECTOMY). HISTORY OF CANCER. - - - - - - - - - - - - - - - - - - - - - - - - - - - - - - - - - - - - - - - - PREOPERATIVE DIAGNOSIS: - - - - - - - - - - - - - - - - - - - - - - - - - - - - - - - - - - - - - - - - OPERATIVE FINDINGS: - - - - - - - - - - - - - - - - - - - - - - - - - - - - - - - - - - - - - - - - POSTOPERATIVE DIAGNOSIS: Surgeon/physician: AVANI MONTOYA RADIOGRAPHER =-=-=-=-=-=-=-=-=-=-=-=-=- =-=-=-=-=-=-=-=-=-=-=-=-=- =-=-=-=-=-=-=-=-=-=-=-=-=- = - - - - - - - - - - - - - - - - - - - - - - - - - - - - - - - - - - - - - - - - PATHOLOGY REPORT Accession No. CY [id number] - - - - - - - - - - - - - - - - - - - - - - - - - - - - - - - - - - - - - - - - Screened by: ANDREINA CARTAGENA DESCRIPTION SPECIMEN RECEIVED IN PRESERVCYT SOLUTION LABELED JUSTINA GRIGGS [id number]. ONE THINPREP PREPARED. A SPECIMEN ALIQUOT WITH AN APPROPRIATE ORDER FORM IS SUBMITTED TO [employer] [facility] FOR HPV TESTING. DIAGNOSIS: SPECIMEN TYPE: THINPREP LIQUID-BASED PREPARATION: MANUAL PAP TEST SCREENING SPECIMEN ADEQUACY: Satisfactory for evaluation Transformation zone component not applicable INTERPRETATION/RESULT: Negative for Intraepithelial Lesion or Malignancy (NILM) ORGANISMS: Shift in dilcia suggestive of bacterial vaginosis COMMENT: Primary screening performed by JAMES Gee(ASCP). quality control projectionist rescreening performed by JAMES Mckay(ASCP) EDUCATIONAL NOTE: Screening pap smears used to aid in detecting premalignant and malignant conditions of the cervix are not diagnostic procedures and should not be the sole means to detect cancer. False-positives and false-negatives occur. HPV RESULT: HPV mRNA E6/E7: NOT DETECTED METHODOLOGY: Buildings And Grounds Superintendent Mediated Amplification DESCRIPTION: This assay detects E6/E7 viral messenger RNA (mRNA) from 14 high-risk HPV types (16,18,31,35,39,45,51,52,5 9,66,&68). TEST LOCATION: [employer] [address] [address] Process Safety Engineer: ANGELICA JEFFERSON MD, CLIA#: [id number] Please see [facility] for the original report. /lisa/ TERI BREWER Associate Engineer Signed Dec 26, 2024@11:18 Performing Laboratory: Cytology Report [facility]: [facility] CLIA# [id number] [address] [place] [address] $FTR - - - - - - - - - - - - - - - - - - - - - - - - - - - - - - - - - - - - - - - - (End of report) TERI BREWER lva Date Dec 26, 2024 - - - - - - - - - - - - - - - - - - - - - - - - - - - - - - - - - - - - - - - - MAEGAN GRIGGS STANDARD FORM 515 ID:[id number] SEX:F :1970 AGE: 54 LOC:&PEAR PCP: Avani Montoya NP /lisa/ TERI BREWER Associate Engineer Signed: 12/26/2024 11:18 TERI BREWER [facility] Encounter Notes: All associated encounter notes This section contains the clinical notes associated to the Encounter. Date/Time Encounter Note(s) Provider Source Nov 27, 2024 10:10 AM PRIMARY CARE PROGRESS NOTE: LOCAL TITLE: PRIMARY CARE CLINIC PROGRESS NOTE PB STANDARD TITLE: PRIMARY CARE PROGRESS NOTE DATE OF NOTE: NOV 27, 2024@10:10 ENTRY DATE: NOV 27, 2024@10:10:41 AUTHOR: AVANI MONTOYA EXP COSIGNER: URGENCY: STATUS: COMPLETED PROVIDER ASSESSMENT DATE & TIME:Nov@10:10 CHIEF COMPLAINT: Annual physical and labs. HISTORY OF PRESENT ILLNESS: is being seen for her annual physical and labs. [place] has a civilian provider, Dr. Jeter. Ronald follows with Neurology, women's care, cardiology, pulmonology, [facility], Rheumatology, Podiatry, Orthopedics, Dr. Reed for her back, and she had her mammogram in July 2024 that was normal. Ronald is compliant with her medications. She denies any home needs. She is contemplating changing her care [facility] to [facility] and she will let us know if she decides to. 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 She is taking losartan, cleebrex and amlodopine. She is also taking prozac. 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: 1) Chronic back pain 2) Degeneration of lumbar intervertebral disc 3) Headache 4) Vaginal dryness on intercourse 5) GERD - Gastro-Esophageal Reflux Disease ([facility] [id number]) 6) Non-alcoholic fatty liver disease 7) Obesity ([facility] [id number]) 8) History of total hysterectomy 9) Migraine 10) Sjogren's syndrome 11) Allergic Rhinitis ([facility] [id number]) 12) OA - Osteoarthritis ([facility] [id number]) 13) LE - Lupus erythematosus 14) Diabetes Mellitus Type 2 ([facility] [id number]) 15) Depression ([facility] [id number]) 16) Hyperlipidemia ([facility] [id number]) 17) HTN - Hypertension ([facility] [id number]) 18) Exposure to potentially hazardous substance 19) COPD - Chronic Obstructive Pulmonary Disease ([facility] [id number]) 20) Cervical radiculopathy Active Outpatient Medications (including Supplies): Active Non-VA Medications Status 1) Non-VA ALBUTEROL 90MCG (CFC-F) 200D ORAL INHL 2 PUFFS ORAL ACTIVE INHALATION FOUR TIMES A DAY NEEDED Indication: FOR COPD 2) Non-VA CETIRIZINE HCL 10MG TAB 10MG BY MOUTH ONCE A DAY ACTIVE Indication: FOR ALLERGY SYMPTOMS 3) Non-VA FLUTICASONE PROP 50MCG 120D NASAL INHL 1 SPRAY ACTIVE NOSTRIL(S) ONCE A DAY NEEDED Indication: FOR RHINITIS 4) Non-VA HYDROXYCHLOROQUINE SULFATE 200MG TAB 200MG BY MOUTH ACTIVE TWICE A DAY Indication: FOR RHEUMATOID ARTHRITIS 5) Non-VA MONTELUKAST NA 10MG TAB 10MG BY MOUTH EVERY EVENING ACTIVE Indication: FOR ALLERGIC RHINITIS 6) Non-VA OMEPRAZOLE 40MG EC CAP 40MG BY MOUTH EVERY MORNING ACTIVE BEFORE A MEAL Indication: FOR GASTROESOPHAGEAL REFLUX DISEASE 7) Non-VA POTASSIUM CL 20MEQ SA TAB (DISPERSIBLE) 10MEQ BY ACTIVE MOUTH ONCE A DAY Indication: FOR POTASSIUM SUPPLEMENTATION 8) Non-VA RANOLAZINE 500MG SA TAB 500MG BY MOUTH TWICE A DAY ACTIVE Indication: FOR CHEST PAIN 9) Non-VA ROSUVASTATIN CA 40MG TAB 40MG BY MOUTH EVERY EVENING ACTIVE Indication: FOR HIGH CHOLESTEROL 10) Non-VA VALACYCLOVIR HCL 500MG TAB 500MG BY MOUTH TWICE DAILY ACTIVE NEEDED 11) Non-VA ZOLMITRIPTAN 2.5MG TAB PKG 6 10MG BY MOUTH ONE-TIME ACTIVE NEEDED REVIEW OF SYSTEMS: HEENT: No Headache. No blurry vision, vision loss, eye pain, red eyes, or foreign body. No runnynose, congestion, or nose bleed. No hearing loss, ringing in the ears, or vertigo. No sore throat or dental pain. RESPIRATORY: No cough, SOA, wheezing, or sputum production. CARDIOVASCULAR: No chest pain, palpitations, tachycardia, PND, or orthopnea. GI: No abdominal pain, nausea, vomiting, diarrhea, constipation, melena, or hematochezia. : No dysuria, hematuria, urinary frequency, weak stream, or post-void dribbling. MUSCULOSKELETAL:No muscle or joint pain. SKIN: No rash, lesions, or infection PSYCH: No Depression or Anxiety. Not suicidal. PHYSICAL ASSESSMENT: VITAL SIGNS Pulse: 61 (11/27/2024 10:03) Blood Pressure: 126/77 (11/27/2024 10:03) Respiratory Rate: 18 (11/27/2024 10:03) Temperature: 98 F [36.7 C] (11/27/2024 10:03) Weight: 229 lb [103.87 kg] (11/27/2024 10:03) Height: 65 in [165.1 cm] (11/01/2023 14:04) Pain: 9 (11/01/2023 14:04) HEENT:PERRL, EOMI, Fundi benign, TM's clear, Pharynx not red and without exudate, tonsils normal size. NECK: Supple, no lymhadenopathy, thyroid normal. CARDIAC: Regular rate and rhythm without murmur. No edema. RESPIRATORY: CTA, BEBS GI: Abdomen soft,with ABS, no HSM, no guarding or rebound. MUSCULOSKELETAL:No muscle or joint tenderness. FROM. SKIN: [place] without rash or lesions. NEUROLOGICAL: The [place] is alert and oriented without distress. Affect appropriate. IMPRESSION: Encounter for General Adult Medical Exam Hypertension-stable Depression-stable Allergic Rhinitis-current Hyperlipidemia-stable Diabetes Mellitus Type II-stable COPD-chronic Osteoarthritis-chronic PLAN: Increase water intake. Continue current medications. Continue to see specialists. Monthly self breast exam. Discussed [facility] insurance benefits. RTC in one year or sooner if needed. Patient is advised this primary care clinic has open access and he can make a same day appointment anytime a problem/concern arises. Patient further advised he can be seen on a walk-in basis as needed. Patient is provided clinic contact information. Medications reviewed and reconciled. Discussed diet and exercise as relevant to patient conditions. Treatment plan as noted above and the After Visit Summary was reviewed with ; opportunity provided to report concerns and ask question regarding aspects of care or treatment or services; concurrence reached and verbalized understanding. Please refer to addendum or follow up lab letter for plan of care/changes related to lab/test results not available at conclusion of appointment, if any. Discussed with patient that in the event of community imaging / testing being ordered in the future, once the imaging / testing has been completed, please notify PACT of within 1 week by a [facility] PACT member; this is due to intermittent lapses in notification of imaging completion within CPRS. All questions answered; agrees to plan of care. Follow up as listed above, annually, and as needed. Keep all completion at outside facility if not called with results appointments. Medications Reconciled. Time spent 30 minutes. /lisa/ [facility] Signed: 11/27/2024 11:46 AVANI MONTOYA Nov 27, 2024 10:08 AM PRIMARY CARE NURSING NOTE: LOCAL TITLE: PRIMARY CARE NURSING PROGRESS NOTE (TEXT) NURSING P STANDARD TITLE: PRIMARY CARE NURSING NOTE DATE OF NOTE: NOV 27, 2024@10:08 ENTRY DATE: NOV 27, 2024@10:08:57 AUTHOR: YISEL IRIZARRY COSIGNER: URGENCY: STATUS: COMPLETED Established Patient MAEGAN GRIGGS IS A 54 YEAR OLD FEMALE BEING SEEN IN CLINIC NOV 27, 2024. REASON FOR VISIT: Annual appt Are you receiving care any [facility] other than the [facility]? Yes, List: Cardiology Dr. Parra, Women's clinic at [facility] for [facility], Pulmonology at [facility], GI at [facility], Rheumatology, PCP Dr[facility] at [facility], Podiatry [facility] with Dr. Pritchard, Ortho , and Dr. Reed at the Spine clinic HEALTH AND SURGICAL HISTORY: Does patient report using home oxygen? No CURRENT ACTIVE MEDICATIONS FOR REVIEW: Allergies/ADRs (Tool #5) FACILITY ALLERGY/ADR -------- [facility] MORPHINE [facility] VENLAFAXINE [facility] DAIRY FOODS [facility] HY[facility]OCODONE [facility] MORPHINE [facility] OXYCODONE [facility] PENICILLIN Med. Reconciliation (Tool #1) INCLUDED IN THIS LIST: Alphabetical list of active outpatient prescriptions dispensed from this [facility] (local) and dispensed from another [place] or [facility] facility (remote) as well as inpatient orders (local pending and active), local clinic medications, locally documented non-VA medications, and local prescriptions that have or been discontinued in the past 90 days. Non-VA Meds Last Documented On: Nov 01, 2023 NOTE The display of VA prescriptions dispensed from another [facility] or [facility] facility (remote) is limited to active outpatient prescription entries matched to National Drug File at the originating site and may not include some items such as investigational drugs, compounds, etc. NOT INCLUDED IN THIS LIST: Medications self-entered by the patient into personal health records (i.e. [employer]) are NOT included in this list. Non-VA medications documented outside this [facility], remote inpatient orders (regardless of status) and remote clinic medications are NOT included in this list. The patient and provider must always discuss medications the patient is taking, regardless of where the medication was dispensed or obtained. Non-VA ALBUTEROL 90MCG (CFC-F) 200D ORAL INHL INHALE 2 PUFFS ORAL INHALATION FOUR TIMES A DAY NEEDED VA RX: Medication prescribed by Non-VA provider Indication: FOR COPD Non-VA CETIRIZINE HCL 10MG TAB TAKE ONE TABLET BY MOUTH ONCE A DAY VA RX: Medication prescribed by Non-VA provider Indication: FOR ALLERGY SYMPTOMS Non-VA FLUTICASONE PROP 50MCG 120D NASAL INHL INSTILL 1 SPRAY IN NOSTRIL(S) ONCE A DAY NEEDED VA RX: Medication prescribed by Non-VA provider Indication: FOR RHINITIS Non-VA HYDROXYCHLOROQUINE SULFATE 200MG TAB TAKE ONE TABLET BY MOUTH TWICE A DAY VA RX: Medication prescribed by Non-VA provider Indication: FOR RHEUMATOID ARTHRITIS Non-VA MONTELUKAST NA 10MG TAB TAKE ONE TABLET BY MOUTH EVERY EVENING VA RX: Medication prescribed by Non-VA provider Indication: FOR ALLERGIC RHINITIS Non-VA OMEPRAZOLE 40MG EC CAP TAKE 1 CAPSULE BY MOUTH EVERY MORNING BEFORE A MEAL VA RX: Medication prescribed by Non-VA provider Indication: FOR GASTROESOPHAGEAL REFLUX DISEASE Non-VA POTASSIUM CL 20MEQ SA TAB (DISPERSIBLE) TAKE ONE-HALF TABLET BY MOUTH ONCE A DAY VA RX: Medication prescribed by Non-VA provider Indication: FOR POTASSIUM SUPPLEMENTATION Non-VA RANOLAZINE 500MG SA TAB TAKE ONE TABLET BY MOUTH TWICE A DAY VA RX: Medication prescribed by Non-VA provider Indication: FOR CHEST PAIN Non-VA ROSUVASTATIN CA 40MG TAB TAKE ONE TABLET BY MOUTH EVERY EVENING VA RX: Medication prescribed by Non-VA provider Indication: FOR HIGH CHOLESTEROL Non-VA VALACYCLOVIR HCL 500MG TAB TAKE ONE TABLET BY MOUTH TWICE A DAY NEEDED VA RX: Medication prescribed by Non-VA provider Non-VA ZOLMITRIPTAN 2.5MG TAB PKG 6 TAKE FOUR TABLETS BY MOUTH ONE-TIME NEEDED VA RX: Medication prescribed by Non-VA provider SUPPLIES PHARMACY TERMS AND POSSIBLE PATIENT ACTIONS INPT = MS inpatient order IV = MS intravenous medication OUTPT = MS outpatient prescription PHARMACY POSSIBLE PATIENT TERMS EXPLANATION ACTIONS -------- --- ACTIVE A prescription that can be If you have refills, filled at the local [place] pharmacy. you may request a refill of this prescription from your [place] pharmacy. CLINIC A medication you received during If you have questions a visit to a MS clinic or about this medication emergency department. contact your [place] healthcare team. DISCONTINUED A prescription your provider has Contact your [facility] stopped. It is no longer healthcare team if you available to be sent to you or need more of this picked up at the [place] pharmacy medication. window. A prescription which is too old Contact your VA to fill. This does not refer to healthcare team if you the expiration date of the need more of this medication in the container. medication. NON-VA A medication that came from If this medication someplace other than a VA information is pharmacy. This may be a incorrect or out of prescription from either the VA date, please tell your or non VA providers that was VA healthcare team. filled outside the VA. Or, it may be an hptb-bws-veuhrti (OTC), herbal, dietary supplements or sample medication. ON HOLD An active prescription that will Contact your VA not be filled until pharmacy pharmacy when you need resolves the issue. more of this medication. PARKED An active prescription that will Contact your VA not be filled until the patient pharmacy when you need requests it. this medication. PENDING This prescription order has been If you have been sent to the pharmacy for review instructed to start and is not ready yet. this medication now, contact your VA pharmacy. SUSPENDED An active prescription that is Contact your VA not scheduled to be filled yet. pharmacy if you need You should receive it before this medication now. you run out. ======== Medication list reviewed with Patient Patient/Caregiver reports taking medications as ordered. IS PATIENT TAKING ANY OVER THE COUNTER MEDICATIONS, SUCH VITAMINS OR HERBAL SUPPLEMENTS, INCLUDING ANY MEDICATIONS PRESCRIBED BY ANOTHER PHYSICIAN? No Does patient have any new allergies to report since last visit? NO VITALS: TEMPERATURE: 98 F [36.7 C] (11/27/2024 10:03) BP: 126/77 (11/27/2024 10:03) RESP: 18 (11/27/2024 10:03) PULSE: 61 (11/27/2024 10:03) HT: 65 in [165.1 cm] (11/01/2023 14:04) WT: 229 lb [103.87 kg] (11/27/2024 10:03) BMI: 38.2 PAIN ASSESSMENT: (Most Recent Pain Score in Vitals Package: 9 (11/01/2023 14:04) ) The patient indicated that they and their close contacts have not traveled outside of the [place] in the past 21 days. The patient reports the following symptoms: No symptoms present The patient is not immunocompromised. The patient does not report having a history of Multi Drug Resistant Organism (MDRO) within the last five years. The patient does not report having been exposed to measles, chickenpox, or zoster in last 30 days. Patient reports no pain at this visit. Pain Score = 0. STRESS: Thank you for your service. Now let us serve you. At the [facility], we strive to provide you with exceptional health care that improves your health and well-being. Are you feeling sad, empty, or depressed? No Do you need to talk about things in your life that worry you or cause you stress? No Do you need to talk about personal problems, family problems, alcohol use, drug use, or mental or emotional illness? No SUICIDE SCREENING: The patient was asked, Over the past two weeks, how often have you been bothered by thoughts that you would be better off or of hurting yourself in some way? Not At All SPIRITUAL ASSESSMENT: Are there shinto practices or spiritual concerns you want the booth supervisor, your physician, and other health care team members to immediately know about? No Patient advised to call the clinic for any concerns, questions, or symptoms. Patient and/or caregiver verbalized understanding of plan of care. Suicide Screen - V: C-SSRS Screening [place] Suicide Severity Rating Scale (C-SSRS) screener 1. Over the past month, have you wished you were or wished you could go to sleep and not wake up? No 2. Over the past month, have you had any actual thoughts of killing yourself? No 3. Over the past month, have you been thinking about how you might do this? Response not required due to responses to other questions. 4. Over the past month, have you had these thoughts and had some intention of acting on them? Response not required due to responses to other questions. 5. Over the past month, have you started to work out or worked out the details of how to kill yourself? Response not required due to responses to other questions. 6. If yes, at any time in the past month did you intend to carry out this plan? Response not required due to responses to other questions. 7. In your lifetime, have you ever done anything, started to do anything, or prepared to do anything to end your life (for example, collected pills, obtained a gun, gave away valuables, went to the roof but didn't jump)? No 8. If YES, was this within the past 3 months? Response not required due to responses to other questions. Sexual Orientation - CP,L,N,P,PH,PS,S,U: The patient thinks of their sexual orientation as: Straight or Heterosexual Alcohol Use Screen (AUDIT-C) - V: Alcohol Screen: SCREEN FOR ALCOHOL (AUDIT-C) An alcohol screening test (AUDIT-C) was negative (score=0). 1. How often did you have a drink containing alcohol in the past year? Consider a drink to be a 12 ounce can or bottle of regular beer, 8 ounces of malt liquor, a 5 ounce glass of table wine, or a 1.5 ounce shot of liquor (like scotch, gin, or vodka). Never 2. How many drinks containing alcohol did you have on a typical day when you were drinking in the past year? Response not required due to responses to other questions. 3. How often did you have 4 or more drinks on one occasion in the past year? Response not required due to responses to other questions. Tobacco Use Screening - AT,DE,L,M,N,P,PH,PS,RT,S,U: The patient has never smoked cigarettes. The patient has never used other types of tobacco. Depression Screening - V: Perform PHQ-2 A PHQ-2 screen was performed. The score was 1 which is a negative screen for depression. Over the past two weeks, how often have you been bothered by the following problems? 1. Little interest or pleasure in doing things Not at all 2. Feeling down, depressed, or hopeless Several days Homelessness/Food Insecurity Screen - DI,L,N,P,PH,PS,S,U: In the past 2 months, have you been living in stable housing that you own, rent, or stay in as part of a household? Yes - Living in stable housing. Are you worried or concerned that in the next 2 months you may NOT have stable housing that you own, rent, or stay in as part of a household? No - Not worried about housing near future The [place] reports the following: Within the past 12 months, you worried whether your food would run out before you got money to buy more. Never true Within the past 12 months, the food you bought just didn't last and you didn't have money to get more. Never true MOVE Weight Management: Most recent BMI: 38.2. educated on health risk of obesity and treatment is offered. Participation in a weight management program was considered/offered for this patient based on the current BMI score. Patient declines participation in a weight management program. Weight Control/Nutrition Counseling: * The patient received the following counseling at this encounter: Patient was encouraged to restrict fat, especially saturated fats, in a normal diet. Benefit of a diet high in fiber was discussed. Patient was advised to include 5 or more servings of fruit and vegetables and six or more servings of grains as a well balanced diet. PAVE Foot Check - L,N,P,PH,PO,PT,U: A complete foot check was completed at this encounter. VISUAL INSPECTION: Includes inspection for skin breaks, deformity, erythema, trauma, pallor on elevation, dependent rubor, nail deformities, extensive callus and pitting edema. Visual exam results: Normal Comment: Normal PEDAL PULSES: Includes palpation of dorsalis and posterior tibial pulses and signs/symptoms of vascular compromise like pain, pallor, parasthesia or paralysis. Present (even if diminished) Comment: Present SENSORY CHECK: Includes 10 gram Monofilament ([place]-Srinivas) test of sensation. Intact (Greater than or equal to 80% of sites checked) Abnormal (Less than 80% of sites checked): Intact Comment: Intact LOW-RISK: LOW RISK INFORMATION PROVIDED: 1. Advised patient not to walk barefoot. 2. Explained the importance of daily foot checks for changes. 3. Stressed the importance of daily foot hygiene, including bathing and complete drying. The patient verbalized understanding and was offered a detailed handout on diabetic foot care. /es/ Yisel Irizarry RN [place] [facility], [facility] Signed: 11/27/2024 10:15 YISEL IRIZARRY
--- OUTSIDE RECORDS SUMMARY | 2024-12-14 09:07 | XMS_ITS | Encounter Summary ---
Author Name [facility] Organization [facility] [place] Address [address] [place] [address] Care Team Providers Care Medicine Teacher Name Role Phone AVANI MONTOYA Primary Care [...] section includes the information on record at [place] for the Encounter. 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 Date/Time Primary/Secondary Diagnosis Diagnosis Name Provider Source Dec 14, 2024 03:25 PM PRIMARY Encntr for meter calibrator exam (general) (routine) w/o abn findings GUSTAVO MONTOYA [facility] Plan of Treatment: Future Appointments (+ 6 months) and Future Tests (+/- 45 days) The Plan of Treatment section includes future care activities for the patient from all [facility] This section includes future appointments and future orders which are active, pending or scheduled. Future Appointments This section includes appointments that were scheduled to occur 6 months from the date of the Encounter, up to a maximum of 20 appointments. The data comes from all [place] treatment [facility]. Appointment Date/Time Appointment Type Appointme nt Facility Name Dec 20, 2024 02:00 PM AMBULATORY - [place]IC[place] [facility] Dec 21, 2024 01:00 PM AMBULATORY - [place]IC[place] [facility] Dec 30, 2024 09:00 AM AMBULATORY - MEDICINE [place] [facility] January 08, 2025 10:20 AM AMBULATORY - MEDICINE [place] [facility] January 17, 2025 03:15 PM AMBULATORY - MEDICINE [place] [facility] January 30, 2025 09:45 AM AMBULATORY - MEDICINE [place] [facility] Feb 22, 2025 11:00 AM AMBULATORY - MEDICINE [place] [facility] Mar 02, 2025 09:00 AM AMBULATORY - MEDICINE [place] [facility] Apr 02, 2025 09:15 AM AMBULATORY - MEDICINE [place] [facility] Apr 20, 2025 09:30 AM AMBULATORY - MEDICINE [place] [facility] Active, Pending, and Scheduled Orders This section includes a listing of several types of active, pending, and scheduled orders, including clinic medications orders, diagnostic test orders, procedure orders and consult orders; where the start date of the order is 45 days before the date of the Encounter or 45 days after the date of theEncounter. The data comes from all [facility]. Test Date/Time Test Type Test Details Facility Name Dec 12, 2024 04:26 PM Consult Order COMMUNITY CARE-RHEUMATOLOGY [id number] [facility] Dec 12, 2024 04:26 PM Consult Order COMMUNITY CARE-DERMATOLOGY [id number] [facility] Dec 14, 2024 03:24 PM Consult Order COMMUNITY [id number] [facility] Lab Results: +/- 30 days of the encounter This section includes the Chemistry and Hematology Lab Results on record with [place] for the patient. Radiology Reports and Pathology Reports are provided separately, in subsequent sections. Lab Results This section contains the Chemistry/Hematology Results that were resulted 30 days before or 30 daysafter the date of the Encounter. Date/Time Source Result Type Result - Unit Interpretation Reference Range Specimen Type Comment Nov 27, 2024 10:26 AM [facility] TSH (MA-PB) SERUM Specimen Type: SERUM No comment entered. Ordering Provider: AVANI MONTOYA Report Released Date/Time: Nov 24, 2024 01:58 PM Reporting Lab: [place] [facility] [address] [place] [id number] Performing Lab: [place] [facility] [address] [place] [address] TSH 1.172 u[IU]/mL 0.47-5 Nov 27, 2024 10:26 AM [facility] VITAMIN D, 25-HYDROXY SERUM Specimen Type: SE RUM No comment entered. Ordering Provider: AVANI MONTOYA Report Released Date/Time: Nov 24, 2024 01:58 PM Reporting Lab: [place] [facility] [address] [place] [address] Performing Lab: [place] [facility] [address] [place] [address] VITAMIN D, 25-HYDROXY 34.1 ng/mL 30-96 Nov 27, 2024 10:26 AM [facility] HGA1C BLOOD Specimen Type: BLOOD No comment entered. Ordering Provider: AVANI MONTOYA Report Released Date/Time: Nov 24, 2024 01:58 PM Reporting Lab: [place] [facility] [address] [place] [address] Performing Lab: [place] [facility] [address] [place] [address] HGA1C 5.9 4.0-6.0 Nov 27, 2024 10:26 AM [facility] URINALYSIS (STL-PB) URINE Specimen Type: URIN E No comment entered. Ordering Provider: AVANI MONTOYA Report Released Date/Time: Nov 24, 2024 01:58 PM Reporting Lab: [place] [facility] [address] [place] [facility] Performing Lab: [place] [facility] [address] [facility] [place] [address] URINE COLOR Yellow Yellow U.BILIRUBIN NEGATIVE mg/dL [...] 1.019 1.005-1.029 Nov 27, 2024 10:26 AM [facility] CBC BLOOD Specimen Type: BLOOD No comment entered. Ordering Provider: AVANI MONTOYA Report Released Date/Time: Nov 24, 2024 01:58 PM Reporting Lab: [place] [facility] [address] [place] [address] Performing Lab: [place] [facility] [address] [facility] [place] [address] WBC 7.8 10*3/uL 3.6-11.2 RBC 4.51 10*6/uL [...] 0. 00-0.05 Nov 27, 2024 10:26 AM [facility] COMPREHENSIVE METABOLIC PANEL PLASMA Specimen Type: PLASMA No comment entered. Ordering Provider: AVANI MONTOYA Report Released Date/Time: Nov 24, 2024 01:58 PM Reporting Lab: [place] [facility] [address] [place] [address] Performing Lab: [place] [facility] [address] [place] [facility] CREATININE 0.56 mg/dL L 0.6-1.1 UREA NITROGEN [...] 2020) 107 Nov 27, 2024 10:26 AM [facility] CHOLESTEROL PANEL (PB) PLASMA Specimen Type: P LASMA No comment entered. Ordering Provider: AVANI MONTOYA Report Released Date/Time: Nov 24, 2024 01:58 PM Reporting Lab: [place] [facility] [address] [place] [address] Performing Lab: [place] [facility] [address] [place] [facility] CHOLESTEROL 101 mg/dL 0-200 TRIGLYCERIDE 44 mg/dL 0-150 CALCULATED LDL 41.2 mg/dL HDL(New) 51.0 mg/dL H >40 HDL % OF TOTAL CHOLESTEROL (PB) 50.5 >25 Nov 27, 2024 10:26 AM [facility] URINE ALBUMIN PROFILE-ih (PB) URINE Specimen Type: URINE No comment entered. Ordering Provider: AVANI MONTOYA Report Released Date/Time: Nov 27, 2024 10:16 AM Reporting Lab: [place] [facility] [address] [place] [address] Performing Lab: [place] [facility] [address] [place] [address] URINE ALBUMIN (PB-STL) 15.06 mg/L 0-30 uACR (PB-MA) 9.89 ug/mg CREATININE URINE/OTHERS 152.33 mg/dL Vital Signs: All taken on the encounter date This section contains inpatient and outpatient Vital Signs collected on the date of the Encounter. Date/Time Temperature Pulse Blood Pressure Respiratory Rate SP02 Pain Height Weight Body Mass Index Source Dec 14, 2024 02:26 PM 66 136/77 96 [facility] Dec 14, 2024 02:25 PM 68 146/73 95 [facility] Dec 14, 2024 02:05 PM [facility] Dec 14, 2024 02:05 PM 55 232 54 [facility] Social History: Smoking Status (Most current) and Tobacco Use (All prior to encounter date) This section includes the most current, and the historical, smoking and tobacco- related health factors from the [place] facility where the Encounter took place. Current Smoking Status This section includes the most current smoking, or tobacco-related health factor, from the [place] facility where the Encounter took place. Date/Time Current Smoking Status Comment César ity Nov 27, 2024 10:00 AM [place]-TOBACCO NEVER USED OTHER TYPE [facility] Tobacco Use History This section includes a history of the smoking, or tobacco-related health factors, that were collected on or before the date of the Encounter. The data comes from the [place] facility where the Encounter took place. Date/Time Smoking Status/Tobacco Use Comment F acility Nov 27, 2024 10:00 AM [place]-TOBACCO NEVER USED OTHER TYPE [facility] Nov 01, 2023 01:31 PM VA-TOBACCO FORMER USER [facility] Nov 01, 2023 01:31 PM VA-TOBACCO QUIT < 1 YEAR [facility] Nov 03, 2013 10:07 AM LIFETIME NON-USER OF TOBACCO [facility] Advance Directives: All historical and current Section Date Range: From patient's date of to the date document was created. This section includes ALL of a patient's completed or amended [place] Advance and Rescinded Directives. The entries below indicate that a directive exists for the patient, but an actual copy is not included with this document. The data comes from all [place] facilities. Date Advance Directives Provider Source January 10, 2024 ADVANCE DIRECTIVE JOB BAIN [facility] Dec 22, 2013 ADVANCE DIRECTIVE DISCUSSION ZHANE KENNEDY [facility] Radiology Reports: +/- 30 days of the [...] the Encounter. The data comes from all [place] treatment facilities. Date/Time Radiology Report Provider Source Dec 14, 2024 03:11 PM ANKLE,RIGHT, 3 VIE WS: MAEGAN GRIGGS [id number] -[id number] F Exm Date: DEC 14, 2024@15:11 Req Phys: AVANI MONTOYA Pat Loc: PB-ALEJANDRA PACT FOXTROT CLIENT SUCCESS DIRECTOR WH (Req Img Loc: PB-XRAY LAUREL Service: [place] [address] (Case [id number] COMPLETE) ANKLE,RIGHT, 3 VIEWS (RAD Detailed) CPT:63113 Proc Modifiers : RIGHT Reason for Study: right ankle pain Clinical History: Report Status: Verified Date Reported: DEC 14, 2024 Date Verified: DEC 14, 2024 Sign Artist E-Sig: Report: 3 views of the right ankle reveal no acute osseous or adjacent soft tissue abnormality. Impression: No acute process Primary Interpreting Staff: LEVY HOLLINS, RADIOLOGIST (Sign Artist, no e-sig) /LEVY Hutchison [facility] Dec 14, 2024 03:11 PM SPINE LUMBOSACRAL 2 OR 3 VIEWS: MAEGAN GRIGGS [id number] -1970 F Exm Date: DEC 14, 2024@15:11 Req Phys: AVANI MONTOYA R Pat Loc: PB-ALEJANDRA PACT FOXTROT CLIENT SUCCESS DIRECTOR WH (Req Img Loc: PB-XRAY LAUREL Service: [place] [address] (Case [id number] COMPLETE) SPINE LUMBOSACRAL 2 OR 3 VIEWS (RAD Detailed) CPT:21489 Reason for Study: low back pain Clinical History: post surgery fell refer back to Dr. Reed Report Status: Verified Date Reported: DEC 14, 2024 Date Verified: DEC 14, 2024 Sign Artist E-Sig: Report: AP and lateral views of [...] abnormality Primary Interpreting Staff: LEVY HOLLINS RADIOLOGIST (Sign Artist, no e-sig) /LEVY Hutchison [facility] Pathology Reports: +/- 30 days of the [...] the Encounter. The data comes from all [place] treatment facilities. Date/Time Pathology Report Provider Source Dec 26, 2024 11:18 AM LR CYTOPATHOLOGY R EPORT: LOCAL TITLE: LR CYTOPATHOLOGY REPORT STANDARD TITLE: PATHOLOGY PROCEDURE NOTE DATE OF NOTE: DEC 26, 2024@11:18:57 ENTRY DATE: DEC 26, 2024@11:18:57 AUTHOR: VAN AMERONGEN,TERI EXP COSIGNER: URGENCY: STATUS: COMPLETED $APHDR - - [...] - - POSTOPERATIVE DIAGNOSIS: Surgeon/physician: AVANI MONTOYA NP =-=-=-=-=-=-=-=-=-=-=-=-=- =-=-=-=-=-=-=-=-=-=-=-=-=- =-=-=-=-=-=-=-=-=-=-=-=-=- = - - - [...] RECEIVED IN PRESERVCYT SOLUTION LABELED JUSTINA GRIGGS [id number]. ONE THINPREP PREPARED. A SPECIMEN ALIQUOT WITH AN APPROPRIATE ORDER FORM IS SUBMITTED TO [facility] FOR HPV TESTING. DIAGNOSIS: SPECIMEN TYPE: THINPREP LIQUID-BASED PREPARATION: MANUAL PAP TEST SCREENING SPECIMEN ADEQUACY: Satisfactory for evaluation Transformation zone component not applicable INTERPRETATION/RESULT: Negative for Intraepithelial Lesion or Malignancy (NILM) ORGANISMS: Shift in dilcia suggestive of bacterial vaginosis COMMENT: Primary screening performed by JAMES Gee(ASCP). quality control specialist rescreening performed by JAMES Mckay(ASCP) EDUCATIONAL NOTE: Screening pap smears used to aid in detecting premalignant and malignant conditions of the cervix are not diagnostic procedures and should not be the sole means to detect cancer. False-positives and false-negatives occur. HPV RESULT: HPV mRNA E6/E7: NOT DETECTED METHODOLOGY: Farm Consultant Mediated Amplification DESCRIPTION: This assay detects E6/E7 viral messenger RNA (mRNA) from 14 high-risk HPV types (16,18,31,35,39,45,51,52,5 9,66,&68). TEST LOCATION: [facility] [address] [address] Cotton Dispatcher: ANGELICA JEFFERSON MD, CLIA#: [id number] Please see [employer] for the original report. /es/ TERI BREEWR Hydro[employer] Cell Tender Signed Dec 26, 2024@11:18 Performing Laboratory: Cytology Report Per[facility] By: [facility] [address] [place] [address] CLIA# [id number] [address] [place] [id number] $FTR - - - - - - [...] - - MAEGAN GRIGGS STANDARD FORM 515 ID:[id number] SEX:F :1970 AGE: 54 LOC:&PEAR PCP: Avani Montoya NP /lisa/ TERI BREWER [employer] Cell Tender Signed: 12/26/2024 11:18 TERI BREWER [facility] Encounter Notes: All associated encounter notes This section contains the clinical notes associated to the Encounter. Date/Time Encounter Note(s) Provider Source Feb 16, 2025 04:21 PM NURSING PROGRESS NOTE: LOCAL TITLE: NURSING NOTE PB STANDARD TITLE: NURSING PROGRESS NOTE DATE OF NOTE: FEB 16, 2025@16:21 ENTRY DATE: FEB 16, 2025@16:21:59 AUTHOR: YISEL IRIZARRY EXP COSIGNER: URGENCY: STATUS: COMPLETED Attempted to contact Victoria to review sleep study results and to let her know that they recommend a titration study to be conducted. No answer. Left VM. /lisa/ Yisel Irizarry RN [facility], [facility] Signed: 02/16/2025 16:22 [facility]IARRY [facility] Jan 01, 2025 10:51 AM NURSING PROGRESS NOTE: LOCAL TITLE: NURSING NOTE PB STANDARD TITLE: NURSING PROGRESS NOTE DATE OF NOTE: JAN 01, 2025@10:51 ENTRY DATE: JAN 01, 2025@10:51:45 AUTHOR: YISEL IRIZARRY EXP COSIGNER: URGENCY: STATUS: COMPLETED NURSING NOTE PB Has ADDENDA Contacted Victoria and reviewed PAP result letter. Victoria stated that she would like medication called to V[facility] Ruiz). I advised that I will alert the PCP. /lisa/ Yisel Irizarry RN [facility], [facility] Signed: 01/01/2025 10:55 Receipt Acknowledged By: 01/01/2025 12:33 /lisa[facility] ADDENDUM STATUS: COMPLETED Immediate need number called. /lisa/ Yisel Irizarry RN [facility], [facility] Signed: 01/01/2025 11:01 01/01/2025 ADDENDUM STATUS: COMPLETED flagyl 500mg one po bid for 7 days #14 0 refills called to [facility] on the immediate need plab for BV. /lisa/ Avani Montoya [facility], JELANI Signed: 01/01/2025 12:33 YISEL IRIZARRY [facility] Dec 14, 2024 03:16 PM [facility] COACH NOTE: LOCAL TITLE: FEMALE EXAM (TEXT) PB STANDARD TITLE: [facility] COACH NOTE DATE OF NOTE: DEC 14, 2024@15:16 ENTRY DATE: DEC 14, 2024@15:17:07 AUTHOR: AVANI MONTOYA EXP COSIGNER: URGENCY: STATUS: COMPLETED Pt here for scheduled appt. Nurse notes this visit reviewed. Patient's language preference for health information: Sinhala Other Communication Methods Needed: Preferred Method of Education: Verbal SOCIAL History: HISTORY OF TOBACCO USE: No HISTORY OF ALCOHOL USE: No Work: Past Medical/Surgical History: Unremarkable FEMALE HISTORY: Hysterectomy Yes Tubal No No Breast Bx No FAMILY HISTORY: Breast CA No DM Yes HTN Yes Cancer Yes Other No REPRODUCTIVE HISTORY: LAST MENSTRUAL CYCLE: HORMONE REPLACEMENT THERAPY: NO TYPE OF CONTRACEPTIVE: : 2 PARA: 3 LAST PAP: 2023 LAST MAMMOGRAM: 2023 IMMUNIZATIONS: Tetanus No FLU No Pneumovax No OTC Meds: No ASSESSMENT: SKIN: normal. HEENT: PERRLA. Sclerae and conjunctivae clear. TM's clear. oropharynx: normal mucosa. Nose: no congestion. No sinus tenderness. NECK: no thyromegaly, no nodules or swelling. No carotid bruits noted. LUNGS: CTA bilat. CV: s1 s2 reg. No cyanosis or edema. LYMPH: no cervical, axillary, or inguinal nodes palpable. ABDOMEN: soft, non-tender. No masses or enlargements palpated. bowel sounds = x 4. BACK: No CVA or flank tenderness. NEURO: grossly physiologic. BREASTS: symmetrical bilaterally w/o retraction, masses or discharge. PELVIC: Vulva/ vagina pink without discharge; vaginal pap collected. EXTREMITIES: No clubbing, or joint deformities. Full ROM. A) Healthy female exam Patient Education: Mammogram risk and benefits., Self breast exam., Osteoporsis (calicum, vitamin D), Preventive Health, Weight Mangement, Exercise, Women's Preventive Health visit in one year., Calcium as directed. P) Plan: Discussed consults and medications with . She would like all medications [facility] to [facility]. Discussed some may have to come from specialists. Will order medications that we can. Will place podiatry consult. Will place cardiology consult. Will place consult for DR. Reed for follow up on back surgery. RTC as previously scheduled. Patient is advised this primary care clinic [...] the After Visit Summary was reviewed with Victoria; opportunity provided to report concerns and ask [...] Reconciled. Time spent 30 minutes. /lisa/ FIONA [facility] Signed: 12/14/2024 15:24 AVANI MONTOYA Dec 14, 2024 02:07 PM WOMENS HEALTH NOTE: LOCAL TITLE: WOMEN'S CLINIC NOTE (TEXT) STANDARD TITLE: WOMENS HEALTH NOTE DATE OF NOTE: DEC 14, 2024@14:07 ENTRY DATE: DEC 14, 2024@14:08:26 AUTHOR: JEFRY SILVA EXP COSIGNER: URGENCY: STATUS: COMPLETED MAEGAN GRIGGS is a 54 year old FEMALE being seen in clinic DEC 14, 2024. Patient's language preference for health information: Sinhala Other Communication Methods Needed: NONE Preferred Method of Education: Verbal, Printed Material, Audio/Visual ALLERGIES/ADVERSE REACTIONS: MORPHINE, OXYCODONE, HYDROCODONE, DAIRY FOODS, PENICILLIN CURRENT MEDICATIONS: Active Outpatient Medications (including Supplies): Active Non-VA Medications Status 1) Non-VA ALBUTEROL 90MCG (CFC-F) 200D ORAL INHL 2 PUFFS ORAL ACTIVE INHALATION FOUR TIMES A DAY NEEDED Indication: FOR COPD 2) Non-VA AMLODIPINE BESYLATE 2.5MG TAB 2.5MG BY MOUTH ONCE A ACTIVE DAY Indication: FOR HIGH BLOOD PRESSURE 3) Non-VA CELECOXIB 100MG CAP 100MG BY MOUTH ONCE A DAY ACTIVE 4) Non-VA CETIRIZINE HCL 10MG TAB 10MG BY MOUTH ONCE A DAY ACTIVE Indication: FOR ALLERGY SYMPTOMS 5) Non-VA FLUOXETINE HCL 20MG CAP 20MG BY MOUTH EVERY MORNING ACTIVE Indication: FOR DEPRESSION 6) Non-VA FLUTICASONE PROP 50MCG 120D NASAL INHL 1 SPRAY ACTIVE NOSTRIL(S) ONCE A DAY NEEDED Indication: FOR RHINITIS 7) Non-VA HYDROXYCHLOROQUINE SULFATE 200MG TAB 200MG BY MOUTH ACTIVE TWICE A DAY Indication: FOR RHEUMATOID ARTHRITIS 8) Non-VA LOSARTAN 50MG TAB 25MG BY MOUTH ONCE A DAY ACTIVE Indication: FOR HIGH BLOOD PRESSURE 9) Non-VA MONTELUKAST NA 10MG TAB 10MG BY MOUTH EVERY EVENING ACTIVE Indication: FOR ALLERGIC RHINITIS 10) Non-VA OMEPRAZOLE 40MG EC CAP 40MG BY MOUTH EVERY MORNING ACTIVE BEFORE A MEAL Indication: FOR GASTROESOPHAGEAL REFLUX DISEASE 11) Non-VA POTASSIUM CL 20MEQ SA TAB (DISPERSIBLE) 10MEQ BY ACTIVE MOUTH ONCE A DAY Indication: FOR POTASSIUM SUPPLEMENTATION 12) Non-VA RANOLAZINE 500MG SA TAB 500MG BY MOUTH TWICE A DAY ACTIVE Indication: FOR CHEST PAIN 13) Non-VA ROSUVASTATIN CA 40MG TAB 40MG BY MOUTH EVERY EVENING ACTIVE Indication: FOR HIGH CHOLESTEROL 14) Non-VA SEMAGLUTIDE 2MG/0.75ML INJ PEN 3ML 2MG UNDER THE SKIN ACTIVE EVERY WEEK Indication: FOR DIABETES 15) Non-VA VALACYCLOVIR HCL 500MG TAB 500MG BY MOUTH TWICE DAILY ACTIVE NEEDED 16) Non-VA ZOLMITRIPTAN 2.5MG TAB PKG 6 10MG BY MOUTH ONE-TIME ACTIVE NEEDED OVER THE COUNTER MEDS: SEE MEDICATION LIST TEMPERATURE: 98 F [36.7 C] (11/27/2024 10:03) BP: 126/77 (11/27/2024 10:03) RESP: 18 (11/27/2024 10:03) PULSE: 61 (11/27/2024 10:03) HT: 65 in [165.1 cm] (12/14/2024 14:05) WT: 232 lb [105.23 kg] (12/14/2024 14:05) BMI: 38.7 MENTAL STATUS: Alert MODE OF TRANSPORTATION: AMBULATORY SPIRITUAL ASSESSMENT: Are there taoist practices or spiritual concerns you want the instrument designer, your physician, and other health care team members to immediately know about? 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
[2025-03-12] VITALS (20 sets, daily range): BP systolic 100–173; BP diastolic 54–95; PULSE 63–84; RESP 9–24; TEMP 36.1–36.8; O2SAT 92–99; BMI 36.9
--- NOTE | 2025-03-12 10:50 | W.PM.OPSUD ---
Surgery/Procedure H&P Update DATE OF PROCEDURE: March 12, 2025 DATE H&P PERFORMED: 02/21/25 H&P UPDATE INFORMATION: I have reviewed H&P completed within last 30 days, I have examined patient prior to procedure and No changes to prior documentation CHANGES TO PREVIOUS DOCUMENTATION: We did have a long discussion about all of her allergies and medications at this point in time I reviewed her medication list her monoclonal antibodies that she is on Emgality she did take however this was verified with Dr. Rose as well as with Dr. Mercado that this is not an immunomodulating medication and as a result this does not need to be stopped again proceed with the total knee replacement. Patient understood and was comfortable with this at this point in time we will proceed to the OR today for a right total knee arthroplasty?Khadar bowens assisted all questions answered at this time once again reviewed the ins and outs procedure risk benefits complication alternatives of surgery and through shared decision make elects proceed with surgical invention today all questions answered. PREOP DIAGNOSIS: Right knee DJD PRIMARY INDICATION FOR PROCEDURE: Right knee DJD PLANNED PROCEDURE: Operation Date: 03/12/25 12:30 Proposed Procedures p Khadar Robot Total Knee Arthroplasty(Right) - Daron Euceda DO
[2025-03-12] MEDS: acetaminophen 1,000 MG/100 ML PIGGYBACK 400 MG IV ×2 (11:27→19:29)
[2025-03-12 11:28] LABS: Hematocrit 43.1 % (36-47); Hemoglobin 14.30 g/dL (11.27-16.99); Mean Corpuscular HGB Conc 33.2 g/dL (30-55); Mean Corpuscular Hemoglobin 30.2 pg (27-33); Mean Corpuscular Volume 90.9 fl (85-98); Nucleated Red Blood Cells % 0 %; Platelet Count 194 10^3/cmm (157-399); Red Blood Count 4.74 10^6/uL (3.85-5.65); White Blood Count 6.93 10^3/uL (3.29-11.43)
[2025-03-12 11:44] LABS: Anion Gap 14.7 (5-19); Blood Urea Nitrogen 9 mg/dL (6-20); Calcium 9.3 mg/dL (8.5-10.5); Carbon Dioxide 27 mmol/L (22-29); Chloride 102 mmol/L (98-107); Creatinine Clr Calc Pharmacy 147.7171; Glucose 119 mg/dL (65-115); Osmolality Calculated 290 mOsm/kg (285-295); Potassium 3.7 mmol/L (3.5-5.1); Sodium 140 mmol/L (136-145)
--- NOTE | 2025-03-12 11:58 | P.ANESASSM_ITS ---
Pre-Anesthetic Assessment Height/Weight: Height 1.65 m Weight 100.698 kg Temp Pulse Resp BP Pulse Ox O2 Del Method 97.1 F L 67 17 170/95 99 Room Air 03/12/25 11:03 03/12/25 11:03 03/12/25 11:03 03/12/25 11:03 03/12/25 11:03 03/12/25 11:03 Preop Diagnosis: Right knee DJD Operation Date: 03/12/25 12:30 Proposed Procedures p Khadar Robot Total Knee Arthroplasty(Right) - Daron Euceda DO Familial anesthetic complications: None Was Beta Trent taken within 24 hours: N/A Was Clonidine taken within 24 hours: N/A Last intake: Intake Last Liquid Date 03/11/25 Last Liquid Time 19:00 Last Solid Date 03/11/25 Last Solid Time 18:55 Social No alcohol and No tobacco Exam alert, oriented x 3, clear to auscultation bilaterally and regular rate & rhythm Airway Mallampati: Class II Pulmonary Asthma CV/HEM Hypertension Hepatic liver fibrosis Metabolic Diabetes Mellitus, Hyperlipidemia and Morbid Obesity Anesthetic Plan ASA status: 3 Anesthesia: Regional (specify below) Risk of > 500 ml blood loss (7ml/kg in children): Yes, adequate IV access and fluids planned Medications/Allergies Home Medications ?Medication ?Instructions ?Recorded ?Confirmed ?Last Taken ?Type fluticasone propionate 50 1 spray intranasal BID #50 m L 06/27/21 03/12/25 01/12/24 Rx mcg/actuation nasal spray,suspension (Flonase Allergy Relief) promethazine 25 mg tablet 25 mg PO Q6H PRN migraine 03/08/25 03/08/25 History blood-glucose meter #1 ea 12/24/21 02/22/25 Unkn own Rx ranolazine 500 mg tablet,extended 500 mg PO BID #180 t abs 01/26/22 03/12/25 03/11/25 Rx release,12 hr fluoxetine 20 mg capsule (Prozac) 20 mg PO DAILY #90 c aps 01/27/22 03/12/25 03/12/25 Rx potassium chloride 8 mEq 8 meq PO DAILY #90 tabs 02/0503/12/25 03/11/25 Rx tablet,extended release ivermectin 1 % topical cream 1 applic topical DAILY #4 5 grams 04/09/22 03/08/25 12/08/23 Rx (Soolantra) omeprazole 40 mg capsule,delayed 40 mg PO BID 06/12/22 03/12/25 03/12/25 History release valacyclovir 500 mg tablet 500 mg PO BID PRN breakout 06/12/22 03/08/25 12/08/23 History Diabetic Shoes #1 ea 06/29/22 02/22/25 Unkn own Rx diclofenac sodium 1 % topical gel 1 ea topical DAILY 0 01/14/23 03/12/25 01/12/24 History (Voltaren Arthritis Pain) nitroglycerin 0.4 mg sublingual 0.4 mg sublingual Q5M PRN chest 01/14/23 03/08/25 Unknown Rx tablet (Nitrostat) pains #30 tabs fluticasone 500 mcg-salmeterol 50 1 inh inhalation BID #60 ea 02/24/23 03/12/25 03/11/25 Rx mcg/dose blistr powdr for inhalation (Advair Diskus) azelastine 137 mcg (0.1 %) nasal 2 spray intranasal BI D 03/21/23 03/12/25 03/11/25 History spray peg 400-propylene glycol (PF) 0.4 1 drp ophthalmic (ey e) Q4H 03/21/23 03/08/25 03/08/25 History %-0.3 % eye drops in a dropperette (Systane (PF)) cetirizine 10 mg tablet 10 mg PO BID 04/08/2303/11/25 History montelukast 10 mg tablet 10 mg PO DAILY #30 tabs 07/0703/12/25 03/11/25 Rx (Singulair) celecoxib 100 mg capsule (Celebrex) 100 mg PO DAILY #3 0 caps 07/23/23 03/08/25 03/05/25 Rx hydroxychloroquine 200 mg tablet 200 mg PO BID #180 ta bs 09/14/23 03/12/25 02/10/25 Rx tiotropium bromide 1.25 2 puff inhalation DAILY #4 g jean 09/30/23 03/12/25 03/11/25 Rx mcg/actuation mist for inhalation (Spiriva Respimat) albuterol sulfate 90 mcg/actuation 2 puff inhalation Q 6H PRN 10/11/23 03/08/25 01/12/24 History aerosol inhaler Shortness Of Breath lancets 30 gauge (OneTouch #200 ea 02/01/24 02/22/25 U nknown Rx UltraSoft 2 Lancet) zolmitriptan 5 mg tablet (Zomig) 5 mg PO Q2H PRN migra ine headache 02/18/24 03/08/25 Unknown Rx #10 tabs galcanezumab-gnlm 120 mg/mL 120 mg SUBCUT ONCE #1 mL 1 10/18/23 03/08/25 03/06/25 Rx subcutaneous syringe (Emgality) rosuvastatin 40 mg tablet 40 mg PO DAILY 08/17/2403/3003/11/25 History amlodipine 2.5 mg tablet 5 mg (2 x 2.5 mg) PO DAILY H TN #90 09/19/24 03/12/25 03/12/25 Rx tabs losartan 25 mg tablet 25 mg PO DAILY #30 tabs 02/12/2903/12/25 03/11/25 Rx semaglutide 0.25 mg or 0.5 mg (2 0.5 mg (0.736 mL) SUB CUT Q7D #3 mL 12/18/24 03/08/25 02/28/25 Rx mg/3 mL) subcutaneous pen injector One Touch Ultra Blue Test Strips 1 lancet as directed QID 03/08/25 03/08/25 Unknown History memantine 10 mg tablet 10 mg PO BID 03/08/2503/12/25 History erenumab-aooe 140 mg/mL 140 mg SUBCUT ONCE 03/12/25 03/12/25 Unknown History subcutaneous auto-injector (Aimovig Autoinjector) Allergies Allergy/AdvReac Type Severity Reaction Status Date / Time morphine Allergy Intermediate Rash, hives Verified 02/26/25 12:00 Penicillins Allergy Intermediate ALGY-Rash Verified 02/26/25 12:00 Alpha-Gal Allergy ADR-Nausea Verified 03/12/25 10:53 (Vkdetnliq-Doejt-2,3-Gala hydrocodone Allergy ADR-Vomitin Verified 02/26/25 12:00 g milk Allergy Unknown Verified 02/26/25 12:00 oxycodone AdvReac Vomiting, Verified 02/26/25 12:00 diarrhea, anxiety, itching cladospori Allergy Intermediate ALGY-Rash Uncoded 02/26/25 12:00 tusarium Allergy Intermediate ALGY-Rash Uncoded 02/26/25 12:00 egg whites Allergy unknown Uncoded 02/26/25 12:00 Current Medications Generic Name Dose Route Start Last Admin Trade Name Freq PRN Reason Stop Dose Admin Sodium Chloride 1,000 mls @ 30 mls/hr 03/12/25 11:15 03/12/25 11:24 Sodium Chloride 0.9% IV 03/13/25 11:14 30 mls/hr .Q24H SAYRA Administration PFSH Anesthesia Medical History SS-B antibody positive Cervical stenosis of spinal canal Chronic back pain and is with the pain management clinic-Dr. Tran[place] where she had steroid injections in her back Displacement of lumbar disc with radiculopathy History of endometrial cancer Endometrial cancer noted at time of biopsy and patient underwent surgery in 2005 with EYAD, BSO, omentectomy and staging laparotomy and per discharge summary no residual cancer noted. She never needed chemotherapy or radiation. Migraines Since her early 20s managed on medication by her PMD-does not have a neurologist Chronic liver failure History of fatty liver disease with fibrosis-elevated LFTs. She follows up with a manager product management in [place] Dr. Rodney Tong from [facility]. Asthma /COPD---> asthma was diagnosed in her 40s managed by as needed albuterol. She denies any intubations or hospitalizations ----> states she was diagnosed with possible COPD in 2020 and is currently on Advair managed by pulmonology-Dr. Haddad No pertinent past medical history Denies history of thyroid problems, heart disease, kidney disease. PCP: Dr. Jeter Type 2 diabetes mellitus Diagnosed in her 40s and is on medication managed by her PMD. 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 Mixed hyperlipidemia Diagnosed in the and is on medication managed by PMD. Benign essential HTN Diagnosed in 2018 and was taking medication. After her back surgery in November 2020 she has been taken off medication. Surgical History H/O foot surgery Reports having foot surgery at the age of 8 for removal of embedded plantar warts. History of back surgery November 13, 2020--had back surgery for stenosis and chronic back pain Status post tubal ligation Tubal ligation performed at time of second in 2000. S/P section x 2----> 1997 and 2000 S/P total hysterectomy and bilateral salpingo-oophorectomy 08/23/2006---total abdominal hysterectomy with bilateral salpingo- oophorectomy, omentectomy, staging laparotomy and cosmetic panniculectomy done by Dr. Gonzalez in [place] for well-differentiated endometrial adenocarcinoma. -----> operative reports obtained reviewed and scanned into chart History of cholecystectomy laparoscopic procedure done in her 40s Family History Mother Diabetes CAD (coronary artery disease) Hyperlipidemia Hypertension Grandmother Diabetes maternal Family/Other Breast cancer Maternal aunt; diagnosed at age 64 History of kidney cancer maternal aunt Denies family history of Colon cancer Ovarian cancer Uterine cancer Thyroid disease Stroke Social History Smoking and tobacco/nicotine status: never used tobacco/nicotine Second hand smoke exposure: No Alcohol intake: never Substance/Drug Use: never Data Anesthesia 03/12/25 11:09 03/12/25 11:09 Short CBC 03/12/25 Range/Units 11:09 WBC 6.93 (3.29-11.43) 10^3/uL Hgb 14.30 (11.27-16.99) g/dL Hct 43.1 (36-47) % MCV 90.9 (85-98) fl Plt Count 194 (157-399) 10^3/cmm Neut % (Auto) 64.4 % Neut # (Auto) 4.46 (1.8-7.7) 10^3/uL BMP 03/12/25 11:09 Sodium 140 Potassium 3.7 Chloride 102 Carbon Dioxide 27 BUN 9 Creatinine 0.5 Calcium 9.3 Cardiac Studies: 2 Echocardiogram 04/12/24 Echocardiogram Limited Views 03/21/23 Sestamibi Stress Test (Cardiology) 02/19 Anesthesia Procedures Nerve Block Nerve Block 1: Main Anesthesia: spinal anesthesia block Time Out Performed: Yes Consent: requested by attending/covering physician, from patient, from other, risks and benefits reviewed and patient agrees to proceed Nerve block location: adductor canal (R) Anesthesia monitors applied: pulse oximetry, EKG, BP cuff and oxygen Nerve block position: supine Anesthetic Used: ropivicaine 0.5% (30 ml) and with decadron (4 mg) Ultrasound used to: recognize landmarks Nerve Stimulator Used?: No Interscalene/Femoral BLK: 4 stimuplex 21 g needle used for position and inplane approach, visualize local anesthetic spread and no vascular puncture identified Injection: neg aspiration of heme Patient Tolerated Procedure: well Complications: none
[2025-03-12] MEDS: tranexamic acid 1,000 mg/10mL SDV 1000 MG IV (13:00)
[2025-03-12] MEDS: tranexamic acid 1,000 mg/10mL SDV 1000 MG XX (13:35)
[2025-03-12] MEDS: ROPivacaine 0.2% Premix 100 mL 200 MG INTRA-ARTI (13:35)
--- NOTE | 2025-03-12 14:33 | P.BOP_ITS ---
Date of Procedure: 03/12/2025 Surgeon: Daron Euceda DO Assistance Specialist(s): Jordi Euceda PA-C Procedure(s) performed: Right total knee arthroplasty?Khadar robotic assisted Findings of the procedure(s): Procedure went as planned without issues or complications Estimated blood loss: 25 mL Specimen(s) removed: Tibia femur and patellar bone cuts removed Post-operative diagnosis: Right knee DJD
--- NOTE | 2025-03-12 14:35 | PM.OP ---
Operative Report Date of procedure: March 12, 2025 Surgeon: Daron Euceda DO Sailing Instructor: Jordi Euceda PA-C: PA was necessary for assistance in this case with leg positioning retraction and protection of neurovascular structures as well as assistance in implantation wound closure and dressing application. Procedure: Preoperative diagnosis: Right knee degenerative joint disease Post-op diagnosis: Same Procedure done: Right total knee arthroplasty, cemented?robotic assisted Khadar Implants: Kyle triathlon size 4 femur CR cemented?Right Kyle triathlon size? 4 tibia universal baseplate cemented [place] triathlon symmetric patella size 31 mm [place] triathlon polyethylene 9mm Surgeon: Daron Euceda DO Estimated blood?loss: 25 mL Tourniquet 46min IV fluids: 600 mL Urine output: 300 mL Complications: None Condition: stable Disposition: floor Brief History: Patient is a 54-year-old female with with chronic?Right knee degenerative joint disease.? Patient has been worked up in the outpatient setting in the orthopedic office at this point time through shared decision making given? [id number] arthritis as well as failed conservative treatment, and pt would?like to proceed with a?Right total knee arthroplasty with Khadar robotic assist.? Through shared decision making elected to proceed with surgical intervention for?Right total knee arthroplasty.? We talked about continued conservative treatment and surgical intervention as far as the risk benefits complications alternatives surgical and nonsurgical treatment options.? At this point time understanding patient risks with surgery patient agrees to proceed with surgical intervention.? Once again? risk with surgery include but are not?limited to make it better make it worse blood clot, heart attack, stroke, on the table, infection, injury to nerves or vessels, persistent pain, arthrofibrosis, implant failure.? Understanding these risks patient agrees to proceed with surgical intervention consent was obtained in the preoperative holding area for right total knee arthroplasty?Khadar robotic assisted.? All questions answered. Procedure: Patient was seen and evaluated in the preoperative holding area.? Consent was reviewed and signed with patient with plan for?Right total knee arthroplasty.? All questions answered.? Correct extremity marked.? Patient seen and evaluated by the anesthesia department and once cleared for surgery was taken back to the operative suite.? Patient was placed into a supine position on the OR table.? All bony prominences were well-padded.? Patient was appropriately secured to the bed.? Patient underwent anesthesia per the anesthesia department.? Patient received anesthesia and? Mcclendon catheter was placed.? A nonsterile tourniquet was applied to the?Right thigh.? At this point in time a final timeout performed.? Patient received appropriate preoperative antibiotics and TXA. Next the?Right?lower extremity was then prepped and draped in standard orthopedic fashion. Esmarch tourniquet was used exsanguinate the?Right?lower extremity.? Tourniquet was insufflated to 250 mmHg. A standard anterior incision was made over midline of the knee.? Sharp scalpel excision through skin and subcutaneous tissue full-thickness skin flaps were made.? Fascia was elevated off of the extensor retinaculum was stable with medial parapatellar arthrotomy was then made.? The performed standard sequential releases..? Immediately on entry into the joint patient was found to have severe eburnated bone and tricompartmental arthritic changes noted.? With significant osteophyte formation.? Next the the patella was then stuffed and the knee was then flexed.?? Fabiano was placed superiorly around the anterior aspect of the femur this was freed of synovium and I subsequently then placed by 2 femur pins to establish my femur arrays for the Khadar robot.? These were then placed bicortically and? femur array was then appropriately secured with appropriate visualization.? Next attention was turned towards the tibial rays.? These were then drilled sequentially bicortically in parallel fashion and intraincisional.? I then placed my guide as well as my tibial array on in place.? This was appropriately secured and had excellent visualization with the Khadar robot.? Next the tibial checkpoint as well as femur checkpoint were then placed.? At this point time I then subsequently established my head center as well as my medial?lateral malleoli as well as my checkpoints.? Next utilizing standard Khadar technology I then mapped out the appropriate points and confirmation points around the femur as well as the tibia in standard fashion.? Once this was then done I then removed all osteophytes in preparation for dynamic testing.? All osteophytes were removed as well as I removed the ACL and the PCL was excised due to its significant tearing and degeneration noted.? At this point time the knee was brought into full extension and we performed our standard evaluation of our gap balancing stressing his?ligaments and extension as well as flexion appropriate adjustments were made to have appropriate gap balancing in both flexion and extension.? This plan for final cuts, patient's deformity was made correctable to patient's ligamentous tolerances.? We get a preoperative plan evaluating our implants which was a size 4 femur and a size 4 tibia.? Next we brought in the Khadar robot and sequentially made our femur cuts.? All excess bony cuts were then removed.? Finally we made our tibial cut.? Once this was done a standard PCL retractor was then placed into this position I excised the medial and?lateral meniscus.? The tibial cut was then subsequently removed all excess bony debris was removed.? I then utilized a?lamina strapper and remove the posterior osteophytes.? At this point time sized the tibia and confirmed this was a size 4.? I utilized our blunt probe to establish rotation of tibial implant.? Once this was done I then placed my tibia size 4 trial in appropriate position and then subsequently placed tibial pins to hold this into place placed trial up to a size 9 mm poly as well as a size 4 femur which was appropriately impacted in place knee was then subsequently brought into extension. Trials were then assessed,? this was stable with varus valgus stress in extension as well as had symmetrical translation when brought into flexion demonstrating symmetrical gaps. I had excellent balance gaps in flexion and extension with varus and valgus stresses.? At this point I was satisfied with these implants these were then verified and opened on the back table size 4 tibia, size 4 femur,? size 9 mm polythickness.? We did confirm appropriate gap balancing and stresses as well as alignment utilizing? Khadar and were satisfied with this plan.? ?At this point time with my trials in place I then towel clip the patella everted this made appropriate measurements subsequently utilizing freehand technique performed by patellar resurfacing this was confirmed to be appropriate resection and subsequently sized to be a 31 mm symmetric.? My drill peg guides were then clamped and appropriate position and appropriate position in the patella for appropriate tracking and parallel with the joint.? Pegs were drilled trial implant was placed and the knee was then subsequently ranged and found to have excellent patellar tracking.? Femur pegs were then drilled.? At this point time all of our trial implants were removed.? All checkpoints as well as guidepins and arrays were removed and appropriate counts made. Satisfied with our tibial placement rotation I then utilized the keel punch and prepped the tibia.? Vancomycin powder was placed in wound bed for antibiotic infection prophylaxis the wound bed? was thoroughly irrigated and dried and prepped for cementation.? Cement was mixed on the back table.? Once cement was ready this was then covered onto the tibia and the tibial baseplate was then impacted and all excess cement was removed.? Next the polyethylene was then impacted into place on the tibial baseplate.? Next cement was placed onto the femur as well as under the femur implants and impacted in to place and all excess cement was extruded and removed.? Knee was taken into full extension? to clear all excess cement was removed.? Warm saline was placed over the joint.? I then towel clip patella and dried for cementation. cemented the patella into place.? This was all clamped and the cement was allowed to cure.? Thorough irrigation performed with pulse?lavage.? I then placed my periarticular injection while the cement was curing.? Once cured the knee was taken through range of motion and had excellent stability and gaps were balanced in flexion and extension.? Tourniquet was then deflated. hemostasis satisfactory with electrocautery.? Next I then subsequently closed the capsule with Ethibond suture as well as a running strata fix suture.? Knee was then taken through range of motion 30 times.? Next the skin was then closed in?layered fashion of running stratifix sutures of deep and subcutenous tissue and skin.? ?closed in flexion and Prineo glue was then placed over the incision this allowed to cure.? Incision was covered with halley incisional VAC dressing, with ABDs soft roll and Nima wrap.? Patient was then awakened from anesthesia and taken to PACU in stable condition. Disposition: Patient taken to PACU in stable condition will be admitted to the floor for pain control PT/OT weight-bear as tolerated?Right?lower extremity dressing changes as needed, DVT prophylaxis. Pain control. Patient will receive appropriate postoperative antibiotics. patient will be seen today by the internal medicine team for medical management.? Patient will follow up with the office in 2 weeks.? Patient understands agrees with current plan.? All questions answered.
--- NOTE | 2025-03-12 14:44 | XRR_ITS ---
PROCEDURE INFORMATION: Exam: XR Right Knee Exam date and time: 03/12/2025 2:48 PM Age: 54 years old Clinical indication: Device placement; Joint replacement hardware; Prior surgery; Surgery date: Post-operative (0-2 days); Surgery type: Status post right tka TECHNIQUE: Imaging protocol: Radiologic exam of the right knee. Views: 1 or 2 views. COMPARISON: CT knee RT [facility] [id number] 02/26/2025 7:13 AM FINDINGS: Bones/joints: Intact well-aligned total knee arthroplasty. No acute fracture. Soft tissues: Soft tissue gas noted. XR/XR knee RT 1-2V [id number] IMPRESSION: Expected postoperative appearance of the knee.
--- NOTE | 2025-03-12 15:02 | PM.PACU ---
PACU note Narrative: Patient is a 54-year-old female who just underwent a right total knee arthroplasty. Pt transferred to PACU in stable condition. Dressing is dry. pt is awake and alert. Compartments are soft compressible and patient's toes are warm and well-perfused with normal cap refill under 2 seconds. Unable to assess any further motor sensation due to residual spinal block Exam: awake Disposition: admitted
--- NOTE | 2025-03-12 17:40 | PM.HP ---
Providers/Chief Complaint Primary Care Provider: CHRISTINA Becker Chief Complaint: M17.11 History of Present Illness Jaiden Vu is a 54 year old female Medications/Allergies Home Medications ?Medication ?Instructions ?Recorded ?Confirmed ?Last Taken ?Type fluticasone propionate 50 1 spray intranasal BID #50 mL 06/27/21 03/12/25 01/12/24 Rx mcg/actuation nasal spray,suspension (Flonase Allergy Relief) promethazine 25 mg tablet 25 mg PO Q6H PRN migraine 09/29/21 03/08/25 03/08/25 History blood-glucose meter #1 ea 12/24/21 02/22/25 Unknown Rx ranolazine 500 mg tablet,extended 500 mg PO BID #180 tabs 01/26/22 03/12/25 03/11/25 Rx release,12 hr fluoxetine 20 mg capsule (Prozac) 20 mg PO DAILY #90 caps 01/27/22 03/12/25 03/12/25 Rx potassium chloride 8 mEq 8 meq PO DAILY #90 tabs 02/26/22 03/12/25 03/11/25 Rx tablet,extended release ivermectin 1 % topical cream 1 applic topical DAILY #45 grams 04/09/22 03/08/25 12/08/23 Rx (Soolantra) omeprazole 40 mg capsule,delayed 40 mg PO BID 06/12/22 03/12/25 03/12/25 History release valacyclovir 500 mg tablet 500 mg PO BID PRN breakout 06/12/22 03/08/25 12/08/23 History Diabetic Shoes #1 ea 06/29/22 02/22/25 Unknown Rx diclofenac sodium 1 % topical gel 1 ea topical DAILY 01/14/23 03/12/25 01/12/24 History (Voltaren Arthritis Pain) nitroglycerin 0.4 mg sublingual 0.4 mg sublingual Q5M PRN chest 01/14/23 03/08/25 Unknown Rx tablet (Nitrostat) pains #30 tabs fluticasone 500 mcg-salmeterol 50 1 inh inhalation BID #60 ea 02/24/23 03/12/25 03/11/25 Rx mcg/dose blistr powdr for inhalation (Advair Diskus) azelastine 137 mcg (0.1 %) nasal 2 spray intranasal BID 03/21/23 03/12/25 03/11/25 History spray peg 400-propylene glycol (PF) 0.4 1 drp ophthalmic (eye) Q4H 03/21/23 03/08/25 03/08/25 History %-0.3 % eye drops in a dropperette (Systane (PF)) cetirizine 10 mg tablet 10 mg PO BID 04/08/23 03/12/25 03/11/25 History montelukast 10 mg tablet 10 mg PO DAILY #30 tabs 07/16/23 03/12/25 03/11/25 Rx (Singulair) celecoxib 100 mg capsule (Celebrex) 100 mg PO DAILY #30 caps 07/23/23 03/08/25 03/05/25 Rx hydroxychloroquine 200 mg tablet 200 mg PO BID #180 tabs 09/14/23 03/12/25 09/06/24 Rx tiotropium bromide 1.25 2 puff inhalation DAILY #4 grams 09/30/23 03/12/25 03/11/25 Rx mcg/actuation mist for inhalation (Spiriva Respimat) albuterol sulfate 90 mcg/actuation 2 puff inhalation Q6H PRN 10/11/23 03/08/25 01/12/24 History aerosol inhaler Shortness Of Breath lancets 30 gauge (OneTouch #200 ea 02/01/24 02/22/25 Unknown Rx UltraSoft 2 Lancet) zolmitriptan 5 mg tablet (Zomig) 5 mg PO Q2H PRN migraine headache 02/18/24 03/08/25 Unknown Rx #10 tabs galcanezumab-gnlm 120 mg/mL 120 mg SUBCUT ONCE #1 mL 08/17/24 03/08/25 03/06/25 Rx subcutaneous syringe (Emgality) rosuvastatin 40 mg tablet 40 mg PO DAILY 08/17/24 03/12/25 03/11/25 History amlodipine 2.5 mg tablet 5 mg (2 x 2.5 mg) PO DAILY HTN #90 09/19/24 03/12/25 03/12/25 Rx tabs losartan 25 mg tablet 25 mg PO DAILY #30 tabs 10/30/24 03/12/25 03/11/25 Rx semaglutide 0.25 mg or 0.5 mg (2 0.5 mg (0.736 mL) SUBCUT Q7D #3 mL 12/18/24 03/08/25 02/28/25 Rx mg/3 mL) subcutaneous pen injector One Touch Ultra Blue Test Strips 1 lancet as directed QID 03/08/25 03/08/25 Unknown History memantine 10 mg tablet 10 mg PO BID 03/08/25 03/12/25 03/12/25 History erenumab-aooe 140 mg/mL 140 mg SUBCUT ONCE 03/12/25 03/12/25 Unknown History subcutaneous auto-injector (Aimovig Autoinjector) tramadol 50 mg tablet 50 mg PO Q6H PRN pain 7 days #28 03/12/25 Unknown Rx tabs Allergies Allergy/AdvReac Type Severity Reaction Status Date / Time morphine Allergy Intermediate Rash, hives Verified 02/26/25 12:00 Penicillins Allergy Intermediate ALGY-Rash Verified 02/26/25 12:00 Alpha-Gal Allergy ADR-Nausea Verified 03/12/25 10:53 (Xqmgfstlk-Sqvhi-6,3-Gala hydrocodone Allergy ADR-Vomitin Verified 02/26/25 12:00 g milk Allergy Unknown Verified 02/26/25 12:00 oxycodone AdvReac Vomiting, Verified 02/26/25 12:00 diarrhea, anxiety, itching cladospori Allergy Intermediate ALGY-Rash Uncoded 02/26/25 12:00 tusarium Allergy Intermediate ALGY-Rash Uncoded 02/26/25 12:00 egg whites Allergy unknown Uncoded 02/26/25 12:00 PFSH Acute PFSH: Medical History (Updated 03/12/25 @ 17:54 by Sharon Concepcion MD) Systemic lupus erythematosus Sjogrens syndrome History of esophageal dilatation Allergy to alpha-gal SS-B antibody positive Cervical stenosis of spinal canal Chronic back pain and is with the pain management clinic-Dr. Tran/[facility] where she had steroid injections in her back Displacement of lumbar disc with radiculopathy History of endometrial cancer Endometrial cancer noted at time of biopsy and patient underwent surgery in 2005 with EYAD, BSO, omentectomy and staging laparotomy and per discharge summary no residual cancer noted. She never needed chemotherapy or radiation. Migraines Since her early 20s, citlalys Jess, on monocloncal antiboidies Chronic liver failure History of fatty liver disease with fibrosis-elevated LFTs. 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 Asthma /COPD---> asthma was diagnosed in her 40s managed by as needed albuterol. She denies any intubations or hospitalizations ----> states she was diagnosed with possible COPD in 2020 and is currently on Advair managed by pulmonology-Dr. Haddad Type 2 diabetes mellitus Diagnosed in her 40s Mixed hyperlipidemia Diagnosed in the Benign essential HTN Diagnosed in 2018 Surgical History (Updated 03/12/25 @ 17:54 by Sharon Concepcion MD) History of esophagogastroduodenoscopy (EGD) with dilation Hx of right knee surgery H/O foot surgery Reports having foot surgery at the age of 8 for removal of embedded plantar warts. History of back surgery November 13, 2020--had back surgery for stenosis and chronic back pain Status post tubal ligation Tubal ligation performed at time of second in 2000. S/P section x 2----> 1997 and 2000 S/P total hysterectomy and bilateral salpingo-oophorectomy 08/23/2006---total abdominal hysterectomy with bilateral salpingo-oophorectomy, omentectomy, staging laparotomy and cosmetic panniculectomy done by Dr. Gonzalez in [place] for well-differentiated endometrial adenocarcinoma. -----> operative reports obtained reviewed and scanned into chart History of cholecystectomy laparoscopic procedure done in her 40s Family History Mother Diabetes CAD (coronary artery disease) Hyperlipidemia Hypertension Grandmother Diabetes maternal Family/Other Breast cancer Maternal aunt; diagnosed at age 64 History of kidney cancer maternal aunt Denies family history of Colon cancer Ovarian cancer Uterine cancer Thyroid disease Stroke Social History Smoking and tobacco/nicotine status: never used tobacco/nicotine Second hand smoke exposure: No Alcohol intake: never Substance/Drug Use: never Vitals/I&O/Wt Last Vital Signs Temp 97.6 F 03/12/25 15:20 Pulse 63 03/12/25 15:41 Resp 9 L 03/12/25 15:41 BP 137/68 03/12/25 15:41 Pulse Ox 99 03/12/25 15:41 O2 Del Method Room Air 03/12/25 15:41 03/12/25 03/12/25 03/12/25 06:59 14:59 22:59 Intake Total 450 / 450 Output Total 325 / 325 Balance 125 / 125 Weight last 48 hrs Weight 100.698 kg Physical Exam Urinary Catheter Management: [place]cl[place] Latex Free: Cath Placed During This Visit: yes Urinary Catheter Date of Insertion: 03/12/25 Urinary Catheter Time of Insertion: 13:00 Data 03/12/25 11:09 03/12/25 11:09 A&P PDMP PDMP Reviewed: Not Reviewed Coding Level of Care Code Acute Code for Chg Fwd
--- NOTE | 2025-03-12 18:10 | PM.CONSULT ---
Providers/Reason For Consult Consulting Physician/Specialty*: Frase/Hospitalist Reason for Consult*: HTN, DM, NOLBERTO, Lupus, Sjogrens, Migraines Requesting Physician: Dr Euceda Attending Physician: Daron Euceda DO Primary Care Provider: CHRISTINA Becker History of Present Illness History of Present Illness Jaiden Vu is a 54 year old female who presented to [facility] on the day of admission for an elective right total knee replacement by Dr. Euceda. She underwent spinal anesthesia and did well during surgery. Estimated blood loss 50 mL. She has a history of hypertension, hyperlipidemia, sleep apnea, chronic chest pain, asthma among other diagnoses listed below. Hospitalist were consulted for assistance with medical management during hospital stay. At the present time patient's pain is a 5 out of 10. On a normal day her pain is usually a 7 out of 10 so she currently feels better than usual. No reports of any chest pain or difficulty breathing. She does have a history of chronic migraines and has been on monoclonal antibody therapy. She is completing an already prescribed course of 1 monoclonal antibody and transitioning to another that is covered by her insurance so both show on her home medication list. The Aimovig will start in May. She has chronically been prescribed hydroxychloroquine for SLE/Sjogren's but has not had prescription since around September of this year. She is in process of transitioning from 1 new grad rn to the next. She does follow with Dr. Gottlieb in pain clinic for steroid facet injections and trigger point injections. Not on chronic narcotics. Current plan is for home health physical therapy after discharge. Review of Systems General: Reports: Other (ROS as per HPI or as noted here) Medications/Allergies Home Medications ?Medication ?Instructions ?Recorded ?Confirmed ?Last Taken ?Type fluticasone propionate 50 1 spray intranasal BID #50 mL 06/27/21 03/12/25 01/12/24 Rx mcg/actuation nasal spray,suspension (Flonase Allergy Relief) promethazine 25 mg tablet 25 mg PO Q6H PRN migraine 09/29/21 03/08/25 03/08/25 History blood-glucose meter #1 ea 12/24/21 02/22/25 Unknown Rx ranolazine 500 mg tablet,extended 500 mg PO BID #180 tabs 01/26/22 03/12/25 03/11/25 Rx release,12 hr fluoxetine 20 mg capsule (Prozac) 20 mg PO DAILY #90 caps 01/27/22 03/12/25 03/12/25 Rx potassium chloride 8 mEq 8 meq PO DAILY #90 tabs 02/26/22 03/12/25 03/11/25 Rx tablet,extended release ivermectin 1 % topical cream 1 applic topical DAILY #45 grams 04/09/22 03/08/25 12/08/23 Rx (Soolantra) omeprazole 40 mg capsule,delayed 40 mg PO BID 06/12/22 03/12/25 03/12/25 History release valacyclovir 500 mg tablet 500 mg PO BID PRN breakout 06/12/22 03/08/25 12/08/23 History Diabetic Shoes #1 ea 06/29/22 02/22/25 Unknown Rx diclofenac sodium 1 % topical gel 1 ea topical DAILY 01/14/23 03/12/25 01/12/24 History (Voltaren Arthritis Pain) nitroglycerin 0.4 mg sublingual 0.4 mg sublingual Q5M PRN chest 01/14/23 03/08/25 Unknown Rx tablet (Nitrostat) pains #30 tabs fluticasone 500 mcg-salmeterol 50 1 inh inhalation BID #60 ea 02/24/23 03/12/25 03/11/25 Rx mcg/dose blistr powdr for inhalation (Advair Diskus) azelastine 137 mcg (0.1 %) nasal 2 spray intranasal BID 03/21/23 03/12/25 03/11/25 History spray peg 400-propylene glycol (PF) 0.4 1 drp ophthalmic (eye) Q4H 03/21/23 03/08/25 03/08/25 History %-0.3 % eye drops in a dropperette (Systane (PF)) cetirizine 10 mg tablet 10 mg PO BID 04/08/23 03/12/25 03/11/25 History montelukast 10 mg tablet 10 mg PO DAILY #30 tabs 07/16/23 03/12/25 03/11/25 Rx (Singulair) celecoxib 100 mg capsule (Celebrex) 100 mg PO DAILY #30 caps 07/23/23 03/08/25 03/05/25 Rx hydroxychloroquine 200 mg tablet 200 mg PO BID #180 tabs 09/14/23 03/12/25 09/06/24 Rx tiotropium bromide 1.25 2 puff inhalation DAILY #4 grams 09/30/23 03/12/25 03/11/25 Rx mcg/actuation mist for inhalation (Spiriva Respimat) albuterol sulfate 90 mcg/actuation 2 puff inhalation Q6H PRN 10/11/23 03/08/25 01/12/24 History aerosol inhaler Shortness Of Breath lancets 30 gauge (OneTouch #200 ea 02/01/24 02/22/25 Unknown Rx UltraSoft 2 Lancet) zolmitriptan 5 mg tablet (Zomig) 5 mg PO Q2H PRN migraine headache 02/18/24 03/08/25 Unknown Rx #10 tabs galcanezumab-gnlm 120 mg/mL 120 mg SUBCUT ONCE #1 mL 08/17/24 03/08/25 03/06/25 Rx subcutaneous syringe (Emgality) rosuvastatin 40 mg tablet 40 mg PO DAILY 08/17/24 03/12/25 03/11/25 History amlodipine 2.5 mg tablet 5 mg (2 x 2.5 mg) PO DAILY HTN #90 09/19/24 03/12/25 03/12/25 Rx tabs losartan 25 mg tablet 25 mg PO DAILY #30 tabs 10/30/24 03/12/25 03/11/25 Rx semaglutide 0.25 mg or 0.5 mg (2 0.5 mg (0.736 mL) SUBCUT Q7D #3 mL 12/18/24 03/08/25 02/28/25 Rx mg/3 mL) subcutaneous pen injector One Touch Ultra Blue Test Strips 1 lancet as directed QID 03/08/25 03/08/25 Unknown History memantine 10 mg tablet 10 mg PO BID 03/08/25 03/12/25 03/12/25 History erenumab-aooe 140 mg/mL 140 mg SUBCUT ONCE 03/12/25 03/12/25 Unknown History subcutaneous auto-injector (Aimovig Autoinjector) tramadol 50 mg tablet 50 mg PO Q6H PRN pain 7 days #28 03/12/25 Unknown Rx tabs Allergies Allergy/AdvReac Type Severity Reaction Status Date / Time morphine Allergy Intermediate Rash, hives Verified 02/26/25 12:00 Penicillins Allergy Intermediate ALGY-Rash Verified 02/26/25 12:00 Alpha-Gal Allergy ADR-Nausea Verified 03/12/25 10:53 (Tyqtbyagp-Gmtct-8,3-Gala hydrocodone Allergy ADR-Vomitin Verified 02/26/25 12:00 g milk Allergy Unknown Verified 02/26/25 12:00 oxycodone AdvReac Vomiting, Verified 02/26/25 12:00 diarrhea, anxiety, itching cladospori Allergy Intermediate ALGY-Rash Uncoded 02/26/25 12:00 tusarium Allergy Intermediate ALGY-Rash Uncoded 02/26/25 12:00 egg whites Allergy unknown Uncoded 02/26/25 12:00 Current Medications Generic Name Dose Route Start Last Admin Trade Name Freq PRN Reason Stop Dose Admin Sodium Chloride 1,000 mls @ 30 mls/hr 03/12/25 11:15 03/12/25 11:24 Sodium Chloride 0.9% IV 03/13/25 11:14 30 mls/hr .Q24H SAYRA Administration PFSH Acute PFSH: Medical History (Updated 03/12/25 @ 20:47 by Sharon Concepcion MD) History of echocardiogram 2022 EF 55% History of PFTs 2022 - Spirometry is normal with FEV1/FVC 86 and FEV1 2.77 L 100% predicted and FVC 3.24 L 93% predicted. Lung volumes are not measured. There is no postbronchodilator study. Gas transfer is normal DLCO 96%. 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 She never needed chemotherapy or radiation. Migraines Since her early 20s, sees Jess, on monocloncal antiboidies Chronic liver failure History of fatty liver disease with fibrosis-elevated LFTs. 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 Asthma COPD---> asthma was diagnosed in her 40s Type 2 diabetes mellitus Diagnosed in her 40s Mixed hyperlipidemia Diagnosed in the Benign essential HTN Diagnosed in 2018 Surgical History (Updated 03/12/25 @ 20:40 by Sharon Concepcion MD) Status post total right knee replacement using cement (03/12/25) LARISSA angel, Dr Euceda History of colonoscopy 2018 internal hemorrhoids History of cardiac catheterization 2022, no significant blockages, performed after abnormal stress test Status post decompression of ulnar nerve at elbow 12/2023 left 01/2024 right History of esophagogastroduodenoscopy (EGD) with dilation in past, in 2019 had gastric polyps, nonbleeding varices, gastritis Hx of right knee surgery H/O foot surgery Reports having foot surgery at the age of 8 for removal of embedded plantar warts. History of back surgery November 13, 2020--had back surgery for stenosis and chronic back pain, fusion with laminectomy L4/5 Status post tubal ligation Tubal ligation performed at time of second in 2000. S/P section x 2----> 1997 and 2000 S/P total hysterectomy and bilateral salpingo-oophorectomy 08/23/2006---total abdominal hysterectomy with bilateral salpingo-oophorectomy, omentectomy, staging laparotomy and cosmetic panniculectomy done by Dr. Gonzalez in [place] for well-differentiated endometrial adenocarcinoma. -----> operative reports obtained reviewed and scanned into chart History of cholecystectomy laparoscopic procedure done in her 40s Family History Mother Diabetes CAD (coronary artery disease) Hyperlipidemia Hypertension Grandmother Diabetes maternal Family/Other Breast cancer Maternal aunt; diagnosed at age 64 History of kidney cancer maternal aunt Denies family history of Colon cancer Ovarian cancer Uterine cancer Thyroid disease Stroke Social History Smoking and tobacco/nicotine status: never used tobacco/nicotine Second hand smoke exposure: No Alcohol intake: never Substance/Drug Use: never Vitals/I&O/Wt Last Vital Signs Temp 97.8 F 03/12/25 17:50 Pulse 73 03/12/25 17:50 Resp 12 07/07/25 17:50 BP 122/74 03/12/25 17:50 Pulse Ox 97 03/12/25 17:50 O2 Del Method Room Air 03/12/25 17:50 03/12/25 03/12/25 03/12/25 06:59 14:59 22:59 Intake Total 450 / 450 Output Total 325 / 325 Balance 125 / 125 Weight last 48 hrs Weight 100.698 kg Physical Exam Narrative: Patient is awake and alert. Able to provide history. Normocephalic. Extraocular movements are intact. Lungs are clear to auscultation bilaterally. Cardiovascular exam reveals a regular rate and rhythm. Abdomen is soft, nontender. Right lower extremity with postoperative dressing changes noted. Moves toes of both feet. Sensation intact at the right foot. Tellez catheter noted in place. Urinary Catheter Management: Tellez Latex Free: Cath Placed During This Visit: yes Urinary Catheter Date of Insertion: 03/12/25 Urinary Catheter Time of Insertion: 13:00 Data 03/12/25 11:09 03/12/25 11:09 A&P Assessment and plan (1) Status post total right knee replacement using cement: POD 0 from surgery as per Dr Euceda. Did well. - Spinal anesthesia - Pain control - On cefazolin post-op regimen, s/p vancomycin x one dose - S/P tranexamic acid - Has tellez with orders to remove - Has SCDs and orders for eliquis to start in am - Stool softeners, laxatives as needed - PT to see - Plan is for home with home health tomorrow if remains stable (2) Benign essential HTN: Chronically on amlodipine and losartan - Continue both his blood pressure tolerates with postoperative management (3) Type 2 diabetes mellitus with diabetic neuropathy: Chronically on semaglutide with good control. Last dose was 2 weeks ago. - Sliding scale insulin if needed, diabetic diet (4) Chronic chest pain: Chronically on Ranexa. Had cardiac catheterization in 2022 that did not show any significant blockages. - Continue ranexa dosing (5) NOLBERTO (obstructive sleep apnea): Chronically on CPAP therapy - CPAP with sleep, did bring home device (6) Asthma: Chronically on Advair, Spiriva and as needed albuterol - Continue home inhalers if available - As needed albuterol treatments ordered (7) Hyperlipemia, mixed: Chronically on statin therapy - Continue (8) Systemic lupus erythematosus: Chronic diagnosis, specific symptoms/presentation unclear. Has had malar rash, joint abnormalities, some antibody positivity, GERD symptoms and mood changes. Chronically prescribed hydroxychloroquine but has not had it since September of this year while between new grad rn. - Aware - Reports regular eye exams even while not taking (9) Sjogrens syndrome: Predominantly keratoconjunctivitis from history though does have joint abnormalities. Uses Systane chronically. - Continue moisture care as needed (10) GERD (gastroesophageal reflux disease): Chronically on PPI. Has a history of NSAID associated gastritis but symptoms currently controlled. Is chronically on Celebrex. - Continue PPI (11) Chronic migraine without aura, intractable, with status migrainosus: Chronically on monoclonal antibody therapy for migraine management. Has 1 more dose of galcanezumab before switching over to erenumab in a couple of months. Also has as needed Phenergan and zolmitriptan for migraine management. - Continuing Phenergan if needed, triptan held perioperatively, okay to resume monoclonal antibody therapy at next scheduled dosing time which is April 06 (12) Mild cognitive impairment with memory loss: Chronically on Namenda - Continue home dosing (13) Allergy to alpha-gal: Noted diagnosis. Reviewed with patient medications that she is on chronically and does not describe issues with them. Does not seek out specific prescriptions based on this diagnosis but does follow diet control. - Diet order reflects no red meat related to diagnosis - Monitor for issues with medications Plan Chronic allergies on Singulair, azelastine and cetirizine Chronically on fluoxetine which I have continued Takes chronic potassium replacement VTE prophylaxis: Eliquis to start in am; scds currently Antibiotics: perioperative ordered Pending studies: am labs Telemetry: not currently indicated Tellez: orders to remove in place Line(s): peripheral IVs Disposition plan: Home with outpatient follow up and PT as per discharge plan arranged prior to elective surgery -tentatively plan for tomorrow Code Status: Full Code Supportive care otherwise Plans as noted were discussed with patient and she was given an opportunity to ask questions PDMP PDMP Reviewed: Last Reviewed 03/12/25 20:54 by Sharon Concepcion MD Consult Attestations Medical Necessity Statement: as per attending Diagnoses Status post total right knee replacement using cement Z96.651 Benign essential HTN I10 Type 2 diabetes mellitus with diabetic neuropathy, without long-term current use of insulin E11.40 Diabetes mellitus mcc insulin use: without mcc use Chronic chest pain R07.9; G89.29 NOLBERTO (obstructive sleep apnea) G47.33 Mild persistent asthma without complication J45.30 Asthma severity: mild Asthma persistence: persistent Asthma complication type: uncomplicated Hyperlipemia, mixed E78.2 Systemic lupus erythematosus, unspecified SLE type, unspecified organ involvement status M32.9 Systemic lupus erythematosus type: unspecified Systemic lupus erythematosus organ involvement: unspecified Sjogren's syndrome with keratoconjunctivitis sicca M35.01 Sjogren organ or system involvement: keratoconjunctivitis Gastroesophageal reflux disease without esophagitis K21.9 Esophagitis presence: without esophagitis Chronic migraine without aura, intractable, with status migrainosus G43.711 Mild cognitive impairment with memory loss G31.84 Allergy to alpha-gal Z91.018
--- NOTE | 2025-03-12 19:00 | ANE.PACU2 ---
Inpatient post-anesthesia follow up: Airway intact: Yes Vital signs: Temperature 98.3 F Pulse Rate 62 Respiratory Rate 16 Blood Pressure 125/77 Pulse Oximetry 97 Oxygen Delivery Me thod CPAP Oxygen Flow Rate Fraction of Inspir ed Oxygen Hydration adequate: Yes Nausea and vomiting: No Pain level: 1 Mental status: Baseline
[2025-03-12] MEDS: sennosides-docusate Tablet 2 TAB PO (19:05)
[2025-03-12] MEDS: tranexamic acid 1,000 MG/100 ML PREMIX 600 MG IV (19:05)
[2025-03-12] MEDS: mupirocin oint 22 gm 1 APPLIC NASAL (19:05)
[2025-03-12] MEDS: chlorhexidine gluconate 0.12% Btl 473 mL 30 ML MUCOUS MEM ×2 (19:05→20:56)
[2025-03-12] MEDS: calcium carb-vit d 600mg/400unit 1 Tablet 1 EACH PO (19:05)
[2025-03-12] MEDS: artificial tears Op Soln 15 mL Btl 1 DROP EYEAFF ×2 (19:30→23:39)
--- OUTSIDE RECORDS SUMMARY | 2025-03-12 22:59 | XMS_ITS | Continuity of Care Document ---
Author Name [facility] Organization [facility] Care Team Providers Care Field Recruiter Name Role Phone [facility] Unavailable Unavailable Problems Combined list of problems from Department of Defense and [facility] Affairs facilities. It does not include entries that were removed or entered in error. Problem Status Onset Date Problem Type Date of Resolution Comments Source Impaired Fasting Glucose Active 11/27/19 10 Condition Dec 03, 2009 Entered By: MIMI RICHARDSON Comment: FBS [address] [facility] Asthma Active 09/06/19 06 Condition [facility] Knee: arthralgia Active 09/06/18 92 Condition Sep 11, 2005 Entered By: YONI MTZ Comment: 1991 chronic knee pain since in service [facility] Allergic Rhinitis ([facility] 52160762) Active Condition [facility] Allergic rhinitis * (ICD-9-CM 477.9) Active Condition [facility] Cervical radiculopathy Active Condition [facility] Chronic back pain Active Condition [facility] COPD - Chronic Obstructive Pulmonary Disease (SCT 63852272) [facility] Degeneration of lumbar intervertebral disc Active Condition [facility] Depression (SCT 68462079) Active Condition [facility] Diabetes Mellitus Type 2 (SCT 62721248) Active Condition [facility] Dysmenorrhea Active Condition [facility] Exposure to potentially hazardous substance Active Condition [facility] Gastroesophageal Reflux Disorder * (ICD-9-CM 530.81) Active Condition [facility] - Gastro-Esophageal Reflux Disease (SCT 065671563) Active Condition [facility] Headache Active Condition [facility] History of total hysterectomy Active Condition Nov 01, 2023 Entered By: KVNG MONTOYA Comment: for cancerous reasons [facility] HTN - Hypertension (SCT 49969638) Active Condition [facility] Hyperlipidemia Active Condition [facility] Hyperlipidemia ([facility] 50364653) Active Condition [facility] Joint Pain Active Condition [facility] LE - Lupus erythematosus Active Condition [facility] Menorrhagia Active Condition Dec 13, 2007 Entered By: MIMI RICHARDSON Comment: 08/23/2006 Total hysterectomy ; Jay salpingo-oop horectomy [facility] Migraine Active Condition [facility] Migraines Active Condition [facility] Non-alcoholic fatty liver disease Active Condition [facility] OA - Osteoarthritis (SCT 730019628) Active Condition [facility] Obesity ([facility] [id number]) Active Condition [facility] OSTEOARTHROS NOS-UNSPEC Active Condition [facility] Other and unspecified ovarian cyst Active Condition [facility] Premenstrual dysphoric Disorder Active Condition [facility] Sjogren's syndrome Active Condition [facility] Vaginal dryness on intercourse Active Condition [facility] Cardiovascular symptoms Inactive Condition 11/01/2023 [place] [facility] Cervical radiculopathy (SNOMED CT 47997172) Inactive Condition 11/27/2024 [place] [facility] Chest Pain, precordial Inactive Condition 11/01/2023 [place] [facility] GERD Inactive Condition 11/01/2023 [place] [facility] Herpes zoster (SNOMED CT 0574813) Inactive Condition 11/01/2023 [place] [facility] Neck pain Inactive Condition 11/01/2023 [place] [facility] Neck Sprain/Strain Inactive Condition 11/01/2023 [place] [facility] Non-alcoholic fatty liver (SNOMED CT 320637544) Inactive Condition 11/01/2023 [place] [facility] Obesity (SNOMED CT 433073038) Inactive Condition 11/01/2023 [place] [facility] Routine gynecological exam done Inactive Condition 11/01/2023 [facility] Unresolved Inactive Condition 11/01/2023 [place] [facility] Diagnosis: ICD-10-CM G47.33 Obstructive sleep apnea (adult) (pediatric) Active Diagnosis [place] [facility] Diagnosis: ICD-10-CM G43.909 Migraine, unsp, not intractable, without status migrainosus Active Diagnosis [facility] Diagnosis: ICD-10-CM Z01.419 Encntr for hog cooler exam (general) (routine) w/o abn findings Active Diagnosis [facility] Diagnosis: ICD-10-CM Z00.00 Encntr for general adult medical exam w/o abnormal findings Active Diagnosis [facility] Diagnosis: ICD-10-CM Z12.2 Encntr screen for malignant neoplasm of respiratory organs Active Diagnosis [facility] Diagnosis: ICD-10-CM M35.00 Sjogren syndrome, unspecified Active Diagnosis [facility] Medications Combined list of outpatient medications from Department of Defense and Veterans Affairs facilities.Medications provided include 1) outpatient medications from the last 15 months, and 2) patient-reported medications. Medication Details Route Status Patient Instructions Prescription Expires Prescription Number Last Dispense Date Ordering Provider Order Date Order Qty Source ALBUTEROL SO4 90MCG/ACTUA T (CFC-F) INHL,ORAL,8 .5GM INHALE 2 PUFFS ORAL INHALATI ON FOUR TIMES A DAY NEEDED RESPIR ATORY (INHAL ATION) ACTIVE Sj MONTOYA R 2023 [facility] AMLODIPINE BESYLATE 2.5MG TAB TAKE ONE TABLET BY MOUTH ONCE A DAY ORAL ACTIVE Sj MONTOYA R 2024 [facility] CELECOXIB 100MG CAP TAKE 1 CAPSULE BY MOUTH ONCE A DAY ORAL ACTIVE Sj MONTOYA 2024 [facility] CETIRIZINE HCL 10MG TAB TAKE ONE TABLET BY MOUTH ONCE A DAY ORAL ACTIVE Sj MONTOYA R 2023 [facility] COENZYME Q10 CAP/TAB 1 CAP/TAB BY MOUTH ORAL ACTIVE Yumi RICHARDSON 2009 [facility] ESOMEPRAZOL E MAGNESIUM 40MG CAP,EC TAKE 1 CAPSULE BY MOUTH EVERY DAY ORAL ACTIVE Yumi RIHCARDSON 2008 [facility] ESTROGENS,E STERIFIED 1.25MG/METH YLTESTOSTER ONE 2.5MG TAB TAKE ONE TABLET BY MOUTH EVERY DAY ORAL ACTIVE Yumi RICHARDSON 2008 [facility] FLUOXETINE HCL 20MG CAP TAKE 1 CAPSULE BY MOUTH EVERY MORNING ORAL ACTIVE Sj MONTOYA R 2024 [facility] FLUTICASONE PROPIONATE 50MCG/SPRAY SOLN,NASAL, 16GM INSTILL 1 SPRAY IN NOSTRIL( S) ONCE A DAY NEEDED NASAL ACTIVE Sj MONTOYA R 2023 [facility] HYDROXYCHLO ROQUINE SO4 200MG TAB TAKE ONE TABLET BY MOUTH TWICE A DAY ORAL ACTIVE Sj MONTOYA R 2023 [facility] LORATADINE 10MG TAB TAKE ONE TABLET BY MOUTH EVERY DAY ORAL ACTIVE Yumi RICHARDSON IAKIRSTEN 2008 [facility] LOSARTAN 50MG TAB TAKE ONE-HALF TABLET BY MOUTH ONCE A DAY ORAL ACTIVE Sj MONTOYA R 2024 [facility] MONTELUKAST NA 10MG TAB TAKE ONE TABLET BY MOUTH EVERY EVENING ORAL ACTIVE Sj MONTOYA R 2023 [facility] OMEPRAZOLE 40MG CAP,EC TAKE 1 CAPSULE BY MOUTH EVERY MORNING BEFORE A MEAL ORAL ACTIVE Sj MONTOYA R 2023 [facility] POTASSIUM CHLORIDE 20MEQ TAB,SA (DISPERSIBL E) TAKE ONE-HALF TABLET BY MOUTH ONCE A DAY ORAL ACTIVE Sj MONTOYA R 2023 [facility] RANOLAZINE 500MG TAB,SA TAKE ONE TABLET BY MOUTH TWICE A DAY ORAL ACTIVE Sj MONTOYA R 2023 [facility] ROSUVASTATI N CA 40MG TAB TAKE ONE TABLET BY MOUTH EVERY EVENING ORAL ACTIVE Sj MONTOYA R 2023 [facility] SEMAGLUTIDE 2MG/0.75ML INJ,SOLN,PE N,3ML INJECT 2MG UNDER THE SKIN EVERY WEEK SUBCUT ANEOUS ACTIVE Sj MONTOYA R 2024 [facility] SIMVASTATIN 80MG TAB TAKE ONE-HALF TABLET BY MOUTH AT BEDTIME ORAL ACTIVE Yumi RICHARDSON IAKIRSTEN 2009 [facility] TOPIRAMATE (TOPAMAX) TAB TAKE 100MG BY MOUTH EVERY DAY ORAL ACTIVE Yumi RICHARDSON IAKIRSTEN 2008 [facility] VALACYCLOVI R HCL 500MG TAB TAKE ONE TABLET BY MOUTH TWICE A DAY NEEDED ORAL ACTIVE Sj MONTOYA 2023 [facility] ZOLMITRIPTA N 2.5MG TAB,PACKAGE ,6 TAKE ONE-HALF TABLET BY MOUTH PRN ORAL ACTIVE Yumi RICHARDSON 2007 [facility] ZOLMITRIPTA N 2.5MG TAB,PACKAGE ,6 TAKE FOUR TABLETS BY MOUTH ONE-TIME NEEDED ORAL ACTIVE Sj MONTOYA R 2023 [facility] Allergies, Adverse Reactions, Alerts Combined list of allergies from Department of [facility] and Veterans Affairs facilities. It does not include entries that were removed or entered in error. Substance Category Reaction Severity Reaction type Status Date Reported Comments Source DAIRY FOODS Propensity to adverse reactions to food (finding) Diarrhea, Nausea and vomiting MODERATE active 4 [facility] HYDROCODONE Propensity to adverse reactions to drug (finding) Hallucinati ons MODERATE active 4 [facility] MORPHINE Propensity to adverse reactions to drug (finding) Eruption, Urticaria active 1 [facility] MORPHINE Propensity to adverse reactions to drug (finding) active 4 [facility] OXYCODONE Propensity to adverse reactions to drug (finding) Hallucinati ons MODERATE active 4 [facility] PENICILLIN Propensity to adverse reactions to drug (finding) Eruption active 4 [facility] VENLAFAXINE Propensity to adverse reactions to drug (finding) Nausea, Dizziness active 6 [facility] Immunizations Combined list of available immunizations from the Department of [facility] and [facility] Affairs facilities. Immunization Series Date Given Administered By Site Reaction Lot Number CVX Code Drug Certified Professional Controller Status Comments Source ZOSTER RECOMBINANT 2 2023 187 complet ed HISTORICA L INFORMATI ON - [facility] OTHER [facility] N ZOSTER RECOMBINANT 1 2023 187 complet ed HISTORICA L INFORMATI ON - FROM OTHER [facility], [facility] DIVISIO N PNEUMOCOCCAL CONJUGATE PCV20, POLYSACCHARID E [id number] CONJUGATE, ADJUVANT, PF 1 2022 216 complet ed HISTORICA L INFORMATI ON - [facility] OTHER [facility], [facility] N PNEUMOCOCCAL POLYSACCHARID E PPV23 2015 33 complet ed [facility] INFLUENZA, SEASONAL, INJECTABLE, PRESERVATIVE FREE 2014 140 complet ed [facility] TDAP 2014 115 complet ed Right Deltoid [facility] TETANUS-DIPHT -aPERT (HISTORICAL) 2011 115 complet ed [place] TDAP 2010 115 complet ed [facility] FLU,3 YRS (HISTORICAL) 2010 88 complet ed [facility] NOVEL INFLUENZA-H1N 1-09, ALL FORMULATIONS 2009 128 complet ed [facility] PNEUMOCOCCAL, UNSPECIFIED FORMULATION 2007 109 complet ed HISTORICA L INFORMATI ON - FROM OTHER REGISTRY, ADDY MELGAR [facility] TD(ADULT) UNSPECIFIED FORMULATION 2005 139 complet ed [facility] Results Combined list of recent chemistry, hematology and other laboratory results from Department of Defense and Veterans Affairs, ranging from 15 months to all on record, depending upon the facility. Order Name Results Value Reference Range Date Interpretation Specimen Comments Source TSH (MA-PB) THYROTROPIN [UNITS/VOLU ME] IN SERUM OR PLASMA 1.172 u[IU]/mL 0.47 - 5 11/27 Specimen Type: SERUM No comment entered. Ordering Provider: DENZEL MONTOYA Report Released Date/Time: Nov 24, 2024 01:58 PM Reporting Lab: [place] [facility] [address] [place] [address] Performing Lab: [place] [facility] [address] [place] [address] [facility] VITAMIN D, 25-HYDROX Y 25-HYDROXYV ITAMIN D3 [MASS/VOLUM E] IN SERUM OR PLASMA 34.1 ng/mL 30 - 96 11/27 Specimen Type: SERUM No comment entered. Ordering Provider: DENZEL MONTOYA Report Released Date/Time: Nov 24, 2024 01:58 PM Reporting Lab: [place] [facility] [address] [place] [address] Performing Lab: [place] [facility] [address] [place] [address] [place] [facility] HGA1C HEMOGLOBIN A1C/HEMOGLO BIN.TOTAL IN BLOOD 5.9 4.0 - 6.0 11/27 Specimen Type: BLOOD No comment entered. Ordering Provider: DENZEL MONTOYA Report Released Date/Time: Nov 24, 2024 01:58 PM Reporting Lab: [place] [facility] [address] [place] [address] Performing Lab: [place] [facility] [address] [place] [address] [facility] URINALYSI S (STL-PB) COLOR OF URINE Yellow 11/27 Specimen Type: URINE No comment entered. Ordering Provider: DENZEL MONTOYA Report Released Date/Time: Nov 24, 2024 01:58 PM Reporting Lab: [place] [facility] [address] [place] [address] Performing Lab: [place] [facility] [address] [place] [address] [facility] URINALYSI S (STL-PB) BILIRUBIN.T OTAL [PRESENCE] IN URINE BY TEST STRIP NEGATIVE mg/dL 11/27 Specimen Type: URINE No comment entered. Ordering Provider: DENZEL MONTOYA Report Released Date/Time: Nov 24, 2024 01:58 PM Reporting Lab: [place] [facility] [address] [place] [address] Performing Lab: [place] [facility] [address] [place] [id number] [facility] URINALYSI S (STL-PB) PH OF URINE BY TEST STRIP 7.0 5.0 - 8.0 11/27 Specimen Type: URINE No comment entered. Ordering Provider: DENZEL MONTOYA Report Released Date/Time: Nov 24, 2024 01:58 PM Reporting Lab: [place] [facility] [address] [place] [address] Performing Lab: [place] [facility] [address] [place] [address] [facility] URINALYSI S (STL-PB) LEUKOCYTES [#/AREA] IN URINE SEDIMENT BY MICROSCOPY HIGH POWER FIELD 7 /[HPF] 0 - 5 11/27 H Specimen Type: URINE No comment entered. Ordering Provider: DENZEL MONTOYA Report Released Date/Time: Nov 24, 2024 01:58 PM Reporting Lab: [place] [facility] [address] [place] [address] Performing Lab: [place] [facility] [address] [place] [address] [facility] URINALYSI S (STL-PB) ERYTHROCYTE S [#/VOLUME] IN URINE SEDIMENT BY MICROSCOPY HIGH POWER FIELD 2 /[HPF] 0 - 5 11/27 Specimen Type: URINE No comment entered. Ordering Provider: DENZEL MONTOYA Report Released Date/Time: Nov 24, 2024 01:58 PM Reporting Lab: [place] [facility] [address] [place] [address] Performing Lab: [place] [facility] [address] [place] [address] [facility] URINALYSI S (STL-PB) APPEARANCE OF URINE TURBID 11/27 H Specimen Type: URINE No comment entered. Ordering Provider: DENZEL MONTOYA Report Released Date/Time: Nov 24, 2024 01:58 PM Reporting Lab: [place] [facility] [address] [place] [address] Performing Lab: [place] [facility] [address] [place] [address] [facility] URINALYSI S (STL-PB) NITRITE [PRESENCE] IN URINE BY TEST STRIP NEGATIVE mg/dL 11/27 Specimen Type: URINE No comment entered. Ordering Provider: DENZEL MONTOYA R Report Released Date/Time: Nov 24, 2024 01:58 PM Reporting Lab: [place] [facility] [address] [place] [address] Performing Lab: [place] [facility] [address] [place] [address] [facility] URINALYSI S (STL-PB) EPITHELIAL CELLS [#/AREA] IN URINE SEDIMENT BY MICROSCOPY LOW POWER FIELD 13 /[HPF] 0 - 5 11/27 H Specimen Type: URINE No comment entered. Ordering Provider: DENZEL MONTOYA Report Released Date/Time: Nov 24, 2024 01:58 PM Reporting Lab: [place] [facility] [address] [place] [address] Performing Lab: [place] [facility] [address] [place] [address] [facility] URINALYSI S (STL-PB) MUCUS [PRESENCE] IN URINE SEDIMENT BY LIGHT MICROSCOPY RARE/[LP F] 11/27 Specimen Type: URINE No comment entered. Ordering Provider: DENZEL MONTOYA Report Released Date/Time: Nov 24, 2024 01:58 PM Reporting Lab: [place] [facility] [address] [place] [address] Performing Lab: [place] [facility] [address] [place] [address] [facility] URINALYSI S (STL-PB) GLUCOSE [MASS/VOLUM E] IN URINE BY TEST STRIP NORMALmg /dL 11/27 Specimen Type: URINE No comment entered. Ordering Provider: DENZEL MONTOYA Report Released Date/Time: Nov 24, 2024 01:58 PM Reporting Lab: [place] [facility] [address] [place] [address] Performing Lab: [place] [facility] [address] [place] [address] [facility] URINALYSI S (STL-PB) PROTEIN [MASS/VOLUM E] IN URINE BY TEST STRIP NEGATIVE mg/dL 11/27 Specimen Type: URINE No comment entered. Ordering Provider: DENZEL MONTOYA R Report Released Date/Time: Nov 24, 2024 01:58 PM Reporting Lab: [place] [facility] [address] [place] [address] Performing Lab: [place] [facility] [address] [place] [address] [facility] URINALYSI S (STL-PB) URN.UROBILI NOGEN 6.0 mg/dL 11/27 H Specimen Type: URINE No comment entered. Ordering Provider: DENZEL MONTOYA Report Released Date/Time: Nov 24, 2024 01:58 PM Reporting Lab: [place] [facility] [address] [place] [address] Performing Lab: [place] [facility] [address] [place] [address] [facility] URINALYSI S (STL-PB) HEMOGLOBIN [MASS/VOLUM E] IN URINE BY TEST STRIP NEGATIVE mg/dL 11/27 Specimen Type: URINE No comment entered. Ordering Provider: DENZEL MONTOYA Report Released Date/Time: Nov 24, 2024 01:58 PM Reporting Lab: [place] [facility] [address] [place] [address] [place] [address] Performing Lab: [place] [facility] [address] [place] [address] [facility] URINALYSI S (STL-PB) KETONES [MASS/VOLUM E] IN URINE BY TEST STRIP NEGATIVE mg/dL 11/27 Specimen Type: URINE No comment entered. Ordering Provider: DENZEL MONTOYA Report Released Date/Time: Nov 24, 2024 01:58 PM Reporting Lab: [place] [facility] [address] [place] [address] Performing Lab: [place] [facility] [address] [place] [address] [facility] URINALYSI S (STL-PB) URN.LEUK.ES T. 75 11/27 H Specimen Type: URINE No comment entered. Ordering Provider: DENZEL MONTOYA Report Released Date/Time: Nov 24, 2024 01:58 PM Reporting Lab: [place] [facility] [address] [place] [phone] Performing Lab: [place] [facility] [address] [place] [address] [facility] URINALYSI S (STL-PB) SPECIFIC GRAVITY OF URINE 1.019 1.005 - 1.029 11/27 Specimen Type: URINE No comment entered. Ordering Provider: MONTOYA,CAT HERINE R Report Released Date/Time: Nov 24, 2024 01:58 PM Reporting Lab: [place] [facility] [address] [place] [address] Performing Lab: [place] [facility] [address] [place] [address] [facility] CBC LEUKOCYTES [#/VOLUME] IN BLOOD BY AUTOMATED COUNT 7.8 10*3/uL 3.6 - 11.2 11/27 Specimen Type: BLOOD No comment entered. Ordering Provider: DENZEL MONTOYA Report Released Date/Time: Nov 24, 2024 01:58 PM Reporting Lab: [place] [facility] [address] [place] [address] Performing Lab: [place] [facility] [address] [place] [facility] [facility] CBC ERYTHROCYTE S [#/VOLUME] IN BLOOD BY AUTOMATED COUNT 4.51 10*6/uL 3.60 - 5.00 11/27 Specimen Type: BLOOD No comment entered. Ordering Provider: DENZEL MONTOYA Report Released Date/Time: Nov 24, 2024 01:58 PM Reporting Lab: [place] [facility] [address] [place] [facility] Performing Lab: [place] [facility] [address] [place] [id number] [facility] CBC HEMOGLOBIN [MASS/VOLUM E] IN BLOOD 13.3 g/dL 11.0 - 14.9 11/27 Specimen Type: BLOOD No comment entered. Ordering Provider: DENZEL MONTOYA R Report Released Date/Time: Nov 24, 2024 01:58 PM Reporting Lab: [place] [facility] [address] [place] [address] Performing Lab: [place] [facility] [address] [place] [address] [facility] CBC HEMATOCRIT [VOLUME FRACTION] OF BLOOD 40.0 32.6 - 43.4 11/27 Specimen Type: BLOOD No comment entered. Ordering Provider: DENZEL MONTOYA Report Released Date/Time: Nov 24, 2024 01:58 PM Reporting Lab: [place] [facility] [address] [place] [address] Performing Lab: [place] [facility] [address] [place] [address] [facility] CBC MCV [ENTITIC VOLUME] BY AUTOMATED COUNT 88.7 fL 80.0 - 100.0 11/27 Specimen Type: BLOOD No comment entered. Ordering Provider: DENZEL MONTOYA R Report Released Date/Time: Nov 24, 2024 01:58 PM Reporting Lab: [place] [facility] [address] [place] [address] Performing Lab: [place] [facility] [address] [place] [address] [facility] CBC MCH [ENTITIC MASS] BY AUTOMATED COUNT 29.5 pg 27.0 - 34.0 11/27 Specimen Type: BLOOD No comment entered. Ordering Provider: DENZLE MONTOYA R Report Released Date/Time: Nov 24, 2024 01:58 PM Reporting Lab: [place] [facility] [address] [place] [address] Performing Lab: [place] [facility] [address] [place] [address] [facility] CBC MCHC [MASS/VOLUM E] BY AUTOMATED COUNT 33.3 g/dL 33.0 - 36.0 11/27 Specimen Type: BLOOD No comment entered. Ordering Provider: DENZEL MONTOYA R Report Released Date/Time: Nov 24, 2024 01:58 PM Reporting Lab: [place] [facility] [address] [place] [address] Performing Lab: [place] [facility] [address] [place] [address] [facility] CBC PLATELETS [#/VOLUME] IN BLOOD BY AUTOMATED COUNT 208 10*3/uL 150 - 400 11/27 Specimen Type: BLOOD No comment entered. Ordering Provider: DENZEL MONTOYA R Report Released Date/Time: Nov 24, 2024 01:58 PM Reporting Lab: [place] [facility] [address] [place] [address] Performing Lab: [place] [facility] [facility] [address] [place] [address] [facility] CBC PLATELET MEAN VOLUME [ENTITIC VOLUME] IN BLOOD BY AUTOMATED COUNT 9.8 fL 7.5 - 11.2 11/27 Specimen Type: BLOOD No comment entered. Ordering Provider: DENZEL MONTOYA R Report Released Date/Time: Nov 24, 2024 01:58 PM Reporting Lab: [place] [facility] [address] [place] [address] Performing Lab: [place] [facility] [address] [place] [address] [facility] CBC ERYTHROCYTE DISTRIBUTIO N WIDTH [RATIO] BY AUTOMATED COUNT 13.4 11.8 - 15.1 11/27 Specimen Type: BLOOD No comment entered. Ordering Provider: DENZEL MONTOYA Report Released Date/Time: Nov 24, 2024 01:58 PM Reporting Lab: [place] [facility] [address] [place] [address] Performing Lab: [place] [facility] [address] [place] [address] [facility] CBC LYMPHOCYTES /100 LEUKOCYTES IN BLOOD BY AUTOMATED COUNT 24.5 11/27 Specimen Type: BLOOD No comment entered. Ordering Provider: DENZEL MONTOYA Report Released Date/Time: Nov 24, 2024 01:58 PM Reporting Lab: [place] [facility] [address] [place] [address] Performing Lab: [place] [facility] [address] [place] [address] [facility] CBC MONOCYTES/1 00 LEUKOCYTES IN BLOOD BY AUTOMATED COUNT 8.3 11/27 Specimen Type: BLOOD No comment entered. Ordering Provider: DENZEL MONTOYA R Report Released Date/Time: Nov 24, 2024 01:58 PM Reporting Lab: [place] [facility] [address] [place] [address] Performing Lab: [place] [facility] [address] [place] [address] [facility] CBC NEUTROPHILS /100 LEUKOCYTES IN BLOOD BY AUTOMATED COUNT 62.2 11/27 Specimen Type: BLOOD No comment entered. Ordering Provider: DENZEL MONTOYA R Report Released Date/Time: Nov 24, 2024 01:58 PM Reporting Lab: [place] [facility] [address] [place] [address] Performing Lab: [place] [facility] [address] [place] [address] [facility] CBC EOSINOPHILS /100 LEUKOCYTES IN BLOOD BY AUTOMATED COUNT 4.1 11/27 Specimen Type: BLOOD No comment entered. Ordering Provider: DENZEL MONTOYA Report Released Date/Time: Nov 24, 2024 01:58 PM Reporting Lab: [place] [facility] [address] [place] [address] Performing Lab: [place] [facility] [address] [place] [address] [facility] CBC BASOPHILS/1 00 LEUKOCYTES IN BLOOD BY AUTOMATED COUNT 0.6 11/27 Specimen Type: BLOOD No comment entered. Ordering Provider: DENZEL MONTOYA R Report Released Date/Time: Nov 24, 2024 01:58 PM Reporting Lab: [place] [facility] [address] [place] [address] Performing Lab: [place] [facility] [address] [place] [address] [facility] CBC LYMPHOCYTES [#/VOLUME] IN BLOOD BY AUTOMATED COUNT 1.91 10*3/uL 0.77 - 4.50 11/27 Specimen Type: BLOOD No comment entered. Ordering Provider: DENZEL MONTOYA R Report Released Date/Time: Nov 24, 2024 01:58 PM Reporting Lab: [place] [facility] [address] [place] [address] Performing Lab: [place] [facility] [address] [place] [address] [facility] CBC MONOCYTES [#/VOLUME] IN BLOOD BY AUTOMATED COUNT 0.65 10*3/uL 0.19 - 0.8 11/27 Specimen Type: BLOOD No comment entered. Ordering Provider: DENZEL MONTOYA R Report Released Date/Time: Nov 24, 2024 01:58 PM Reporting Lab: [place] [facility] [address] [place] [address] Performing Lab: [place] [facility] [address] [place] [address] [facility] CBC NEUTROPHILS [#/VOLUME] IN BLOOD BY AUTOMATED COUNT 4.85 10*3/uL 2.10 - 8.00 11/27 Specimen Type: BLOOD No comment entered. Ordering Provider: DENZEL MONTOYA R Report Released Date/Time: Nov 24, 2024 01:58 PM Reporting Lab: [place] [facility] [address] [place] [address] Performing Lab: [place] [facility] [address] [place] [facility] [facility] CBC EOSINOPHILS [#/VOLUME] IN BLOOD BY AUTOMATED COUNT 0.32 10*3/uL 0.00 - 0.60 11/27 Specimen Type: BLOOD No comment entered. Ordering Provider: DENZEL MONTOYA R Report Released Date/Time: Nov 24, 2024 01:58 PM Reporting Lab: [place] [facility] [address] [place] [address] Performing Lab: [place] [facility] [address] [place] [address] [facility] CBC BASOPHILS [#/VOLUME] IN BLOOD BY AUTOMATED COUNT 0.05 10*3/uL 0.00 - 0.20 11/27 Specimen Type: BLOOD No comment entered. Ordering Provider: DENZEL MONTOYA Report Released Date/Time: Nov 24, 2024 01:58 PM Reporting Lab: [place] [facility] [address] [place] [address] Performing Lab: [place] [facility] [address] [place] [address] [facility] CBC IMMATURE GRANULOCYTE S/100 LEUKOCYTES IN BLOOD BY AUTOMATED COUNT 0.3 11/27 Specimen Type: BLOOD No comment entered. Ordering Provider: DENZEL MONTOYA R Report Released Date/Time: Nov 24, 2024 01:58 PM Reporting Lab: [place] [facility] [address] [place] [address] Performing Lab: [place] [facility] [address] [place] [address] [facility] CBC IMMATURE GRANULOCYTE S [#/VOLUME] IN BLOOD BY AUTOMATED COUNT 0.02 10*3/uL 0.00 - 0.05 11/27 Specimen Type: BLOOD No comment entered. Ordering Provider: DENZEL MONTOYA R Report Released Date/Time: Nov 24, 2024 01:58 PM Reporting Lab: [place] [facility] [address] [place] [address] Performing Lab: [place] [facility] [address] [place] [address] [facility] COMPREHEN SIVE METABOLIC PANEL CREATININE [MASS/VOLUM E] IN SERUM OR PLASMA 0.56 mg/dL 0.6 - 1.1 11/27 L Specimen Type: PLASMA No comment entered. Ordering Provider: DENZEL MONTOYA R Report Released Date/Time: Nov 24, 2024 01:58 PM Reporting Lab: [place] [facility] [address] [place] [address] Performing Lab: [place] [facility] [address] [place] [address] [facility] COMPREHEN SIVE METABOLIC PANEL UREA NITROGEN [MASS/VOLUM E] IN SERUM OR PLASMA 5 mg/dL 9 - 25 11/27 L Specimen Type: PLASMA No comment entered. Ordering Provider: DENZEL MONTOYA R Report Released Date/Time: Nov 24, 2024 01:58 PM Reporting Lab: [place] [facility] [address] [place] [address] Performing Lab: [place] [facility] [address] [place] [address] [facility] COMPREHEN SIVE METABOLIC PANEL GLUCOSE [MASS/VOLUM E] IN SERUM OR PLASMA 150 mg/dL 72 - 99 11/27 H Specimen Type: PLASMA No comment entered. Ordering Provider: DENZEL MONTOYA R Report Released Date/Time: Nov 24, 2024 01:58 PM Reporting Lab: [place] [facility] [address] [place] [address] Performing Lab: [place] [facility] [address] [place] [address] [facility] COMPREHEN SIVE METABOLIC PANEL SODIUM [MOLES/VOLU ME] IN SERUM OR PLASMA 139 meq/L 136 - 145 11/27 Specimen Type: PLASMA No comment entered. Ordering Provider: DENZEL MONTOYA R Report Released Date/Time: Nov 24, 2024 01:58 PM Reporting Lab: [place] [facility] [address] [place] [address] Performing Lab: [place] [facility] [address] [place] [address] [facility] COMPREHEN SIVE METABOLIC PANEL POTASSIUM [MOLES/VOLU ME] IN SERUM OR PLASMA 3.8 meq/L 3.5 - 5 11/27 Specimen Type: PLASMA No comment entered. Ordering Provider: DENZEL MONTOYA R Report Released Date/Time: Nov 24, 2024 01:58 PM Reporting Lab: [place] [facility] [address] [place] [address] Performing Lab: [place] [facility] [address] [place] [address] [facility] COMPREHEN SIVE METABOLIC PANEL CHLORIDE [MOLES/VOLU ME] IN SERUM OR PLASMA 103 meq/L 98 - 107 11/27 Specimen Type: PLASMA No comment entered. Ordering Provider: DENZEL MONTOYA R Report Released Date/Time: Nov 24, 2024 01:58 PM Reporting Lab: [place] [facility] [address] [place] [address] Performing Lab: [place] [facility] [address] [place] [address] [facility] COMPREHEN SIVE METABOLIC PANEL CARBON DIOXIDE, TOTAL [MOLES/VOLU ME] IN SERUM OR PLASMA 29 meq/L 22 - 31 11/27 Specimen Type: PLASMA No comment entered. Ordering Provider: DENZEL MONTOYA R Report Released Date/Time: Nov 24, 2024 01:58 PM Reporting Lab: [place] [facility] [address] [place] [address] Performing Lab: [place] [facility] [address] [place] [address] [facility] COMPREHEN SIVE METABOLIC PANEL CALCIUM [MASS/VOLUM E] IN SERUM OR PLASMA 8.7 mg/dL 8.4 - 10.4 11/27 Specimen Type: PLASMA No comment entered. Ordering Provider: DENZEL MONTOYA Report Released Date/Time: Nov 24, 2024 01:58 PM Reporting Lab: [place] [facility] [address] [place] [address] Performing Lab: [place] [facility] [address] [place] [address] [facility] COMPREHEN SIVE METABOLIC PANEL PROTEIN [MASS/VOLUM E] IN SERUM OR PLASMA 6.6 g/dL 6 - 8.6 11/27 Specimen Type: PLASMA No comment entered. Ordering Provider: DENZEL MONTOYA R Report Released Date/Time: Nov 24, 2024 01:58 PM Reporting Lab: [place] [facility] [address] [place] [address] Performing Lab: [place] [facility] [address] [place] [address] [facility] COMPREHEN SIVE METABOLIC PANEL ALBUMIN [MASS/VOLUM E] IN SERUM OR PLASMA 4.0 g/dL 3.4 - 5 11/27 Specimen Type: PLASMA No comment entered. Ordering Provider: DENZEL MONTOYA R Report Released Date/Time: Nov 24, 2024 01:58 PM Reporting Lab: [place] [facility] [address] [place] [address] Performing Lab: [place] [facility] [address] [place] [address] [facility] COMPREHEN SIVE METABOLIC PANEL BILIRUBIN.T OTAL [MASS/VOLUM E] IN SERUM OR PLASMA 1.0 mg/dL 0.2 - 1.2 11/27 Specimen Type: PLASMA No comment entered. Ordering Provider: DENZEL MONTOYA R Report Released Date/Time: Nov 24, 2024 01:58 PM Reporting Lab: [place] [facility] [address] [place] [address] Performing Lab: [place] [facility] [address] [place] [address] [facility] COMPREHEN SIVE METABOLIC PANEL ALKALINE PHOSPHATASE [ENZYMATIC ACTIVITY/VO LUME] IN SERUM OR PLASMA 106 U/L 40 - 150 11/27 Specimen Type: PLASMA No comment entered. Ordering Provider: DENZEL MONTOYA R Report Released Date/Time: Nov 24, 2024 01:58 PM Reporting Lab: [place] [facility] [address] [place] [address] Performing Lab: [place] [facility] [address] [place] [address] [facility] COMPREHEN SIVE METABOLIC PANEL ASPARTATE AMINOTRANSF ERASE [ENZYMATIC ACTIVITY/VO LUME] IN SERUM OR PLASMA 71 U/L 5 - 34 11/27 H Specimen Type: PLASMA No comment entered. Ordering Provider: DENZEL MONTOYA R Report Released Date/Time: Nov 24, 2024 01:58 PM Reporting Lab: [place] [facility] [address] [place] [address] Performing Lab: [place] [facility] [address] [place] [address] [facility] COMPREHEN SIVE METABOLIC PANEL ALANINE AMINOTRANSF ERASE [ENZYMATIC ACTIVITY/VO LUME] IN SERUM OR PLASMA 77 U/L 8 - 40 11/27 H Specimen Type: PLASMA No comment entered. Ordering Provider: DENZEL MONTOYA R Report Released Date/Time: Nov 24, 2024 01:58 PM Reporting Lab: [place] [facility] [address] [place] [address] Performing Lab: [place] [facility] [address] [place] [address] [facility] COMPREHEN SIVE METABOLIC PANEL GLOMERULAR FILTRATION RATE/1.73 SQ M.PREDICTED [VOLUME RATE/AREA] IN SERUM, PLASMA OR BLOOD BY CREATININE- BASED FORMULA (CKD-EPI 2020) 107 11/27 Specimen Type: PLASMA No comment entered. Ordering Provider: DENZEL MONTOYA R Report Released Date/Time: Nov 24, 2024 01:58 PM Reporting Lab: [place] [facility] [address] [place] [address] Performing Lab: [place] [facility] [address] [place] [address] [facility] CHOLESTER OL PANEL (PB) CHOLESTEROL [MASS/VOLUM E] IN SERUM OR PLASMA 101 mg/dL 0 - 200 11/27 Specimen Type: PLASMA No comment entered. Ordering Provider: DENZEL MONTOYA Report Released Date/Time: Nov 24, 2024 01:58 PM Reporting Lab: [place] [facility] [address] [place] [address] Performing Lab: [place] [facility] [address] [place] [facility] [facility] CHOLESTER OL PANEL (PB) TRIGLYCERID E [MASS/VOLUM E] IN SERUM OR PLASMA 44 mg/dL 0 - 150 11/27 Specimen Type: PLASMA No comment entered. Ordering Provider: DENZEL MONTOYA Report Released Date/Time: Nov 24, 2024 01:58 PM Reporting Lab: [place] [facility] [address] [place] [address] Performing Lab: [place] [facility] [address] [place] [address] [facility] CHOLESTER OL PANEL (PB) CHOLESTEROL IN LDL [MASS/VOLUM E] IN SERUM OR PLASMA BY CALCULATION 41.2 mg/dL 11/27 Specimen Type: PLASMA No comment entered. Ordering Provider: DENZEL MONTOYA Report Released Date/Time: Nov 24, 2024 01:58 PM Reporting Lab: [place] [facility] [address] [place] [address] Performing Lab: [place] [facility] [address] [place] [address] [facility] CHOLESTER OL PANEL (PB) CHOLESTEROL IN HDL [MASS/VOLUM E] IN SERUM OR PLASMA 51.0 mg/dL 40 11/27 H Specimen Type: PLASMA No comment entered. Ordering Provider: DENZEL MONTOYA R Report Released Date/Time: Nov 24, 2024 01:58 PM Reporting Lab: [place] [facility] [address] [place] [address] Performing Lab: [place] [facility] [address] [place] [address] [facility] CHOLESTER OL PANEL (PB) CHOLESTEROL IN HDL/[place].TOTAL [MASS RATIO] IN SERUM OR PLASMA 50.5 25 11/27 Specimen Type: PLASMA No comment entered. Ordering Provider: DENZEL MONTOYA Report Released Date/Time: Nov 24, 2024 01:58 PM Reporting Lab: [place] [facility] [address] [place] [address] Performing Lab: [place] [facility] [address] [place] [address] [facility] URINE ALBUMIN PROFILE-i h (PB) ALBUMIN [MASS/VOLUM E] IN URINE 15.06 mg/L 0 - 30 11/27 Specimen Type: URINE No comment entered. Ordering Provider: DENZEL MONTOYA Report Released Date/Time: Nov 27, 2024 10:16 AM Reporting Lab: [place] [facility] [address] [place] [address] Performing Lab: [place] [facility] [address] [place] [address] [facility] URINE ALBUMIN PROFILE-i h (PB) ALBUMIN/CRE ATININE [MASS RATIO] IN URINE 9.89 ug/mg 11/27 Specimen Type: URINE No comment entered. Ordering Provider: DENZEL MONTOYA Report Released Date/Time: Nov 27, 2024 10:16 AM Reporting Lab: [place] [facility] [address] [place] [address] Performing Lab: [place] [facility] [address] [place] [address] [facility] URINE ALBUMIN PROFILE-i h (PB) CREATININE [MASS/VOLUM E] IN URINE 152.33 mg/dL 11/27 Specimen Type: URINE No comment entered. Ordering Provider: DENZEL MONTOYA Report Released Date/Time: Nov 27, 2024 10:16 AM Reporting Lab: [place] [facility] [address] [place] [address] Performing Lab: [place] [facility] [address] [place] [address] [facility] OCCULT BLOOD FIT X1 SCREEN (P ONLY) HEMOGLOBIN. GASTROINTES TINAL.LOWER [PRESENCE] IN STOOL BY IMMUNOASSAY INVALID 09/12 Specimen Type: FECES Comment: Test invalid. Collection date could not be determined. Sample integrity cannot be ensured. Please recollect specimen and resubmit for testing. Ordering Provider: DENZEL MONTOYA Report Released Date/Time: Aug 28, 2024 07:52 AM Reporting Lab: [place] [facility] [address] [place] [address] Performing Lab: [place] [facility] [address] [place] [address] [facility] URINALYSI S (STL-PB) COLOR OF URINE Yellow 11/01 Specimen Type: URINE No comment entered. Ordering Provider: DENZEL MONTOYA Report Released Date/Time: Nov 01, 2023 11:45 AM Reporting Lab: [place] [facility] [address] [place] [address] Performing Lab: [place] [facility] [address] [place] [address] [facility] URINALYSI S (STL-PB) BILIRUBIN.T OTAL [PRESENCE] IN URINE BY TEST STRIP NEGATIVE mg/dL 11/01 Specimen Type: URINE No comment entered. Ordering Provider: DENZEL MONTOYA Report Released Date/Time: Nov 01, 2023 11:45 AM Reporting Lab: [place] [facility] [address] [place] [phone] Performing Lab: [place] [facility] [address] [place] [address] [facility] URINALYSI S (STL-PB) PH OF URINE BY TEST STRIP 6.5 5.0 - 8.0 11/01 Specimen Type: URINE No comment entered. Ordering Provider: DENZEL MONTOYA Report Released Date/Time: Nov 01, 2023 11:45 AM Reporting Lab: [place] [facility] [address] [place] [address] Performing Lab: [place] [facility] [address] [place] [address] [facility] URINALYSI S (STL-PB) LEUKOCYTES [#/AREA] IN URINE SEDIMENT BY MICROSCOPY HIGH POWER FIELD 11 /[HPF] 0 - 5 11/01 H Specimen Type: URINE No comment entered. Ordering Provider: DENZEL MONTOYA Report Released Date/Time: Nov 01, 2023 11:45 AM Reporting Lab: [place] [facility] [address] [place] [address] Performing Lab: [place] [facility] [address] [place] [address] [facility] URINALYSI S (STL-PB) ERYTHROCYTE S [#/VOLUME] IN URINE SEDIMENT BY MICROSCOPY HIGH POWER FIELD 1 /[HPF] 0 - 5 11/01 Specimen Type: URINE No comment entered. Ordering Provider: DENZEL MONTOYA R Report Released Date/Time: Nov 01, 2023 11:45 AM Reporting Lab: [place] [facility] [address] [place] [address] Performing Lab: [place] [facility] [address] [place] [address] [facility] URINALYSI S (STL-PB) APPEARANCE OF URINE TURBID 11/01 H Specimen Type: URINE No comment entered. Ordering Provider: DENZEL MONTOYA R Report Released Date/Time: Nov 01, 2023 11:45 AM Reporting Lab: [place] [facility] [address] [place] [address] Performing Lab: [place] [facility] [address] [place] [address] [facility] URINALYSI S (STL-PB) NITRITE [PRESENCE] IN URINE BY TEST STRIP NEGATIVE mg/dL 11/01 Specimen Type: URINE No comment entered. Ordering Provider: DENZEL MONTOYA R Report Released Date/Time: Nov 01, 2023 11:45 AM Reporting Lab: [place] [facility] [address] [place] [address] Performing Lab: [place] [facility] [address] [place] [address] [facility] URINALYSI S (STL-PB) EPITHELIAL CELLS [#/AREA] IN URINE SEDIMENT BY MICROSCOPY LOW POWER FIELD 18 /[HPF] 0 - 5 11/01 H Specimen Type: URINE No comment entered. Ordering Provider: DENZEL MONTOYA Report Released Date/Time: Nov 01, 2023 11:45 AM Reporting Lab: [place] [facility] [address] [place] [address] Performing Lab: [place] [facility] [address] [place] [address] [facility] URINALYSI S (STL-PB) MUCUS [PRESENCE] IN URINE SEDIMENT BY LIGHT MICROSCOPY OCCASION AL/[LPF] 11/01 H Specimen Type: URINE No comment entered. Ordering Provider: DENZEL MONTOYA Report Released Date/Time: Nov 01, 2023 11:45 AM Reporting Lab: [place] [facility] [address] [place] [id number] Performing Lab: [place] [facility] [address] [place] [id number] [facility] URINALYSI S (STL-PB) GLUCOSE [MASS/VOLUM E] IN URINE BY TEST STRIP NORMALmg /dL 11/01 Specimen Type: URINE No comment entered. Ordering Provider: DENZEL MONTOYA R Report Released Date/Time: Nov 01, 2023 11:45 AM Reporting Lab: [place] [facility] [address] [place] [address] Performing Lab: [place] [facility] [address] [place] [address] [facility] URINALYSI S (STL-PB) PROTEIN [MASS/VOLUM E] IN URINE BY TEST STRIP 30 mg/dL - 20 11/01 H Specimen Type: URINE No comment entered. Ordering Provider: DENZEL MONTOYA R Report Released Date/Time: Nov 01, 2023 11:45 AM Reporting Lab: [place] [facility] [address] [place] [address] Performing Lab: [place] [facility] [address] [place] [address] [facility] URINALYSI S (STL-PB) URN.UROBILI NOGEN NORMALmg /dL 11/01 Specimen Type: URINE No comment entered. Ordering Provider: DENZEL MONTOYA R Report Released Date/Time: Nov 01, 2023 11:45 AM Reporting Lab: [place] [facility] [address] [place] [address] Performing Lab: [place] [facility] [address] [place] [address] [facility] URINALYSI S (STL-PB) HEMOGLOBIN [MASS/VOLUM E] IN URINE BY TEST STRIP NEGATIVE mg/dL 11/01 Specimen Type: URINE No comment entered. Ordering Provider: DENZEL MONTOYA R Report Released Date/Time: Nov 01, 2023 11:45 AM Reporting Lab: [place] [facility] [address] [place] [address] Performing Lab: [place] [facility] [address] [place] [address] [facility] URINALYSI S (STL-PB) KETONES [MASS/VOLUM E] IN URINE BY TEST STRIP NEGATIVE mg/dL 11/01 Specimen Type: URINE No comment entered. Ordering Provider: DENZEL MONTOYA R Report Released Date/Time: Nov 01, 2023 11:45 AM Reporting Lab: [place] [facility] [address] [place] [address] Performing Lab: [place] [facility] [address] [place] [address] [facility] URINALYSI S (STL-PB) URN.LEUK.ES T. 250 11/01 H Specimen Type: URINE No comment entered. Ordering Provider: DENZEL MONTOYA R Report Released Date/Time: Nov 01, 2023 11:45 AM Reporting Lab: [place] [facility] [address] [place] [address] Performing Lab: [place] [facility] [address] [place] [address] [facility] URINALYSI S (STL-PB) SPECIFIC GRAVITY OF URINE 1.021 1.005 - 1.029 11/01 Specimen Type: URINE No comment entered. Ordering Provider: DENZEL MONTOYA Report Released Date/Time: Nov 01, 2023 11:45 AM Reporting Lab: [place] [facility] [address] [place] [address] Performing Lab: [place] [facility] [address] [place] [address] [facility] Vital Signs Combined list of inpatient and outpatient Vital Signs from Department of Defense and Veterans Affairs, ranging from 12 months to all on record, depending upon the facility. Vital Sign Value Date Comments Source WEIGHT 232 12/14/2024 14:05:41 [facility] BMI 54 kg/m2 12/14/2024 14:05:41 [facility] HEIGHT 55 12/14/2024 14:05:41 [facility] SYSTOLIC BLOOD PRESSURE 126 11/27/2024 10:03:15 [facility] DIASTOLIC BLOOD PRESSURE 77 11/27/2024 10:03:15 [facility] PULSE OXIMETRY 99 11/27/2024 10:03:15 [facility] WEIGHT 229 11/27/2024 10:03:15 [facility] BMI 38 kg/m2 11/27/2024 10:03:15 [facility] TEMPERATURE 98 11/27/2024 10:03:15 [facility] PULSE 61 11/27/2024 10:03:15 [facility] RESPIRATION 18 11/27/2024 10:03:15 [facility] Encounters Combined list of: 1) Encounters from Department of Veterans Affairs facilities going backup to the last 18 months, not all VA inpatient encounters are included; 2) Encounters from the Department of Defense facilities going backup to 280 months. Location Location Details Encounter Type Encounter Number Reason For Visit Attending Provider ADM Date DC Date Status Disposition Source [facility] OFFICE O/P NEW LOW 30 MIN [id number] Diagnos is: ICD-10- CM M35.00 Sjogren syndrom e, unspeci fied LINDSAY,RAFAEL THERINE R 11/01 [facility] Outpatient Encounter [id number] 11/07 [facility] Outpatient Encounter [id number] 12/05 [facility] [place] [facility] Outpatient Encounter [id number] 01/09 [place] [facility] Outpatient Encounter [id number] 03/28 [facility] [place] [facility] HC PRO PHONE CALL 5-10 MIN [id number] Diagnos is: ICD-10- CM Z12.2 Encntr screen for maligna nt neoplas m of respira tory organs YOAST,JON AN E 08/16 [place] [facility] Outpatient Encounter [id number] 09/11 [facility] [place] [facility] Outpatient Encounter [id number] 11/01 [place] [facility] Outpatient Encounter [id number] 11/07 [facility] Outpatient Encounter [id number] 11/07 [facility] [place] [facility] Outpatient Encounter [id number] 11/07 [place] [facility] Outpatient Encounter [id number] RAFAEL MONTOYA R 11/27 [facility] Outpatient Encounter [id number] Diagnos is: ICD-10- CM Z00.00 Encntr for general adult medical exam w/o abnorma l finding s RAFAEL MONTOYA R 11/27 [facility] Outpatient Encounter [id number] 11/27 [facility] Encounter [id number] 12/05 [facility] Outpatient Encounter [id number] HINA GONZALEZ 12/07 [facility] [place] [facility] Outpatient Encounter [id number] 12/08 [place] [facility] [place] [facility] Outpatient Encounter [id number] 12/08 [place] [facility] Outpatient Encounter [id number] 12/14 [facility] Outpatient Encounter [id number] RAFAEL MONTOYA R 12/14 [facility] CB OFFICE O/P EST HI 40 MIN [id number] Diagnos is: ICD-10- CM Z01.419 Encntr for hog cooler exam (genera l) (routin e) w/o abn finding s RAFAEL MONTOYA R 12/14 [facility] Outpatient Encounter [id number] 12/15 [facility] Outpatient Encounter [id number] 12/19 [facility] Outpatient Encounter [id number] 12/20 [facility] En[facility] [id number] 12/20 [facility] Outpatient Encounter [id number] 12/21 [facility] Encounter [id number] 12/21 [facility] Outpatient Encounter [id number] 12[facility] Outpatient Encounter [id number] TERI BREWER 12/26 [facility] Encounter [id number] 12/26 [facility] Outpatient Encounter [id number] 12/27 [facility] Outpatient Encounter [id number] 12/28 [facility] Outpatient Encounter [id number] 12/29 [facility] Outpatient Encounter [id number] 12/30 [facility] Outpatient Encounter [id number] 01/01 [facility] Outpatient Encounter [id number] 01/02 [facility] Outpatient Encounter [id number] 01/08 [facility] Outpatient Encounter [id number] 01/17 [facility] Outpatient Encounter [id number] 01/30 [facility] Outpatient Encounter [id number] 02/02 [facility] Outpatient Encounter [id number] 02/15 [facility] Outpatient Encounter [id number] 02/22 [facility] NQHP OL DIG ASSMT&MGMT 11- [id number] Diagnos is: ICD-10- CM G43.909 Migrain e, unsp, not intract able, without status migrain SHANIQUE Tovar 02/23 [facility] Outpatient Encounter [id number] 03/01 [facility] PH1 ASSMT&MGMT NQHP 21-30 [id number] Diagnos is: ICD-10- CM G47.33 Obstruc tive sleep apnea (adult) (pediat clara) SUZANNE HO HELJERE B 03/02 [facility] Social History Combined list of available smoking, tobacco, and other social history from Department of Defense and Veterans Affairs facilities. Social History Type Response Date Comment Sourc e Tobacco smoking status NHIS PR-TOBACCO NEVER USED OTHER TYPE 11/27/2024 [facility] History of tobacco use PR-TOBACCO NEVER USED CIGARETTES 11/27/2024 [facility] History of tobacco use PR-TOBACCO FORMER USER 11/01/2023 [facility] History of tobacco use LIFETIME NON-USER OF TOBACCO 11/03/2013 [facility] History of tobacco use QUIT TOBACCO >7 Y EARS AGO 11/28/2010 [facility] History of tobacco use QUIT TOBACCO >7 Y EARS AGO 12/03/2009 [facility] History of tobacco use QUIT TOBACCO >7 Y EARS AGO 12/07/2008 [facility] History of tobacco use QUIT TOBACCO >7 Y EARS AGO 12/13/2007 [facility] History of tobacco use QUIT TOBACCO >7 Y EARS AGO 12/14/2006 [facility] History 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 Additional future care activities may be listed in the Assessment and Plan section. Date/Time Care Activity Care Activity Detail Facili ty 04/02/2025 AMBULATORY - MEDICINE AMBULATORY - MEDICI NE [facility] Advance Directives List of completed, amended, or rescinded Advance Directives on record at [facility] facilities. An actual copy of the Directive is not included. Date Advance Directive Provider Source 01/10/2024 ADVANCE DIRECTIVE JOB BAIN [facility] 12/22/2013 ADVANCE DIRECTIVE DISCUSSION ZHANE KENNEDY [facility]
[2025-03-13] VITALS: BP 105/63; PULSE 71; RESP 16; TEMP 37.1; O2SAT 97
[2025-03-13] MEDS: acetaminophen 1,000 MG/100 ML PIGGYBACK 400 MG IV ×2 (02:15→10:49)
[2025-03-13] MEDS: artificial tears Op Soln 15 mL Btl 1 DROP EYEAFF ×3 (02:16→10:49)
[2025-03-13 04:00] VITALS: BP 125/77; PULSE 62; RESP 16; TEMP 36.8; O2SAT 97
--- OUTSIDE RECORDS SUMMARY | 2025-03-13 04:00 | XMS_ITS | Clinical Summary ---
Author Organization [facility] Address [address] [place] [address] Phone Care Team Providers Care Movie Producer Name Role Phone Angelito Jeter MD Primary Care Provider [phone] Allergies No known active allergies Medications Zonisamide (ZONEGRAN) 100 mg capsuleIndicati ons:Rotator cuff syndrome, left Take 100 mg by mouth daily. Active cyclobenzaprine (FLEXERIL) 10 mg tabletIndicatio ns:Rotator cuff syndrome, left Take 10 mg by mouth 3 times daily as needed for Spasm. Active HYDROcodone-wilfredo taminophen (NORCO) 5-325 mg tabletIndicatio ns:Rotator cuff syndrome, left Take 1 Tablet by mouth every 4 hours as needed for Pain, Moderate. Active ranolazine ER (RANEXA) 500 mg Extended Release 12 hour tabletIndicatio ns:Rotator cuff syndrome, left Take 500 mg by mouth every 12 hours. Active nitroglycerin (NITROSTAT) 0.4 mg Tablet, SublingualIndic ations:Rotator cuff syndrome, left Place 0.4 mg under tongue every 5 minutes as needed for Chest Pain. Active metoprolol tartrate (LOPRESSOR) 25 mg tabletIndicatio ns:Rotator cuff syndrome, left Take 25 mg by mouth 2 times daily. Active meloxicam (MOBIC) 15 mg tabletIndicatio ns:Rotator cuff syndrome, left Take 15 mg by mouth daily. Active metFORMIN (GLUCOPHAGE) 1,000 mg tabletIndicatio ns:Rotator cuff syndrome, left Take 1,000 mg by mouth 2 times daily with meals. Active mupirocin (BACTROBAN) 2 % OintmentIndicat ions:Rotator cuff syndrome, left Apply to affected area daily. Active clotrimazole (LOTRIMIN) 1 % CreamIndication s:Rotator cuff syndrome, left Apply to affected area 2 times daily. Active metroNIDAZOLE (METROGEL) 0.75 % GelIndications: Rotator cuff syndrome, left Apply to affected area 2 times daily. Active rosuvastatin (CRESTOR) 40 mg tabletIndicatio ns:Rotator cuff syndrome, left Take 40 mg by mouth daily at bedtime. Active aspirin (ECOTRIN EC) 81 mg Tablet, Delayed Release (E.C.)Indicatio ns:Rotator cuff syndrome, left Take 81 mg by mouth daily. Active topiramate (TOPAMAX) 25 mg tabletIndicatio ns:Rotator cuff syndrome, left Take 25 mg by mouth 2 times daily. Active omeprazole (PriLOSEC) 40 mg Capsule, Delayed Release(E.C.)In dications:Rotat or cuff syndrome, left Take 40 mg by mouth daily. Active Active Problems Problem Noted Date Diagnosed Date Rotator cuff syndrome, left 06/27/2018 Social History Tobacco Use Types Packs/Day Years Used Date Smoking Tobacco: Never Smokeless Tobacco: Never Comments Unknown Sex and Gender Information Value Date Recorded Sex Assigned at Not on file Legal Sex Female 1:25 PM CDT Gender Identity Not on file Sexual Orientation Not on file Last Filed Vital Signs Vital Sign Reading Time Taken Comments Blood Pressure 135/93 06/27/2018 1:16 PM CDT Pulse 85 06/27/2018 1:16 PM CDT Temperature - - Respiratory Rate - - Oxygen Saturation - - Inhaled Oxygen Concentration - - Weight 95.3 kg (210 lb) 06/27/2018 1:16 PM CDT Height 165.1 cm (5' 5 ) 06/27/2018 1:16 PM CDT Body Mass Index 34.95 06/27/2018 1:16 PM CDT Plan of Treatment Health Maintenance Due Date Last Done Comments DTAP/TDAP/TD VACCINES (1 - Tdap) 1987 HEPATITIS B VACCINES (1 of 3 - 19+ 3-dose series) 08/07 HPV/Cotest (21-29) 1989 CERVICAL CANCER SCREENING 1998 HPV/Cotest (30-65) 1998 PAP SMEAR 1998 BREAST CANCER SCREENING 2008 COLORECTAL SCREENING 2013 Colorectal Cancer Screening 2013 FIT-DNA Q 3 years 2013 FIT/FOBT Q 1 year 2013 Flex Sig/CT Colonography Q 5 years 2013 ZOSTER VACCINE (1 of 2) 2018 INFLUENZA VACCINE (#1) 2025 Insurance Care Teams Movie Producer Relationship Specialty Start Date End Date Angelito Jeter MD [address] [phone] PCP - General Family Practice 09/19/19
--- OUTSIDE RECORDS SUMMARY | 2025-03-13 04:00 | XMS_ITS | Clinical Summary ---
Author Organization [employer] Address [address] [place]: Epic Prelude ADT [place] [address] Care Team Providers Care Wheel Lacer And Truer Name Role Phone Angelito Jeter MD Primary Care Provider [phone] Allergies Active Allergy Reactions Criticality Noted Date Comments Hydrocodone Nausea and Vomiting Low 12/08/2021 Mold Other (See Comments) 10/30/2022 unknown Morphine Rash,Hives High 11/28/2010 Oxycodone Nausea and Vomiting Low 12/08/2021 Penicillins Other (See Comments) 10/30/2022 unknown Venlafaxine Dizziness,Nausea and Vomiting Low 05/05 Medications ranolazine ER (RANEXA) 500 mg Extended Release 12 hour tablet Take 500 mg by mouth 2 times daily. Active FLUoxetine (PROzac) 20 mg capsule Take 20 mg by mouth daily. 2 Active rosuvastatin (CRESTOR) 40 mg tablet Take 40 mg by mouth daily at bedtime. Active potassium chloride (KLOR-CON) 8 mEq Extended Release tablet Take 8 mEq by mouth daily. 2 Active valACYclovir (VALTREX) 500 mg tablet Take 500 mg by mouth 2 times daily. Active promethazine (PHENERGAN) 25 mg tablet Take 25 mg by mouth every 6 hours as needed. 2 Active ZOLMitriptan (ZOMIG) 5 mg tablet Take 5 mg by mouth every 2 hours as needed for Migraine. may repeat in 2 hours; max dose 10mg in 24 hours Active fluticasone propionate (FLONASE) 50 mcg/spray Manning, Suspension nasal inhaler SHAKE LIQUID AND USE 1 SPRAY IN EACH NOSTRIL TWICE DAILY 2 Active albuterol sulfate 90 mcg/Actuation inhaler INHALE 2 PUFFS BY MOUTH EVERY 8 HOURS 2 Active semaglutide (OZEMPIC SUBCUT) Inject by subcutaneous injection. Active montelukast 10 mg tablet Take 10 mg by mouth daily at bedtime. Active nitroglycerin (NITROSTAT) 0.4 mg Tablet, SublingualIndic ations:Rotator cuff syndrome, left Place 0.4 mg under tongue every 5 minutes as needed for Chest Pain. 8 Active ranolazine ER (RANEXA) 500 mg Extended Release 12 hour tabletIndicatio ns:Rotator cuff syndrome, left Take 500 mg by mouth every 12 hours. 8 Active metroNIDAZOLE (METROGEL) 0.75 % GelIndications: Rotator cuff syndrome, left Apply to affected area 2 times daily. 8 Active cetirizine 10 mg tablet Take 10 mg by mouth daily. Active hydroxychloroqu ine (PLAQUENIL) 200 mg tablet Take 200 mg by mouth daily. Active azelastine HCl (AZELASTINE BOTH NOSTRIL) Administer in each nostril. Active urea 20 % Cream Apply to affected area 2 times daily. Active pEG 400-propylene glycol (SYSTANE/SYSTAN E ULTRA) 0.4-0.3 % solution 1 Drop every 2 hours. Active celecoxib (CeleBREX) 100 mg capsule Take 100 mg by mouth. Active belimumab (BENLYSTA) 120 mg Recon Soln Inject 10 mg/kg by intravenous injection. Active fluticasone propion-salmete roL (ADVAIR DISKUS,WIXELA INHUB) 500-50 mcg/dose disk inhaler Take 1 Puff by inhalation 2 times daily. 3 Active baclofen (LIORESAL) 10 mg tablet Take 1 Tablet by mouth 2 times daily. Active cholecalciferol , Vitamin D3, (VITAMIN D3) 25 mcg (1,000 unit) Capsule 1 Capsule daily. Active CYANOCOBALAMIN, VITAMIN B-12, INJECTION by Injection route every 28 days. Active omeprazole (PriLOSEC) 40 mg Capsule, Delayed Release(E.C.)In dications:Stage 3 hepatic fibrosis Take 1 Capsule (40 mg) by mouth 2 times daily. 180 Capsule 3 4 Active amLODIPine (NORVASC) 2.5 mg tablet Take 2.5 mg by mouth daily. 4 Active memantine (NAMENDA) 10 mg Tablet Take 10 mg by mouth 2 times daily. 4 Active Active Problems Problem Noted Date Diagnosed Date Stage 3 hepatic fibrosis 06/10/2022 Constipation 06/10/2022 Gastroesophageal reflux disease without esophagi tis 06/10/2022 Rotator cuff syndrome, left 06/27/2018 Encounters Date Type Department Care Team Description 02/21/2025 External Device Data [facility] ABSTRACTION Provider, Abstract 02/20/2025 External Device Data [facility]STRACTION Provider, Abstract 01/31/2025 8:39 AM CDT - 01/31/2025 11:59 PM CDT Hospital Encounter [facility] Respiratory Therapy Services [place] [address] [place] [address] Shirley Link MD Discharge Disposition: Home or Self Care 01/25/2025 External Device Data [facility] ABSTRACTION Provider, Abstract 01/23/2025 External Device Data [facility] ABSTRA[facility] Provider, Abstract 12/30/2024 9:00 AM CDT Video Visit [facility] Pulmonology [place] [address] [place] [address] Shirley Link MD Chronic obstructive pulmonary disease, unspecified COPD type (CMS/HCC) (Primary Dx) 12/29/2024 Telephone [facility] Pulmonology [place] [address] [place] [address] Provider, Abstract External Referral 12/22/2024 Abstract [facility] Rheumatology- [place] [address] [place] [address] Marcello Lin MD from Last 3 Months Family History Medical History Relation Name Comments Colon Cancer Neg Hx Social History Tobacco Use Types Packs/Day Years Used Date Smoking Tobacco: Never Smokeless Tobacco: Never Tobacco Cessation:Counseling Given: No Alcohol Use Standard Drinks/Week Comments Yes 0 (1 standard drink = 0.6 oz pur e alcohol) Feeling Safe Answer Date Recorded Are you in a relationship wi th someone who hurts you emotionally and/or physically? No 11/04/2022 Comments No Sex and Gender Information Value Date Recorded Sex Assigned at Not on file Legal Sex Female 8:43 AM WINE BLENDER Gender Identity Not on file Sexual Orientation Not on file Last Filed Vital Signs Vital Sign Reading Time Taken Comments Blood Pressure 138/80 06/27/2024 11:17 AM CDT Pulse 65 06/27/2024 11:17 AM CDT Temperature - - Respiratory Rate 16 11/04/2022 8:10 AM WINE BLENDER Oxygen Saturation 92% 11/04/2022 8:10 AM WINE BLENDER Inhaled Oxygen Concentration - - Weight 98.4 kg (217 lb) 06/27/2024 11:17 AM CDT Height 165.1 cm (5' 5 ) 06/27/2024 11:17 AM CDT Body Mass Index 36.11 06/27/2024 11:17 AM CDT Plan of Treatment Upcoming Encounters Date Type Department Care Team (Late st Contact Info) Description 06/27/2025 11:00 AM CDT Office Visit [facility] Gastroenterology- [place] [address] [place] [address] Sonya Shi NP [address] [place] [phone] 08/10/2025 10:20 AM WINE BLENDER Office Visit [facility] Rheumatology- Tay [place] [address] [place] [address] Marcello Lin MD [address] [place] [address] Health Maintenance Due Date Last Done Comments DIABETES ANNUAL FOOT EXAM 1986 DIABETES ANNUAL RETINAL EXAM 1986 DIABETES MICROALBUMIN ANNUAL SCREEN 1986 LDL CHOLESTEROL ANNUAL 1986 HEPATITIS B VACCINES (1 of 3 - 19+ 3-dose series) 1987 BREAST CANCER SCREENING 2008 COLORECTAL SCREENING 2013 Colorectal Cancer Screening 2013 FIT-DNA Q 3 years 2013 FIT/FOBT Q 1 year 2013 Flex Sig/CT Colonography Q 5 years 2013 INFLUENZA VACCINE (#1) 2025 8, 07/07/2017, 09/06/2015, Additional history exists DIABETES HBA1C Q 6 MONTHS 05/30/2025 11/27/2024 DTAP/TDAP/TD VACCINES (5 - T d or Tdap) 05/30/2028 05/30/2018, 06/11/2015, 10/07/2011, Additional history exists ZOSTER VACCINE Completed 11/08/2023, 09/08/2023 Medical Devices Implanted Type Area [employer]eman Device Identifier Shelf Expiration Date Model / Serial / Lot Capsule [employer] Test s-0635 - [id number] Implanted:Qty : 1 on 11/04/2022 by Rodney Stern MD at [facility] Other N/A: Esophagus [employer]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 GIVEN 10/20/2023 [facility]-0636 / [id number] Description:cm31 id#[id number] unit#[id number] Procedures Procedure Name Priority Date/Time Associated Diagnosis Comments PULMONARY FUNCTION TEST Routine 01/31/2025 3:24 PM CDT Chronic obstructive pulmonary disease, unspecified COPD type ([facility]) from Last 3 Months Results * PULMONARY FUNCTION TEST (01/31/2025 3:24 PM CDT) Impressions Shirley Link MD - 01/31/2025 3:24 PM CDT Spirometry is normal. Lung volumes are normal. Diffusion capacity is normal. Shirley Link MD, 01/31/2025 3:23 PM us Shirley Link MD PFT ORDERABLES Final Result from Last 3 Months Insurance [employer] [facility] OPEN ACCESS [facility] Address: [address] [place] [address] [facility] Advance Directives For more information, please contact: [phone] * Full Code (Latest Code Status on File) Date Activated Date Inactivated Comments 11/04/2022 6:56 AM 11/04/2022 10:32 AM * Full Code Date Activated Date Inactivated Comments 02/13/2022 7:22 AM 02/13/2022 11:08 AM Care Teams Wheel Lacer And Truer Relationship Specialty Start Date End Date Angelito Jeter MD [address] [address] PCP - General Family Practice 09/19/19
--- OUTSIDE RECORDS SUMMARY | 2025-03-13 04:00 | XMS_ITS | Encounter Summary ---
Author Organization [facility] Address [address] [place] [address] Care Team Providers Care Optical Effects Line Up Person Name Role Phone Angelito Jeter MD Primary Care Provider [phone] Encounter Details Date Type Department Care Team (Late st Contact Info) Description 08/21/2019 Ancillary Orders [facility] Pre-Registration [place] CALL TO MAKE APPOINTMENT ONLY [address] [place] [phone] Jacquelyn Conley, SURVEY TECHNOLOGIST [address], [place] [id number] Cervical disc displacement; Displacement of lumbar disc with radiculopathy Social History Tobacco Use Types Packs/Day Years Used Date Smoking Tobacco: Never Smokeless Tobacco: Never Comments Unknown Sex and Gender Information Value Date Recorded Sex Assigned at Not on file Legal Sex Female 1:25 PM CDT Gender Identity Not on file Sexual Orientation Not on file documented as of this encounter Plan of Treatment Not on file documented as of this encounter Visit Diagnoses Diagnosis Cervical disc displacement Displacement of cervical intervertebral disc without myelopathy Displacement of lumbar disc with radiculopathy documented in this encounter Care Teams Optical Effects Line Up Person Relationship Specialty Start Date End Date Angelito Jeter MD [address] [phone] PCP - General Family Practice 09/19/19 documented as of this encounter
--- OUTSIDE RECORDS SUMMARY | 2025-03-13 04:00 | XMS_ITS | Encounter Summary ---
Author Organization [facility] Address [address] [place] [address] Care Team Providers Care Food And Beverage Operations Manager Name Role Phone Angelito Jeter MD Primary Care Provider [phone] Encounter Details Date Type Department Care Team (Late st Contact Info) Description 06/27/2018 Ancillary Orders [facility] [address] [place] [address] [facility], External Provider [address] [place], [place] [id number] Pain Social History Tobacco Use Types Packs/Day Years Used Date Smoking Tobacco: Never Smokeless Tobacco: Never Comments Unknown Sex and Gender Information Value Date Recorded Sex Assigned at Not on file Legal Sex Female 1:25 PM CDT Gender Identity Not on file Sexual Orientation Not on file documented as of this encounter Plan of Treatment Not on file documented as of this encounter Results * MRI PRIOR STUDY (05/12/2018 11:00 AM CDT) Narrative 06/27/2018 1:06 PM CDT This exam was auto finalized to allow images to be scanned to PACS. External Provider [facility] MR ORDERABLES Final Resu lt documented in this encounter Visit Diagnoses Diagnosis Pain Generalized pain Pain Generalized pain documented in this encounter Care Teams Food And Beverage Operations Manager Relationship Specialty Start Date End Date Angelito Jeter MD [address] [facility] [address] [place] [address] PCP - General Family Practice 09/19/19 documented as of this encounter
--- OUTSIDE RECORDS SUMMARY | 2025-03-13 04:00 | XMS_ITS | Data Portability ---
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 liquid Take 5 mL 4 times a day by oral route for 5 days. 02/14 completed Not Available Not Available Not Available Linzess 72 mcg capsule 09/07 completed Not Available Not Available Not Available Ozempic 0.25 mg or 0.5 mg (2 mg/1.5 mL) subcutane ous pen injector inject 0.5mg SUBCUTAN EOUSLY every SEVEN DAYS FOR FOUR WEEKS 03/04 completed Not Available Not Available Not Available Ozempic 06/16 completed 0; Recorded 07/09/20 22 9:09AM by Liza Montoya LPN, Office Visit; Not Available Not Available Not Available Emgality 120 mg/mL subcutane ous syringe Inject ONE syringe UNDER THE SKIN ONCE monthly active Not Available Not Available No t Available OneTouch Delica Plus Lancet 30 gauge USE DIRECTED active Not Available Not Available No t Available Ozempic 1 mg/dose (4 mg/3 mL) subcutane ous pen injector INJECT ONE MG (0.75 ML) SUBCUTAN EOUSLY EVERY 7 DAYS active Not Available Not Available No t Available hydroxych loroquine 100 mg tablet Take 2 tablets twice a day by oral route. 03/04 completed Not Available Not Available Not Available Robafen DM 5 mg-50 mg/5 mL oral liquid TAKE 5mls BY MOUTH FOUR TIMES DAILY FOR FIVE DAYS 02/14 completed Not Available Not Available Not Available Ozempic 0.25 mg or 0.5 mg (2 mg/3 mL) subcutane ous pen injector INJECT 0.5mg SUBCUTAN EOUSLY ONCE WEEKLY active Not Available Not Available No t Available Vitals Date Recorded Body height Body mass index (BMI) Body weight Body temperature Heart rate Oxygen saturation Oxygen saturation in Arterial blood by Pulse oximetry Systolic And Diastolic Provider Name and Address Organization Details Last Updated DateTime 4 167.64 cm 35.5 kg/m2 47120.3 2 g 97.4 [degF] 69 /min 98 % 98 % 138/80 mm[Hg] Sariah Cm [facility] 4 08:25:24 Date Recorded Body height Body mass index (BMI) Body weight Body temperature Heart rate Oxygen saturation Oxygen saturation in Arterial blood by Pulse oximetry Systolic And Diastolic Provider Name and Address Organization Details Last Updated DateTime 4 167.64 cm 34.4 kg/m2 22966.1 7 g 97.7 [degF] 72 /min 98 % 98 % 118/70 mm[Hg] LIZA MONTOYA [facility] 4 11:19:50 Date Recorded Body height Body mass index (BMI) Body weight Body temperature Oxygen saturation Oxygen saturation in Arterial blood by Pulse oximetry Heart rate Systolic And Diastolic Provider Name and Address Organization Details Last Updated DateTime 4 167.64 cm 35.2 kg/m2 90806.1 4 g 98.1 [degF] 97 % 97 % 59 /min 142/90 mm[Hg] MICHAEL KAREN [facility] 4 10:25:42 Social History None recorded. Functional Status Question Answer Note LastModified by Organizat ion Details LastModified Time Do you use any illicit or recreational drugs? No [email or web address] Information not available 09/07/2023 Do you or have you ever used any other forms of tobacco or nicotine? No [email or web address] Information not available 09/07/2023 What is your level of alcohol consumption? Occasional [email or web address] Information not available 09/07/2023 Mental Status None recorded. Family History Relationship Description Onset Age of this Age Resolved Age Notes LastModified by Organization Details LastModified Time Mother Type 2 diabetes mellitus [email or web address] Not available 09/07 10:10:27 Paternal Grandmother Type 2 diabetes mellitus [email or web address] Not available 09/07 10:10:37 Medical History No medical history recorded. Gynecological History Statement/Question Response Most Recent Mammogram 07/20/2024 Obstetrics History GPAL:G 2 P 1 2 0 3 Type Value Full Term 1 Spontaneous 0 Premature 2 Living 3 Total 2 Immunizations Vaccine Type Date Status Note Provider Nam e and Address Organization Details Recorded Time Hep A, adult 7 completed Not Available [facility] 10/08/2023 09:24:06 Tdap 8 completed Not Available [facility] 10/08/2023 09:24:06 Influenza, split virus, trivalent, preservative 8 completed Not Available [facility] 10/08/2023 09:24:06 pneumococcal polysaccharide PPV23 7 completed Not Available [facility] 10/08/2023 09:24:06 Influenza, split virus, trivalent, preservative 7 completed Not Available [facility] 10/08/2023 09:24:06 Influenza, split virus, trivalent, preservative 6 completed Not Available [facility] 10/08/2023 09:24:06 Pneumococcal conjugate PCV 13 6 completed Not Available [facility] 10/08/2023 09:24:06 Pneumococcal conjugate PCV20, polysaccharide CVP047 conjugate, adjuvant, PF 3 completed Sariah Cm null, [facility] 03/04/2023 11:25:38 zoster recombinant 4 completed LIZA richardson, [facility] 09/08/2023 14:33:06 zoster recombinant 4 completed Ramón Jeter MD [address] [place] [address], [phone], [facility] 11/08/2023 16:00:31 Past Encounters Encounter ID Performer Location Encounter Start Date Encounter Closed Date Diagnosis/Indication Diagnosis SNOMED-CT Code Diagnosis ICD10 Code Diagnosis Note [id number] Ainsley Gracia MD [facility] ([facility]) [address] [place] [address] [id number] 12/28/2022 13:21:24 12/28/2022 14:05:10 Acute sinusitis 40309804 J01.90 worsening after 2 months, will treat. [id number] Ramón Jeter MD [facility] ([facility]) [address] [place] [address] [id number] 03/04/2023 10:52:45 03/04/2023 12:09:03 Sj gren's syndrome 66735645 M35.00 may use otc viscous lidocaine as needed but focus on biotene to keep the oral mucosa moist. Painful mouth 349903329 K13.79 [id number] Ramón Jeter MD [facility] ([facility]) [address] [place] [address] [id number] 03/26/2023 09:37:14 03/26/2023 10:35:32 Coronary atherosclerosis 501005934 I25.396 [id number] Ramón Jeter MD [facility] ([facility]) [address] [place] [address] [id number] 06/25/2023 10:43:13 06/25/2023 11:13:48 Herpes zoster 3369632 B02.9 [id number] Ramón Jeter MD [facility] ([facility]) [address] [place] [address] [id number] 09/07/2023 10:05:08 09/07/2023 11:30:13 Active or passive immunization 322726452 Z23 [id number] Ramón Jeter MD [facility] ([facility]) [address] [place] [address] [id number] 10/08/2023 09:23:40 10/08/2023 12:01:15 Sj gren's syndrome 06196552 M35.00 will f/u with rheum.she is made aware of possibilit y of eye problems including retinopath y and loss of vision with plaquenil. she has her next exam in January. she also gets frequent hearing exams due to service. from notes still possibly considerin g cannot r/o or provisiona l dx. will follow. will send to her optometris t to make aware of her taking hydroxychl oroquine. Serum thyr oid stimulating hormone level outside reference range 499846565 R89.1 [id number] Ramón Jeter MD [facility] ([facility]) [address] [place] [address] [id number] 11/08/2023 10:38:23 11/08/2023 13:35:10 Herpes zoster vaccination given 3395268119 89531 Z23 [id number] Ramón Jeter MD [facility] ([facility]) [address] [place] [address] [id number] 12/29/2023 12:05:58 12/29/2023 15:36:54 Fever 404197925 R50.9 Viral uppe r respiratory tract infection 473024033 J06.9 [id number] Ramón Jeter MD [facility] ([facility]) [address] [place] [address] [id number] 02/15/2024 08:01:35 02/15/2024 10:33:51 Nausea 624558268 R11.0 hold ozempic until wednesday and reduce to .25 mg as it is due in 3 days. Increased blood pressure 67042314 R03.0 [id number] Ramón Jeter MD [facility] ([facility]) [address] [place] [address] [id number] 04/07/2024 11:15:50 04/07/2024 12:06:25 Vertigo 487500207 R42 she reports intermitte nt spells of vertigothi s is the source of her nausea not her ozempicit is pretty short lived if she is still. Diabetes mellitus 657916 09 E11.9 could not tolerate 1 mg of ozempic will continue 0.5 [id number] Ramón Jeter MD [facility] ([facility]) [address] [place] [address] [id number] 04/04/2024 15:08:08 04/05/2024 11:52:43 Sj gren's syndrome 08354294 M35.00 will f/u with rheum.she is made aware of possibilit y of eye problems including retinopath y and loss of vision with plaquenil. she has her next exam in January. she also gets frequent hearing exams due to service. from notes still possibly considerin g cannot r/o or provisiona l dx. will follow. will send to her optometris t to make aware of her taking hydroxychl oroquine. [id number] Ramón Jeter MD [facility] ([facility]) [address] [place] [address] [id number] 06/21/2024 10:24:49 06/22/2024 11:42:32 Hypercholesterolemia 07729323 E78.00 [id number] Ramón Jeter MD [facility] ([facility]) [address] [place] [address] [id number] 06/26/2024 10:15:30 06/26/2024 12:08:41 Adult health examination 908156775 Z00.00 Screening mammography 24 268627 Z12.31 she has been notified of time for mammogram but she keeps forgetting to schedule it. so she has happy for our help with that. Screening colonoscopy 44 9879302 Z12.11 Sj gren's syndrome 24421974 M35.00 her rheumatolo gist left the area and the clinic here is not accepting transfer oshe is made aware of possibilit y of eye problems including retinopath y and loss of vision with plaquenil. she has her next exam in January. she also gets frequent hearing exams due to service. from notes still possibly considerin g cannot r/o or provisiona l dx. will follow. Metabolic dysfunction-associate d steatohepatitis 470245566 K75.81 Stage 3 he patic fibrosis 1259945957 6522014 K74.02 Type 2 you betes mellitus 21173860 E11.9 Hypercholesterolemia 136 36814 E78.00 Health Concerns Section Related Observation LastModified by Organization Detai ls LastModified Time None Recorded Concern Status LastModified by Organization Details LastModified Time None Recorded Advance Directives Directive None Recorded Payers Insurance Date Sequence Insurance Name Policy Number Policy Calero Covered Member ID Calero Member ID Guarantor Name 06/21/2024 1 [employer] [id number] Nghia Vu [id number] Jaiden Vu 12/29/2023 1 [facility] (PP[facility] Jaiden Vu [id number] Jaiden Vu 09/08/2023 1 [facility] (O) [id number] Nghia Vu [id number] Jaiden Vu Notes Date Note Type Note Provider Name and Address Organization Details Recorded Time 02/15/2024 text/html Hypertension IM/FMReported bypatient.Quality:new onset symptoms Severity:152/113 was the highest reading she got at home. Readings have been 110s-150s/70s-110s. She has not had her cuff checked for accuracy and at times gets very inaccurate readings such as 165/150. she began having nausea and diarrhea a few days ago.no fever or bloody stoolsshe is able to drinkthis is prevalent in the community.she had only mild diarrhea yesterday. watery stools.she had quite a few stools yesterday.she has not vomited.she is not aware of any sick contacts currently.no rashno petechiae no purpura.she says there is really not any abdominal pain Ramón Jeter MD [address] [place] [address], [phone], [facility] 02/15/2024 08:40:11 04/07/2024 text/html DiabetesReported bypatient.Duration:chr onic Control:treated with (Ozempic) Compliance:compliant with medications; compliant with follow-up visits Self Care:monitoring glucose 2 times per day; 80-150 Associated Symptoms:no increased appetite Ramón Jeter MD [address] [place] [address], [phone], [facility] 04/07/2024 11:48:35 06/26/2024 text/html Annual WellnessReported bypatient.Additional Lifestyle Factors:no tobacco use Depression Risk:never feels sad, empty, or tearful; no loss of interest in activities; no sleep disturbances or insomnia Ramón Jeter MD [address] [place] [address], [phone], [facility]ul Hastings 06/26/2024 11:05:33 OBGyn Episode No OBEpisode recorded.
[2025-03-13 05:47] LABS: Hematocrit 39.3 % (36-47); Hemoglobin 13.10 g/dL (11.27-16.99); Mean Corpuscular HGB Conc 33.3 g/dL (30-55); Mean Corpuscular Hemoglobin 29.6 pg (27-33); Mean Corpuscular Volume 88.9 fl (85-98); Nucleated Red Blood Cells % 0 %; Platelet Count 186 10^3/cmm (157-399); Red Blood Count 4.42 10^6/uL (3.85-5.65); White Blood Count 11.05 10^3/uL (3.29-11.43)
[2025-03-13 06:07] LABS: Anion Gap 15.3 (5-19); Blood Urea Nitrogen 10 mg/dL (6-20); Calcium 9.0 mg/dL (8.5-10.5); Carbon Dioxide 24 mmol/L (22-29); Chloride 104 mmol/L (98-107); Creatinine Clr Calc Pharmacy 151.0007; Glucose 210 mg/dL (65-115); Osmolality Calculated 293 mOsm/kg (285-295); Potassium 4.3 mmol/L (3.5-5.1); Sodium 139 mmol/L (136-145)
[2025-03-13 07:28] VITALS: PULSE 64; RESP 16; O2SAT 98
[2025-03-13 07:37] VITALS: BP 146/84; PULSE 63; RESP 16; TEMP 36.6; O2SAT 97
[2025-03-13] MEDS: sennosides-docusate Tablet 2 TAB PO (07:47)
[2025-03-13] MEDS: multivitamin therapeutic Tablet 1 TAB PO (07:48)
[2025-03-13] MEDS: ranolazine (12HR) 500 mg Tablet PO (07:48)
[2025-03-13] MEDS: calcium carb-vit d 600mg/400unit 1 Tablet 1 EACH PO (07:48)
[2025-03-13] MEDS: fluticasone nasal spray 16gm Btl 1 SPRAY INTRANASAL (07:48)
[2025-03-13] MEDS: chlorhexidine gluconate 0.12% Btl 473 mL 30 ML MUCOUS MEM ×2 (07:51→11:47)
[2025-03-13] MEDS: mupirocin oint 22 gm 1 APPLIC NASAL (07:52)
--- NOTE | 2025-03-13 09:21 | P.PN_ITS ---
Subjective 2 Subjective: Patient did good overnight. Pain is controlled with current regimen. Has gotten up with PT and they reported she did well. Medications: Reviewed: Yes Vitals/I&O/Wt Last Vital Signs Temp 97.9 F 03/13/25 07:37 Pulse 63 03/13/25 07:37 Resp 16 03/13/25 07:37 BP 146/84 03/13/25 07:37 Pulse Ox 97 03/13/25 07:37 O2 Del Method Room Air 03/13/25 07:37 03/12/25 03/13/25 03/13/25 22:59 06:59 14:59 Intake Total 466.5 / 916.5 1150 / 2066.5 240 / 240 Output Total 300 / 625 450 / 1075 Balance 166.5 / 291.5 700 / 991.5 240 / 240 Weight last 48 hrs Weight 104.837 kg Weight 106.594 kg Weight 100.698 kg Physical Exam 2 Narrative: Awake and alert, sitting up in bedside chair, smiling. No increased work of breathing. Right lower extremity remains dressed appropriately. Moves toes. Urinary Catheter Management: Mcclendon Latex Free: Cath Placed During This Visit: yes, but has since been removed by the nurse Reason for Continuing Indwelling Catheter: Perioperative Use in Selected Surgeries Urinary Catheter Date of Insertion: 03/12/25 Urinary Catheter Time of Insertion: 13:00 Date Urinary Catheter Removed: 03/13/25 Time Urinary Catheter Discontinued: 05:29 Data 03/13/25 05:01 03/13/25 05:01 A&P Assessment and plan 1. Status post total right knee replacement using cement: POD 1. Doing well. - Continue pain control - Asked patient to review Celebrex and postoperative pain medicines with Dr. Euceda before discharge - Mcclendon out - Eliquis to start - Stool softeners, laxatives as needed reviewed with patient - No contraindication for DC from Hospitalist standpoint at this time 2. Benign essential HTN: - Continue home amlodipine and losartan 3. Type 2 diabetes mellitus with diabetic neuropathy: - Sliding scale insulin currently, blood sugars high after OR but A1c has been good - To resume semaglutide upon discharge 4. Chronic chest pain: - Continue home Ranexa 5. NOLBERTO (obstructive sleep apnea): - CPAP with sleep 6. Asthma: - Continue home inhalers upon discharge - As needed albuterol here 7. Hyperlipemia, mixed: - Continue home statin 8. Systemic lupus erythematosus: - Aware of diagnosis, not currently on medication management specifically for this 9. Sjogrens syndrome: - Continue moisture care as needed 10. GERD (gastroesophageal reflux disease): - Continue home PPI 11. Chronic migraine without aura, intractable, with status migrainosus: - Upon discharge can resume usual migraine management keeping in mind potential interaction with added medications 12. Mild cognitive impairment with memory loss: - Continuing home Namenda 13. Allergy to alpha-gal: - Dietary management as usual Plan: - Continue other home medications including Singulair, azelastine, cetirizine, fluoxetine and potassium VTE prophylaxis: Eliquis Antibiotics: perioperative completed Pending studies: none Telemetry: not currently indicated Mcclendon: removed Line(s): peripheral IVs Disposition plan: Home with outpatient follow up and PT as per discharge plan arranged prior to elective surgery anticipated today. Home medications reviewed and patient and family were given an opportunity to ask questions. Code Status: Full Code Supportive care otherwise Plans as noted were discussed with patient and she was given an opportunity to ask questions PDMP PDMP Reviewed: Last Reviewed 03/12/25 20:54 by Sharon Concepcion MD Attestations 2 Medical Necessity Statement*: as per attending Diagnoses Status post total right knee replacement using cement Z96.651 Benign essential HTN I10 Type 2 diabetes mellitus with diabetic neuropathy, without long-term current use of insulin E11.40 Diabetes mellitus superintendent container terminal insulin use: without superintendent container terminal use Chronic chest pain R07.9; G89.29 NOLBERTO (obstructive sleep apnea) G47.33 Mild persistent asthma without complication J45.30 Asthma complication type: uncomplicated Asthma persistence: persistent Asthma severity: mild Hyperlipemia, mixed E78.2 Systemic lupus erythematosus, unspecified SLE type, unspecified organ involvement status M32.9 Systemic lupus erythematosus organ involvement: unspecified Systemic lupus erythematosus type: unspecified Sjogren's syndrome with keratoconjunctivitis sicca M35.01 Sjogren organ or system involvement: keratoconjunctivitis Gastroesophageal reflux disease without esophagitis K21.9 Esophagitis presence: without esophagitis Chronic migraine without aura, intractable, with status migrainosus G43.711 Mild cognitive impairment with memory loss G31.84 Allergy to alpha-gal Z91.018
--- NOTE | 2025-03-13 09:38 | PC.OT ---
PER P.T REQUEST; DISCUSSED BATHROOM ADAPTATIONS WITH THE PATIENT.
--- NOTE | 2025-03-13 10:19 | PC.CHAP ---
Pastoral Care Encounter/Spiritual Assessment Type of Contact [] Declined supervisor display fabrication visit [] Patient/Family/Request visit [] Outpatient visit [] Follow-up visit [] Physician referral [] Code/Alert [x] Routine visit [] Staff referral [] Actively dying [] Patient sleeping [x] Family support [] [] Out of room [] Palliative care [] [] Receiving care in room [] Pre-surgical visit [] Trauma [] Long length of stay [] ICU visit [] Other: Relational/Emotional Strength [x] Patient feels connected with others/family/visitors/staff [] Distress [] Loneliness/isolation [] Abandonment Spirituality of Patient [x] Person of Ly [] Attends Protestant of their Ly [x] Believes in Prayer [] Reads Bible or Scientology materials [] There are Spiritual issues to be addressed Forge Operator Interventions [x] Prayer [x] Active listening [] Non-anxious presence [x] Spiritual/emotional support [] Crisis/trauma care [] Spiritual counseling [] Bereavement support [] Provided bereavement packet [] Provided Bible/devotional materials [] Provided toy/stuffed animal, coloring book to patient or family member [] Provided Communion [] Anointing/Orange [] Salvation [x] Completed spiritual assessment [] Other: Impact on Illness or Injury [] Angry [] Fearful [] Anxious [] Often cries [] Exhaustion [] Unable to work [] Unable to attend jewish [] Unable to walk/stand [] Unable to read [] Unable to drive [] Unable to eat/drink [] Unable to sleep [] Unable to be with family [] Patient intubated [] Other: Summary Time spent with patient 5 min
[2025-03-13 11:48] VITALS: BP 117/74; PULSE 62; RESP 17; TEMP 36.6; O2SAT 95
--- NOTE | 2025-03-13 12:05 | P.DS_ITS ---
Discharge Providers Date of Admission: 03/12/25 17:45 Date of Discharge: March 13, 2025 Attending Provider at Admission: Daron Euceda DO Attending Provider at Discharge: Daron Euceda DO Consults: Dr. Concepcion?hospitalist Primary Care Provider: CHRISTINA Becker Diagnoses at Discharge Discharge Diagnosis 1. Status post total right knee replacement using cement: 2. Benign essential HTN: 3. Type 2 diabetes mellitus with diabetic neuropathy, without long-term current use of insulin: 4. Chronic chest pain: 5. NOLBERTO (obstructive sleep apnea): 6. Mild persistent asthma without complication: 7. Hyperlipemia, mixed: 8. Systemic lupus erythematosus, unspecified SLE type, unspecified organ involvement status: 9. Sjogren's syndrome with keratoconjunctivitis sicca: 10. Gastroesophageal reflux disease without esophagitis: 11. Chronic migraine without aura, intractable, with status migrainosus: 12. Mild cognitive impairment with memory loss: 13. Allergy to alpha-gal: Reason for Visit Reason for Visit: M17.11 Brief History: Status post right total knee arthroplasty?[facility] robotic assisted Hospital Course Hospital Course Patient presented to the preoperative holding area with plan for right total knee arthroplasty after patient has been worked up in the outpatient setting for failed conservative treatment of [right] knee degenerative joint disease. Once cleared by anesthesia for surgery patient subsequently was taken back to the operative suite underwent anesthesia per anesthesia department and then subsequently underwent a [right] total knee arthroplasty. Procedure was performed without any complications patient was taken to PACU in stable condition patient recovered well in PACU and then was admitted to the floor postoperatively internal medicine was consulted and on board for medical management and assistance with care. Patient received appropriate PT/OT, postoperative antibiotics, postoperative TXA, pain control, postoperative DVT prophylaxis. Elevation and ice. Patient encouraged for knee range of motion allowed weightbearing as tolerated to the operative lower extremity. Dressing was changed as needed, labs were monitored daily. Patient recovered well postoperatively and worked well and progressed well with therapy. It was determined on postoperative day 1 the patient was stable for discharge from an orthopedic standpoint and medicine. Patient was comfortable with discharge and plan was discharged home. Patient received appropriate discharge instructions as well as pain medication and DVT prophylaxis postoperatively. Given appropriate instructions for dressing management. Patient will follow-up with Dr. Euceda/orthopedics in the office in 2 weeks. All questions answered. Understand if there is any issues questions or concerns and contact the office. Physical Exam Narrative: Right knee examination: Dressing on in place, clean dry and intact. No evidence of saturation. Patient has normal postoperative swelling and tenderness to palpation to the knee. Compartments are soft compressible,'s calf soft and nontender. Sensations intact to light touch distally. Distal pulses are palpable. Patient is able to wiggle toes as well as plantarflex and dorsiflex ankle. Urinary Catheter Management: [place] Latex Free: Cath Placed During This Visit: yes, but has since been removed by the nurse Reason for Continuing Indwelling Catheter: Perioperative Use in Selected Surgeries Urinary Catheter Date of Insertion: 03/12/25 Urinary Catheter Time of Insertion: 13:00 Date Urinary Catheter Removed: 03/13/25 Time Urinary Catheter Discontinued: 05:29 Discharge Data Studies Completed and Pending Completed Studies During Hospitalization Category Date Time Status XR knee RT 1-2V 43222 Routine Exams 03/12/25 14:44 Completed Pending at discharge Category Date Time Status Basic Metabolic Panel AM LABS Lab 03/14/25 04:00 Ordered Basic Metabolic Panel AM LABS Lab 03/15/25 04:00 Ordered Complete Blood Count w/Auto AM LABS Lab 03/14/25 04:00 Ordered Complete Blood Count w/Auto AM LABS Lab 03/15/25 04:00 Ordered Radiology Impressions Knee X-Ray 03/12/25 14:44 IMPRESSION: Expected postoperative appearance of the knee. Laboratory Results WBC 11.05 10^3/uL (3.29-11.43) 03/13/25 05:01 RBC 4.42 10^6/uL (3.85-5.65) 03/13/25 05:01 Hgb 13.10 g/dL (11.27-16.99) 03/13/25 05:01 Hct 39.3 % (36-47) 03/13/25 05:01 MCV 88.9 fl (85-98) 03/13/25 05:01 MCH 29.6 pg (27-33) 03/13/25 05:01 MCHC 33.3 g/dL (30-55) 03/13/25 05:01 RDW 13.0 % (12.1-15.1) 03/13/25 05:01 Plt Count 186 10^3/cmm (157-399) 03/13/25 05:01 MPV 10.3 fL (7.4-10.4) 03/13/25 05:01 Neut % (Auto) 85.2 % 03/13/25 05:01 Lymph % (Auto) 8.0 % 03/13/25 05:01 Tate % (Auto) 6.0 % 03/13/25 05:01 Eos % (Auto) 0.0 % 03/13/25 05:01 Baso % (Auto) 0.2 % 03/13/25 05:01 Neut # (Auto) 9.42 10^3/uL (1.8-7.7) H 03/13/25 05:01 Lymph # (Auto) 0.9 10^3/uL (0.8-4.8) 03/13/25 05:01 Tate # (Auto) 0.7 10^3/uL (0.2-0.9) 03/13/25 05:01 Eos # (Auto) 0.0 10^3/uL (0.0-0.8) 03/13/25 05:01 Baso # (Auto) 0.0 10^3/uL (0.0-0.1) 03/13/25 05:01 Nucleated RBC % (auto) 0 % 03/13/25 05:01 Nucleated RBCs # 0.0 /100WBC 03/13/25 05:01 Sodium 139 mmol/L (136-145) 03/13/25 05:01 Potassium 4.3 mmol/L (3.5-5.1) 03/13/25 05:01 Chloride 104 mmol/L (98-107) 03/13/25 05:01 Carbon Dioxide 24 mmol/L (22-29) 03/13/25 05:01 Anion Gap 15.3 (5-19) 03/13/25 05:01 BUN 10 mg/dL (6-20) 03/13/25 05:01 Creatinine 0.5 mg/dL (0.5-0.9) 03/13/25 05:01 GFR Calculation 127.6 mL/min (90-130) 03/13/25 05:01 Glucose 210 mg/dL (65-115) H 03/13/25 05:01 POC Glucose 245 mg/dL (70-110) H 03/13/25 06:07 Calculated Osmolality 293 mOsm/kg (285-295) 03/13/25 05:01 Calcium 9.0 mg/dL (8.5-10.5) 03/13/25 05:01 Blood Type O Positive 03/12/25 11:09 Rho(D) Type Rh positive 03/12/25 11:09 Antibody Screen Negative 03/12/25 11:09 Vitals Last Vital Signs Temp 97.8 F 03/13/25 11:48 Pulse 62 03/13/25 11:48 Resp 17 03/13/25 11:48 BP 117/74 03/13/25 11:48 Pulse Ox 95 03/13/25 11:48 O2 Del Method Room Air 03/13/25 11:48 Discharge Plan Discharge Patient Disposition: Home Health Service Condition: Stable Prescriptions: New Eliquis 2.5 mg tablet 2.5 mg PO BID 14 Days Qty: 28 0RF methocarbamol 500 mg tablet 500 mg PO TID PRN (Reason: muscle spasms/pain) 14 Days Qty: 42 0RF tramadol 50 mg tablet 50 mg PO Q6H PRN (Reason: pain) 7 Days Qty: 28 0RF clindamycin palmitate HCl [Clindamycin Pediatric] 75 mg/5 mL recon soln 10 ml PO Q6H 7 Days Qty: 280 0RF Continued promethazine 25 mg tablet 25 mg PO Q6H PRN (Reason: migraine) fluticasone propionate [Flonase Allergy Relief] 50 mcg/actuation spray,suspension 1 spray intranasal BID Qty: 50 3RF Rx Instructions: administer into each nostril (DME) blood-glucose meter Misc See Rx Instructions .Route Qty: 1 0RF Rx Instructions: Check BS 4 times a day. albuterol sulfate 90 mcg/actuation HFA aerosol inhaler 2 puff inhalation Q6H PRN (Reason: Shortness Of Breath) (DME) lancets [OneTouch UltraSoft 2 Lancet] 30 gauge misc See Rx Instructions .Route Qty: 200 0RF Rx Instructions: As directed Patient preference rosuvastatin 40 mg tablet 40 mg PO DAILY Emgality Syringe 120 mg/mL syringe 120 mg SUBCUT ONCE Qty: 1 11RF Rx Instructions: take monthly, normally on the first ivermectin [Soolantra] 1 % cream 1 applic topical DAILY Qty: 45 3RF Rx Instructions: Soolantra Apply to face daily. valacyclovir 500 mg tablet 500 mg PO BID PRN (Reason: breakout) (DME) Diabetic Shoes See Rx Instructions .Route .MEDSUPPLY Qty: 1 0RF Rx Instructions: As directed diclofenac sodium [Voltaren Arthritis Pain] 1 % gel 1 ea topical DAILY Rx Instructions: apply to single elbow, wrist or hand; for hand includes palm/fingers/back of hand nitroglycerin [Nitrostat] 0.4 mg tablet, sublingual 0.4 mg SUBLINGUAL Q5M PRN (Reason: chest pains) Qty: 30 5RF hydroxychloroquine 200 mg tablet 200 mg PO BID Qty: 180 1RF zolmitriptan [Zomig] 5 mg tablet 5 mg PO Q2H PRN (Reason: migraine headache) Qty: 10 5RF Rx Instructions: do not exceed 2 doses per 24 hrs amlodipine 2.5 mg tablet 5 mg PO DAILY Qty: 90 3RF ranolazine 500 mg tablet extended release 12 hr 500 mg PO BID Qty: 180 3RF fluoxetine [Prozac] 20 mg capsule 20 mg PO DAILY Qty: 90 3RF potassium chloride 8 mEq tablet extended release 8 meq PO DAILY Qty: 90 2RF fluticasone propion-salmeterol [Advair Diskus] 500-50 mcg/dose blister with device 1 inh inhalation BID Qty: 60 4RF montelukast [Singulair] 10 mg tablet 10 mg PO DAILY Qty: 30 6RF Spiriva Respimat 1.25 mcg/actuation mist 2 puff inhalation DAILY Qty: 4 6RF losartan 25 mg tablet 25 mg PO DAILY Qty: 30 3RF semaglutide 0.25 mg or 0.5 mg (2 mg/3 mL) pen injector 0.5 mg SUBCUT Q7D Qty: 3 3RF memantine 10 mg tablet 10 mg PO BID Rx Instructions: TAKE ONE TABLET BY MOUTH TWICE DAILY One Touch Ultra Blue Test Strips 1 lancet as directed QID Rx Instructions: USE one strip TO test FOUR TIMES DAILY Aimovig Autoinjector 140 mg/mL auto-injector 140 mg SUBCUT ONCE Rx Instructions: hasn't taken this yet azelastine 137 mcg (0.1 %) aerosol,spray 2 spray INTRANASAL BID Systane (PF) 0.4-0.3 % Dropperette 1 drp OPHTHALMIC (EYE) Q4H cetirizine 10 mg tablet 10 mg PO BID Held celecoxib [Celebrex] 100 mg capsule 100 mg PO DAILY Qty: 30 1RF Hold Instructions: Resume on 03/27/25. Configuration Management Consultant OK for DC: Hospitalist Discharge Order = DC NOW: Discharge Order (Routine); Ordered 03/13/25 Ordered By: Daron Euceda Referrals: [facility] [Outside] Daron Euceda DO [Physician, Orthopedics] - 04/09/25 10:15 am Discharge Diet: Regular Discharge Activity: Limit activity as instructed Patient Instructions: Clindamycin (By mouth), Methocarbamol (By mouth), Tramadol (By mouth), Ondansetron (By mouth), Apixaban (By mouth) (Eliquis), Acute Wound Care (DC), Precautions after Total Joint Replacement Surgery (DC), Joint Replacement Surgery (DC), Opioid Safety, Post Anesthesia Care, Patient Portal & [place] Instructions Activity Restrictions/Additional Instructions: Orthopedic discharge instructions May remove Nima bandage and cotton dressings down to the cain incisional VAC dressing after 72 hours Cain Dressing--Keep dressing on and dry. After 3 days you can remove some of the dressing and shower. disconnect battery pack when showering. Cain dressing will stay on until follow up appt in 2 weeks. The battery pack for the dressing will at 5-7 days. Battery pack can be removed and discarded once batteries . Patient may weight-bear as tolerate to the operative extremity Utilize walker as needed Encourage knee range of motion Ice and elevate as needed for pain and swelling Take pain medication as prescribed Take antinausea medication as needed Take muscle relaxer as prescribed for pain and muscle spasm as needed Take antibiotic as prescribed for antibiotic infection prophylaxis Pain medication can cause constipation. take [id number] stool softeners and or MiraLAX. Take prescribed Eliquis twice daily for the next 14 days for blood clot prevention May supplement for pain with Tylenol fbba-dxw-uwokxee as needed(1000 mg every 8 hours-do not exceed more than 3000mg in 24-hour period) No baths or soaks Follow-up in the orthopedic office in 2 weeks Contact the office for any questions or concerns Discharge Attestations Time Spent in Discharge Care*: less than 30 min Quality Metrics Clinical Quality Measures [ No reported AMI, CVA or VTE this stay] Coding Level of Care Code Acute Code for Chg Fwd Diagnoses Status post total right knee replacement using cement Z96.651 Benign essential HTN I10 Type 2 diabetes mellitus with diabetic neuropathy, without long-term current use of insulin E11.40 Diabetes mellitus residential insulin use: without residential use Chronic chest pain R07.9; G89.29 NOLBERTO (obstructive sleep apnea) G47.33 Mild persistent asthma without complication J45.30 Asthma complication type: uncomplicated Asthma persistence: persistent Asthma severity: mild Hyperlipemia, mixed E78.2 Systemic lupus erythematosus, unspecified SLE type, unspecified organ involvement status M32.9 Systemic lupus erythematosus organ involvement: unspecified Systemic lupus erythematosus type: unspecified Sjogren's syndrome with keratoconjunctivitis sicca M35.01 Sjogren organ or system involvement: keratoconjunctivitis Gastroesophageal reflux disease without esophagitis K21.9 Esophagitis presence: without esophagitis Chronic migraine without aura, intractable, with status migrainosus G43.711 Mild cognitive impairment with memory loss G31.84 Allergy to alpha-gal Z91.018
[2025-03-13 13:26] VITALS: BP 117/74; PULSE 62; O2SAT 95
== END 2025-03-13 13:27 | disposition home health service (06) ==
LOC: MEDSURG 03-13 03:58
PROVIDERS: Physician Assistant; Admitting Provider Student in an Organized Health Care Education/Training Program; PCP Nurse Practitioner; Visit Provider Student in an Organized Health Care Education/Training Program
PROC: 8E0Y0CZ Robotic Assisted Procedure of Lower Extremity, Open Approach (ICD-10-PCS; CPT 27447; principal; 2025-03-12 12:30)
DX: M17.11 Unilateral primary osteoarthritis, right knee (principal); I10 Essential (primary) hypertension; E11.40 Type 2 diabetes mellitus with diabetic neuropathy, unspecified; J45.30 Mild persistent asthma, uncomplicated; E78.2 Mixed hyperlipidemia; M32.9 Systemic lupus erythematosus, unspecified; M35.01 Sjogren syndrome with keratoconjunctivitis; K21.9 Gastro-esophageal reflux disease without esophagitis; G43.711 Chronic migraine without aura, intractable, with status migrainosus; G31.84 Mild cognitive impairment of uncertain or unknown etiology; G47.33 Obstructive sleep apnea (adult) (pediatric); Z91.014 Allergy to mammalian meats; E66.01 Morbid (severe) obesity due to excess calories; Z68.38 Body mass index [BMI] 38.0-38.9, adult
CPT/HCPCS: 27447; 20985; 36415; 36416; 51702; 73560; 80048; 82962; 85025; 86850; 86900; 94640; 96372; 97116; 97161; 97165; A4216; C1713; C1776; G0378; J0131; J0171; J1100; J1815; J1885; J2250; J2371; J2704; J2795; J3370; J3490; J7030; J7050; J7120; J7613; J7626; J9999; L8699

== ENCOUNTER 2025-03-27 14:56 | Emergency (ER) | payer OTHER, SELFPAY ==
--- OUTSIDE RECORDS SUMMARY | 2025-03-27 08:52 | XMS_ITS | Continuity of Care Document ---
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 It does not include entries that were removed or entered in error. Problem Status Onset Date Problem Type Date of Resolution Comments Source Impaired Fasting Glucose Active 11/27/19 10 Condition Dec 03, 2009 Entered By: MIMI RICHARDSON Comment: FBS 130 [facility] Asthma Active 09/06/19 06 Condition [facility] Knee: arthralgia Active 09/06/18 92 Condition Sep 11, 2005 Entered By: YONI MTZ Comment: 1991 chronic knee pain since in service [facility] Allergic Rhinitis ([facility] [id number]) Active Condition [facility] Allergic rhinitis * (ICD-9-CM 477.9) Active Condition [facility] Cervical radiculopathy Active Condition [facility] Chronic back pain Active Condition [facility] COPD - Chronic Obstructive Pulmonary Disease (SCT 19354169) [facility] Degeneration of lumbar intervertebral disc Active Condition [facility] Depression (SCT 52633387) [facility] Diabetes Mellitus Type 2 (SCT 04967961) Active Condition [facility] Dysmenorrhea Active Condition [facility] Exposure to potentially hazardous substance Active Condition [facility] Gastroesophageal Reflux Disorder * (ICD-9-CM 530.81) Active Condition [facility] GERD - Gastro-Esophageal Reflux Disease (SCT 670719790) [facility] Headache Active Condition [facility] History of total hysterectomy Active Condition Nov 01, 2023 Entered By: KVNG MONTOYA Comment: for cancerous reasons [facility] HTN - Hypertension (SCT 20131986) Active Condition [facility] Hyperlipidemia Active Condition [facility] Hyperlipidemia ([facility] 53782705) Active Condition [facility] Joint Pain Active Condition [facility] - Lupus erythematosus Active Condition [facility] Menorrhagia Active Condition Dec 13, 2007 Entered By: MIMI RICHARDSON Comment: 08/23/2006 Total hysterectomy ; Jay salpingo-oop horectomy [facility] Migraine Active [place] [facility] Migraines Active Condition [facility] Non-alcoholic fatty liver disease Active Condition [facility] OA - Osteoarthritis (SCT 890787848) Active Condition [facility] [place] [facility] Obesity ([facility] [id number]) Active Condition [facility] OSTEOARTHROS NOS-UNSPEC Active Condition [facility] Other and unspecified ovarian cyst Active Condition [facility] Premenstrual dysphoric Disorder Active Condition [facility] Sjogren's syndrome Active Condition [facility] Vaginal dryness on intercourse Active Condition [facility] Cardiovascular symptoms Inactive Condition 11/01/2023 [place] [facility] Cervical radiculopathy (SNOMED CT 36457093) Inactive Condition 11/27/2024 [place] [facility] Chest Pain, precordial Inactive Condition 11/01/2023 [place] [facility] GERD Inactive Condition 11/01/2023 [place] [facility] Herpes zoster (SNOMED CT 8197732) Inactive Condition 11/01/2023 [place] [facility] Neck pain Inactive Condition 11/01/2023 [place] [facility] Neck Sprain/Strain Inactive Condition 11/01/2023 [place] [facility] Non-alcoholic fatty liver (SNOMED CT 218220115) Inactive Condition 11/01/2023 [place] [facility] Obesity (SNOMED CT 668670891) Inactive Condition 11/01/2023 [place] [facility] Routine gynecological exam done Inactive Condition 11/01/2023 [facility] Unresolved Inactive Condition 11/01/2023 [place] [facility] Diagnosis: ICD-10-CM G47.33 Obstructive sleep apnea (adult) (pediatric) Active Diagnosis [place] [facility] Diagnosis: ICD-10-CM G43.909 Migraine, unsp, not intractable, without status migrainosus Active Diagnosis [facility] Diagnosis: ICD-10-CM Z01.419 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) (routine) w/o abn findings Active Diagnosis [facility] Diagnosis: ICD-10-CM Z00.00 Encntr for general adult medical exam w/o abnormal findings Active Diagnosis [facility] Diagnosis: ICD-10-CM Z12.2 Encntr screen for malignant neoplasm of respiratory organs Active Diagnosis [facility] Diagnosis: ICD-10-CM M35.00 Sjogren syndrome, unspecified Active Diagnosis [facility] Medications Combined list of outpatient medications [...] (INHAL ATION) ACTIVE Sj MONTOYA R 2023 [facility] AMLODIPINE BESYLATE 2.5MG TAB TAKE ONE TABLET BY MOUTH ONCE A DAY ORAL ACTIVE Sj MONTOYA R 2024 [facility] CELECOXIB 100MG CAP TAKE 1 CAPSULE BY MOUTH ONCE A DAY ORAL ACTIVE Sj MONTOYA 2024 [facility] CETIRIZINE HCL 10MG TAB TAKE ONE TABLET BY MOUTH ONCE A DAY ORAL ACTIVE Sj MONTOYA R 2023 [facility] COENZYME Q10 CAP/TAB 1 CAP/TAB BY MOUTH ORAL ACTIVE Yumi RICHARDSON [address] [facility] ESOMEPRAZOL E MAGNESIUM 40MG CAP,EC TAKE 1 CAPSULE BY MOUTH EVERY DAY ORAL ACTIVE Yumi RICHARDSON [address] [facility] ESTROGENS,E STERIFIED 1.25MG/METH YLTESTOSTER ONE 2.5MG TAB TAKE ONE TABLET BY MOUTH EVERY DAY ORAL ACTIVE Yumi RICHARDSON [address] [facility] FLUOXETINE HCL 20MG CAP TAKE 1 CAPSULE BY MOUTH EVERY MORNING ORAL ACTIVE Sj MONTOYA R 2024 [facility] FLUTICASONE PROPIONATE 50MCG/SPRAY SOLN,NASAL, 16GM INSTILL 1 SPRAY IN NOSTRIL( S) ONCE A DAY NEEDED NASAL ACTIVE Sj MONTOYA R 2023 [facility] HYDROXYCHLO ROQUINE SO4 200MG TAB TAKE ONE TABLET BY MOUTH TWICE A DAY ORAL ACTIVE Sj MONTOYA R 2023 [facility] LORATADINE 10MG TAB TAKE ONE TABLET BY MOUTH EVERY DAY ORAL ACTIVE Yumi RICHARDSON IAKIRSTEN 2008 [facility] LOSARTAN 50MG TAB TAKE ONE-HALF TABLET BY MOUTH ONCE A DAY ORAL ACTIVE Sj MONTOYA R 2024 [facility] MONTELUKAST NA 10MG TAB TAKE ONE TABLET BY MOUTH EVERY EVENING ORAL ACTIVE Sj MONTOYA R 2023 [facility] OMEPRAZOLE 40MG CAP,EC TAKE 1 CAPSULE BY MOUTH EVERY MORNING BEFORE A MEAL ORAL ACTIVE Sj MONTOYA R 2023 [facility] POTASSIUM CHLORIDE 20MEQ TAB,SA (DISPERSIBL E) TAKE ONE-HALF TABLET BY MOUTH ONCE A DAY ORAL ACTIVE Sj MONTOYA R 2023 [facility] RANOLAZINE 500MG TAB,SA TAKE ONE TABLET BY MOUTH TWICE A DAY ORAL ACTIVE Sj MONTOYA R 2023 [facility] ROSUVASTATI N CA 40MG TAB TAKE ONE TABLET BY MOUTH EVERY EVENING ORAL ACTIVE Sj MONTOYA R 2023 [facility] SEMAGLUTIDE 2MG/0.75ML INJ,SOLN,PE N,3ML INJECT 2MG UNDER THE SKIN EVERY WEEK SUBCUT ANEOUS ACTIVE Sj MONTOYA R 2024 [facility] SIMVASTATIN 80MG TAB TAKE ONE-HALF TABLET BY MOUTH AT BEDTIME ORAL ACTIVE Yumi RICHARDSON IAKIRSTEN 2009 [facility] TOPIRAMATE (TOPAMAX) TAB TAKE 100MG BY MOUTH EVERY DAY ORAL ACTIVE Yumi RICHARDSON IAKIRSTEN [address] [facility] VALACYCLOVI R HCL 500MG TAB TAKE ONE TABLET BY MOUTH TWICE A DAY NEEDED ORAL ACTIVE Sj MONTOYA 2023 [facility] ZOLMITRIPTA N 2.5MG TAB,PACKAGE ,6 TAKE ONE-HALF TABLET BY MOUTH PRN ORAL ACTIVE Yumi RICHARDSON [address] [facility] ZOLMITRIPTA N 2.5MG TAB,PACKAGE ,6 TAKE FOUR TABLETS BY MOUTH ONE-TIME NEEDED ORAL ACTIVE Sj MONTOYA R 2023 [facility] Allergies, Adverse Reactions, Alerts Combined list of allergies from Department of [facility] and Veterans Affairs facilities. It does not include entries that were removed or entered in error. Substance Category Reaction Severity Reaction type Status Date Reported Comments Source DAIRY FOODS Propensity to adverse reactions to food (finding) Diarrhea, Nausea and vomiting MODERATE active 4 [facility] HYDROCODONE Propensity to adverse reactions to drug (finding) Hallucinati ons MODERATE active 4 [facility] MORPHINE Propensity to adverse reactions to drug (finding) Eruption, Urticaria active 1 [facility] MORPHINE Propensity to adverse reactions to drug (finding) active 4 [facility] OXYCODONE Propensity to adverse reactions to drug (finding) Hallucinati ons MODERATE active 4 [facility] PENICILLIN Propensity to adverse reactions to drug (finding) Eruption active 4 [facility] VENLAFAXINE Propensity to adverse reactions to drug (finding) Nausea, Dizziness active 6 [facility] Immunizations Combined list of available immunizations from the Department of [facility] and [facility] Affairs facilities. Immunization Series Date Given Administered By Site Reaction Lot Number CVX Code Drug Rn Transition Status Comments Source ZOSTER RECOMBINANT 2 2023 187 complet ed HISTORICA L INFORMATI ON - FROM OTHER [facility] ZOSTER RECOMBINANT 1 2023 187 complet ed HISTORICA L INFORMATI ON - FROM OTHER [facility], [facility] DIVISIO N PNEUMOCOCCAL CONJUGATE PCV20, POLYSACCHARID E [id number] CONJUGATE, ADJUVANT, PF 1 2022 216 complet ed HISTORICA L INFORMATI ON - FROM OTHER [facility] PNEUMOCOCCAL POLYSACCHARID E PPV23 2015 33 complet ed [place] [facility] INFLUENZA, SEASONAL, INJECTABLE, PRESERVATIVE FREE 2014 140 complet ed [place] [facility] TDAP 2014 115 complet ed Right Deltoid [facility] TETANUS-DIPHT -aPERT (HISTORICAL) 2011 115 complet ed [place] TDAP [address] [facility] FLU,3 YRS (HISTORICAL) [address] [facility] NOVEL INFLUENZA-H1N 1-09, ALL FORMULATIONS 2009 128 complet ed [facility] PNEUMOCOCCAL, UNSPECIFIED FORMULATION 2007 109 complet ed HISTORICA L INFORMATI ON - FROM OTHER REGISTRY, ADDY MELGAR [facility] TD(ADULT) UNSPECIFIED FORMULATION [address] [facility] Results Combined list of recent chemistry, hematology and other laboratory results from Department of Defense and Veterans Affairs, ranging from 15 months to all on record, depending upon the facility. Order Name Results Value Reference Range Date Interpretation Specimen Comments Source CBC LEUKOCYTES [#/VOLUME] IN BLOOD BY AUTOMATED COUNT 7.8 10*3/uL 3.6 - 11.2 11/27 Specimen Type: BLOOD No comment entered. Ordering Provider: DENZEL MONTOYA Report Released Date/Time: Nov 24, 2024 01:58 PM Reporting Lab: [facility] [address] [place] [address] Performing Lab: [facility] [address] [place] [address] [facility] CBC ERYTHROCYTE S [#/VOLUME] IN BLOOD BY AUTOMATED COUNT 4.51 10*6/uL 3.60 - 5.00 11/27 Specimen Type: BLOOD No comment entered. Ordering Provider: DENZEL MONTOYA Report Released Date/Time: Nov 24, 2024 01:58 PM Reporting Lab: [facility] [address] [place] [address] Performing Lab: [facility] [address] [place] [address] [facility] CBC HEMOGLOBIN [MASS/VOLUM E] IN BLOOD 13.3 g/dL 11.0 - 14.9 11/27 Specimen Type: BLOOD No comment entered. Ordering Provider: DENZEL MONTOYA Report Released Date/Time: Nov 24, 2024 01:58 PM Reporting Lab: [place] [facility] [address] [place] [address] Performing Lab: [place] [facility] [address] [place] [address] [place] [address] [facility] CBC HEMATOCRIT [VOLUME FRACTION] OF BLOOD 40.0 32.6 - 43.4 11/27 Specimen Type: BLOOD No comment entered. Ordering Provider: DENZEL MONTOYA Report Released Date/Time: Nov 24, 2024 01:58 PM Reporting Lab: [place] [facility] [address] [place] [address] Performing Lab: [place] [facility] [address] [place] [address] [facility] CBC MCV [ENTITIC VOLUME] BY AUTOMATED COUNT 88.7 fL 80.0 - 100.0 11/27 Specimen Type: BLOOD No comment entered. Ordering Provider: DENZEL MONTOYA R Report Released Date/Time: Nov 24, 2024 01:58 PM Reporting Lab: [place] [facility] [address] [place] [address] Performing Lab: [place] [facility] [address] [place] [id number] [facility] CBC MCH [ENTITIC MASS] BY AUTOMATED COUNT 29.5 pg 27.0 - 34.0 11/27 Specimen Type: BLOOD No comment entered. Ordering Provider: DENZEL MONTOYA R Report Released Date/Time: Nov 24, 2024 01:58 PM Reporting Lab: [place] [facility] [address] [place] [id number] Performing Lab: [place] [facility] [address] [place] [address] [facility] CBC MCHC [MASS/VOLUM E] BY AUTOMATED COUNT 33.3 g/dL 33.0 - 36.0 11/27 Specimen Type: BLOOD No comment entered. Ordering Provider: DENZEL MONTOYA R Report Released Date/Time: Nov 24, 2024 01:58 PM Reporting Lab: [place] [facility] [address] [place] [address] Performing Lab: [place] [facility] [address] [place] [address] [facility] CBC PLATELETS [#/VOLUME] IN BLOOD BY AUTOMATED COUNT 208 10*3/uL 150 - 400 11/27 Specimen Type: BLOOD No comment entered. Ordering Provider: DENZEL MONTOYA R Report Released Date/Time: Nov 24, 2024 01:58 PM Reporting Lab: [place] [facility] [address] [place] [address] Performing Lab: [place] [facility] [address] [place] [facility] [facility] CBC PLATELET MEAN VOLUME [ENTITIC VOLUME] IN BLOOD BY AUTOMATED COUNT 9.8 fL 7.5 - 11.2 11/27 Specimen Type: BLOOD No comment entered. Ordering Provider: DENZEL MONTOYA R Report Released Date/Time: Nov 24, 2024 01:58 PM Reporting Lab: [place] [facility] [address] [place] [address] Performing Lab: [place] [facility] [address] [place] [facility] [facility] CBC ERYTHROCYTE DISTRIBUTIO N WIDTH [RATIO] BY AUTOMATED COUNT 13.4 11.8 - 15.1 11/27 Specimen Type: BLOOD No comment entered. Ordering Provider: DENZEL MONTOYA R Report Released Date/Time: Nov 24, 2024 01:58 PM Reporting Lab: [place] [facility] [address] [place] [address] Performing Lab: [place] [facility] [address] [place] [address] [facility] CBC LYMPHOCYTES /100 LEUKOCYTES IN BLOOD BY AUTOMATED COUNT 24.5 11/27 Specimen Type: BLOOD No comment entered. Ordering Provider: DENZEL MONTOYA R Report Released Date/Time: Nov 24, 2024 01:58 PM Reporting Lab: [place] [facility] [address] [place] [address] Performing Lab: [place] [facility] [address] [place] [address] [facility] CBC MONOCYTES/1 00 LEUKOCYTES IN BLOOD BY AUTOMATED COUNT 8.3 11/27 Specimen Type: BLOOD No comment entered. Ordering Provider: DENZEL MONTOYA Report Released Date/Time: Nov 24, 2024 01:58 PM Reporting Lab: [place] [facility] [address] [place] [address] Performing Lab: [place] [facility] [address] [place] [address] [facility] CBC NEUTROPHILS /100 LEUKOCYTES IN BLOOD BY AUTOMATED COUNT 62.2 11/27 Specimen Type: BLOOD No comment entered. Ordering Provider: DENZEL MONTOYA Report Released Date/Time: Nov 24, 2024 01:58 PM Reporting Lab: [place] [facility] [address] [place] [address] Performing Lab: [place] [facility] [address] [place] [phone] [facility] CBC EOSINOPHILS /100 LEUKOCYTES IN BLOOD BY AUTOMATED COUNT 4.1 11/27 Specimen Type: BLOOD No comment entered. Ordering Provider: DENZEL MONTOYA Report Released Date/Time: Nov 24, 2024 01:58 PM Reporting Lab: [place] [facility] [address] [place] [address] Performing Lab: [place] [facility] [address] [place] [address] [facility] CBC BASOPHILS/1 00 LEUKOCYTES IN BLOOD BY AUTOMATED COUNT 0.6 11/27 Specimen Type: BLOOD No comment entered. Ordering Provider: DENZEL MONTOYA R Report Released Date/Time: Nov 24, 2024 01:58 PM Reporting Lab: [place] [facility] [address] [place] [address] Performing Lab: [place] [facility] [address] [place] [address] [facility] CBC LYMPHOCYTES [#/VOLUME] IN BLOOD BY AUTOMATED COUNT 1.91 10*3/uL 0.77 - 4.50 11/27 Specimen Type: BLOOD No comment entered. Ordering Provider: DENZEL MONTOYA Report Released Date/Time: Nov 24, 2024 01:58 PM Reporting Lab: [place] [facility] [address] [place] [address] Performing Lab: [place] [facility] [address] [place] [address] [facility] CBC MONOCYTES [#/VOLUME] IN BLOOD BY AUTOMATED COUNT 0.65 10*3/uL 0.19 - 0.8 11/27 Specimen Type: BLOOD No comment entered. Ordering Provider: DENZEL MONTOYA R Report Released Date/Time: Nov 24, 2024 01:58 PM Reporting Lab: [place] [facility] [address] [place] [address] Performing Lab: [place] [facility] [address] [place] [phone] [facility] CBC NEUTROPHILS [#/VOLUME] IN BLOOD BY AUTOMATED COUNT 4.85 10*3/uL 2.10 - 8.00 11/27 Specimen Type: BLOOD No comment entered. Ordering Provider: DENZEL MONTOYA R Report Released Date/Time: Nov 24, 2024 01:58 PM Reporting Lab: [place] [facility] [address] [place] [address] Performing Lab: [place] [facility] [address] [place] [address] [facility] CBC EOSINOPHILS [#/VOLUME] IN BLOOD BY AUTOMATED COUNT 0.32 10*3/uL 0.00 - 0.60 11/27 Specimen Type: BLOOD No comment entered. Ordering Provider: DENZEL MONTOYA R Report Released Date/Time: Nov 24, 2024 01:58 PM Reporting Lab: [place] [facility] [address] [place] [address] Performing Lab: [place] [facility] [address] [place] [address] [facility] CBC BASOPHILS [#/VOLUME] IN BLOOD BY AUTOMATED COUNT 0.05 10*3/uL 0.00 - 0.20 11/27 Specimen Type: BLOOD No comment entered. Ordering Provider: DENZEL MONTOYA Report Released Date/Time: Nov 24, 2024 01:58 PM Reporting Lab: [place] [facility] [address] [place] [address] Performing Lab: [place] [facility] [address] [place] [address] [place] [address] [facility]OC CBC IMMATURE GRANULOCYTE S/100 LEUKOCYTES IN BLOOD BY AUTOMATED COUNT 0.3 11/27 Specimen Type: BLOOD No comment entered. Ordering Provider: DENZEL MONTOYA Report Released Date/Time: Nov 24, 2024 01:58 PM Reporting Lab: [place] [facility] [address] [place] [phone] Performing Lab: [place] [facility] [address] [place] [address] [facility] CBC IMMATURE GRANULOCYTE S [#/VOLUME] IN BLOOD BY AUTOMATED COUNT 0.02 10*3/uL 0.00 - 0.05 11/27 Specimen Type: BLOOD No comment entered. Ordering Provider: DENZEL MONTOYA Report Released Date/Time: Nov 24, 2024 01:58 PM Reporting Lab: [place] [facility] [address] [place] [phone] Performing Lab: [place] [facility] [address] [place] [address] [facility] CHOLESTER OL PANEL (PB) CHOLESTEROL [MASS/VOLUM E] IN SERUM OR PLASMA 101 mg/dL 0 - 200 11/27 Specimen Type: PLASMA No comment entered. Ordering Provider: DENZEL MONTOYA R Report Released Date/Time: Nov 24, 2024 01:58 PM Reporting Lab: [place] [facility] [address] [place] [phone] Performing Lab: [place] [facility] [address] [place] [address] [facility] CHOLESTER OL PANEL (PB) TRIGLYCERID E [MASS/VOLUM E] IN SERUM OR PLASMA 44 mg/dL 0 - 150 11/27 Specimen Type: PLASMA No comment entered. Ordering Provider: MONTOYA,CAT HERINE R Report Released Date/Time: Nov 24, 2024 01:58 PM Reporting Lab: [place] [facility] [address] [place] [phone] Performing Lab: [place] [facility] [address] [place] [address] [facility] CHOLESTER OL PANEL (PB) CHOLESTEROL IN LDL [MASS/VOLUM E] IN SERUM OR PLASMA BY CALCULATION 41.2 mg/dL 11/27 Specimen Type: PLASMA No comment entered. Ordering Provider: DENZEL MONTOYA R Report Released Date/Time: Nov 24, 2024 01:58 PM Reporting Lab: [place] [facility] [address] [place] [address] [place] [address] Performing Lab: [place] [facility] [address] [place] [address] [facility] CHOLESTER OL PANEL (PB) CHOLESTEROL IN HDL [MASS/VOLUM E] IN SERUM OR PLASMA 51.0 mg/dL 40 11/27 H Specimen Type: PLASMA No comment entered. Ordering Provider: DENZEL MONTOYA Report Released Date/Time: Nov 24, 2024 01:58 PM Reporting Lab: [place] [facility] [address] [place] [address] Performing Lab: [place] [facility] [address] [place] [address] [facility] CHOLESTER OL PANEL (PB) CHOLESTEROL IN HDL/[place].TOTAL [MASS RATIO] IN SERUM OR PLASMA 50.5 25 11/27 Specimen Type: PLASMA No comment entered. Ordering Provider: DENZEL MONTOYA R Report Released Date/Time: Nov 24, 2024 01:58 PM Reporting Lab: [place] [facility] [address] [place] [address] Performing Lab: [place] [facility] [facility] [address] [place] [phone] [facility] COMPREHEN SIVE METABOLIC PANEL CREATININE [MASS/VOLUM E] IN SERUM OR PLASMA 0.56 mg/dL 0.6 - 1.1 11/27 L Specimen Type: PLASMA No comment entered. Ordering Provider: MONTOYA,CAT HERINE R Report Released Date/Time: Nov 24, 2024 01:58 PM Reporting Lab: [place] [facility] [address] [place] [address] Performing Lab: [place] [facility] [address] [place] [address] [facility] COMPREHEN SIVE METABOLIC PANEL UREA NITROGEN [MASS/VOLUM E] IN SERUM OR PLASMA 5 mg/dL 9 - 25 11/27 L Specimen Type: PLASMA No comment entered. Ordering Provider: DENZEL MONTOYA R Report Released Date/Time: Nov 24, 2024 01:58 PM Reporting Lab: [place] [facility] [address] [place] [address] Performing Lab: [place] [facility] [address] [place] [address] [facility] COMPREHEN SIVE METABOLIC PANEL GLUCOSE [MASS/VOLUM E] IN SERUM OR PLASMA 150 mg/dL 72 - 99 11/27 H Specimen Type: PLASMA No comment entered. Ordering Provider: DENZEL MONTOYA R Report Released Date/Time: Nov 24, 2024 01:58 PM Reporting Lab: [place] [facility] [address] [place] [address] Performing Lab: [place] [facility] [address] [place] [address] [facility] COMPREHEN SIVE METABOLIC PANEL SODIUM [MOLES/VOLU ME] IN SERUM OR PLASMA 139 meq/L 136 - 145 11/27 Specimen Type: PLASMA No comment entered. Ordering Provider: DENZEL MONTOYA R Report Released Date/Time: Nov 24, 2024 01:58 PM Reporting Lab: [place] [facility] [address] [place] [address] Performing Lab: [place] [facility] [address] [place] [address] [facility] COMPREHEN SIVE METABOLIC PANEL POTASSIUM [MOLES/VOLU ME] IN SERUM OR PLASMA 3.8 meq/L 3.5 - 5 11/27 Specimen Type: PLASMA No comment entered. Ordering Provider: DENZEL MONTOYA R Report Released Date/Time: Nov 24, 2024 01:58 PM Reporting Lab: [place] [facility] [address] [place] [address] Performing Lab: [place] [facility] [address] [place] [address] [facility] COMPREHEN SIVE METABOLIC PANEL CHLORIDE [MOLES/VOLU ME] IN SERUM OR PLASMA 103 meq/L 98 - 107 11/27 Specimen Type: PLASMA No comment entered. Ordering Provider: DENZEL MONTOYA R Report Released Date/Time: Nov 24, 2024 01:58 PM Reporting Lab: [place] [facility] [address] [place] [address] Performing Lab: [place] [facility] [address] [place] [address] [facility] COMPREHEN SIVE METABOLIC PANEL CARBON DIOXIDE, TOTAL [MOLES/VOLU ME] IN SERUM OR PLASMA 29 meq/L 22 - 31 11/27 Specimen Type: PLASMA No comment entered. Ordering Provider: DENZEL MONTOYA R Report Released Date/Time: Nov 24, 2024 01:58 PM Reporting Lab: [place] [facility] [address] [place] [address] Performing Lab: [place] [facility] [address] [place] [address] [facility] COMPREHEN SIVE METABOLIC PANEL CALCIUM [MASS/VOLUM E] IN SERUM OR PLASMA 8.7 mg/dL 8.4 - 10.4 11/27 Specimen Type: PLASMA No comment entered. Ordering Provider: DENZEL MONTOYA R Report Released Date/Time: Nov 24, 2024 01:58 PM Reporting Lab: [place] [facility] [address] [place] [address] Performing Lab: [place] [facility] [address] [place] [address] [facility] COMPREHEN SIVE METABOLIC PANEL PROTEIN [MASS/VOLUM E] IN SERUM OR PLASMA 6.6 g/dL 6 - 8.6 11/27 Specimen Type: PLASMA No comment entered. Ordering Provider: DENZEL MONTOYA R Report Released Date/Time: Nov 24, 2024 01:58 PM Reporting Lab: [place] [facility] [address] [place] [address] Performing Lab: [place] [facility] [address] [place] [address] [facility] COMPREHEN SIVE METABOLIC PANEL ALBUMIN [MASS/VOLUM E] IN SERUM OR PLASMA 4.0 g/dL 3.4 - 5 11/27 Specimen Type: PLASMA No comment entered. Ordering Provider: DENZEL MONTOYA R Report Released Date/Time: Nov 24, 2024 01:58 PM Reporting Lab: [place] [facility] [address] [place] [address] Performing Lab: [place] [facility] [address] [place] [address] [facility] COMPREHEN SIVE METABOLIC PANEL BILIRUBIN.T OTAL [MASS/VOLUM E] IN SERUM OR PLASMA 1.0 mg/dL 0.2 - 1.2 11/27 Specimen Type: PLASMA No comment entered. Ordering Provider: DENZEL MONTOYA R Report Released Date/Time: Nov 24, 2024 01:58 PM Reporting Lab: [place] [facility] [address] [place] [address] Performing Lab: [place] [facility] [address] [place] [address] [facility] COMPREHEN SIVE METABOLIC PANEL ALKALINE PHOSPHATASE [ENZYMATIC ACTIVITY/VO LUME] IN SERUM OR PLASMA 106 U/L 40 - 150 11/27 Specimen Type: PLASMA No comment entered. Ordering Provider: DENZEL MONTOYA R Report Released Date/Time: Nov 24, 2024 01:58 PM Reporting Lab: [place] [facility] [address] [place] [address] Performing Lab: [place] [facility] [address] [place] [address] [facility] COMPREHEN SIVE METABOLIC PANEL ASPARTATE AMINOTRANSF ERASE [ENZYMATIC ACTIVITY/VO LUME] IN SERUM OR PLASMA 71 U/L 5 - 34 11/27 H Specimen Type: PLASMA No comment entered. Ordering Provider: DENZEL MONTOYA R Report Released Date/Time: Nov 24, 2024 01:58 PM Reporting Lab: [place] [facility] [address] [place] [address] Performing Lab: [place] [facility] [address] [place] [address] [facility] COMPREHEN SIVE METABOLIC PANEL ALANINE AMINOTRANSF ERASE [ENZYMATIC ACTIVITY/VO LUME] IN SERUM OR PLASMA 77 U/L 8 - 40 11/27 H Specimen Type: PLASMA No comment entered. Ordering Provider: DENZEL MONTOYA Report Released Date/Time: Nov 24, 2024 01:58 PM Reporting Lab: [place] [facility] [address] [place] [address] Performing Lab: [place] [facility] [address] [place] [phone] [facility] COMPREHEN SIVE METABOLIC PANEL GLOMERULAR FILTRATION RATE/1.73 SQ M.PREDICTED [VOLUME RATE/AREA] IN SERUM, PLASMA OR BLOOD BY CREATININE- BASED FORMULA (CKD-EPI 2020) 107 11/27 Specimen Type: PLASMA No comment entered. Ordering Provider: DENZEL MONTOYA R Report Released Date/Time: Nov 24, 2024 01:58 PM Reporting Lab: [place] [facility] [address] [place] [address] Performing Lab: [place] [facility] [address] [place] [phone] [facility] HGA1C HEMOGLOBIN A1C/HEMOGLO BIN.TOTAL IN BLOOD 5.9 4.0 - 6.0 11/27 Specimen Type: BLOOD No comment entered. Ordering Provider: DENZEL MONTOYA R Report Released Date/Time: Nov 24, 2024 01:58 PM Reporting Lab: [place] [facility] [address] [place] [address] Performing Lab: [place] [facility] [address] [place] [address] [facility] TSH (MA-PB) THYROTROPIN [UNITS/VOLU ME] IN SERUM OR PLASMA 1.172 u[IU]/mL 0.47 - 5 11/27 Specimen Type: SERUM No comment entered. Ordering Provider: DENZEL MONTOYA R Report Released Date/Time: Nov 24, 2024 01:58 PM Reporting Lab: [place] [facility] [address] [place] [address] Performing Lab: [place] [facility] [address] [place] [address] [facility] URINALYSI S (STL-PB) COLOR OF URINE Yellow 11/27 Specimen Type: URINE No comment entered. Ordering Provider: DENZEL MONTOYA R Report Released Date/Time: Nov 24, 2024 01:58 PM Reporting Lab: [place] [facility] [address] [place] [address] Performing Lab: [place] [facility] [address] [place] [address] [facility] URINALYSI S (STL-PB) BILIRUBIN.T OTAL [PRESENCE] IN URINE BY TEST STRIP NEGATIVE mg/dL 11/27 Specimen Type: URINE No comment entered. Ordering Provider: DENZEL MONTOYA R Report Released Date/Time: Nov 24, 2024 01:58 PM Reporting Lab: [place] [facility] [address] [place] [address] Performing Lab: [place] [facility] [address] [place] [phone] [facility] URINALYSI S (STL-PB) PH OF URINE BY TEST STRIP 7.0 5.0 - 8.0 11/27 Specimen Type: URINE No comment entered. Ordering Provider: DENZEL MONTOYA R Report Released Date/Time: Nov 24, 2024 01:58 PM Reporting Lab: [place] [facility] [address] [place] [address] Performing Lab: [place] [facility] [address] [place] [address] [facility] URINALYSI S (STL-PB) LEUKOCYTES [#/AREA] IN URINE SEDIMENT BY MICROSCOPY HIGH POWER FIELD 7 /[HPF] 0 - 5 11/27 H Specimen Type: URINE No comment entered. Ordering Provider: DENZEL MONTOYA R Report Released Date/Time: Nov 24, 2024 01:58 PM Reporting Lab: [place] [facility] [address] [place] [address] Performing Lab: [place] [facility] [address] [place] [address] [facility] URINALYSI S (STL-PB) ERYTHROCYTE S [#/VOLUME] IN URINE SEDIMENT BY MICROSCOPY HIGH POWER FIELD 2 /[HPF] 0 - 5 11/27 Specimen Type: URINE No comment entered. Ordering Provider: DENZEL MONTOYA Report Released Date/Time: Nov 24, 2024 01:58 PM Reporting Lab: [place] [facility] [address] [place] [address] Performing Lab: [place] [facility] [address] [place] [address] [facility] URINALYSI S (STL-PB) APPEARANCE OF URINE TURBID 11/27 H Specimen Type: URINE No comment entered. Ordering Provider: DENZEL MONTOYA Report Released Date/Time: Nov 24, 2024 01:58 PM Reporting Lab: [place] [facility] [address] [place] [phone] Performing Lab: [place] [facility] [address] [place] [address] [facility] URINALYSI S (STL-PB) NITRITE [PRESENCE] IN URINE BY TEST STRIP NEGATIVE mg/dL 11/27 Specimen Type: URINE No comment entered. Ordering Provider: DENZEL MONTOYA Report Released Date/Time: Nov 24, 2024 01:58 PM Reporting Lab: [place] [facility] [address] [place] [phone] Performing Lab: [place] [facility] [address] [place] [address] [facility] URINALYSI S (STL-PB) EPITHELIAL CELLS [#/AREA] IN URINE SEDIMENT BY MICROSCOPY LOW POWER FIELD 13 /[HPF] 0 - 5 11/27 H Specimen Type: URINE No comment entered. Ordering Provider: DENZEL MONTOYA Report Released Date/Time: Nov 24, 2024 01:58 PM Reporting Lab: [place] [facility] [address] [place] [address] Performing Lab: [place] [facility] [address] [place] [address] [facility] URINALYSI S (STL-PB) MUCUS [PRESENCE] IN URINE SEDIMENT BY LIGHT MICROSCOPY RARE/[LP F] 11/27 Specimen Type: URINE No comment entered. Ordering Provider: DENZEL MONTOYA Report Released Date/Time: Nov 24, 2024 01:58 PM Reporting Lab: [place] [facility] [address] [place] [address] Performing Lab: [place] [facility] [address] [place] [phone] [facility] URINALYSI S (STL-PB) GLUCOSE [MASS/VOLUM E] IN URINE BY TEST STRIP NORMALmg /dL 11/27 Specimen Type: URINE No comment entered. Ordering Provider: DENZEL MONTOYA R Report Released Date/Time: Nov 24, 2024 01:58 PM Reporting Lab: [place] [facility] [address] [place] [address] Performing Lab: [place] [facility] [address] [place] [phone] [facility] URINALYSI S (STL-PB) PROTEIN [MASS/VOLUM E] IN URINE BY TEST STRIP NEGATIVE mg/dL 11/27 Specimen Type: URINE No comment entered. Ordering Provider: DENZEL MONTOYA Report Released Date/Time: Nov 24, 2024 01:58 PM Reporting Lab: [place] [facility] [address] [place] [address] Performing Lab: [place] [facility] [address] [place] [address] [facility] URINALYSI S (STL-PB) URN.UROBILI NOGEN 6.0 mg/dL 11/27 H Specimen Type: URINE No comment entered. Ordering Provider: DENZEL MONTOYA Report Released Date/Time: Nov 24, 2024 01:58 PM Reporting Lab: [place] [facility] [address] [place] [address] Performing Lab: [place] [facility] [address] [place] [address] [facility] URINALYSI S (STL-PB) HEMOGLOBIN [MASS/VOLUM E] IN URINE BY TEST STRIP NEGATIVE mg/dL 11/27 Specimen Type: URINE No comment entered. Ordering Provider: DENZEL MONTOYA Report Released Date/Time: Nov 24, 2024 01:58 PM Reporting Lab: [place] [facility] [address] [place] [address] Performing Lab: [place] [facility] [address] [place] [address] [facility] URINALYSI S (STL-PB) KETONES [MASS/VOLUM E] IN URINE BY TEST STRIP NEGATIVE mg/dL 11/27 Specimen Type: URINE No comment entered. Ordering Provider: DENZEL MONTOYA Report Released Date/Time: Nov 24, 2024 01:58 PM Reporting Lab: [place] [facility] [address] [place] [address] Performing Lab: [place] [facility] [address] [place] [address] [facility] URINALYSI S (STL-PB) URN.LEUK.ES T. 75 11/27 H Specimen Type: URINE No comment entered. Ordering Provider: DENZEL MONTOYA Report Released Date/Time: Nov 24, 2024 01:58 PM Reporting Lab: [place] [facility] [address] [place] [address] Performing Lab: [place] [facility] [address] [place] [address] [facility] URINALYSI S (STL-PB) SPECIFIC GRAVITY OF URINE 1.019 1.005 - 1.029 11/27 Specimen Type: URINE No comment entered. Ordering Provider: DENZEL MONTOYA R Report Released Date/Time: Nov 24, 2024 01:58 PM Reporting Lab: [place] [facility] [address] [place] [address] Performing Lab: [place] [facility] [address] [place] [address] [facility] VITAMIN D, 25-HYDROX Y 25-HYDROXYV ITAMIN D3 [MASS/VOLUM E] IN SERUM OR PLASMA 34.1 ng/mL 30 - 96 11/27 Specimen Type: SERUM No comment entered. Ordering Provider: DENZEL MONTOYA Report Released Date/Time: Nov 24, 2024 01:58 PM Reporting Lab: [place] [facility] [address] [place] [address] Performing Lab: [place] [facility] [address] [place] [address] [facility] URINE ALBUMIN PROFILE-i h (PB) ALBUMIN [MASS/VOLUM E] IN URINE 15.06 mg/L 0 - 30 11/27 Specimen Type: URINE No comment entered. Ordering Provider: DENZEL MONTOYA Report Released Date/Time: Nov 27, 2024 10:16 AM Reporting Lab: [place] [facility] [address] [place] [address] Performing Lab: [place] [facility] [address] [place] [address] [facility] URINE ALBUMIN PROFILE-i h (PB) ALBUMIN/CRE ATININE [MASS RATIO] IN URINE 9.89 ug/mg 11/27 Specimen Type: URINE No comment entered. Ordering Provider: DENZEL MONTOYA Report Released Date/Time: Nov 27, 2024 10:16 AM Reporting Lab: [place] [facility] [address] [place] [address] Performing Lab: [place] [facility] [address] [place] [address] [facility] URINE ALBUMIN PROFILE-i h (PB) CREATININE [MASS/VOLUM E] IN URINE 152.33 mg/dL 11/27 Specimen Type: URINE No comment entered. Ordering Provider: DENZEL MONTOYA Report Released Date/Time: Nov 27, 2024 10:16 AM Reporting Lab: [place] [facility] [address] [place] [address] Performing Lab: [place] [facility] [address] [place] [address] [facility] OCCULT BLOOD FIT X1 SCREEN (P ONLY) HEMOGLOBIN. GASTROINTES TINAL.LOWER [PRESENCE] IN STOOL BY IMMUNOASSAY INVALID 09/12 Specimen Type: FECES Comment: Test invalid. Collection date could not be determined. Sample integrity cannot be ensured. Please recollect specimen and resubmit for testing. Ordering Provider: DENZEL MONTOYA Report Released Date/Time: Aug 28, 2024 07:52 AM Reporting Lab: [place] [facility] [address] [place] [phone] Performing Lab: [place] [facility] [address] [place] [address] [facility] URINALYSI S (STL-PB) COLOR OF URINE Yellow 11/01 Specimen Type: URINE No comment entered. Ordering Provider: DENZEL MONTOYA Report Released Date/Time: Nov 01, 2023 11:45 AM Reporting Lab: [place] [facility] [address] [place] [phone] Performing Lab: [place] [facility] [address] [place] [address] [facility] URINALYSI S (STL-PB) BILIRUBIN.T OTAL [PRESENCE] IN URINE BY TEST STRIP NEGATIVE mg/dL 11/01 Specimen Type: URINE No comment entered. Ordering Provider: DENZEL MONTOYA Report Released Date/Time: Nov 01, 2023 11:45 AM Reporting Lab: [place] [facility] [address] [place] [phone] Performing Lab: [place] [facility] [address] [place] [address] [facility] URINALYSI S (STL-PB) PH OF URINE BY TEST STRIP 6.5 5.0 - 8.0 11/01 Specimen Type: URINE No comment entered. Ordering Provider: DENZEL MONTOYA Report Released Date/Time: Nov 01, 2023 11:45 AM Reporting Lab: [place] [facility] [address] [place] [address] Performing Lab: [place] [facility] [address] [place] [address] [place] [facility] URINALYSI S (STL-PB) LEUKOCYTES [#/AREA] IN URINE SEDIMENT BY MICROSCOPY HIGH POWER FIELD 11 /[HPF] 0 - 5 11/01 H Specimen Type: URINE No comment entered. Ordering Provider: DENZEL MONTOYA Report Released Date/Time: Nov 01, 2023 11:45 AM Reporting Lab: [place] [facility] [address] [place] [address] Performing Lab: [place] [facility] [address] [place] [address] [facility] URINALYSI S (STL-PB) ERYTHROCYTE S [#/VOLUME] IN URINE SEDIMENT BY MICROSCOPY HIGH POWER FIELD 1 /[HPF] 0 - 5 11/01 Specimen Type: URINE No comment entered. Ordering Provider: DENZEL MONTOYA R Report Released Date/Time: Nov 01, 2023 11:45 AM Reporting Lab: [place] [facility] [address] [place] [address] Performing Lab: [place] [facility] [address] [place] [address] [facility] URINALYSI S (STL-PB) APPEARANCE OF URINE TURBID 11/01 H Specimen Type: URINE No comment entered. Ordering Provider: DENZEL MONTOYA R Report Released Date/Time: Nov 01, 2023 11:45 AM Reporting Lab: [place] [facility] [address] [place] [address] Performing Lab: [place] [facility] [address] [place] [address] [facility] URINALYSI S (STL-PB) NITRITE [PRESENCE] IN URINE BY TEST STRIP NEGATIVE mg/dL 11/01 Specimen Type: URINE No comment entered. Ordering Provider: DENZEL MONTOYA R Report Released Date/Time: Nov 01, 2023 11:45 AM Reporting Lab: [place] [facility] [address] [place] [address] Performing Lab: [place] [facility] [address] [place] [address] [facility] URINALYSI S (STL-PB) EPITHELIAL CELLS [#/AREA] IN URINE SEDIMENT BY MICROSCOPY LOW POWER FIELD 18 /[HPF] 0 - 5 11/01 H Specimen Type: URINE No comment entered. Ordering Provider: DENZEL MONTOYA Report Released Date/Time: Nov 01, 2023 11:45 AM Reporting Lab: [place] [facility] [address] [place] [address] Performing Lab: [place] [facility] [address] [place] [address] [facility] URINALYSI S (STL-PB) MUCUS [PRESENCE] IN URINE SEDIMENT BY LIGHT MICROSCOPY OCCASION AL/[LPF] 11/01 H Specimen Type: URINE No comment entered. Ordering Provider: DENZEL MONTOYA Report Released Date/Time: Nov 01, 2023 11:45 AM Reporting Lab: [place] [facility] [address] [place] [id number] Performing Lab: [place] [facility] [address] [place] [id number] [facility] URINALYSI S (STL-PB) GLUCOSE [MASS/VOLUM E] IN URINE BY TEST STRIP NORMALmg /dL 11/01 Specimen Type: URINE No comment entered. Ordering Provider: DENZEL MONTOYA R Report Released Date/Time: Nov 01, 2023 11:45 AM Reporting Lab: [place] [facility] [address] [place] [address] Performing Lab: [place] [facility] [address] [place] [address] [facility] URINALYSI S (STL-PB) PROTEIN [MASS/VOLUM E] IN URINE BY TEST STRIP 30 mg/dL - 20 11/01 H Specimen Type: URINE No comment entered. Ordering Provider: DENZEL MONTOYA R Report Released Date/Time: Nov 01, 2023 11:45 AM Reporting Lab: [place] [facility] [address] [place] [address] Performing Lab: [place] [facility] [address] [place] [address] [facility] URINALYSI S (STL-PB) URN.UROBILI NOGEN NORMALmg /dL 11/01 Specimen Type: URINE No comment entered. Ordering Provider: DENZEL MONTOYA R Report Released Date/Time: Nov 01, 2023 11:45 AM Reporting Lab: [place] [facility] [address] [place] [address] Performing Lab: [place] [facility] [address] [place] [address] [facility] URINALYSI S (STL-PB) HEMOGLOBIN [MASS/VOLUM E] IN URINE BY TEST STRIP NEGATIVE mg/dL 11/01 Specimen Type: URINE No comment entered. Ordering Provider: DENZEL MONTOYA R Report Released Date/Time: Nov 01, 2023 11:45 AM Reporting Lab: [place] [facility] [address] [place] [address] Performing Lab: [place] [facility] [address] [place] [address] [facility] URINALYSI S (STL-PB) KETONES [MASS/VOLUM E] IN URINE BY TEST STRIP NEGATIVE mg/dL 11/01 Specimen Type: URINE No comment entered. Ordering Provider: DENZEL MONTOYA R Report Released Date/Time: Nov 01, 2023 11:45 AM Reporting Lab: [place] [facility] [address] [place] [address] Performing Lab: [place] [facility] [address] [place] [address] [facility] URINALYSI S (STL-PB) URN.LEUK.ES T. 250 11/01 H Specimen Type: URINE No comment entered. Ordering Provider: DENZEL MONTOYA R Report Released Date/Time: Nov 01, 2023 11:45 AM Reporting Lab: [place] [facility] [address] [place] [address] Performing Lab: [place] [facility] [address] [place] [address] [facility] URINALYSI S (STL-PB) SPECIFIC GRAVITY OF URINE 1.021 1.005 - 1.029 11/01 Specimen Type: URINE No comment entered. Ordering Provider: DENZEL MONTOYA Report Released Date/Time: Nov 01, 2023 11:45 AM Reporting Lab: [place] [facility] [address] [place] [address] Performing Lab: [place] [facility] [address] [place] [address] [facility] Vital Signs Combined list of inpatient and outpatient Vital Signs from Department of Defense and Veterans Affairs, ranging from 12 months to all on record, depending upon the facility. Vital Sign Value Date Comments Source WEIGHT 232 12/14/2024 14:05:[facility] BMI 54 kg/m2 12/14/2024 14:05:41 [facility] HEIGHT 55 12/14/2024 14:05:41 [facility] SYSTOLIC BLOOD PRESSURE 126 11/27/2024 10:03:15 [facility] DIASTOLIC BLOOD PRESSURE 77 11/27/2024 10:03:15 [facility] PULSE OXIMETRY 99 11/27/2024 10:03:15 [facility] WEIGHT 229 11/27/2024 10:03:15 [facility] BMI 38 kg/m2 11/27/2024 10:03:15 [facility] TEMPERATURE 98 11/27/2024 10:03:15 [facility] PULSE 61 11/27/2024 10:03:15 [facility] RESPIRATION 18 11/27/2024 10:03:15 [facility] Encounters Combined list of: 1) Encounters from Department of Veterans Affairs facilities going backup to the last 18 months, not all VA inpatient encounters are included; 2) Encounters from the Department of Defense facilities going backup to 280 months. Location Location Details Encounter Type Encounter Number Reason For Visit Attending Provider ADM Date DC Date Status Disposition Source [facility] OFF[facility]P NEW LOW 30 MIN [id number] Diagnos is: ICD-10- CM M35.00 Sjogren syndrom e, unspeci fied LINDSAY,RAFAEL THERINE R 11/01 [facility] Outpatient Encounter [id number] 11/07 [facility] Outpatient Encounter [id number] 12/05 [facility] [place] [facility] Outpatient Encounter [id number] 01/09 [place] [facility] Outpatient Encounter [id number] 03/28 [facility] HC PRO PHONE CALL 5-10 MIN [id number] Diagnos is: ICD-10- CM Z12.2 Encntr screen for maligna nt neoplas m of respira tory organs YOAST,JON AN E 08/16 [place] [facility] Outpatient Encounter [id number] 09/11 [facility] [facility] Outpatient Encounter [id number] 11/01 [place] [facility] Outpatient Encounter [id number] 11/07 [facility] Outpatient Encounter [id number] 11/07 [facility] Outpatient Encounter [id number] 11/07 [place] [facility] Outpatient Encounter [id number] RAFAEL MONTOYA R 11/27 [facility] Outpatient Encounter [id number] Diagnos is: ICD-10- CM Z00.00 Encntr for general adult medical exam w/o abnorma l finding s RAFAEL MONTOYA R 11/27 [facility] Outpatient Encounter [id number] 11[facility] Encounter [id number] 12/05 [facility] Outpatient Encounter [id number] HINA GONZALEZ 12/07 [facility] Outpatient Encounter [id number] 12/08 [facility] Outpatient Encounter [id number] 12/08 [place] 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 [id number] 12/20 [facility] Outpatient Encounter [id number] 12/21 [facility] Encounter [id number] 12/21 [facility] Outpatient Encounter [id number] 12/21 [facility] Outpatient Encounter [id number] TERI RBEWER 12/26 [facility] Encounter [id number] 12/26 [facility] Outpatient Encounter [id number] 12/27 [facility] Encounter [id number] 12/28 [facility] Outpatient Encounter [id number] 12/29 [facility] Encounter [id number] 12/30 [facility] Outpatient Encounter [id number] 01/01 [facility] Outpatient Encounter [id number] 01/02 [facility] Outpatient Encounter [id number] 01/08 [facility] Outpatient Encounter [id number] 01/17 [facility] Outpatient Encounter [id number] 01/30 [facility] Outpatient Encounter [id number] 02/02 [facility] Outpatient Encounter [id number] 02/15 [facility] Outpatient Encounter [id number] 02/22 [facility] NQHP OL DIG ASSMT&MGMT 11- [id number] Diagnos is: ICD-10- CM G43.909 Migrain e, unsp, not intract able, without status migrain SHANIQUE Tovar 02/23 [facility] Outpatient Encounter [id number] 03/01 [facility] PH1 ASSMT&MGMT NQHP 21-30 [id number] Diagnos is: ICD-10- CM G47.33 Obstruc tive sleep apnea (adult) (pediat clara) SUZANEN HO 03/02 TOMEKA BARAJAS [facility] Outpatient Encounter [id number] 03/12 [facility] Outpatient Encounter [id number] 03/23 [facility] Social History Combined list of available smoking, tobacco, and other social history from Department of Defense and Veterans Affairs facilities. Social History Type Response Date Comment Sour e Tobacco smoking status SDIS LA-TOBACCO NEVER USED CIGARETTES 11/27/2024 [facility] 11/27/2024 [facility] History of tobacco use LA-TOBACCO FORMER USER 11/01/2023 [facility] History of tobacco use LIFETIME NON-USER OF TOBACCO 11/03/2013 [facility] History of tobacco use QUIT TOBACCO >7 Y EARS AGO 11/28/2010 [facility] History of tobacco use QUIT TOBACCO >7 Y EARS AGO 12/03/2009 [facility] History of tobacco use QUIT TOBACCO >7 Y EARS AGO 12/07/2008 [facility] History of tobacco use QUIT TOBACCO >7 Y EARS AGO 12/13/2007 [facility] History of tobacco use QUIT TOBACCO >7 Y EARS AGO 12/14/2006 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 Plan of Care List of future care activities from Department of [facility] facilities. Additional future care activities may be listed in the Assessment and Plan section. Date/Time Care Activity Care Activity Detail Facili ty 04/02/2025 AMBULATORY - MEDICINE AMBULATORY - MEDICI NE [facility] Advance Directives List of completed, amended, or rescinded Advance Directives on record at Department of Veterans Affairs facilities. An actual copy of the Directive is not included. Date Advance Directive Provider Source 01/10/2024 ADVANCE DIRECTIVE JOB [facility] 12/22/2013 ADVANCE DIRECTIVE DISCUSSION [facility]
--- NOTE | 2025-03-27 14:58 | USR_ITS ---
PROCEDURE INFORMATION: Exam: US Duplex Right Lower Extremity Veins, Limited Exam date and time: 03/27/2025 3:09 PM Age: 54 years old Clinical indication: Swelling (edema) of limb; Lower extremity, right; Prior surgery; Surgery date: <1 month; Surgery type: Knee replacement; Additional info: Leg swelling TECHNIQUE: Imaging protocol: Real-time duplex ultrasound of the right extremity with 2-D marin scale, color Doppler flow and spectral waveform analysis including responses to compression and other maneuvers (when performed) with image documentation. Limited exam was focused on the right lower extremity veins. COMPARISON: CT knee RT LARISSA [id number] 02/26/2025 7:13 AM FINDINGS: Right deep veins: Unremarkable. The common femoral, femoral, proximal profunda femoral and popliteal veins are patent without thrombus. Normal color flow throughout. Normal compressibility and/or augmentation response. Superficial veins: Greater saphenous vein at the saphenofemoral junction is patent without thrombus. Soft tissues: Unremarkable. Other findings: Visualized calf veins are patent and compressible and demonstrate normal color flow. US/[place] [id number] IMPRESSION: No sonographic evidence for deep venous thrombosis within the right lower extremity.
--- OUTSIDE RECORDS SUMMARY | 2025-03-27 15:02 | XMS_ITS | Clinical Summary ---
Author Organization [facility] Address [address] [place] [address] Phone Care Team Providers Care Auto Repair Shop Manager Name Role Phone Angelito Jeter MD Primary Care Provider [phone] Allergies No known active allergies Medications Zonisamide [...] INFLUENZA VACCINE (#1) 2025 Insurance Care Teams Auto Repair Shop Manager Relationship Specialty Start Date End Date Angelito eJter MD [address] [phone] PCP - General Family Practice 09/19/19
--- OUTSIDE RECORDS SUMMARY | 2025-03-27 15:02 | XMS_ITS | Encounter Summary ---
Author Organization [facility] Address [address] [place] [address] Care Team Providers Care Security Infrastructure Engineer Name Role Phone Angelito eJter MD Primary Care Provider [phone] Encounter Details Date Type Department Care Team (Late st Contact Info) Description 08/21/2019 Ancillary Orders [facility] Pre-Registration [place] CALL TO MAKE APPOINTMENT ONLY [address] [place] [phone] Jacquelyn Conley, CHIEF COMPLIANCE OFFICER [address] [place], [place] [address] Cervical disc displacement; Displacement of lumbar disc [...] radiculopathy documented in this encounter Care Teams Security Infrastructure Engineer Relationship Specialty Start Date End Date Angelito Jeter MD [address] [phone] PCP - General Family Practice 09/19/19 documented as of this encounter
--- OUTSIDE RECORDS SUMMARY | 2025-03-27 15:02 | XMS_ITS | Encounter Summary ---
Author Organization [facility] Address [address] [place] [address] Care Team Providers Care Space Operations Officer Name Role Phone Angelito Jeter MD Primary Care Provider [phone] Encounter Details Date Type Department Care Team (Late st Contact Info) Description 06/27/2018 Ancillary Orders [facility] [address] [place] [address] [facility], External Provider [address] [place], [place] [address] Pain Social History Tobacco Use Types Packs/Day [...] to be scanned to PACS. External Provider [facility] MR ORDERABLES Final Resu lt documented in this encounter Visit Diagnoses Diagnosis Pain Generalized pain Pain Generalized pain documented in this encounter Care Teams Space Operations Officer Relationship Specialty Start Date End Date Angelito Jeter MD [address] [facility] [address] [place] [address] PCP - General Family Practice 09/19/19 documented as of this encounter
[2025-03-27 15:12] VITALS: BP 109/57; PULSE 76; RESP 18; TEMP 36.7; O2SAT 100
--- NOTE | 2025-03-27 15:18 | W.ED.EXTPRO ---
HPI - Extremity Problem General: Chief complaint: Extremity Injury, Lower Stated complaint: dr euceda sent, R leg pain, swelling Time Seen by Provider: 03/27/25 15:18 Source: patient Mode of arrival: wheelchair Limitations: no limitations History of Present Illness: Patient is a 54-year-old female presents to ED today at the request of Jordi Euceda PA-C at [facility] orthopedics. He was following up with patient regarding her total right knee arthroplasty that she had performed 2 weeks ago. He had reported some calf pain and swelling thus sent her to the emergency department for DVT rule out. Surgical incision is reportedly healing well. Patient is not having any chest pain or shortness of breath. MD Complaint: extremity pain, extremity swelling, joint swelling and joint pain Onset (ago): day(s) Pain Consistency: constant Location: right and lower extremity Radiation: none Relieving factors: nothing Exacerbating factors: nothing Associated symptoms: Reports no associated symptoms; Deny chest pain or fever(s) Context: recent surgery/procedure Related Data Home Medications ?Medication ?Instructions ?Recorded ?Confirmed promethazine 25 mg tablet 25 mg PO Q6H PRN migraine 09/29/21 03/27/25 valacyclovir 500 mg tablet 500 mg PO BID PRN breakout 06/12/22 03/27/25 diclofenac sodium 1 % topical gel 1 ea topical DAILY 01/14/23 03/27/25 (Voltaren Arthritis Pain) azelastine 137 mcg (0.1 %) nasal 2 spray intranasal BID 03/21/23 03/27/25 spray peg 400-propylene glycol (PF) 0.4 1 drp ophthalmic (eye) Q4H 03/21/23 03/27/25 %-0.3 % eye drops in a dropperette (Systane (PF)) cetirizine 10 mg tablet 10 mg PO BID 04/08/23 03/27/25 albuterol sulfate 90 mcg/actuation 2 puff inhalation Q6H PRN 10/11/23 03/27/25 aerosol inhaler Shortness Of Breath rosuvastatin 40 mg tablet 40 mg PO DAILY 08/17/24 03/27/25 One Touch Ultra Blue Test Strips 1 lancet as directed QID 03/08/25 03/27/25 memantine 10 mg tablet 10 mg PO BID 03/08/25 03/27/25 erenumab-aooe 140 mg/mL 140 mg SUBCUT ONCE 03/12/25 03/27/25 subcutaneous auto-injector (Aimovig Autoinjector) Previous Rx's ?Medication ?Instructions ?Recorded fluticasone propionate 50 1 spray intranasal BID #50 mL 06/27/21 mcg/actuation nasal spray,suspension (Flonase Allergy Relief) blood-glucose meter #1 ea 12/24/21 ranolazine 500 mg tablet,extended 500 mg PO BID #180 tabs 01/26/22 release,12 hr fluoxetine 20 mg capsule (Prozac) 20 mg PO DAILY #90 caps 01/27/22 potassium chloride 8 mEq 8 meq PO DAILY #90 tabs 02/26/22 tablet,extended release ivermectin 1 % topical cream 1 applic topical DAILY #45 grams 04/09/22 (Soolantra) Diabetic Shoes #1 ea 06/29/22 nitroglycerin 0.4 mg sublingual 0.4 mg sublingual Q5M PRN chest 01/14/23 tablet (Nitrostat) pains #30 tabs fluticasone 500 mcg-salmeterol 50 1 inh inhalation BID #60 ea 02/24/23 mcg/dose blistr powdr for inhalation (Advair Diskus) montelukast 10 mg tablet 10 mg PO DAILY #30 tabs 07/16/23 (Singulair) celecoxib 100 mg capsule (Celebrex) 100 mg PO DAILY #30 caps 07/23/23 Held on 03/13/25. Instructions: Resume on 03/27/25. hydroxychloroquine 200 mg tablet 200 mg PO BID #180 tabs 09/14/23 tiotropium bromide 1.25 2 puff inhalation DAILY #4 grams 09/30/23 mcg/actuation mist for inhalation (Spiriva Respimat) lancets 30 gauge (OneTouch #200 ea 02/01/24 UltraSoft 2 Lancet) zolmitriptan 5 mg tablet (Zomig) 5 mg PO Q2H PRN migraine headache 02/18/24 #10 tabs galcanezumab-gnlm 120 mg/mL 120 mg SUBCUT ONCE #1 mL 08/17/24 subcutaneous syringe (Emgality) amlodipine 2.5 mg tablet 5 mg (2 x 2.5 mg) PO DAILY HTN #90 09/19/24 tabs losartan 25 mg tablet 25 mg PO DAILY #30 tabs 10/30/24 semaglutide 0.25 mg or 0.5 mg (2 0.5 mg (0.736 mL) SUBCUT Q7D #3 mL 12/18/24 mg/3 mL) subcutaneous pen injector ondansetron 4 mg disintegrating 4 mg PO Q8H PRN nausea and 03/27/25 tablet vomiting 5 days #15 tabs tramadol 50 mg tablet 50 mg PO Q4H PRN pain 5 days #30 03/27/25 tabs Allergies Allergy/AdvReac Type Severity Reaction Status Date / Time morphine Allergy Intermediate Rash, hives Verified 03/27/25 09:35 Penicillins Allergy Intermediate ALGY-Rash Verified 03/27/25 09:35 codeine Allergy Mild Unknown Verified 03/27/25 09:35 venlafaxine Allergy Unknown Unknown Verified 03/27/25 09:35 Alpha-Gal Allergy ADR-Nausea Verified 03/27/25 09:35 (Qaaofrzrm-Vdlvs-7,3-Gala Egg Derived Allergy Unknown Verified 03/27/25 09:35 hydrocodone Allergy ADR-Vomitin Verified 03/27/25 09:35 g milk Allergy Unknown Verified 03/27/25 09:35 oxycodone AdvReac Vomiting, Verified 03/27/25 09:35 diarrhea, anxiety, itching cladospori Allergy Intermediate ALGY-Rash Uncoded 03/27/25 09:35 tusarium Allergy Intermediate ALGY-Rash Uncoded 03/27/25 09:35 Review of Systems Const: Denies: fever(s), chills, body aches, fatigue or malaise Card: Denies: chest pain Resp: Denies: dyspnea Musc: Reports: extremity pain, extremity swelling, joint pain and joint swelling; Denies: joint redness Neuro: Denies: numbness in extremities, weakness in extremities or sensory changes PFSH ED PFSH: Medical History Malignant neoplasm of endometrium of corpus uteri (09/06/07) 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 Lung volumes are not measured. There is no postbronchodilator study. Gas transfer is normal DLCO 96%. 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 She never needed chemotherapy or radiation. Migraines Since her early 20s, sees Jess, on monocloncal antiboidies Chronic liver failure History of fatty liver disease with fibrosis-elevated LFTs. She follows up with a engraving press operator in [place] at [facility]. Asthma COPD---> asthma was diagnosed in her 40s Type 2 diabetes mellitus Diagnosed in her 40s Mixed hyperlipidemia Diagnosed in the Benign essential HTN Diagnosed in 2018 Surgical History Status post total right knee replacement using cement (03/12/25) LARISSA angel, Dr Euceda History of colonoscopy 2018 internal hemorrhoids History of cardiac catheterization 2022, no significant blockages, performed after abnormal stress test Status post decompression of ulnar nerve at elbow 12/2023 left 01/2024 right History of esophagogastroduodenoscopy (EGD) with dilation in past, in 2019 had gastric polyps, nonbleeding varices, gastritis Hx of right knee surgery H/O foot surgery Reports having foot surgery at the age of 8 for removal of embedded plantar warts. History of back surgery November 13, 2020--had back surgery for stenosis and chronic back pain, fusion with laminectomy L4/5 Status post tubal ligation Tubal ligation performed at time of second in 2000. S/P section x 2----> 1997 and 2000 S/P total hysterectomy and bilateral salpingo-oophorectomy 08/23/2006---total abdominal hysterectomy with bilateral salpingo-oophorectomy, omentectomy, staging laparotomy and cosmetic panniculectomy done by Dr. Gonzalez in [place] for well-differentiated endometrial adenocarcinoma. -----> operative reports obtained reviewed and scanned into chart History of cholecystectomy laparoscopic procedure done in her 40s Family History Mother Diabetes CAD (coronary artery disease) Hyperlipidemia Hypertension Grandmother Diabetes maternal Family/Other Breast cancer Maternal aunt; diagnosed at age 64 History of kidney cancer maternal aunt Denies family history of Colon cancer Ovarian cancer Uterine cancer Thyroid disease Stroke Social History Smoking and tobacco/nicotine status: never used tobacco/nicotine Second hand smoke exposure: No Alcohol intake: never Substance/Drug Use: never Physical Exam Const: COMMON NORMALS: no acute distress, average body habitus, patient oriented x3, no limitations, healthy appearing, alert and well nourished Resp: COMMON NORMALS: normal respiratory effort and clear to auscultation bilaterally AUSCULTATION: clear to auscultation bilaterally Cardio: COMMON NORMALS: regular rate and regular rhythm RATE: regular rate RHYTHM: regular rhythm Extremity: COMMON NORMALS: capillary refill normal GENERAL: Yes normal exam except as noted RIGHT LOWER EXTREMITY: Yes knee joint and Yes lower leg OTHER: Patient's anterior right knee surgical incision appears clean and well-healing. There is no evidence for infection at this time. She has expected edema to the knee and lower leg. Some mild right calf pain probably gravitating edema. Extremity is neurovascularly intact. Neuro: COMMON NORMALS: patient oriented x3, moves all extremities, no focal motor deficits and no sensory deficits noted SENSORIUM/ORIENTATION: Yes alert Course Vital Signs: Vital signs: Vital Signs Temperature 98.0 F 03/27/25 15:12 Pulse Rate 76 03/27/25 15:12 Respiratory Rate 18 03/27/25 15:12 Blood Pressure 109/57 03/27/25 15:12 Pulse Oximetry 100 03/27/25 15:12 Oxygen Delivery Me thod Room Air 03/27/25 15:12 MDM - Extremity (Nontraumatic) Medical Decision Making US negative for DVT. Recommend continued follow-up through [facility] orthopedics as scheduled. XR interpretation done by ED provider, pending radiology final review (per Gio Najera tech-negative for DVT) Discharge Plan Discharge Patient Disposition: Home Clinical Impression: Right leg swelling Condition: Stable Prescriptions: No Action promethazine 25 mg tablet 25 mg PO Q6H PRN (Reason: migraine) fluticasone propionate [Flonase Allergy Relief] 50 mcg/actuation spray,suspension 1 spray intranasal BID Qty: 50 3RF Rx Instructions: administer into each nostril (DME) blood-glucose meter Misc See Rx Instructions .Route Qty: 1 0RF Rx Instructions: Check BS 4 times a day. albuterol sulfate 90 mcg/actuation HFA aerosol inhaler 2 puff inhalation Q6H PRN (Reason: Shortness Of Breath) (DME) lancets [OneTouch UltraSoft 2 Lancet] 30 gauge misc See Rx Instructions .Route Qty: 200 0RF Rx Instructions: As directed Patient preference rosuvastatin 40 mg tablet 40 mg PO DAILY Emgality Syringe 120 mg/mL syringe 120 mg SUBCUT ONCE Qty: 1 11RF Rx Instructions: take monthly, normally on the first tramadol 50 mg tablet 50 mg PO Q4H PRN (Reason: pain) 5 Days Qty: 30 0RF ondansetron 4 mg tablet,disintegrating 4 mg PO Q8H PRN (Reason: nausea and vomiting) 5 Days Qty: 15 0RF ivermectin [Soolantra] 1 % cream 1 applic topical DAILY Qty: 45 3RF Rx Instructions: Soolantra Apply to face daily. valacyclovir 500 mg tablet 500 mg PO BID PRN (Reason: breakout) (DME) Diabetic Shoes See Rx Instructions .Route .MEDSUPPLY Qty: 1 0RF Rx Instructions: As directed diclofenac sodium [Voltaren Arthritis Pain] 1 % gel 1 ea topical DAILY Rx Instructions: apply to single elbow, wrist or hand; for hand includes palm/fingers/back of hand nitroglycerin [Nitrostat] 0.4 mg tablet, sublingual 0.4 mg SUBLINGUAL Q5M PRN (Reason: chest pains) Qty: 30 5RF hydroxychloroquine 200 mg tablet 200 mg PO BID Qty: 180 1RF zolmitriptan [Zomig] 5 mg tablet 5 mg PO Q2H PRN (Reason: migraine headache) Qty: 10 5RF Rx Instructions: do not exceed 2 doses per 24 hrs amlodipine 2.5 mg tablet 5 mg PO DAILY Qty: 90 3RF ranolazine 500 mg tablet extended release 12 hr 500 mg PO BID Qty: 180 3RF fluoxetine [Prozac] 20 mg capsule 20 mg PO DAILY Qty: 90 3RF potassium chloride 8 mEq tablet extended release 8 meq PO DAILY Qty: 90 2RF fluticasone propion-salmeterol [Advair Diskus] 500-50 mcg/dose blister with device 1 inh inhalation BID Qty: 60 4RF montelukast [Singulair] 10 mg tablet 10 mg PO DAILY Qty: 30 6RF celecoxib [Celebrex] 100 mg capsule 100 mg PO DAILY Qty: 30 1RF Spiriva Respimat 1.25 mcg/actuation mist 2 puff inhalation DAILY Qty: 4 6RF losartan 25 mg tablet 25 mg PO DAILY Qty: 30 3RF semaglutide 0.25 mg or 0.5 mg (2 mg/3 mL) pen injector 0.5 mg SUBCUT Q7D Qty: 3 3RF memantine 10 mg tablet 10 mg PO BID Rx Instructions: TAKE ONE TABLET BY MOUTH TWICE DAILY One Touch Ultra Blue Test Strips 1 lancet as directed QID Rx Instructions: USE one strip TO test FOUR TIMES DAILY Aimovig Autoinjector 140 mg/mL auto-injector 140 mg SUBCUT ONCE Rx Instructions: hasn't taken this yet azelastine 137 mcg (0.1 %) aerosol,spray 2 spray INTRANASAL BID Systane (PF) 0.4-0.3 % Dropperette 1 drp OPHTHALMIC (EYE) Q4H cetirizine 10 mg tablet 10 mg PO BID Discharge Orders: Discharge ED (Routine); Ordered 03/27/25 Ordered By: Renate Bauman Referrals: Kelly Duff FNP [Primary Care Provider, Nurse Practitioner] Patient Instructions: Patient Portal & [facility] Instructions Activity Restrictions/Additional Instructions: Ultrasound here was negative for DVT. Plan on following up with [facility] orthopedics as scheduled for further care and treatment postop of your knee replacement. Print Language: Kinyarwanda Coding Level of Care Code ED Attendance Officer for Catalina Sorto
== END 2025-03-27 16:16 | disposition home or self-care (01) ==
PROVIDERS: Emergency Provider Physician Assistant; PCP Nurse Practitioner
DX: R60.0 Localized edema (principal); E78.2 Mixed hyperlipidemia; E11.9 Type 2 diabetes mellitus without complications; I10 Essential (primary) hypertension; Z85.89 Personal history of malignant neoplasm of other organs and systems; Z96.651 Presence of right artificial knee joint
CPT/HCPCS: 93971; 99024; 99284

== ENCOUNTER → 2025-04-09 10:09 | Outpatient (BNVA) | payer OTHER, SELFPAY | PROVIDERS: PCP Nurse Practitioner; Visit Provider Internal Medicine Cardiovascular Disease | DX: R00.2 Palpitations (principal); I10 Essential (primary) hypertension; E78.2 Mixed hyperlipidemia; G47.33 Obstructive sleep apnea (adult) (pediatric); I36.1 Nonrheumatic tricuspid (valve) insufficiency | CPT/HCPCS: 99214 ==

== ENCOUNTER → 2025-04-30 08:27 | Outpatient (BNVA) | payer OTHER, SELFPAY | PROVIDERS: PCP Nurse Practitioner; Visit Provider Nurse Practitioner Family | DX: L21.8 Other seborrheic dermatitis (principal); L30.4 Erythema intertrigo; L82.1 Other seborrheic keratosis; D22.5 Melanocytic nevi of trunk; L81.4 Other melanin hyperpigmentation; L57.8 Other skin changes due to chronic exposure to nonionizing radiation; L91.8 Other hypertrophic disorders of the skin; R20.8 Other disturbances of skin sensation; Z78.9 Other specified health status; L29.89 Other pruritus; L57.0 Actinic keratosis | CPT/HCPCS: 17000; 17110; 99214 ==

== ENCOUNTER → 2025-05-08 14:47 | Outpatient (BNVA) | payer OTHER, SELFPAY | PROVIDERS: PCP Nurse Practitioner; Visit Provider Physician Assistant | DX: Z98.890 Other specified postprocedural states (principal); Z96.651 Presence of right artificial knee joint | CPT/HCPCS: 73560; 73565; 99024 ==

== ENCOUNTER → 2025-05-21 08:58 | Outpatient (BNVA) | payer OTHER, SELFPAY | PROVIDERS: PCP Nurse Practitioner; Visit Provider Anesthesiology Pain Medicine | DX: M54.2 Cervicalgia (principal); M48.062 Spinal stenosis, lumbar region with neurogenic claudication; M47.816 Spondylosis without myelopathy or radiculopathy, lumbar region | CPT/HCPCS: 99214 ==

== ENCOUNTER → 2025-05-30 09:02 | Outpatient (BNVA) | payer OTHER, SELFPAY | PROVIDERS: PCP Nurse Practitioner; Visit Provider Anesthesiology Pain Medicine | DX: M79.18 Myalgia, other site (principal); M54.2 Cervicalgia; M48.062 Spinal stenosis, lumbar region with neurogenic claudication; M47.816 Spondylosis without myelopathy or radiculopathy, lumbar region | CPT/HCPCS: 20553; 99214; J1010; J3490 ==

== ENCOUNTER 2025-06-06 06:30 | Outpatient (RCR) | payer OTHER, SELFPAY | END 2025-07-06 23:59 | disposition home or self-care (01) | LOC: SPT 06:30 | PROVIDERS: Visit Provider Student in an Organized Health Care Education/Training Program | DX: Z47.1 Aftercare following joint replacement surgery (principal); Z96.651 Presence of right artificial knee joint | CPT/HCPCS: 97110; 97161 ==

== ENCOUNTER → 2025-06-19 14:31 | Outpatient (BNVA) | payer OTHER, SELFPAY | PROVIDERS: PCP Nurse Practitioner; Visit Provider Student in an Organized Health Care Education/Training Program | DX: Z96.651 Presence of right artificial knee joint (principal) | CPT/HCPCS: 73560; 73565; 99213 ==

== ENCOUNTER 2025-07-07 05:00 | Outpatient (RCR) | payer OTHER, SELFPAY | END 2025-08-05 23:59 | disposition home or self-care (01) | LOC: SPT 05:00 | PROVIDERS: PCP Nurse Practitioner; Visit Provider Student in an Organized Health Care Education/Training Program | DX: Z47.1 Aftercare following joint replacement surgery (principal); Z96.651 Presence of right artificial knee joint | CPT/HCPCS: 97110 ==

== ENCOUNTER → 2025-08-07 08:38 | Outpatient (BNVA) | payer OTHER, SELFPAY | PROVIDERS: PCP Nurse Practitioner; Visit Provider Nurse Practitioner Family | DX: L81.4 Other melanin hyperpigmentation (principal); L57.8 Other skin changes due to chronic exposure to nonionizing radiation; L57.0 Actinic keratosis | CPT/HCPCS: 17000; 99213 ==